=== PATIENT | male | born 1935 | race Caucasian/White ===

== ENCOUNTER 2016-12-15 19:51 | Emergency (ER) | payer MEDICARE, BC ==
--- NOTE | 2016-12-15 20:19 | EDM.PDOC ---
ED HPI GENERAL MEDICAL PROBLEM - General Chief Complaint: General Stated Complaint: LOW BLOOD SUGAR/SHAKING Time Seen by Provider: 12/15/16 20:18 Source of Information: Reports: Patient - History of Present Illness INITIAL COMMENTS - FREE TEXT/NARRATIVE: HISTORY AND PHYSICAL: History of present illness: []Patient with home oxygen dependent COPD presents stating he was "shaky" after dinner he feels he may have taken too much insulin, he does have a resting tremor due to Parkinson's disease denies any other symptomology such as fever nausea vomiting diarrhea constipation chest pain shortness breath headache dizziness or palpitation Despite being on oxygen-dependent patient presents without home oxygen hence his O2 sat was 70 on arrival Review of systems: As per history of present illness and below otherwise all systems reviewed and negative. Past medical history: As per history of present illness and as reviewed below otherwise noncontributory. Surgical history: As per history of present illness and as reviewed below otherwise noncontributory. Social history: No reported history of drug or alcohol abuse. Family history: As per history of present illness and as reviewed below otherwise noncontributory. Physical exam: HEENT: Atraumatic, normocephalic, pupils reactive, negative for conjunctival pallor or scleral icterus, mucous membranes moist, throat clear, neck supple, nontender, trachea midline. Lungs: Clear to auscultation, breath sounds equal bilaterally, chest nontender. Heart: S1S2, regular, negative for clicks, rubs, or JVD. Abdomen: Soft, nondistended, nontender. Negative for masses or hepatosplenomegaly. Negative for costovertebral tenderness. Pelvis: Stable nontender. Genitourinary: Deferred. Rectal: Deferred. Extremities: Atraumatic, negative for cords or calf pain. Neurovascular unremarkable. Neuro: Awake, alert, oriented. Cranial nerves II through XII unremarkable. Cerebellum unremarkable. Motor and sensory unremarkable throughout. Exam nonfocal.Diagnostics: []Chest 1 view EKG Lab as below Therapeutics: []DuoNeb Solu-Medrol 125 mg IV Patient elected to leave AGAINST MEDICAL ADVICE for unknown reason without receiving above treatment or learning any testing results, his family was present at bedside and are aware of the decision and they will be taking him home, patient can certainly return when symptoms persist or worsen Impression: Lower extremities wrapped in [place], this was removed and replaced with [place] wrap Hypoxia secondary to O2 noncompliance Obesity CHF []History of Parkinson's disease with resting tremor Chronic history of baseline Definitive disposition and diagnosis as appropriate pending reevaluation and review of above. no pain Pain Score (Numeric/FACES): 0 - Related Data Allergies Allergy/AdvReac Type Severity Reaction Status Date / Time No Known Allergies Allergy Verified 12/15/16 20:01 Home Meds: Home Meds Aspirin 1 tab PO DAILY 01/21/14 [History] Losartan [Cozaar] 1 tab PO DAILY 01/21/14 [History] Rosuvastatin [Crestor] 1 tab PO DAILY 04/14/14 [History] Furosemide 1 tab PO BID 11/18/15 [History] Insulin Aspart Protam & Aspart [Novolog Mix 70-30 Flexpen Syrn] 100 unit SQ ASDIRECTED 05/23/16 [History] Nystatin [Nystatin Crm] 30 gm TOP BID 05/23/16 [History] Past Medical History HEENT History: Reports: Cataract, Impaired Vision Cardiovascular History: Reports: High Cholesterol, Hypertension, [place], Stents Other Cardiovascular History: Pedal edema Respiratory History: Reports: SOB, Other (See Below) Other Respiratory History: low oxygen Gastrointestinal History: Reports: None Genitourinary History: Reports: None Other Genitourinary History: UTI Musculoskeletal History: Reports: Back Pain, Chronic Neurological History: Reports: None Psychiatric History: Reports: None Endocrine/Metabolic History: Reports: Diabetes, Type II Hematologic History: Reports: None Immunologic History: Reports: None Oncologic (Cancer) History: Reports: None Dermatologic History: Reports: None - Infectious Disease History Infectious Disease History: Reports: Shingles - Past Surgical History Head Surgeries/Procedures: Reports: None HEENT Surgical History: Reports: Eye Surgery Social & Family History - Family History Family Medical History: Noncontributory Dermatologic: Reports: Other (See Below) Other Dermatologic Family History: cellulitis - Tobacco Use Smoking Status *Q: Never Smoker Second Hand Smoke Exposure: No - Caffeine Use Caffeine Use: Reports: Coffee Caffeine Use Comment: 2cups/day - Alcohol Use Days Per Week of Alcohol Use: 0 - Recreational Drug Use Recreational Drug Use: No ED ROS GENERAL - Review of Systems Review Of Systems: ROS reveals no pertinent complaints other than HPI. ED EXAM, GENERAL - Physical Exam Exam: See Below Course - Vital Signs Last Recorded V/S: Last Vital Signs Temp 36.8 C 12/15/16 20:03 Pulse 114 H 12/15/16 20:26 Resp 44 H 12/15/16 20:26 BP 139/73 12/15/16 20:26 Pulse Ox 87 L 12/15/16 20:26 - Orders/Labs/Meds Orders: Active Orders 24 hr Category Date Time Status EKG 12 Lead [EKG Documentation Completion] [RC] STAT Care 12/15/16 19:58 Active RT Aerosol Therapy [RC] ASDIRECTED Care 12/15/16 20:56 Active Chest 1V Frontal [CR] Stat Exams 12/15/16 20:14 Taken UA W/MICROSCOPIC [URIN] Stat Lab 12/15/16 20:14 Uncollected Blood Culture x2 Reflex Set [OM.PC] Stat Oth 12/15/16 20:56 Ordered Labs: Laboratory Tests 12/15/16 12/15/16 12/15/16 Range/Units 20:10 20:10 20:10 WBC 6.19 (4.0-11.0) K/uL RBC 5.00 (4.50-5.90) M/uL Hgb 14.8 (13.0-17.0) g/dL Hct 48.3 (38.0-50.0) % MCV 96.6 (80.0-98.0) fL MCH 29.6 (27.0-32.0) pg MCHC 30.6 L (31.0-37.0) g/dL RDW Std Deviation 56.6 (28.0-62.0) fl RDW Coeff of [place] 16 H (11.0-15.0) % Plt Count 197 (150-400) K/uL MPV 10.80 (7.40-12.00) fL Neut % (Auto) 89.7 H (48.0-80.0) % Lymph % (Auto) 7.4 L (16.0-40.0) % [place] % (Auto) 1.8 (0.0-15.0) % Eos % (Auto) 0.6 (0.0-7.0) % Baso % (Auto) 0.5 (0.0-1.5) % Neut # (Auto) 5.6 (1.4-5.7) K/uL Lymph # (Auto) 0.5 L (0.6-2.4) K/uL [place] # (Auto) 0.1 (0.0-0.8) K/uL Eos # (Auto) 0.0 (0.0-0.7) K/uL Baso # (Auto) 0.0 (0.0-0.1) K/uL Nucleated RBC % 0.0 /100WBC Nucleated RBCs # 0 K/uL Sodium 139 (136-146) mmol/L Potassium 4.5 (3.5-5.1) mmol/L Chloride 95 L (98-110) mmol/L Carbon Dioxide 36 H (21-31) mmol/L BUN 20 (6.0-23.0) mg/dL Creatinine 1.2 (0.6-1.5) mg/dL Est Cr Clr Drug Dosing 53.16 mL/min Estimated GFR (MDRD) 58.4 ml/min Glucose 134 H (60-110) mg/dL Calcium 9.2 (8.8-10.8) mg/dL Total Bilirubin 0.9 (0.1-1.5) mg/dL AST 41 H (5-40) IU/L ALT 14 (8-54) IU/L Alkaline Phosphatase 118 (40-150) Troponin I < 0.10 (0.0-0.29) NG/ML B-Natriuretic Peptide (<100) PG/ML Total Protein 8.7 H (6.0-8.0) g/dL Albumin 3.2 L (3.4-4.8) g/dL Globulin 5.5 H (2.0-3.5) g/dL Albumin/Globulin Ratio 0.6 L (1.3-2.8) 12/15/16 Range/Units 20:31 WBC (4.0-11.0) K/uL RBC (4.50-5.90) M/uL Hgb (13.0-17.0) g/dL Hct (38.0-50.0) % MCV (80.0-98.0) fL MCH (27.0-32.0) pg MCHC (31.0-37.0) g/dL RDW Std Deviation (28.0-62.0) fl RDW Coeff of [place] (11.0-15.0) % Plt Count (150-400) K/uL MPV (7.40-12.00) fL Neut % (Auto) (48.0-80.0) % Lymph % (Auto) (16.0-40.0) % [place] % (Auto) (0.0-15.0) % Eos % (Auto) (0.0-7.0) % Baso % (Auto) (0.0-1.5) % Neut # (Auto) (1.4-5.7) K/uL Lymph # (Auto) (0.6-2.4) K/uL [place] # (Auto) (0.0-0.8) K/uL Eos # (Auto) (0.0-0.7) K/uL Baso # (Auto) (0.0-0.1) K/uL Nucleated RBC % /100WBC Nucleated RBCs # K/uL Sodium (136-146) mmol/L Potassium (3.5-5.1) mmol/L Chloride (98-110) mmol/L Carbon Dioxide (21-31) mmol/L BUN (6.0-23.0) mg/dL Creatinine (0.6-1.5) mg/dL Est Cr Clr Drug Dosing mL/min Estimated GFR (MDRD) ml/min Glucose (60-110) mg/dL Calcium (8.8-10.8) mg/dL Total Bilirubin (0.1-1.5) mg/dL AST (5-40) IU/L ALT (8-54) IU/L Alkaline Phosphatase (40-150) Troponin I (0.0-0.29) NG/ML B-Natriuretic Peptide 141 H (<100) PG/ML Total Protein (6.0-8.0) g/dL Albumin (3.4-4.8) g/dL Globulin (2.0-3.5) g/dL Albumin/Globulin Ratio (1.3-2.8) Meds: Medications Discontinued Medications Generic Name Dose Route Start Last Admin Trade Name Freq PRN Reason Stop Dose Admin Albuterol/Ipratropium 3 ml 12/15/16 20:55 Duoneb 3.0-0.5 Mg/3 Ml NEB 12/15/16 20:56 ONETIME ONE Methylprednisolone Sodium Succinate 125 mg 12/15/16 20:55 Solu-Medrol IVPUSH 12/15/16 20:56 ONETIME ONE Departure - Departure Time of Disposition: 21:10 Disposition: Against Medical Advice 07 Condition: Poor Clinical Impression: Hypoxia, CHF (congestive heart failure) - Discharge Information Referrals: Adis Mendoza MD [Primary Care Provider] - Forms: ED Department Discharge - My Orders Last 24 Hours: My Active Orders 12/15/16 19:58 EKG 12 Lead [EKG Documentation Completion] [RC] STAT 12/15/16 20:14 Chest 1V Frontal [CR] Stat UA W/MICROSCOPIC [URIN] Stat 12/15/16 20:56 RT Aerosol Therapy [RC] ASDIRECTED Blood Culture x2 Reflex Set [OM.PC] Stat - Assessment/Plan Last 24 Hours: My Active Orders 12/15/16 19:58 EKG 12 Lead [EKG Documentation Completion] [RC] STAT 12/15/16 20:14 Chest 1V Frontal [CR] Stat UA W/MICROSCOPIC [URIN] Stat 12/15/16 20:56 RT Aerosol Therapy [RC] ASDIRECTED Blood Culture x2 Reflex Set [OM.PC] Stat
[2016-12-15 20:28] VITALS: BP 139/73
[2016-12-15] MEDS ORDERED: Albuterol/Ipratropium 3.0-0.5 MG/3 ML Neb Soln NEB ONE (20:55)
[2016-12-15] MEDS ORDERED: methylPREDNISolone Sodium Succinate 125 MG/2 ML SDV IVPUSH ONE (20:55)
--- NOTE | 2016-12-16 10:50 | CR ---
EXAM DATE: 12/15/16 PATIENT'S AGE: 81 Patient: MORGAN BIRD Facility: [place], [place] Site . Site : [id number] Study: XRay Chest [id number]/11/2017 8:45:39 PM Ordering Physician: Hector Melvin Final Report: HISTORY: Weakness. FINDINGS: AP chest radiograph is compared with 27 August 2013. There is increasing cardiomegaly. Pulmonary vasculature is plump and ill-defined. There is hazy increased density in the left lower lung field. Calcified pleural plaques in the right lateral thorax. No definite pleural effusion is seen. IMPRESSION: 1. New cardiomegaly with plump ill-defined pulmonary vasculature suggesting pulmonary venous congestion. 2. Increased density in the left base. This may reflect left lower lobe infiltrate or pulmonary edema. 3. No definite pleural effusion is seen. Dictated by Maria Guadalupe Medeiros MD @ 12/15/2016 8:51:28 PM Dictated by: Maria Guadalupe Medeiros MD @ 12/15/2016 20:51:38 (Electronic Signature) Report Signed by Proxy. [facility]ENTER[facility]any
== END 2016-12-15 21:01 | disposition left against medical advice (07) ==
LOC: MW.ED 19:51
DX: R09.02 Hypoxemia (principal); I50.9 Heart failure, unspecified; J44.9 Chronic obstructive pulmonary disease, unspecified; E78.00 Pure hypercholesterolemia, unspecified; I10 Essential (primary) hypertension; I25.10 Atherosclerotic heart disease of native coronary artery without angina pectoris; G20 Parkinson's disease; Z99.81 Dependence on supplemental oxygen; I25.2 Old myocardial infarction; Z79.899 Other long term (current) drug therapy; Z79.4 Long term (current) use of insulin; Z95.5 Presence of coronary angioplasty implant and graft
CPT/HCPCS: 36415; 71010; 71010-26; 80053; 83880; 84484; 85025; 93005; 99283; 99285-25

== ENCOUNTER 2017-01-29 08:50 | Inpatient (IN) | payer MEDICARE, BC ==
[2017-01-29] MEDS ORDERED: methylPREDNISolone Sodium Succinate 125 MG/2 ML SDV IVPUSH ONE (09:01)
[2017-01-29] MEDS ORDERED: Albuterol/Ipratropium 3.0-0.5 MG/3 ML Neb Soln NEB ONE (09:01)
[2017-01-29] MEDS ORDERED: Aspirin 325 MG Tab PO ONE (09:42)
[2017-01-29 09:43] LABS: CHLORIDE,CL 91 mmol/L (98-110); SODIUM,NA 133 mmol/L (136-146)
--- NOTE | 2017-01-29 09:45 | EDM.PDOC ---
ED HPI GENERAL MEDICAL PROBLEM - General Chief Complaint: Respiratory Problem Stated Complaint: weakness Time Seen by Provider: 01/29/17 08:53 - History of Present Illness INITIAL COMMENTS - FREE TEXT/NARRATIVE: HISTORY AND PHYSICAL: History of present illness: 82-year-old male with a known history of COPD, CHF, dementia presenting with a chief complaint of weakness via EMS. Patient is a poor historian. Via EMS handoff, patient is in the middle of disposition to [facility] placement. However was not able to secondary to weakness and a possible fall as well this morning. As per the patient, he tells me that he did have a fall this morning he 's had a few falls the past few days. Denies any chest pain, shortness of breath beyond baseline, or any nausea or vomiting. Review of systems: As per history of present illness and below otherwise all systems reviewed and negative. Past medical history: As per history of present illness and as reviewed below otherwise noncontributory. Surgical history: As per history of present illness and as reviewed below otherwise noncontributory. Social history: No reported history of drug or alcohol abuse. Family history: As per history of present illness and as reviewed below otherwise noncontributory. Physical exam: HEENT: Atraumatic, normocephalic, pupils reactive, negative for conjunctival pallor or scleral icterus, mucous membranes moist, throat clear, neck supple, nontender, trachea midline. Lungs: Clear to auscultation, breath sounds equal bilaterally, chest nontender. Heart: S1S2, regular, negative for clicks, rubs, or JVD. Abdomen: Soft, nondistended, nontender. Negative for masses or hepatosplenomegaly. Negative for costovertebral tenderness. Pelvis: Stable nontender. Genitourinary: Deferred. Rectal: Deferred. Extremities: Atraumatic, negative for cords or calf pain. Neurovascular unremarkable. Neuro: Awake, alert, oriented. Cranial nerves II through XII unremarkable. Cerebellum unremarkable. Motor and sensory unremarkable throughout. Exam nonfocal. Diagnostics: CBC CMP troponin EKG chest x-ray BNP Therapeutics: 325 mg aspirin 125 mg IV Solu-Medrol DuoNeb 1 Impression: CHF exacerbation Elevated troponin History of COPD History of CHF Plan: Admit as an inpatient. Discussed case with resident physician who agrees to admit the patient for observation on telemetry. Bilateral Leg Pain Score (Numeric/FACES): 8 - Related Data Allergies Allergy/AdvReac Type Severity Reaction Status Date / Time No Known Allergies Allergy Verified 01/29/17 09:11 Home Meds: Home Meds Aspirin 325 mg PO DAILY 01/21/14 [History] Losartan [Cozaar] 25 mg PO DAILY 01/21/14 [History] Rosuvastatin [Crestor] 20 mg PO DAILY 04/14/14 [History] Furosemide 80 mg PO DAILY 11/18/15 [History] Insulin Aspart Protam & Aspart [Novolog Mix 70-30 Flexpen Syrn] 40 unit SQ BID 05/23/16 [History] Past Medical History HEENT History: Reports: Cataract, Impaired Vision Cardiovascular History: Reports: High Cholesterol, Hypertension, [place], Stents Other Cardiovascular History: Pedal edema Respiratory History: Reports: SOB, Other (See Below) Other Respiratory History: low oxygen; on home 02 at 4lpm Gastrointestinal History: Reports: None Genitourinary History: Reports: None Other Genitourinary History: UTI Musculoskeletal History: Reports: Back Pain, Chronic Neurological History: Reports: None Psychiatric History: Reports: None Endocrine/Metabolic History: Reports: Diabetes, Type II Hematologic History: Reports: None Immunologic History: Reports: None Oncologic (Cancer) History: Reports: None Dermatologic History: Reports: None - Infectious Disease History Infectious Disease History: Reports: Shingles - Past Surgical History Head Surgeries/Procedures: Reports: None HEENT Surgical History: Reports: Eye Surgery Respiratory Surgical History: Reports: None Male Surgical History: Reports: None Endocrine Surgical History: Reports: None Musculoskeletal Surgical History: Reports: None Social & Family History - Family History Family Medical History: Noncontributory Dermatologic: Reports: Other (See Below) Other Dermatologic Family History: cellulitis - Tobacco Use Smoking Status *Q: Never Smoker Second Hand Smoke Exposure: No - Caffeine Use Caffeine Use: Reports: Soda Caffeine Use Comment: 1-2drinks/day - Alcohol Use Days Per Week of Alcohol Use: 0 - Recreational Drug Use Recreational Drug Use: No ED ROS GENERAL - Review of Systems Review Of Systems: See Below (see dictation) ED EXAM, GENERAL - Physical Exam Exam: See Below (see dictation) Course - Vital Signs Text/Narrative:: This is a 82-year-old male with an extensive past medical history including but not limited to COPD, CHF, probably by dementia who presented with a chief complaint DA EMS of weakness. Patient was worked up from a cardiac standpoint along with a possible fall prior to arrival for which a CT of the head was ordered. EKG was unremarkable, however to note the patient did have an elevated troponin of 0.15 and a BNP of 279. In the ED, he was given IV 125mg solu-medrol , douneb x1, 325mg aspirin. The patient was then discussed with the hospitalist physician, who agreed to admit to observation for further management. Last Recorded V/S: Last Vital Signs Temp 36.3 C 01/29/17 10:42 Pulse 125 H 01/29/17 10:42 Resp 22 H 01/29/17 10:42 BP 123/67 01/29/17 10:42 Pulse Ox 94 L 01/29/17 10:42 - Orders/Labs/Meds Orders: Active Orders 24 hr Category Date Time Status Admission Status [Patient Status] [ADT] Stat ADT 01/29/17 10:40 Active EKG Documentation Completion [RC] STAT Care 01/29/17 08:57 Active RT Aerosol Therapy [RC] ASDIRECTED Care 01/29/17 09:01 Active UA W/MICROSCOPIC [URIN] Stat Lab 01/29/17 08:59 Uncollected Labs: Laboratory Tests 01/29/17 01/29/17 01/29/17 Range/Units 09:08 09:08 09:08 WBC 15.65 H (4.0-11.0) K/uL RBC 4.97 (4.50-5.90) M/uL Hgb 13.8 (13.0-17.0) g/dL Hct 44.0 (38.0-50.0) % MCV 88.5 (80.0-98.0) fL MCH 27.8 (27.0-32.0) pg MCHC 31.4 (31.0-37.0) g/dL RDW Std Deviation 54.2 (28.0-62.0) fl RDW Coeff of [place] 17 H (11.0-15.0) % Plt Count 172 (150-400) K/uL MPV 11.30 (7.40-12.00) fL Add Manual Diff YES Neutrophils % (Manual) 82 H (48.0-80.0) % Band Neutrophils % 3 % Lymphocytes % (Manual) 11 L (16.0-40.0) % Monocytes % (Manual) 3 (0.0-15.0) % Metamyelocytes % 1 % Nucleated RBC % 0.0 /100WBC Absolute Seg Neuts 12.8 Band Neutrophils # 0.5 Lymphocytes # (Manual) 1.7 Monocytes # (Manual) 0.5 Absolute Metamyelocyte 0.2 Nucleated RBCs # 0 K/uL INR 1.13 H (0.86-1.11) Sodium 133 L (136-146) mmol/L Potassium 4.4 (3.5-5.1) mmol/L Chloride 91 L (98-110) mmol/L Carbon Dioxide 33 H (21-31) mmol/L BUN 80 H (6.0-23.0) mg/dL Creatinine 2.0 H (0.6-1.5) mg/dL Est Cr Clr Drug Dosing TNP Estimated GFR (MDRD) 32.3 ml/min Glucose 106 (60-110) mg/dL POC Glucose (60-110) mg/dL Calcium 9.0 (8.8-10.8) mg/dL Total Bilirubin 1.2 (0.1-1.5) mg/dL AST 65 H (5-40) IU/L ALT 22 (8-54) IU/L Alkaline Phosphatase 122 (40-150) Troponin I (0.0-0.29) NG/ML B-Natriuretic Peptide (<100) PG/ML Total Protein 7.7 (6.0-8.0) g/dL Albumin 2.8 L (3.4-4.8) g/dL Globulin 4.9 H (2.0-3.5) g/dL Albumin/Globulin Ratio 0.6 L (1.3-2.8) Lipase 17 (7-80) U/L 01/29/17 01/29/17 01/29/17 Range/Units 09:08 09:08 09:28 WBC (4.0-11.0) K/uL RBC (4.50-5.90) M/uL Hgb (13.0-17.0) g/dL Hct (38.0-50.0) % MCV (80.0-98.0) fL MCH (27.0-32.0) pg MCHC (31.0-37.0) g/dL RDW Std Deviation (28.0-62.0) fl RDW Coeff of [place] (11.0-15.0) % Plt Count (150-400) K/uL MPV (7.40-12.00) fL Add Manual Diff Neutrophils % (Manual) (48.0-80.0) % Band Neutrophils % % Lymphocytes % (Manual) (16.0-40.0) % Monocytes % (Manual) (0.0-15.0) % Metamyelocytes % % Nucleated RBC % /100WBC Absolute Seg Neuts Band Neutrophils # Lymphocytes # (Manual) Monocytes # (Manual) Absolute Metamyelocyte Nucleated RBCs # K/uL INR (0.86-1.11) Sodium (136-146) mmol/L Potassium (3.5-5.1) mmol/L Chloride (98-110) mmol/L Carbon Dioxide (21-31) mmol/L BUN (6.0-23.0) mg/dL Creatinine (0.6-1.5) mg/dL Est Cr Clr Drug Dosing Estimated GFR (MDRD) ml/min Glucose (60-110) mg/dL POC Glucose 98 (60-110) mg/dL Calcium (8.8-10.8) mg/dL Total Bilirubin (0.1-1.5) mg/dL AST (5-40) IU/L ALT (8-54) IU/L Alkaline Phosphatase (40-150) Troponin I 0.15 (0.0-0.29) NG/ML B-Natriuretic Peptide 279 H (<100) PG/ML Total Protein (6.0-8.0) g/dL Albumin (3.4-4.8) g/dL Globulin (2.0-3.5) g/dL Albumin/Globulin Ratio (1.3-2.8) Lipase (7-80) U/L Meds: Medications Discontinued Medications Generic Name Dose Route Start Last Admin Trade Name Freq PRN Reason Stop Dose Admin Albuterol/Ipratropium 3 ml 01/29/17 09:01 01/29/17 09:19 Duoneb 3.0-0.5 Mg/3 Ml NEB 01/29/17 09:02 3 ml ONETIME ONE Administration Aspirin 325 mg 01/29/17 09:42 Aspirin PO 01/29/17 09:43 ONETIME ONE Methylprednisolone Sodium Succinate 125 mg 01/29/17 09:01 01/29/17 09:32 Solu-Medrol IVPUSH 01/29/17 09:02 125 mg ONETIME ONE Administration Departure - Departure Time of Disposition: 11:28 Disposition: Admitted As Inpatient 68 Condition: Fair Clinical Impression: Acute exacerbation of congestive heart failure, Elevated troponin - Discharge Information Referrals: PCP,None [Primary Care Provider] - Forms: ED Department Discharge - My Orders Last 24 Hours: My Active Orders 01/29/17 08:57 EKG Documentation Completion [RC] STAT 01/29/17 08:59 UA W/MICROSCOPIC [URIN] Stat 01/29/17 09:01 RT Aerosol Therapy [RC] ASDIRECTED 01/29/17 10:40 Admission Status [Patient Status] [ADT] Stat - Assessment/Plan Last 24 Hours: My Active Orders 01/29/17 08:57 EKG Documentation Completion [RC] STAT 01/29/17 08:59 UA W/MICROSCOPIC [URIN] Stat 01/29/17 09:01 RT Aerosol Therapy [RC] ASDIRECTED 01/29/17 10:40 Admission Status [Patient Status] [ADT] Stat
--- NOTE | 2017-01-29 10:32 | CR ---
EXAMINATION: Two-view chest (PA and Lateral views). HISTORY: Shortness of breath. FINDINGS: The trachea is midline. The cardiomediastinal silhouette is within normal limits. There is persistent atelectasis and/or scarring within the left suprahilar region. Mild left basilar atelectasis and/or infiltrate. Osseous structures appear unremarkable. IMPRESSION: 1. Mild left basilar atelectasis and/or infiltrate. 2. Stable left suprahilar atelectasis and/or scarring.
--- NOTE | 2017-01-29 10:46 | CT ---
EXAMINATION: Non contrast CT head. Coronal and sagittal reformats. HISTORY: Fall FINDINGS: No evidence of intra or extra axial hemorrhage, mass, midline shift, hydrocephalus or edema. Mild ge neralized atrophy and periventricular lucencies noted. No hypoattenuation changes in the major vascular territories to suggest acute infarct. No abnormal intracranial calcifications are detected. Mild vascular calcifications noted. Paranasal sinuses and mastoid air cells are well aerated without substantial findings. Pituitary fossa appears unremarkable. The orbits and globes are symmetric. Calvarium is intact. No evidence of skull fracture. Remote nasal bone fractures noted. IMPRESSION: No acute intracranial findings.
[2017-01-29] MEDS ORDERED: Sodium Chloride 0.9% 2.5 ML Syringe FLUSH PRN (13:48)
[2017-01-29] MEDS ORDERED: Furosemide 40 MG/4 ML VIAL IVPUSH ONE (13:48)
[2017-01-29] MEDS ORDERED: Acetaminophen 325 MG Tab PO PRN (13:48)
[2017-01-29] MEDS ORDERED: Sodium Chloride 0.9% 10 ML Syringe FLUSH PRN (13:48)
[2017-01-29] MEDS ORDERED: Enoxaparin 40 MG/0.4 ML Syringe SUBCUT SCH (14:00)
[2017-01-29] MEDS ORDERED: Fluconazole/Dextrose 200 MG in Premix Bag 1 BAG IV ONE (15:00)
[2017-01-29] MEDS: cefTRIAXone 1 GM in Premix Bag 1 BAG IV SCH (15:42)
[2017-01-29] MEDS: Nystatin Topical Powder 15 GM Bottle TOP SCH ×2 (15:43→21:42)
[2017-01-29] MEDS ORDERED: Metoprolol Tartrate 5 MG/5 ML SDV IVPUSH ONE (15:52)
[2017-01-29] MEDS: Azithromycin 500 MG in Sodium Chloride 0.9% 250 ML IV SCH (16:26)
[2017-01-29] MEDS: Insulin Aspart 100 Units/ML 3 ML Pen SUBCUT SCH ×2 (19:04→21:29)
[2017-01-29] MEDS: Metoprolol Tartrate 5 MG/5 ML SDV IVPUSH PRN (19:47)
--- NOTE | 2017-01-29 20:13 | PCM.HP ---
H&P History of Present Illness - General Date of Service: 01/29/17 - History of Present Illness Initial Comments - Free Text/Narative: This is an 82-year-old gentleman who is being admitted secondary to weakness and a fall that he occurred today. Patient was about to go to [facility] when he states that he was being helped up from his wheelchair by his daughter and son, however he ended up falling. As a result the patient was taken to the ER where he was found to have an elevated WBC of 15.65 primarily neutrophilic in nature, as well as a elevated BNP of 279, he also had bilateral leg swelling/edema and was also found to have a creatinine of 2.0 and a B UN of 80. Chest x-ray indicated a pneumonia type process. When asking the patient if he had any recent cough or fevers he denied them however he did state that he was beginning [address]. Up recently. Patient indicates that he is only had a stent placed and does not have any known history of congestive heart failure or any UT. Patient is on oxygen at home done so by home care and PCP however he does not have any medications or diagnosis of COPD. Plan visual inspecting the patient is noted that he has erythema and pitting edema to his knees. The patient also smelled of urine and when assessing his abdomen and genital area he was found to have a fungal rash and likely urea khan secondary to urinating on himself. Patient was also found to have stage II decubitus ulcers on his sacral area. ER course: Patient was given 1 dose of IV 125 mg Solu-Medrol, 1 DuoNeb, 325 mg aspirin, as well as a CBC and CMP drawn, a BNP, and a chest x-ray. Onset of Symptoms: Reports: Gradual Bilateral Leg Pain Score (Numeric/FACES): 6 - Related Data Allergies/Adverse Reactions: Allergies Allergy/AdvReac Type Severity Reaction Status Date / Time No Known Allergies Allergy Verified 01/29/17 09:11 Home Medications: Home Meds Aspirin 325 mg PO DAILY 01/21/14 [History] Losartan [Cozaar] 25 mg PO DAILY 01/21/14 [History] Rosuvastatin [Crestor] 20 mg PO DAILY 04/14/14 [History] Furosemide 80 mg PO DAILY 11/18/15 [History] Insulin Aspart Protam & Aspart [Novolog Mix 70-30 Flexpen Syrn] 40 unit SQ BID 05/23/16 [History] Past Medical History HEENT History: Reports: Cataract, Impaired Vision Cardiovascular History: Reports: High Cholesterol, Hypertension, UT, Stents Other Cardiovascular History: Pedal edema Respiratory History: Reports: Pneumonia, Recurrent, SOB, Other (See Below) Other Respiratory History: low oxygen; on home 02 at 4lpm Gastrointestinal History: Reports: Chronic Constipation Genitourinary History: Reports: UTI, Recurrent Other Genitourinary History: UTI Musculoskeletal History: Reports: Back Pain, Chronic Neurological History: Reports: None Psychiatric History: Reports: Dementia Endocrine/Metabolic History: Reports: Diabetes, Type II Hematologic History: Reports: None Immunologic History: Reports: None Oncologic (Cancer) History: Reports: None Dermatologic History: Reports: Cellulitis, Chronic Cellulitis - Infectious Disease History Infectious Disease History: Reports: Shingles - Past Surgical History Head Surgeries/Procedures: Reports: None HEENT Surgical History: Reports: Eye Surgery Respiratory Surgical History: Reports: None GI Surgical History: Reports: None Male Surgical History: Reports: None Endocrine Surgical History: Reports: None Musculoskeletal Surgical History: Reports: None Social & Family History - Family History Family Medical History: Noncontributory Dermatologic: Reports: Other (See Below) Other Dermatologic Family History: cellulitis - Tobacco Use Smoking Status *Q: Never Smoker Second Hand Smoke Exposure: No - Caffeine Use Caffeine Use: Reports: Coffee Caffeine Use Comment: 1-2drinks/day - Alcohol Use Days Per Week of Alcohol Use: 0 - Recreational Drug Use Recreational Drug Use: No H&P Review of Systems - Review of Systems: Review Of Systems: ROS reveals no pertinent complaints other than HPI. General: Reports: Weakness Exam - Exam Exam: See Below - Vital Signs Vital Signs: Last Vital Signs Temp 36.6 C 01/29/17 16:00 Pulse 118 H 01/29/17 19:47 Resp 20 01/29/17 16:00 BP 123/82 01/29/17 19:47 Pulse Ox 92 L 01/29/17 16:00 Weight: 240.4 kg - Exam Quality Assessment: Supplemental Oxygen General: Alert, Cooperative Lungs: Decreased Breath Sounds Cardiovascular: Regular Rate GI/Abdominal Exam: Normal Bowel Sounds, Soft, Non-Tender (Male) Exam: Rash, Other (Patient has severe uremia khan/fungal rash in the inguinal and lower abdominal area as well as anterior thighs) Rectal (Males) Exam: Other (Able to appreciate what look like stage II pressure ulcers) Extremities: Joint Swelling, Increased Warmth, Mottled, Redness, Other ( Bilateral pitting edema up to the knees, erythema, fungal type rash anterior thighs) Skin: Rash - Patient Data Lab Results Last 24 hrs: Laboratory Results - last 24 hr 01/29/17 01/29/17 01/29/17 Range/Units 13:34 14:11 14:21 Lactate 1.3 (0.20-2.00) mmol/L POC Glucose 163 H (60-110) mg/dL Urine Color DARK YELLOW Urine Appearance CLEAR Urine pH 5.0 (5.0-8.0) Ur Specific [place] 1.020 (1.001-1.035) Urine Protein NEGATIVE (NEGATIVE) mg/dL Urine Glucose (UA) NEGATIVE (NEGATIVE) mg/dL Urine Ketones NEGATIVE (NEGATIVE) mg/dL Urine Occult Blood NEGATIVE (NEGATIVE) Urine Nitrite NEGATIVE (NEGATIVE) Urine Bilirubin NEGATIVE (NEGATIVE) Urine Urobilinogen 0.2 (<2.0) EU/dL Ur Leukocyte Esterase TRACE (NEGATIVE) Urine RBC NONE SEEN (0-2/HPF) Urine WBC 0-2 (0-5/HPF) Ur Epithelial Cells RARE (NONE-FEW) Urine Bacteria FEW (NEGATIVE) Urine Mucus LIGHT (NONE-MOD) Result Diagrams: 01/29/17 09:08 01/29/17 09:08 Nathaniel Results Last 24 hrs: Microbiology 01/29/17 14:21 Streptococcus pneumoniae Ag Screen - Final Urine 01/29/17 14:21 Legionella Antigen - Final Urine, Voided 01/29/17 15:14 Anaerobic Blood Culture - Final Blood - Venous - Lab Draw 01/29/17 15:08 Anaerobic Blood Culture - Final Blood - Venous *Q Meaningful Use (ADM) - VTE *Q VTE Criteria *Q: - Stroke *Q Stroke Criteria *Q: - AMI *Q AMI Criteria *Q: Problem List Initiated/Reviewed/Updated: Yes Orders Last 24hrs: Active Orders 24 hr Category Date Time Status Blood Glucose Check, Bedside [RC] QIDACANDBED Care 01/29/17 13:48 Active EKG Documentation Completion [RC] STAT Care 01/29/17 13:59 Active Height and Weight [RC] DAILY Care 01/29/17 13:48 Active Insert Villarreal Catheter [Insert Urinary Catheter] [OM.PC] Care 01/29/17 18:45 Ordered Q24H Intake and Output [RC] QSHIFT Care 01/29/17 13:49 Active Notify Provider Vital Signs [RC] ASDIRECTED Care 01/29/17 13:49 Active Oxygen Therapy [RC] PRN Care 01/29/17 13:48 Active Pulse Oximetry [RC] PRN Care 01/29/17 13:49 Active Telemetry Monitoring [Cardiac Monitoring] [RC] Q8H Care 01/29/17 17:41 Active Up With Assistance [RC] ASDIRECTED Care 01/29/17 13:48 Active Urinary Catheter Assessment [RC] ASDIRECTED Care 01/29/17 18:32 Active VTE/DVT Education [RC] PER UNIT ROUTINE Care 01/29/17 13:48 Active Vital Signs [RC] Q4H Care 01/29/17 13:48 Active [employer] Diet [DIET] Diet 01/29/17 Breakfast Active Echo Comp wo Cont [US] Routine Exams 01/29/17 13:48 Taken BASIC METABOLIC PANEL,BMP [CHEM] AM Lab 01/30/17 05:11 Ordered CBC WITH AUTO DIFF [HEME] AM Lab 01/30/17 05:11 Ordered CULTURE BLOOD [BC] Stat Lab 01/29/17 15:08 Results CULTURE BLOOD [BC] Stat Lab 01/29/17 15:14 Results CULTURE SPUTUM + SMEAR [RM] Stat Lab 01/29/17 13:48 Uncollected Acetaminophen [Tylenol] Med 01/29/17 13:48 Active 650 mg PO Q4H PRN Azithromycin [Zithromax] 500 mg Med 01/29/17 14:00 Active Sodium Chloride 0.9% [Normal Saline] 250 ml IV Q24H Enoxaparin [Lovenox] Med 01/29/17 14:00 Active 40 mg SUBCUT Q24H Insulin Aspart [NovoLOG] Med 01/29/17 18:31 Active See Protocol SUBCUT QIDACANDBED Metoprolol Tartrate [Lopressor] Med 01/29/17 18:33 Active 5 mg IVPUSH Q1H PRN Nystatin [Nystop] Med 01/29/17 14:00 Active 1 gm TOP TID Sodium Chloride 0.9% [Saline Flush] Med 01/29/17 13:48 Active 10 ml FLUSH ASDIRECTED PRN Sodium Chloride 0.9% [Saline Flush] Med 01/29/17 13:48 Active 2.5 ml FLUSH ASDIRECTED PRN cefTRIAXone [Rocephin in Dextrose,Iso-Osm 1 GM/50 ML] 1 Med 01/29/17 14:00 Active gm Premix Bag 1 bag IV Q24H Blood Culture x2 Reflex Set [OM.PC] Stat Ot 01/29/17 13:48 Ordered Peripheral IV Insertion Adult [OM.PC] Routine Oth 01/29/17 13:48 Ordered Saline Lock Insert [OM.PC] Routine Oth 01/29/17 13:48 Ordered Resuscitation Status Routine Resus Stat 01/29/17 13:48 Ordered Medication Orders Acetaminophen (Tylenol) 650 mg PO Q4H PRN PRN Reason: Pain (Mild 1-3)/fever Enoxaparin Sodium (Lovenox) 40 mg SUBCUT Q24H [facility] Last Admin: 01/29/17 15:44 Dose: 40 mg Azithromycin 500 mg/ Sodium (Chloride) 250 mls @ 250 mls/hr IV Q24H [facility] Last Admin: 01/29/17 16:26 Dose: 250 mls/hr Ceftriaxone Sodium/Dextrose 1 (gm/ Premix) 50 mls @ 100 mls/hr IV Q24H [facility] Last Admin: 01/29/17 15:42 Dose: 100 mls/hr Insulin Aspart (Novolog) 0 unit SUBCUT QIDACANDBED [facility] PRN Reason: Protocol Last Admin: 01/29/17 19:04 Dose: 8 units Metoprolol Tartrate (Lopressor) 5 mg IVPUSH Q1H PRN PRN Reason: Tachycardia Last Admin: 01/29/17 19:47 Dose: 5 mg Nystatin (Nystop) 1 gm TOP TID [facility] Last Admin: 01/29/17 15:43 Dose: 1 applic Sodium Chloride (Saline Flush) 10 ml FLUSH ASDIRECTED PRN PRN Reason: Keep Vein Open Sodium Chloride (Saline Flush) 2.5 ml FLUSH ASDIRECTED PRN PRN Reason: Keep Vein Open Assessment/Plan Comment:: This is a 82-year-old male admitted for weakness, falls, elevated white count as well as an elevated BNP, inguinal/anterior thigh rashes most likely etiology is fluid overload possibly due to heart failure along with a possible concurrent pneumonia, along with urea khan and fungal rash of the anterior thighs and inguinal area. #1. Elevated WBC with a chest x-ray indicating possible infiltrate - Azithromycin as well as ceftriaxone -These antibiotics will cover his respiratory symptoms along with covering the patient's rash for possible cellulitis - Blood culture and sputum culture pending #2. Fluid overload rule out heart failure -Lasix 40 mg IV -Echocardiogram to assess for heart failure #3. Urea khan/fungal rash versus cellulitis - Patient given a one-time dose of Diflucan IV, along with topical nystatin 3 times a day, patient also being covered with Rocephin which should cover any possible cellulitis #4. Patient is noted to have a elevated heart rate - Telemetry along with IV Lopressor 5 mg every hour for a heart rate above 110 when necessary #5. Pressure ulcers -Wound care, pressure ulcer protocol #6. Type 2 diabetes Insulin sliding scale moderate Patient to be admitted greater than 2 midnights inpatient status
[2017-01-30] MEDS: Nystatin Topical Powder 15 GM Bottle TOP SCH ×3 (04:59→21:29)
[2017-01-30] MEDS: Insulin Aspart 100 Units/ML 3 ML Pen SUBCUT SCH ×4 (07:29→21:31)
--- NOTE | 2017-01-30 11:26 | PCM.PN ---
- Review of Systems Systems Review Comment:: feels pretty good - Patient Data Vitals - Most Recent: Last Vital Signs Temp 35.9 C 01/30/17 08:00 Pulse 103 H 01/30/17 08:00 Resp 22 H 01/30/17 08:00 BP 136/77 01/30/17 08:00 Pulse Ox 97 01/30/17 08:00 Weight - Most Recent: 240.4 kg I&O - Last 24 Hours: Intake & Output 01/29/17 01/30/17 01/30/17 22:59 06:59 14:59 Intake Total 420 400 Output Total 200 750 Balance 220 -350 Lab Results Last 24 Hours: Laboratory Results - last 24 hr 01/29/17 01/29/17 01/29/17 Range/Units 13:34 14:11 14:21 WBC (4.0-11.0) K/uL RBC (4.50-5.90) M/uL Hgb (13.0-17.0) g/dL Hct (38.0-50.0) % MCV (80.0-98.0) fL MCH (27.0-32.0) pg MCHC (31.0-37.0) g/dL RDW Std Deviation (28.0-62.0) fl RDW Coeff of [place] (11.0-15.0) % Plt Count (150-400) K/uL MPV (7.40-12.00) fL Add Manual Diff Neutrophils % (Manual) (48.0-80.0) % Band Neutrophils % % Lymphocytes % (Manual) (16.0-40.0) % Monocytes % (Manual) (0.0-15.0) % Nucleated RBC % /100WBC Absolute Seg Neuts Band Neutrophils # Lymphocytes # (Manual) Monocytes # (Manual) Nucleated RBCs # K/uL Lactate 1.3 (0.20-2.00) mmol/L Sodium (136-146) mmol/L Potassium (3.5-5.1) mmol/L Chloride (98-110) mmol/L Carbon Dioxide (21-31) mmol/L BUN (6.0-23.0) mg/dL Creatinine (0.6-1.5) mg/dL Est Cr Clr Drug Dosing mL/min Estimated GFR (MDRD) ml/min Glucose (60-110) mg/dL POC Glucose 163 H (60-110) mg/dL Calcium (8.8-10.8) mg/dL Urine Color DARK YELLOW Urine Appearance CLEAR Urine pH 5.0 (5.0-8.0) Ur Specific [place] 1.020 (1.001-1.035) Urine Protein NEGATIVE (NEGATIVE) mg/dL Urine Glucose (UA) NEGATIVE (NEGATIVE) mg/dL Urine Ketones NEGATIVE (NEGATIVE) mg/dL Urine Occult Blood NEGATIVE (NEGATIVE) Urine Nitrite NEGATIVE (NEGATIVE) Urine Bilirubin NEGATIVE (NEGATIVE) Urine Urobilinogen 0.2 (<2.0) EU/dL Ur Leukocyte Esterase TRACE (NEGATIVE) Urine RBC NONE SEEN (0-2/HPF) Urine WBC 0-2 (0-5/HPF) Ur Epithelial Cells RARE (NONE-FEW) Urine Bacteria FEW (NEGATIVE) Urine Mucus LIGHT (NONE-MOD) 01/29/17 01/29/17 01/30/17 Range/Units 17:30 21:08 05:03 WBC 14.91 H (4.0-11.0) K/uL RBC 5.10 (4.50-5.90) M/uL Hgb 14.1 (13.0-17.0) g/dL Hct 44.5 (38.0-50.0) % MCV 87.3 (80.0-98.0) fL MCH 27.6 (27.0-32.0) pg MCHC 31.7 (31.0-37.0) g/dL RDW Std Deviation 52.0 (28.0-62.0) fl RDW Coeff of [place] 16 H (11.0-15.0) % Plt Count 196 (150-400) K/uL MPV 11.40 (7.40-12.00) fL Add Manual Diff YES Neutrophils % (Manual) 82 H (48.0-80.0) % Band Neutrophils % 3 % Lymphocytes % (Manual) 10 L (16.0-40.0) % Monocytes % (Manual) 5 (0.0-15.0) % Nucleated RBC % 0.0 /100WBC Absolute Seg Neuts 12.2 Band Neutrophils # 0.4 Lymphocytes # (Manual) 1.5 Monocytes # (Manual) 0.7 Nucleated RBCs # 0 K/uL Lactate (0.20-2.00) mmol/L Sodium (136-146) mmol/L Potassium (3.5-5.1) mmol/L Chloride (98-110) mmol/L Carbon Dioxide (21-31) mmol/L BUN (6.0-23.0) mg/dL Creatinine (0.6-1.5) mg/dL Est Cr Clr Drug Dosing mL/min Estimated GFR (MDRD) ml/min Glucose (60-110) mg/dL POC Glucose 342 H 359 H (60-110) mg/dL Calcium (8.8-10.8) mg/dL Urine Color Urine Appearance Urine pH (5.0-8.0) Ur Specific [place] (1.001-1.035) Urine Protein (NEGATIVE) mg/dL Urine Glucose (UA) (NEGATIVE) mg/dL Urine Ketones (NEGATIVE) mg/dL Urine Occult Blood (NEGATIVE) Urine Nitrite (NEGATIVE) Urine Bilirubin (NEGATIVE) Urine Urobilinogen (<2.0) EU/dL Ur Leukocyte Esterase (NEGATIVE) Urine RBC (0-2/HPF) Urine WBC (0-5/HPF) Ur Epithelial Cells (NONE-FEW) Urine Bacteria (NEGATIVE) Urine Mucus (NONE-MOD) 01/30/17 Range/Units 05:03 WBC (4.0-11.0) K/uL RBC (4.50-5.90) M/uL Hgb (13.0-17.0) g/dL Hct (38.0-50.0) % MCV (80.0-98.0) fL MCH (27.0-32.0) pg MCHC (31.0-37.0) g/dL RDW Std Deviation (28.0-62.0) fl RDW Coeff of [place] (11.0-15.0) % Plt Count (150-400) K/uL MPV (7.40-12.00) fL Add Manual Diff Neutrophils % (Manual) (48.0-80.0) % Band Neutrophils % % Lymphocytes % (Manual) (16.0-40.0) % Monocytes % (Manual) (0.0-15.0) % Nucleated RBC % /100WBC Absolute Seg Neuts Band Neutrophils # Lymphocytes # (Manual) Monocytes # (Manual) Nucleated RBCs # K/uL Lactate (0.20-2.00) mmol/L Sodium 129 L (136-146) mmol/L Potassium 5.0 (3.5-5.1) mmol/L Chloride 90 L (98-110) mmol/L Carbon Dioxide 29 (21-31) mmol/L BUN 90 H (6.0-23.0) mg/dL Creatinine 1.8 H (0.6-1.5) mg/dL Est Cr Clr Drug Dosing 34.86 mL/min Estimated GFR (MDRD) 36.5 ml/min Glucose 352 H (60-110) mg/dL POC Glucose (60-110) mg/dL Calcium 9.0 (8.8-10.8) mg/dL Urine Color Urine Appearance Urine pH (5.0-8.0) Ur Specific [place] (1.001-1.035) Urine Protein (NEGATIVE) mg/dL Urine Glucose (UA) (NEGATIVE) mg/dL Urine Ketones (NEGATIVE) mg/dL Urine Occult Blood (NEGATIVE) Urine Nitrite (NEGATIVE) Urine Bilirubin (NEGATIVE) Urine Urobilinogen (<2.0) EU/dL Ur Leukocyte Esterase (NEGATIVE) Urine RBC (0-2/HPF) Urine WBC (0-5/HPF) Ur Epithelial Cells (NONE-FEW) Urine Bacteria (NEGATIVE) Urine Mucus (NONE-MOD) Nathaniel Results Last 24 Hours: Microbiology 01/30/17 05:30 Gram Stain - Preliminary Sputum - Expectorated 01/29/17 14:21 Streptococcus pneumoniae Ag Screen - Final Urine 01/29/17 14:21 Legionella Antigen - Final Urine, Voided 01/29/17 15:14 Anaerobic Blood Culture - Final Blood - Venous - Lab Draw 01/29/17 15:08 Anaerobic Blood Culture - Final Blood - Venous Med Orders - Current: Current Medications Acetaminophen (Tylenol) 650 mg PO Q4H PRN PRN Reason: Pain (Mild 1-3)/fever Enoxaparin Sodium (Lovenox) 40 mg SUBCUT Q24H [facility] Furosemide (Lasix) 40 mg IVPUSH BID [facility] Azithromycin 500 mg/ Sodium (Chloride) 250 mls @ 250 mls/hr IV Q24H [facility] Last Admin: 01/29/17 16:26 Dose: 250 mls/hr Ceftriaxone Sodium/Dextrose 1 (gm/ Premix) 50 mls @ 100 mls/hr IV Q24H [facility] Last Admin: 01/29/17 15:42 Dose: 100 mls/hr Insulin Aspart (Novolog) 0 unit SUBCUT QIDACANDBED [facility] PRN Reason: Protocol Last Admin: 01/30/17 07:29 Dose: 10 units Metoprolol Tartrate (Lopressor) 5 mg IVPUSH Q1H PRN PRN Reason: Tachycardia Last Admin: 01/29/17 19:47 Dose: 5 mg Nystatin (Nystop) 1 gm TOP TID [facility] Last Admin: 01/30/17 04:59 Dose: 1 applic Sodium Chloride (Saline Flush) 10 ml FLUSH ASDIRECTED PRN PRN Reason: Keep Vein Open Sodium Chloride (Saline Flush) 2.5 ml FLUSH ASDIRECTED PRN PRN Reason: Keep Vein Open Discontinued Medications Albuterol/Ipratropium (Duoneb 3.0-0.5 Mg/3 Ml) 3 ml NEB ONETIME ONE Stop: 01/29/17 09:02 Last Admin: 01/29/17 09:19 Dose: 3 ml Aspirin (Aspirin) 325 mg PO ONETIME ONE Stop: 01/29/17 09:43 Last Admin: 01/29/17 11:38 Dose: 325 mg Enoxaparin Sodium (Lovenox) 40 mg SUBCUT Q24H [facility] Last Admin: 01/29/17 15:44 Dose: 40 mg Furosemide (Lasix) 40 mg IVPUSH NOW ONE Stop: 01/29/17 13:49 Last Admin: 01/29/17 15:30 Dose: 40 mg Fluconazole 200 mg/ Premix 100 mls @ 100 mls/hr IV ONETIME ONE Stop: 01/29/17 15:59 Last Admin: 01/29/17 17:47 Dose: 100 mls/hr Methylprednisolone Sodium Succinate (Solu-Medrol) 125 mg IVPUSH ONETIME ONE Stop: 01/29/17 09:02 Last Admin: 01/29/17 09:32 Dose: 125 mg Metoprolol Tartrate (Lopressor) 5 mg IVPUSH ONETIME ONE Stop: 01/29/17 15:53 Last Admin: 01/29/17 16:00 Dose: 5 mg - Exam General: Alert, Oriented Lungs: Clear to Auscultation, Normal Respiratory Effort GI/Abdominal Exam: Soft, Non-Tender Extremities: Other (+2 edema with pathcy erythematous rash on legs, abdomen and panus folds) - Problem List Review Problem List Initiated/Reviewed/Updated: Yes - My Orders Last 24 Hours: My Active Orders 01/29/17 18:32 Urinary Catheter Assessment [RC] Q4H 01/29/17 18:33 Metoprolol Tartrate [Lopressor] 5 mg IVPUSH Q1H PRN 01/29/17 18:45 Insert Villarreal Catheter [Insert Urinary Catheter] [OM.PC] Q24H 01/30/17 10:31 Consult to Physical Therapy [PT Evaluation and Treatment] [CONS] Routine 01/30/17 11:30 Furosemide [Lasix] 40 mg IVPUSH BID - Plan Plan:: This is a 82-year-old male admitted for pneumonia, and CHF #1. Pneumonia - continue Azithromycin and ceftriaxone - - Blood culture and sputum culture pending #2. Fluid overload rule out heart failure -Lasix 40 mg IV BID -Echocardiogram pending #3. Urea khan/fungal rash versus cellulitis - continue nystatin, on rocephin #4. Patient is noted to have a elevated heart rate - Telemetry along with IV Lopressor 5 mg every hour for a heart rate above 110 when necessary #5. Pressure ulcers -Wound care, pressure ulcer protocol #6. Type 2 diabetes Insulin sliding scale moderate #7 Acute kidney injury Creatinine 1.8 today Physical therapy consulted.
[2017-01-30] MEDS: Furosemide 40 MG/4 ML VIAL IVPUSH SCH ×2 (11:51→21:29)
[2017-01-30] MEDS: cefTRIAXone 1 GM in Premix Bag 1 BAG IV SCH (13:16)
[2017-01-30] MEDS: Azithromycin 500 MG in Sodium Chloride 0.9% 250 ML IV SCH (14:44)
[2017-01-30] MEDS: Insuln Aspart Prot/Insulin Aspart 100 Units/ML 3 ML FlexPen SUBCUT SCH (17:33)
[2017-01-30] MEDS ORDERED: Insuln Aspart Prot/Insulin Aspart 100 Units/ML 3 ML FlexPen SUBCUT SCH (21:00)
[2017-01-31] MEDS: Nystatin Topical Powder 15 GM Bottle TOP SCH ×3 (06:45→22:49)
[2017-01-31] MEDS: Insulin Aspart 100 Units/ML 3 ML Pen SUBCUT SCH ×3 (07:54→17:07)
[2017-01-31] MEDS: Insuln Aspart Prot/Insulin Aspart 100 Units/ML 3 ML FlexPen SUBCUT SCH ×2 (07:58→17:24)
[2017-01-31] MEDS: Furosemide 40 MG/4 ML VIAL IVPUSH SCH ×2 (08:12→20:01)
--- NOTE | 2017-01-31 10:27 | PCM.PN ---
- Review of Systems Systems Review Comment:: feeling well, no new complaints, reports leg edema - Patient Data Vitals - Most Recent: Last Vital Signs Temp 35.7 C 01/31/17 08:00 Pulse 111 H 01/31/17 08:00 Resp 20 01/31/17 08:00 BP 125/63 01/31/17 08:00 Pulse Ox 97 01/31/17 08:00 Weight - Most Recent: 241 kg I&O - Last 24 Hours: Intake & Output 01/30/17 01/31/17 01/31/17 22:59 06:59 14:59 Intake Total 550 400 Output Total 1150 1200 Balance -600 -800 Lab Results Last 24 Hours: Laboratory Results - last 24 hr 01/30/17 01/30/17 01/30/17 Range/Units 06:39 11:57 16:50 WBC (4.0-11.0) K/uL RBC (4.50-5.90) M/uL Hgb (13.0-17.0) g/dL Hct (38.0-50.0) % MCV (80.0-98.0) fL MCH (27.0-32.0) pg MCHC (31.0-37.0) g/dL RDW Std Deviation (28.0-62.0) fl RDW Coeff of [place] (11.0-15.0) % Plt Count (150-400) K/uL MPV (7.40-12.00) fL Add Manual Diff Neutrophils % (Manual) (48.0-80.0) % Band Neutrophils % % Lymphocytes % (Manual) (16.0-40.0) % Monocytes % (Manual) (0.0-15.0) % Nucleated RBC % /100WBC Absolute Seg Neuts Band Neutrophils # Lymphocytes # (Manual) Monocytes # (Manual) Nucleated RBCs # K/uL Sodium (136-146) mmol/L Potassium (3.5-5.1) mmol/L Chloride (98-110) mmol/L Carbon Dioxide (21-31) mmol/L BUN (6.0-23.0) mg/dL Creatinine (0.6-1.5) mg/dL Est Cr Clr Drug Dosing mL/min Estimated GFR (MDRD) ml/min Glucose (60-110) mg/dL POC Glucose 368 H 383 H 494 H (60-110) mg/dL Calcium (8.8-10.8) mg/dL 01/30/17 01/30/17 01/31/17 Range/Units 17:17 21:28 06:47 WBC (4.0-11.0) K/uL RBC (4.50-5.90) M/uL Hgb (13.0-17.0) g/dL Hct (38.0-50.0) % MCV (80.0-98.0) fL MCH (27.0-32.0) pg MCHC (31.0-37.0) g/dL RDW Std Deviation (28.0-62.0) fl RDW Coeff of [place] (11.0-15.0) % Plt Count (150-400) K/uL MPV (7.40-12.00) fL Add Manual Diff Neutrophils % (Manual) (48.0-80.0) % Band Neutrophils % % Lymphocytes % (Manual) (16.0-40.0) % Monocytes % (Manual) (0.0-15.0) % Nucleated RBC % /100WBC Absolute Seg Neuts Band Neutrophils # Lymphocytes # (Manual) Monocytes # (Manual) Nucleated RBCs # K/uL Sodium (136-146) mmol/L Potassium (3.5-5.1) mmol/L Chloride (98-110) mmol/L Carbon Dioxide (21-31) mmol/L BUN (6.0-23.0) mg/dL Creatinine (0.6-1.5) mg/dL Est Cr Clr Drug Dosing mL/min Estimated GFR (MDRD) ml/min Glucose (60-110) mg/dL POC Glucose 460 H 378 H 200 H (60-110) mg/dL Calcium (8.8-10.8) mg/dL 01/31/17 01/31/17 Range/Units 07:55 07:55 WBC 12.40 H (4.0-11.0) K/uL RBC 5.07 (4.50-5.90) M/uL Hgb 14.2 (13.0-17.0) g/dL Hct 45.5 (38.0-50.0) % MCV 89.7 (80.0-98.0) fL MCH 28.0 (27.0-32.0) pg MCHC 31.2 (31.0-37.0) g/dL RDW Std Deviation 53.8 (28.0-62.0) fl RDW Coeff of [place] 16 H (11.0-15.0) % Plt Count 208 (150-400) K/uL MPV 10.80 (7.40-12.00) fL Add Manual Diff YES Neutrophils % (Manual) 77 (48.0-80.0) % Band Neutrophils % 5 % Lymphocytes % (Manual) 10 L (16.0-40.0) % Monocytes % (Manual) 8 (0.0-15.0) % Nucleated RBC % 0.0 /100WBC Absolute Seg Neuts 9.5 Band Neutrophils # 0.6 Lymphocytes # (Manual) 1.2 Monocytes # (Manual) 1.0 Nucleated RBCs # 0 K/uL Sodium 134 L (136-146) mmol/L Potassium 4.7 (3.5-5.1) mmol/L Chloride 94 L (98-110) mmol/L Carbon Dioxide 30 (21-31) mmol/L BUN 78 H (6.0-23.0) mg/dL Creatinine 1.4 (0.6-1.5) mg/dL Est Cr Clr Drug Dosing 44.64 mL/min Estimated GFR (MDRD) 48.8 ml/min Glucose 187 H (60-110) mg/dL POC Glucose (60-110) mg/dL Calcium 9.1 (8.8-10.8) mg/dL Nathaniel Results Last 24 Hours: Microbiology 01/30/17 05:30 Gram Stain - Preliminary Sputum - Expectorated Sputum Culture - Final Normal Respiratory [place] 01/29/17 15:14 Aerobic Blood Culture - Preliminary Blood - Venous - Lab Draw NO GROWTH AFTER 1 DAY Anaerobic Blood Culture - Final 01/29/17 15:08 Aerobic Blood Culture - Preliminary Blood - Venous NO GROWTH AFTER 1 DAY Anaerobic Blood Culture - Final Med Orders - Current: Current Medications Acetaminophen (Tylenol) 650 mg PO Q4H PRN PRN Reason: Pain (Mild 1-3)/fever Enoxaparin Sodium (Lovenox) 40 mg SUBCUT Q24H [facility] Furosemide (Lasix) 40 mg IVPUSH BID [facility] Last Admin: 01/31/17 08:12 Dose: 40 mg Azithromycin 500 mg/ Sodium (Chloride) 250 mls @ 250 mls/hr IV Q24H [facility] Last Admin: 01/30/17 14:44 Dose: 250 mls/hr Ceftriaxone Sodium/Dextrose 1 (gm/ Premix) 50 mls @ 100 mls/hr IV Q24H [facility] Last Admin: 01/30/17 13:16 Dose: 100 mls/hr Insulin Aspart (Novolog) 0 unit SUBCUT QIDACANDBED [facility] PRN Reason: Protocol Last Admin: 01/31/17 07:54 Dose: 4 units Metoprolol Tartrate (Lopressor) 5 mg IVPUSH Q1H PRN PRN Reason: Tachycardia Last Admin: 01/29/17 19:47 Dose: 5 mg Nystatin (Nystop) 1 gm TOP TID [facility] Last Admin: 01/31/17 06:45 Dose: 1 applic Sodium Chloride (Saline Flush) 10 ml FLUSH ASDIRECTED PRN PRN Reason: Keep Vein Open Sodium Chloride (Saline Flush) 2.5 ml FLUSH ASDIRECTED PRN PRN Reason: Keep Vein Open Discontinued Medications Albuterol/Ipratropium (Duoneb 3.0-0.5 Mg/3 Ml) 3 ml NEB ONETIME ONE Stop: 01/29/17 09:02 Last Admin: 01/29/17 09:19 Dose: 3 ml Aspirin (Aspirin) 325 mg PO ONETIME ONE Stop: 01/29/17 09:43 Last Admin: 01/29/17 11:38 Dose: 325 mg Enoxaparin Sodium (Lovenox) 40 mg SUBCUT Q24H [facility] Last Admin: 01/29/17 15:44 Dose: 40 mg Furosemide (Lasix) 40 mg IVPUSH NOW ONE Stop: 01/29/17 13:49 Last Admin: 01/29/17 15:30 Dose: 40 mg Fluconazole 200 mg/ Premix 100 mls @ 100 mls/hr IV ONETIME ONE Stop: 01/29/17 15:59 Last Admin: 01/29/17 17:47 Dose: 100 mls/hr Insulin Aspart (Novolog Mix 70-30) 40 unit SUBCUT BID [facility] Insulin Aspart (Novolog Mix 70-30) 50 unit SUBCUT BIDMEALS [facility] Last Admin: 01/31/17 07:58 Dose: 50 units Methylprednisolone Sodium Succinate (Solu-Medrol) 125 mg IVPUSH ONETIME ONE Stop: 01/29/17 09:02 Last Admin: 01/29/17 09:32 Dose: 125 mg Metoprolol Tartrate (Lopressor) 5 mg IVPUSH ONETIME ONE Stop: 01/29/17 15:53 Last Admin: 01/29/17 16:00 Dose: 5 mg - Exam General: Alert, Oriented Lungs: Clear to Auscultation, Normal Respiratory Effort Cardiovascular: Regular Rate, Regular Rhythm Extremities: Other (+2 edema, patchy rash on legs and abdominal folds is improving) - Problem List Review Problem List Initiated/Reviewed/Updated: Yes - My Orders Last 24 Hours: My Active Orders 01/30/17 10:31 Consult to Physical Therapy [PT Evaluation and Treatment] [CONS] Routine 01/30/17 11:30 Furosemide [Lasix] 40 mg IVPUSH BID 01/31/17 10:21 Insuln Asp Prot/Insulin Aspart [NovoLOG Mix 70-30] 60 unit SUBCUT [facility] 02/01/17 05:11 BASIC METABOLIC PANEL,BMP [CHEM] AM CBC WITH AUTO DIFF [HEME] AM 02/02/17 05:11 BASIC METABOLIC PANEL,BMP [CHEM] AM CBC WITH AUTO DIFF [HEME] AM 02/03/17 05:11 BASIC METABOLIC PANEL,BMP [CHEM] AM CBC WITH AUTO DIFF [HEME] AM 02/04/17 05:11 BASIC METABOLIC PANEL,BMP [CHEM] AM CBC WITH AUTO DIFF [HEME] AM 02/05/17 05:11 BASIC METABOLIC PANEL,BMP [CHEM] AM CBC WITH AUTO DIFF [HEME] AM 02/06/17 05:11 BASIC METABOLIC PANEL,BMP [CHEM] AM CBC WITH AUTO DIFF [HEME] AM - Plan Plan:: This is a 82-year-old male admitted for pneumonia, and CHF Community acquired pneumonia: continue Rocephin and azithromycin, awaiting culture results CHF: continue lasix, echocardiogram report pending Candidiasis/cellulitis: conitnue nystatin and rocephin, was given one dose of diflucan DM: sliding scale insulin with 70/30 Acute kidney injury: creatinine improving with diuresis Physical therapy consulted. Dispo: discharge to [facility] once closer to dry weight
[2017-01-31] MEDS: Metoprolol Tartrate 5 MG/5 ML SDV IVPUSH PRN ×2 (12:24→23:13)
[2017-01-31] MEDS: Enoxaparin 40 MG/0.4 ML Syringe SUBCUT SCH (13:06)
[2017-01-31] MEDS: cefTRIAXone 1 GM in Premix Bag 1 BAG IV SCH (13:06)
[2017-01-31] MEDS: Azithromycin 500 MG in Sodium Chloride 0.9% 250 ML IV SCH (13:42)
[2017-01-31] MEDS ORDERED: Furosemide 40 MG/4 ML VIAL IVPUSH SCH (14:00)
[2017-02-01] MEDS: Nystatin Topical Powder 15 GM Bottle TOP SCH ×3 (06:46→21:50)
[2017-02-01] MEDS: Insuln Aspart Prot/Insulin Aspart 100 Units/ML 3 ML FlexPen SUBCUT SCH ×2 (08:55→17:05)
[2017-02-01] MEDS: Furosemide 40 MG/4 ML VIAL IVPUSH SCH ×2 (08:56→21:50)
[2017-02-01] MEDS: Insulin Aspart 100 Units/ML 3 ML Pen SUBCUT SCH (12:05)
[2017-02-01] MEDS: Enoxaparin 40 MG/0.4 ML Syringe SUBCUT SCH (13:08)
[2017-02-01] MEDS: cefTRIAXone 1 GM in Premix Bag 1 BAG IV SCH (13:08)
[2017-02-01] MEDS: Azithromycin 500 MG in Sodium Chloride 0.9% 250 ML IV SCH (14:23)
--- NOTE | 2017-02-01 17:32 | PCM.PN ---
- Review of Systems Systems Review Comment:: feeling well is eager to be discharged. - Patient Data Vitals - Most Recent: Last Vital Signs Temp 36.3 C 02/01/17 16:00 Pulse 107 H 02/01/17 16:00 Resp 24 H 02/01/17 16:00 BP 126/65 02/01/17 16:00 Pulse Ox 97 02/01/17 16:00 Weight - Most Recent: 241 kg I&O - Last 24 Hours: Intake & Output 02/01/17 02/01/17 02/01/17 06:59 14:59 22:59 Intake Total 50 770 Output Total 1260 Balance 50 -490 Lab Results Last 24 Hours: Laboratory Results - last 24 hr 01/31/17 01/31/17 02/01/17 Range/Units 16:24 20:08 06:30 WBC 9.70 (4.0-11.0) K/uL RBC 5.37 (4.50-5.90) M/uL Hgb 14.9 (13.0-17.0) g/dL Hct 48.1 (38.0-50.0) % MCV 89.6 (80.0-98.0) fL MCH 27.7 (27.0-32.0) pg MCHC 31.0 (31.0-37.0) g/dL RDW Std Deviation 53.3 (28.0-62.0) fl RDW Coeff of [place] 16 H (11.0-15.0) % Plt Count 249 (150-400) K/uL MPV 11.00 (7.40-12.00) fL Add Manual Diff YES Neutrophils % (Manual) 69 (48.0-80.0) % Band Neutrophils % 4 % Lymphocytes % (Manual) 16 (16.0-40.0) % Monocytes % (Manual) 10 (0.0-15.0) % Eosinophils % (Manual) 1 (0.0-7.0) % Nucleated RBC % 0.0 /100WBC Absolute Seg Neuts 6.7 Band Neutrophils # 0.4 Lymphocytes # (Manual) 1.6 Monocytes # (Manual) 1.0 Eosinophils # (Manual) 0.1 Nucleated RBCs # 0 K/uL Sodium (136-146) mmol/L Potassium (3.5-5.1) mmol/L Chloride (98-110) mmol/L Carbon Dioxide (21-31) mmol/L BUN (6.0-23.0) mg/dL Creatinine (0.6-1.5) mg/dL Est Cr Clr Drug Dosing mL/min Estimated GFR (MDRD) ml/min Glucose (60-110) mg/dL POC Glucose 184 H 260 H (60-110) mg/dL Calcium (8.8-10.8) mg/dL 02/01/17 02/01/17 02/01/17 Range/Units 06:30 06:48 08:52 WBC (4.0-11.0) K/uL RBC (4.50-5.90) M/uL Hgb (13.0-17.0) g/dL Hct (38.0-50.0) % MCV (80.0-98.0) fL MCH (27.0-32.0) pg MCHC (31.0-37.0) g/dL RDW Std Deviation (28.0-62.0) fl RDW Coeff of [place] (11.0-15.0) % Plt Count (150-400) K/uL MPV (7.40-12.00) fL Add Manual Diff Neutrophils % (Manual) (48.0-80.0) % Band Neutrophils % % Lymphocytes % (Manual) (16.0-40.0) % Monocytes % (Manual) (0.0-15.0) % Eosinophils % (Manual) (0.0-7.0) % Nucleated RBC % /100WBC Absolute Seg Neuts Band Neutrophils # Lymphocytes # (Manual) Monocytes # (Manual) Eosinophils # (Manual) Nucleated RBCs # K/uL Sodium 138 (136-146) mmol/L Potassium 5.0 (3.5-5.1) mmol/L Chloride 94 L (98-110) mmol/L Carbon Dioxide 35 H (21-31) mmol/L BUN 67 H (6.0-23.0) mg/dL Creatinine 1.3 (0.6-1.5) mg/dL Est Cr Clr Drug Dosing 48.07 mL/min Estimated GFR (MDRD) 53.1 ml/min Glucose 135 H (60-110) mg/dL POC Glucose 154 H 227 H (60-110) mg/dL Calcium 9.3 (8.8-10.8) mg/dL 02/01/17 02/01/17 Range/Units 11:35 16:45 WBC (4.0-11.0) K/uL RBC (4.50-5.90) M/uL Hgb (13.0-17.0) g/dL Hct (38.0-50.0) % MCV (80.0-98.0) fL MCH (27.0-32.0) pg MCHC (31.0-37.0) g/dL RDW Std Deviation (28.0-62.0) fl RDW Coeff of [place] (11.0-15.0) % Plt Count (150-400) K/uL MPV (7.40-12.00) fL Add Manual Diff Neutrophils % (Manual) (48.0-80.0) % Band Neutrophils % % Lymphocytes % (Manual) (16.0-40.0) % Monocytes % (Manual) (0.0-15.0) % Eosinophils % (Manual) (0.0-7.0) % Nucleated RBC % /100WBC Absolute Seg Neuts Band Neutrophils # Lymphocytes # (Manual) Monocytes # (Manual) Eosinophils # (Manual) Nucleated RBCs # K/uL Sodium (136-146) mmol/L Potassium (3.5-5.1) mmol/L Chloride (98-110) mmol/L Carbon Dioxide (21-31) mmol/L BUN (6.0-23.0) mg/dL Creatinine (0.6-1.5) mg/dL Est Cr Clr Drug Dosing mL/min Estimated GFR (MDRD) ml/min Glucose (60-110) mg/dL POC Glucose 158 H 91 (60-110) mg/dL Calcium (8.8-10.8) mg/dL Nathaniel Results Last 24 Hours: Microbiology 01/29/17 15:14 Aerobic Blood Culture - Preliminary Blood - Venous - Lab Draw NO GROWTH AFTER 3 DAYS Anaerobic Blood Culture - Final 01/29/17 15:08 Aerobic Blood Culture - Preliminary Blood - Venous NO GROWTH AFTER 3 DAYS Anaerobic Blood Culture - Final Med Orders - Current: Current Medications Acetaminophen (Tylenol) 650 mg PO Q4H PRN PRN Reason: Pain (Mild 1-3)/fever Last Admin: 02/01/17 15:37 Dose: 650 mg Enoxaparin Sodium (Lovenox) 40 mg SUBCUT Q24H [facility] Last Admin: 02/01/17 13:08 Dose: 40 mg Furosemide (Lasix) 40 mg IVPUSH BID [facility] Last Admin: 02/01/17 08:56 Dose: 40 mg Azithromycin 500 mg/ Sodium (Chloride) 250 mls @ 250 mls/hr IV Q24H [facility] Last Admin: 02/01/17 14:23 Dose: 250 mls/hr Ceftriaxone Sodium/Dextrose 1 (gm/ Premix) 50 mls @ 100 mls/hr IV Q24H [facility] Last Admin: 02/01/17 13:08 Dose: 100 mls/hr Insulin Aspart (Novolog Mix 70-30) 60 unit SUBCUT BIDMEALS [facility] Last Admin: 02/01/17 17:05 Dose: Not Given Insulin Aspart (Novolog) 0 unit SUBCUT ACLUNCH [facility] PRN Reason: Protocol Last Admin: 02/01/17 12:05 Dose: 2 units Insulin Aspart (Novolog Mix 70-30) 30 unit SUBCUT ONETIME ONE Stop: 02/01/17 18:01 Metoprolol Tartrate (Lopressor) 5 mg IVPUSH Q1H PRN PRN Reason: Tachycardia Last Admin: 01/31/17 23:13 Dose: 5 mg Nystatin (Nystop) 1 gm TOP TID [facility] Last Admin: 02/01/17 13:09 Dose: 1 applic Sodium Chloride (Saline Flush) 10 ml FLUSH ASDIRECTED PRN PRN Reason: Keep Vein Open Sodium Chloride (Saline Flush) 2.5 ml FLUSH ASDIRECTED PRN PRN Reason: Keep Vein Open Discontinued Medications Albuterol/Ipratropium (Duoneb 3.0-0.5 Mg/3 Ml) 3 ml NEB ONETIME ONE Stop: 01/29/17 09:02 Last Admin: 01/29/17 09:19 Dose: 3 ml Aspirin (Aspirin) 325 mg PO ONETIME ONE Stop: 01/29/17 09:43 Last Admin: 01/29/17 11:38 Dose: 325 mg Enoxaparin Sodium (Lovenox) 40 mg SUBCUT Q24H [facility] Last Admin: 01/29/17 15:44 Dose: 40 mg Furosemide (Lasix) 40 mg IVPUSH NOW ONE Stop: 01/29/17 13:49 Last Admin: 01/29/17 15:30 Dose: 40 mg Furosemide (Lasix) 40 mg IVPUSH BID [facility] Last Admin: 01/31/17 08:12 Dose: 40 mg Furosemide (Lasix) 40 mg IVPUSH TID [facility] Fluconazole 200 mg/ Premix 100 mls @ 100 mls/hr IV ONETIME ONE Stop: 01/29/17 15:59 Last Admin: 01/29/17 17:47 Dose: 100 mls/hr Insulin Aspart (Novolog) 0 unit SUBCUT QIDACANDBED [facility] PRN Reason: Protocol Last Admin: 01/31/17 17:07 Dose: Not Given Insulin Aspart (Novolog Mix 70-30) 40 unit SUBCUT BID [facility] Insulin Aspart (Novolog Mix 70-30) 50 unit SUBCUT BIDMEALS [facility] Last Admin: 01/31/17 07:58 Dose: 50 units Methylprednisolone Sodium Succinate (Solu-Medrol) 125 mg IVPUSH ONETIME ONE Stop: 01/29/17 09:02 Last Admin: 01/29/17 09:32 Dose: 125 mg Metoprolol Tartrate (Lopressor) 5 mg IVPUSH ONETIME ONE Stop: 01/29/17 15:53 Last Admin: 01/29/17 16:00 Dose: 5 mg - Exam General: Alert, Oriented Lungs: Clear to Auscultation, Normal Respiratory Effort Cardiovascular: Regular Rate, Regular Rhythm GI/Abdominal Exam: Soft, Non-Tender, No Distention Extremities: Pedal Edema (+2 edema) Skin: Warm, Dry, Intact - Problem List Review Problem List Initiated/Reviewed/Updated: Yes - My Orders Last 24 Hours: My Active Orders 01/31/17 21:00 Furosemide [Lasix] 40 mg IVPUSH BID 02/01/17 07:00 Accu Check [Blood Glucose Check, Bedside] [RC] TIDAC 02/01/17 11:30 Insulin Aspart [NovoLOG] See Protocol SUBCUT [facility] 02/01/17 12:25 Communication Order [RC] DAILY 02/01/17 18:00 Insuln Asp Prot/Insulin Aspart [NovoLOG Mix 70-30] 30 unit SUBCUT ONETIME ONE 02/02/17 05:11 BASIC METABOLIC PANEL,BMP [CHEM] AM CBC WITH AUTO DIFF [HEME] AM 02/03/17 05:11 BASIC METABOLIC PANEL,BMP [CHEM] AM CBC WITH AUTO DIFF [HEME] AM 02/04/17 05:11 BASIC METABOLIC PANEL,BMP [CHEM] AM CBC WITH AUTO DIFF [HEME] AM 02/05/17 05:11 BASIC METABOLIC PANEL,BMP [CHEM] AM CBC WITH AUTO DIFF [HEME] AM 02/06/17 05:11 BASIC METABOLIC PANEL,BMP [CHEM] AM CBC WITH AUTO DIFF [HEME] AM - Plan Plan:: This is a 82-year-old male admitted for pneumonia, and CHF Community acquired pneumonia: continue Rocephin and azithromycin, blood cultures ngtd, sputum growing normal pascual CHF: continue lasix, echocardiogram report pending Candidiasis/cellulitis: conitnue nystatin and rocephin, was given one dose of diflucan DM: sliding scale insulin with 70/30 Acute kidney injury: creatinine is improving with diuresis Physical therapy consulted. Dispo: anticipate discharge to [facility] tomorrow.
[2017-02-01] MEDS ORDERED: Insuln Aspart Prot/Insulin Aspart 100 Units/ML 3 ML FlexPen SUBCUT ONE (18:00)
[2017-02-02 06:23] LABS: CHLORIDE,CL 95 mmol/L (98-110); SODIUM,NA 138 mmol/L (136-146)
[2017-02-02] MEDS: Nystatin Topical Powder 15 GM Bottle TOP SCH (06:34)
[2017-02-02 08:00] VITALS: BP 113/80
[2017-02-02] MEDS: Insuln Aspart Prot/Insulin Aspart 100 Units/ML 3 ML FlexPen SUBCUT SCH (08:03)
--- NOTE | 2017-02-02 08:57 | PCM.DCSUM1 ---
Discharge Summary - Discharge Data Discharge Date: 02/02/17 Discharge Disposition: Home, Self-Care 01 Condition: Good - Patient Summary/Data Consults: Consultations 01/30/17 10:31 Consult to Physical Therapy [PT Evaluation and Treatment] [CONS] Routine Hospital Course: Admission diagnosis CHF exacerbation Community acquired pneumonia Tinea corporis/intertrigo vs abdominal wall and lower leg cellulitis Hospital course: 82 yo male who presents with weakness and falls. He was evaluated n the ED and noted to have lower leg edema and patchy rash on legs and abdominal folds. He was found to have a WBC of 15,650 BNP of 279 Creatinine of 2.0 and BUN of 80. Chest x-ray indicated a pneumonia. He was admitted and treated with Rocephin and Azithromcyin. He was given one does of diflucan as his rash was thought to be fungal. He was diuresed with lasix with normalization of his creatinine. His 70/30 insulin was resumed for treatment of his diabetes. After four days of treatment he was discharged to [facility]. - Patient Instructions Diet: Heart Healthy Diet, Low Sodium, Diabetic Diet Fluid Restriction: 1500 mL Activity: As Tolerated Other/Special Instructions: PT and OT consutle. Nasal [place] oxygen 3 liters. Daily weights - Discharge Plan Prescriptions/Med Rec: Cephalexin [Keflex] 500 mg PO Q12H #10 cap Home Medications: Home Meds Aspirin 325 mg PO DAILY 01/21/14 [History] Losartan [Cozaar] 25 mg PO DAILY 01/21/14 [History] Rosuvastatin [Crestor] 20 mg PO DAILY 04/14/14 [History] Furosemide 80 mg PO DAILY 11/18/15 [History] Insulin Aspart Protam & Aspart [Novolog Mix 70-30 Flexpen Syrn] 40 unit SQ BID 05/23/16 [History] Cephalexin [Keflex] 500 mg PO Q12H #10 cap 02/02/17 [Rx] Insulin Aspart [NovoLOG] 0 unit SUBCUT ACLUNCH #0 pen 02/02/17 [Rx] Nystatin [Nystop] 1 gm TOP TID bottle 02/02/17 [Rx] Referrals: Adis Mendoza MD [Physician] - 02/04/17 (next [facility] Rounds) - Patient Data Vitals - Most Recent: Last Vital Signs Temp 35.6 C 02/02/17 07:59 Pulse 111 H 02/02/17 07:59 Resp 20 02/02/17 07:59 BP 113/80 02/02/17 07:59 Pulse Ox 96 02/02/17 07:59 Weight - Most Recent: 241 kg I&O - Last 24 hours: Intake & Output 02/01/17 02/02/17 02/02/17 22:59 06:59 14:59 Intake Total 770 Output Total 1260 Balance -490 Lab Results - Last 24 hrs: Laboratory Results - last 24 hr 02/01/17 02/01/17 02/01/17 Range/Units 08:52 11:35 16:45 WBC (4.0-11.0) K/uL RBC (4.50-5.90) M/uL Hgb (13.0-17.0) g/dL Hct (38.0-50.0) % MCV (80.0-98.0) fL MCH (27.0-32.0) pg MCHC (31.0-37.0) g/dL RDW Std Deviation (28.0-62.0) fl RDW Coeff of [place] (11.0-15.0) % Plt Count (150-400) K/uL MPV (7.40-12.00) fL Add Manual Diff Neutrophils % (Manual) (48.0-80.0) % Band Neutrophils % % Lymphocytes % (Manual) (16.0-40.0) % Monocytes % (Manual) (0.0-15.0) % Eosinophils % (Manual) (0.0-7.0) % Nucleated RBC % /100WBC Absolute Seg Neuts Band Neutrophils # Lymphocytes # (Manual) Monocytes # (Manual) Eosinophils # (Manual) Nucleated RBCs # K/uL Sodium (136-146) mmol/L Potassium (3.5-5.1) mmol/L Chloride (98-110) mmol/L Carbon Dioxide (21-31) mmol/L BUN (6.0-23.0) mg/dL Creatinine (0.6-1.5) mg/dL Est Cr Clr Drug Dosing mL/min Estimated GFR (MDRD) ml/min Glucose (60-110) mg/dL POC Glucose 227 H 158 H 91 (60-110) mg/dL Calcium (8.8-10.8) mg/dL 02/02/17 02/02/17 02/02/17 Range/Units 05:47 05:47 06:57 WBC 9.25 (4.0-11.0) K/uL RBC 5.39 (4.50-5.90) M/uL Hgb 15.0 (13.0-17.0) g/dL Hct 48.2 (38.0-50.0) % MCV 89.4 (80.0-98.0) fL MCH 27.8 (27.0-32.0) pg MCHC 31.1 (31.0-37.0) g/dL RDW Std Deviation 53.3 (28.0-62.0) fl RDW Coeff of [place] 16 H (11.0-15.0) % Plt Count 250 (150-400) K/uL MPV 10.90 (7.40-12.00) fL Add Manual Diff YES Neutrophils % (Manual) 66 (48.0-80.0) % Band Neutrophils % 4 % Lymphocytes % (Manual) 21 (16.0-40.0) % Monocytes % (Manual) 8 (0.0-15.0) % Eosinophils % (Manual) 1 (0.0-7.0) % Nucleated RBC % 0.0 /100WBC Absolute Seg Neuts 6.1 Band Neutrophils # 0.4 Lymphocytes # (Manual) 1.9 Monocytes # (Manual) 0.7 Eosinophils # (Manual) 0.1 Nucleated RBCs # 0 K/uL Sodium 138 (136-146) mmol/L Potassium 4.2 (3.5-5.1) mmol/L Chloride 95 L (98-110) mmol/L Carbon Dioxide 33 H (21-31) mmol/L BUN 54 H (6.0-23.0) mg/dL Creatinine 1.1 (0.6-1.5) mg/dL Est Cr Clr Drug Dosing 56.81 mL/min Estimated GFR (MDRD) > 60.0 ml/min Glucose 66 (60-110) mg/dL POC Glucose 77 (60-110) mg/dL Calcium 9.2 (8.8-10.8) mg/dL [facility] Results - Last 24 hrs: Microbiology 01/29/17 15:14 Aerobic Blood Culture - Preliminary Blood - Venous - Lab Draw NO GROWTH AFTER 3 DAYS Anaerobic Blood Culture - Final 01/29/17 15:08 Aerobic Blood Culture - Preliminary Blood - Venous NO GROWTH AFTER 3 DAYS Anaerobic Blood Culture - Final Med Orders - Current: Current Medications Acetaminophen (Tylenol) 650 mg PO Q4H PRN PRN Reason: Pain (Mild 1-3)/fever Last Admin: 02/01/17 15:37 Dose: 650 mg Enoxaparin Sodium (Lovenox) 40 mg SUBCUT Q24H [facility] Last Admin: 02/01/17 13:08 Dose: 40 mg Furosemide (Lasix) 40 mg IVPUSH BID [facility] Last Admin: 02/01/17 21:50 Dose: 40 mg Azithromycin 500 mg/ Sodium (Chloride) 250 mls @ 250 mls/hr IV Q24H [facility] Last Admin: 02/01/17 14:23 Dose: 250 mls/hr Ceftriaxone Sodium/Dextrose 1 (gm/ Premix) 50 mls @ 100 mls/hr IV Q24H [facility] Last Admin: 02/01/17 13:08 Dose: 100 mls/hr Insulin Aspart (Novolog Mix 70-30) 60 unit SUBCUT BIDMEALS [facility] Last Admin: 02/02/17 08:03 Dose: Not Given Insulin Aspart (Novolog) 0 unit SUBCUT ACLUNCH [facility] PRN Reason: Protocol Last Admin: 02/01/17 12:05 Dose: 2 units Metoprolol Tartrate (Lopressor) 5 mg IVPUSH Q1H PRN PRN Reason: Tachycardia Last Admin: 01/31/17 23:13 Dose: 5 mg Nystatin (Nystop) 1 gm TOP TID [facility] Last Admin: 02/02/17 06:34 Dose: 1 applic Sodium Chloride (Saline Flush) 10 ml FLUSH ASDIRECTED PRN PRN Reason: Keep Vein Open Sodium Chloride (Saline Flush) 2.5 ml FLUSH ASDIRECTED PRN PRN Reason: Keep Vein Open Discontinued Medications Albuterol/Ipratropium (Duoneb 3.0-0.5 Mg/3 Ml) 3 ml NEB ONETIME ONE Stop: 01/29/17 09:02 Last Admin: 01/29/17 09:19 Dose: 3 ml Aspirin (Aspirin) 325 mg PO ONETIME ONE Stop: 01/29/17 09:43 Last Admin: 01/29/17 11:38 Dose: 325 mg Enoxaparin Sodium (Lovenox) 40 mg SUBCUT Q24H [facility] Last Admin: 01/29/17 15:44 Dose: 40 mg Furosemide (Lasix) 40 mg IVPUSH NOW ONE Stop: 01/29/17 13:49 Last Admin: 01/29/17 15:30 Dose: 40 mg Furosemide (Lasix) 40 mg IVPUSH BID [facility] Last Admin: 01/31/17 08:12 Dose: 40 mg Furosemide (Lasix) 40 mg IVPUSH TID [facility] Fluconazole 200 mg/ Premix 100 mls @ 100 mls/hr IV ONETIME ONE Stop: 01/29/17 15:59 Last Admin: 01/29/17 17:47 Dose: 100 mls/hr Insulin Aspart (Novolog) 0 unit SUBCUT QIDACANDBED [facility] PRN Reason: Protocol Last Admin: 01/31/17 17:07 Dose: Not Given Insulin Aspart (Novolog Mix 70-30) 40 unit SUBCUT BID [facility] Insulin Aspart (Novolog Mix 70-30) 50 unit SUBCUT BIDMEALS [facility] Last Admin: 01/31/17 07:58 Dose: 50 units Insulin Aspart (Novolog Mix 70-30) 30 unit SUBCUT ONETIME ONE Stop: 02/01/17 18:01 Last Admin: 02/01/17 17:36 Dose: 30 units Methylprednisolone Sodium Succinate (Solu-Medrol) 125 mg IVPUSH ONETIME ONE Stop: 01/29/17 09:02 Last Admin: 01/29/17 09:32 Dose: 125 mg Metoprolol Tartrate (Lopressor) 5 mg IVPUSH ONETIME ONE Stop: 01/29/17 15:53 Last Admin: 01/29/17 16:00 Dose: 5 mg *Q Meaningful Use (DIS) - VTE *Q VTE Criteria *Q: - Stroke *Q Stroke Criteria *Q: - AMI *Q AMI Criteria *Q:
[2017-02-02] MEDS: Furosemide 40 MG/4 ML VIAL IVPUSH SCH (09:00)
[2017-02-02] MEDS: Insulin Aspart 100 Units/ML 3 ML Pen SUBCUT SCH (12:31)
--- NOTE | 2017-02-04 13:19 | ECHO ---
EXAM DATE: 01/29/17 PATIENT'S AGE: 82 The echocardiogram report can be seen in this patient's EMR (Electronic Medical Record) in the Reports section. The report has also been scanned into PACS. [facility]
== END 2017-02-02 11:35 | disposition home or self-care (01) | DRG 291 ==
LOC: MW.ED 08:50 → MW.MS 11:33
PROVIDERS: ADMIT Internal Medicine; ATTEND Internal Medicine
DX: I50.9 Heart failure, unspecified (principal); J18.9 Pneumonia, unspecified organism; L03.311 Cellulitis of abdominal wall; L03.116 Cellulitis of left lower limb; L03.115 Cellulitis of right lower limb; J44.9 Chronic obstructive pulmonary disease, unspecified; R79.89 Other specified abnormal findings of blood chemistry; N17.9 Acute kidney failure, unspecified; B35.4 Tinea corporis; L30.4 Erythema intertrigo; Z99.81 Dependence on supplemental oxygen; R53.1 Weakness; R60.9 Edema, unspecified; R21 Rash and other nonspecific skin eruption; E11.9 Type 2 diabetes mellitus without complications; L89.152 Pressure ulcer of sacral region, stage 2; E78.00 Pure hypercholesterolemia, unspecified; I10 Essential (primary) hypertension; I25.10 Atherosclerotic heart disease of native coronary artery without angina pectoris; F03.90 Unspecified dementia, unspecified severity, without behavioral disturbance, psychotic disturbance, mood disturbance, and anxiety; D72.829 Elevated white blood cell count, unspecified; R00.0 Tachycardia, unspecified; R29.6 Repeated falls; Z79.899 Other long term (current) drug therapy; I25.2 Old myocardial infarction; Z79.4 Long term (current) use of insulin; Z95.5 Presence of coronary angioplasty implant and graft
CPT/HCPCS: 36415; 70450; 71020; 80053; 82962; 83690; 83880; 84484; 85025; 85610; 93005; 94664; 96374; 99285; J2930; 51703; 80048; 81001; 83605; 87040; 87070; 87205; 87899; 93306; 97110-GP; 97161-GP; 97530-GP; 99283; A9270-GY; J0456; J0696; J1450; J1650; J1815-GY ×2; J1940; J7050

== ENCOUNTER 2017-02-12 00:16 | Inpatient (IN) | payer MEDICARE, BC ==
[2017-02-12] MEDS ORDERED: Sodium Chloride 0.9% 2.5 ML Syringe FLUSH PRN (00:19)
[2017-02-12] MEDS ORDERED: Sodium Chloride 0.9% 10 ML Syringe FLUSH PRN (00:19)
--- NOTE | 2017-02-12 00:25 | EDM.PDOC ---
ED HPI GENERAL MEDICAL PROBLEM - General Stated Complaint: BLOODY STOOL Time Seen by Provider: 02/12/17 00:19 - History of Present Illness INITIAL COMMENTS - FREE TEXT/NARRATIVE: HISTORY AND PHYSICAL: History of present illness: Patient is an 82-year-old male from senior care with multiple medical problems who presents with concern of history of bloody diarrhea since yesterday he denies abdominal pain is now no reported fever chills chest pain shortness breath nausea vomiting or other concern Review of systems: As per history of present illness and below otherwise all systems reviewed and negative. Past medical history: As per history of present illness and as reviewed below otherwise noncontributory. Surgical history: As per history of present illness and as reviewed below otherwise noncontributory. Social history: No reported history of drug or alcohol abuse. Family history: As per history of present illness and as reviewed below otherwise noncontributory. Physical exam: HEENT: Atraumatic, normocephalic, pupils reactive, negative for conjunctival pallor or scleral icterus, mucous membranes moist, throat clear, neck supple, nontender, trachea midline. Lungs: Clear to auscultation, breath sounds equal bilaterally, chest nontender. Heart: S1S2, regular, negative for clicks, rubs, or JVD. Abdomen: Soft, nondistended, nontender. Negative for masses or hepatosplenomegaly. Negative for costovertebral tenderness. Pelvis: Stable nontender. Genitourinary: Deferred. Rectal: Deferred. Extremities: 3+ peripheral edema inferiorly reported to be baseline per patient Neuro: Awake, alert, follows commands moves all extremities limited but grossly nonfocal exam Diagnostics: CBC CMP PT/INR troponin EKG chest x-ray type and screen UA stool for C&S O&P and C. difficile CT abdomen and pelvis Therapeutics: IV O2 monitor Impression: #1 hematochezia Definitive disposition and diagnosis as appropriate pending reevaluation and review of above. - Related Data Allergies Allergy/AdvReac Type Severity Reaction Status Date / Time No Known Allergies Allergy Verified 01/29/17 09:11 Home Meds: Home Meds Aspirin 325 mg PO DAILY 01/21/14 [History] Rosuvastatin [Crestor] 20 mg PO DAILY 04/14/14 [History] Furosemide 80 mg PO DAILY 11/18/15 [History] Insulin Aspart Protam & Aspart [Novolog Mix 70-30 Flexpen Syrn] 0 unit SQ ASDIRECTED 05/23/16 [History] Nystatin [Nystop] 1 gm TOP TID bottle 02/02/17 [Rx] Fluconazole [Diflucan] 200 mg PO BEDTIME 02/12/17 [History] Insulin Aspart [NovoLOG] 40 unit SUBCUT ACBREAKFASTANDBED 02/12/17 [History] Past Medical History HEENT History: Reports: Cataract, Impaired Vision Cardiovascular History: Reports: High Cholesterol, Hypertension, [place], Stents Other Cardiovascular History: Pedal edema Respiratory History: Reports: Pneumonia, Recurrent, SOB, Other (See Below) Other Respiratory History: low oxygen; on home 02 at 4lpm Gastrointestinal History: Reports: Chronic Constipation Genitourinary History: Reports: UTI, Recurrent Other Genitourinary History: UTI Musculoskeletal History: Reports: Back Pain, Chronic Neurological History: Reports: None Psychiatric History: Reports: Dementia Endocrine/Metabolic History: Reports: Diabetes, Type II Hematologic History: Reports: None Immunologic History: Reports: None Oncologic (Cancer) History: Reports: None Dermatologic History: Reports: Cellulitis, Chronic Cellulitis - Infectious Disease History Infectious Disease History: Reports: Shingles - Past Surgical History Head Surgeries/Procedures: Reports: None HEENT Surgical History: Reports: Eye Surgery Respiratory Surgical History: Reports: None GI Surgical History: Reports: None Male Surgical History: Reports: None Endocrine Surgical History: Reports: None Musculoskeletal Surgical History: Reports: None Social & Family History - Family History Family Medical History: Noncontributory Dermatologic: Reports: Other (See Below) Other Dermatologic Family History: cellulitis - Tobacco Use Smoking Status *Q: Never Smoker Second Hand Smoke Exposure: No - Caffeine Use Caffeine Use: Reports: Coffee Caffeine Use Comment: 1-2drinks/day - Alcohol Use Days Per Week of Alcohol Use: 0 - Recreational Drug Use Recreational Drug Use: No ED ROS GENERAL - Review of Systems Review Of Systems: ROS reveals no pertinent complaints other than HPI. ED EXAM, GENERAL - Physical Exam Exam: See Below (See dictation) Course - Vital Signs Last Recorded V/S: Last Vital Signs Temp 36.1 C 02/12/17 00:25 Pulse 101 H 02/12/17 01:47 Resp 20 02/12/17 01:47 BP 102/54 L 02/12/17 01:47 Pulse Ox 99 02/12/17 01:47 - Orders/Labs/Meds Orders: Active Orders 24 hr Category Date Time Status EKG Documentation Completion [RC] STAT Care 02/12/17 00:19 Active Pulse Oximetry [RC] ASDIRECTED Care 02/12/17 00:19 Active Abdomen Pelvis wo Cont [CT] Stat Exams 02/12/17 00:25 Taken Chest 1V Frontal [CR] Stat Exams 02/12/17 00:21 Taken CDIFF TOX A+B [OP] Stat Lab 02/12/17 00:20 Uncollected CULTURE STOOL + CAMPY+SHIGATOX [RM] Stat Lab 02/12/17 00:20 Uncollected CULTURE URINE [RM] Stat Lab 02/12/17 01:58 Received UA W/MICROSCOPIC [URIN] Stat Lab 02/12/17 01:58 Received Sodium Chloride 0.9% [Saline Flush] Med 02/12/17 00:19 Active 10 ml FLUSH ASDIRECTED PRN Sodium Chloride 0.9% [Saline Flush] Med 02/12/17 00:19 Active 2.5 ml FLUSH ASDIRECTED PRN Saline Lock Insert [OM.PC] Stat Oth 02/12/17 00:19 Ordered Medication Orders Sodium Chloride (Saline Flush) 10 ml FLUSH ASDIRECTED PRN PRN Reason: Keep Vein Open Sodium Chloride (Saline Flush) 2.5 ml FLUSH ASDIRECTED PRN PRN Reason: Keep Vein Open Labs: Laboratory Tests 02/12/17 02/12/17 02/12/17 Range/Units 00:30 00:30 00:30 WBC 15.89 H (4.0-11.0) K/uL RBC 3.93 L (4.50-5.90) M/uL Hgb 10.9 L (13.0-17.0) g/dL Hct 35.4 L (38.0-50.0) % MCV 90.1 (80.0-98.0) fL MCH 27.7 (27.0-32.0) pg MCHC 30.8 L (31.0-37.0) g/dL RDW Std Deviation 51.8 (28.0-62.0) fl RDW Coeff of Nkechi 16 H (11.0-15.0) % Plt Count 292 (150-400) K/uL MPV 10.90 (7.40-12.00) fL Add Manual Diff YES Neutrophils % (Manual) 76 (48.0-80.0) % Band Neutrophils % 1 % Lymphocytes % (Manual) 17 (16.0-40.0) % Monocytes % (Manual) 5 (0.0-15.0) % Basophils % (Manual) 1 (0.0-1.5) % Absolute Seg Neuts 12.1 Band Neutrophils # 0.2 Lymphocytes # (Manual) 2.7 Monocytes # (Manual) 0.8 Basophils # (Manual) 0 INR 1.15 H (0.86-1.11) Sodium 139 (136-146) mmol/L Potassium 4.5 (3.5-5.1) mmol/L Chloride 98 (98-110) mmol/L Carbon Dioxide 32 H (21-31) mmol/L BUN 53 H (6.0-23.0) mg/dL Creatinine 1.6 H (0.6-1.5) mg/dL Est Cr Clr Drug Dosing TNP Estimated GFR (MDRD) 41.8 ml/min Glucose 122 H (60-110) mg/dL Calcium 8.8 (8.8-10.8) mg/dL Total Bilirubin 0.7 (0.1-1.5) mg/dL AST 39 (5-40) IU/L ALT 14 (8-54) IU/L Alkaline Phosphatase 102 (40-150) Troponin I (0.0-0.29) NG/ML B-Natriuretic Peptide (<100) PG/ML Total Protein 6.6 (6.0-8.0) g/dL Albumin 2.7 L (3.4-4.8) g/dL Globulin 3.9 H (2.0-3.5) g/dL Albumin/Globulin Ratio 0.7 L (1.3-2.8) Blood Type Antibody Screen 02/12/17 02/12/17 02/12/17 Range/Units 00:30 00:30 00:30 WBC (4.0-11.0) K/uL RBC (4.50-5.90) M/uL Hgb (13.0-17.0) g/dL Hct (38.0-50.0) % MCV (80.0-98.0) fL MCH (27.0-32.0) pg MCHC (31.0-37.0) g/dL RDW Std Deviation (28.0-62.0) fl RDW Coeff of Nkechi (11.0-15.0) % Plt Count (150-400) K/uL MPV (7.40-12.00) fL Add Manual Diff Neutrophils % (Manual) (48.0-80.0) % Band Neutrophils % % Lymphocytes % (Manual) (16.0-40.0) % Monocytes % (Manual) (0.0-15.0) % Basophils % (Manual) (0.0-1.5) % Absolute Seg Neuts Band Neutrophils # Lymphocytes # (Manual) Monocytes # (Manual) Basophils # (Manual) INR (0.86-1.11) Sodium (136-146) mmol/L Potassium (3.5-5.1) mmol/L Chloride (98-110) mmol/L Carbon Dioxide (21-31) mmol/L BUN (6.0-23.0) mg/dL Creatinine (0.6-1.5) mg/dL Est Cr Clr Drug Dosing Estimated GFR (MDRD) ml/min Glucose (60-110) mg/dL Calcium (8.8-10.8) mg/dL Total Bilirubin (0.1-1.5) mg/dL AST (5-40) IU/L ALT (8-54) IU/L Alkaline Phosphatase (40-150) Troponin I < 0.10 (0.0-0.29) NG/ML B-Natriuretic Peptide 100 (<100) PG/ML Total Protein (6.0-8.0) g/dL Albumin (3.4-4.8) g/dL Globulin (2.0-3.5) g/dL Albumin/Globulin Ratio (1.3-2.8) Blood Type O POSITIVE Antibody Screen NEGATIVE Meds: Medications Generic Name Dose Route Start Last Admin Trade Name Freq PRN Reason Stop Dose Admin Sodium Chloride 10 ml 02/12/17 00:19 Saline Flush FLUSH ASDIRECTED PRN Keep Vein Open Sodium Chloride 2.5 ml 02/12/17 00:19 Saline Flush FLUSH ASDIRECTED PRN Keep Vein Open Discontinued Medications Generic Name Dose Route Start Last Admin Trade Name Freq PRN Reason Stop Dose Admin Sodium Chloride 1,000 mls @ 999 mls/hr 02/12/17 00:48 02/12/17 01:15 Normal Saline IV 02/12/17 01:48 999 mls/hr .BOLUS ONE Administration Departure - Departure Time of Disposition: 02:06 Disposition: Refer to Observation Condition: Good Clinical Impression: Hematochezia, Diarrhea, Leukocytosis - Discharge Information - My Orders Last 24 Hours: My Active Orders 02/12/17 00:19 EKG Documentation Completion [RC] STAT Pulse Oximetry [RC] ASDIRECTED Sodium Chloride 0.9% [Saline Flush] 10 ml FLUSH ASDIRECTED PRN Sodium Chloride 0.9% [Saline Flush] 2.5 ml FLUSH ASDIRECTED PRN Saline Lock Insert [OM.PC] Stat 02/12/17 00:20 CDIFF TOX A+B [OP] Stat CULTURE STOOL + CAMPY+SHIGATOX [RM] Stat 02/12/17 00:21 Chest 1V Frontal [CR] Stat 02/12/17 00:25 Abdomen Pelvis wo Cont [CT] Stat 02/12/17 01:58 CULTURE URINE [RM] Stat UA W/MICROSCOPIC [URIN] Stat - Assessment/Plan Last 24 Hours: My Active Orders 02/12/17 00:19 EKG Documentation Completion [RC] STAT Pulse Oximetry [RC] ASDIRECTED Sodium Chloride 0.9% [Saline Flush] 10 ml FLUSH ASDIRECTED PRN Sodium Chloride 0.9% [Saline Flush] 2.5 ml FLUSH ASDIRECTED PRN Saline Lock Insert [OM.PC] Stat 02/12/17 00:20 CDIFF TOX A+B [OP] Stat CULTURE STOOL + CAMPY+SHIGATOX [RM] Stat 02/12/17 00:21 Chest 1V Frontal [CR] Stat 02/12/17 00:25 Abdomen Pelvis wo Cont [CT] Stat 02/12/17 01:58 CULTURE URINE [RM] Stat UA W/MICROSCOPIC [URIN] Stat
[2017-02-12] MEDS ORDERED: Sodium Chloride 0.9% 1,000 ML IV ONE (00:48)
[2017-02-12 01:05] LABS: CHLORIDE,CL 98 mmol/L (98-110); SODIUM,NA 139 mmol/L (136-146)
[2017-02-12] MEDS ORDERED: Levofloxacin/Dextrose 5%-Water 750 MG in Premix Bag 1 BAG IV ONE (02:10)
[2017-02-12] MEDS ORDERED: oxyCODONE 5 MG Tab PO PRN (03:52)
[2017-02-12] MEDS ORDERED: Acetaminophen 325 MG Tab PO PRN (03:52)
[2017-02-12] MEDS ORDERED: Morphine 2 MG/ML Syringe IVPUSH PRN (03:52)
[2017-02-12] MEDS ORDERED: Sodium Chloride 0.9% 1,000 ML IV SCH (04:00)
[2017-02-12] MEDS: Insulin Aspart 100 Units/ML 3 ML Pen SUBCUT SCH ×4 (06:41→20:40)
[2017-02-12] MEDS ORDERED: metroNIDAZOLE/Normal Saline 500 MG in Premix Bag 1 BAG IV SCH (08:45)
--- NOTE | 2017-02-12 09:12 | PCM.HP ---
H&P History of Present Illness - General Date of Service: 02/12/17 Admit Problem/Dx: Admission Diagnosis/Problem Admission Diagnosis/Problem Hematochezia Source of Information: Patient, Prison Records, Old Records History Limitations: Reports: No Limitations - History of Present Illness Initial Comments - Free Text/Narative: This 82 year old male with pmh of CHF, HTN, DM type 2, CAD, dyslipidemia and recent CAP presented to the ED last night with an episode of bloody diarrhea. He reports he has felt well since going to [place], he reports having diarrhea for a couple days, but last night was the first bloody one. He denies fevers, chest pain, SOB, or palpitations. He denies abdominal pain, N/V or urinary symptoms. He was discharged to [place] 02/02/2017 after being hospitalized for CAP and CHF. He was treated with Rocephin and Azithromycin and sent home with Keflex for 5 more days. In [facility] ED WBC 15,89, Hgb 10.9, down from 15.0 at discharge on 02/02, BUN 53 Cr 1.6. UA negative and CXR negative for acute cardiopulmonary process. INR 1.15. Sinus tachycardia noted on EKG. Abdominal CT reported peripancreatic stranding near the head and duodenitis. Amylase and Lipase WNL. Stool studies sent, which revealed Cdiff positive, campylobacter negative and positive for blood. Other stool studies still pending. He was treated with Levaquin and Vancomycin in the ED. He was admitted due to hematochezia and leukocytosis. - Related Data Allergies/Adverse Reactions: Allergies Allergy/AdvReac Type Severity Reaction Status Date / Time No Known Allergies Allergy Verified 01/29/17 09:11 Home Medications: Home Meds Aspirin 325 mg PO DAILY 01/21/14 [History] Rosuvastatin [Crestor] 20 mg PO DAILY 04/14/14 [History] Furosemide 80 mg PO DAILY 11/18/15 [History] Nystatin [Nystop] 1 gm TOP TID bottle 02/02/17 [Rx] Acetaminophen [Tactinal] 650 mg PO Q4H PRN 02/12/17 [History] Bisacodyl 10 mg RECTAL Q24H PRN 02/12/17 [History] Fluconazole [Diflucan] 200 mg PO Q7D 02/12/17 [History] Insulin Aspart [NovoLOG] See Protocol SUBCUT QIDACANDBED 02/12/17 [History] Insuln Asp Prot/Insulin Aspart [NovoLOG Mix 70-30] 40 units SUBCUT BIDAC [History] Latanoprost [Xalatan 0.005% Ophth Soln] 1 drop EYEBOTH BEDTIME 02/12/17 [History ] Losartan [Cozaar] 25 mg PO DAILY 02/12/17 [History] Magnesium Hydroxide [Milk of Magnesia] 30 ml PO DAILY PRN 02/12/17 [History] Past Medical History HEENT History: Reports: Cataract, Impaired Vision Cardiovascular History: Reports: Heart Failure, High Cholesterol, Hypertension, [place], Stents Other Cardiovascular History: Pedal edema Respiratory History: Reports: Pneumonia, Recurrent, SOB, Other (See Below) Other Respiratory History: low oxygen; on home 02 at 4lpm Gastrointestinal History: Reports: Chronic Constipation Genitourinary History: Reports: UTI, Recurrent Other Genitourinary History: UTI Musculoskeletal History: Reports: Back Pain, Chronic Neurological History: Reports: None Psychiatric History: Reports: Dementia Endocrine/Metabolic History: Reports: Diabetes, Type II Hematologic History: Reports: None Immunologic History: Reports: None Oncologic (Cancer) History: Reports: None Dermatologic History: Reports: Cellulitis, Chronic Cellulitis - Infectious Disease History Infectious Disease History: Reports: Shingles - Past Surgical History Head Surgeries/Procedures: Reports: None HEENT Surgical History: Reports: Eye Surgery Respiratory Surgical History: Reports: None GI Surgical History: Reports: None Male Surgical History: Reports: None Endocrine Surgical History: Reports: None Musculoskeletal Surgical History: Reports: None Social & Family History - Family History Family Medical History: Noncontributory Dermatologic: Reports: Other (See Below) Other Dermatologic Family History: cellulitis - Tobacco Use Smoking Status *Q: Never Smoker Second Hand Smoke Exposure: No - Caffeine Use Caffeine Use: Reports: Coffee Caffeine Use Comment: 1-2drinks/day - Alcohol Use Days Per Week of Alcohol Use: 0 - Recreational Drug Use Recreational Drug Use: No H&P Review of Systems - Review of Systems: Review Of Systems: See Below General: Reports: No Symptoms. Denies: Fever, Chills, Malaise, Weakness, Fatigue HEENT: Reports: No Symptoms. Denies: Ear Pain, Headaches, Sinus Congestion Pulmonary: Reports: No Symptoms. Denies: Shortness of Breath (nothing new), Cough, Sputum Cardiovascular: Reports: Edema (at baseline, "I think its getting better"). Denies: Chest Pain, Palpitations, Dyspnea on Exertion Gastrointestinal: Reports: Black Stool, Bloody Stool, Diarrhea, Hematochezia. Denies: Abdominal Pain, Decreased Appetite, Distension, Hematemesis, Nausea, Vomiting Genitourinary: Reports: No Symptoms. Denies: Dysuria, Frequency, Burning, Pain Musculoskeletal: Reports: No Symptoms Skin: Reports: No Symptoms Neurological: Reports: No Symptoms Hematologic/Lymphatic: Reports: No Symptoms Immunologic: Reports: No Symptoms Exam - Exam Exam: See Below - Vital Signs Vital Signs: Last Vital Signs Temp 97.4 F 02/12/17 08:43 Pulse 112 H 02/12/17 08:43 Resp 22 H 02/12/17 08:43 BP 111/61 02/12/17 08:43 Pulse Ox 99 02/12/17 08:43 Weight: 143 kg - Exam Quality Assessment: Supplemental Oxygen General: Alert, Oriented, Cooperative HEENT: Conjunctiva Clear, Hearing Intact, Mucosa Moist & Pelzer, Nares Patent, Posterior Pharynx Clear Neck: Supple, Trachea Midline, Full Range of Motion Lungs: Clear to Auscultation, Normal Respiratory Effort Cardiovascular: Regular Rate, Regular Rhythm, Normal S1, Normal S2. No: Systolic Murmur GI/Abdominal Exam: Normal Bowel Sounds, Soft, Non-Tender, Other (very obese abdomen makes assessment difficult) Extremities: Normal Range of Motion, Non-Tender, Pedal Edema (and bilateral lower leg edema, +3-4 pitting edema.) Skin: Wound, Decubitis (shearing of skin noted to bilateral buttuck, near gluteal cleft, abrasions noted, blanches well. Abrasions noted to R lateral salvador and L lateral salvador. ). No: Intact Neuro Extensive - Mental Status: Alert, Oriented x3, Normal Mood/Affect, Normal Cognition Neuro Extensive - Motor, Sensory, Reflexes: CN II-XII Intact, Normal Gait Psychiatric: Alert, Normal Affect, Normal Mood - Patient Data Lab Results Last 24 hrs: Laboratory Results - last 24 hr 02/12/17 Range/Units 02:37 Lactate 1.8 (0.20-2.00) mmol/L Result Diagrams: 02/12/17 00:30 02/12/17 00:30 Nathaniel Results Last 24 hrs: Microbiology 02/12/17 07:19 Clostridium difficile Toxin A&B (M) - Final Stool / Feces - Stool, Liquid Positive C. Diff Antigen 02/12/17 07:19 Campylobacter Antigen Assay - Final Stool / Feces - Stool, Liquid NEGATIVE CAMPYLOBACTER AG 02/12/17 07:19 Stool Occult Blood (NATHANIEL) - Final Stool / Feces - Stool, Liquid 02/12/17 02:27 Anaerobic Blood Culture - Final Blood - Venous *Q Meaningful Use (ADM) - VTE *Q VTE Criteria *Q: - Stroke *Q Stroke Criteria *Q: - AMI *Q AMI Criteria *Q: - Problem List (1) Clostridium difficile colitis SNOMED Code(s): 363729099 ICD Code: A04.7 - ENTEROCOLITIS DUE TO CLOSTRIDIUM DIFFICILE Status: Acute Current Visit: Yes (2) Leukocytosis SNOMED Code(s): 175268720, 557081329 ICD Code: D72.829 - ELEVATED WHITE BLOOD CELL COUNT, UNSPECIFIED Status: Acute Current Visit: Yes (3) Hematochezia SNOMED Code(s): 439664590 ICD Code: K92.1 - MELENA Status: Acute Current Visit: Yes (4) HTN (hypertension) SNOMED Code(s): 48083681 ICD Code: I10 - ESSENTIAL (PRIMARY) HYPERTENSION Status: Chronic Current Visit: Yes (5) Dementia SNOMED Code(s): 60859543 ICD Code: F03.90 - UNSPECIFIED DEMENTIA WITHOUT BEHAVIORAL DISTURBANCE Status: Chronic Current Visit: Yes Qualifiers: Alzheimer's disease onset: unspecified onset Dementia behavioral disturbance: without behavioral disturbance (6) DM type 2 (diabetes mellitus, type 2) SNOMED Code(s): 78192327 ICD Code: E11.9 - TYPE 2 DIABETES MELLITUS WITHOUT COMPLICATIONS Status: Chronic Current Visit: Yes (7) Generalized weakness SNOMED Code(s): 73712148 ICD Code: R53.1 - WEAKNESS Status: Chronic Current Visit: Yes (8) CHF (congestive heart failure) SNOMED Code(s): 21125929 ICD Code: I50.9 - HEART FAILURE, UNSPECIFIED Status: Acute Current Visit : No Problem List Initiated/Reviewed/Updated: Yes Orders Last 24hrs: Active Orders 24 hr Category Date Time Status Blood Glucose Check, [facility] 02/12/17 03:52 Active Communication Order [RC] ROUTINE Care 02/12/17 03:57 Active Telemetry Monitoring [Cardiac Monitoring] [RC] Q8H Care 02/12/17 03:51 Active [employer] Diet [DIET] Diet 02/12/17 Breakfast Active CULTURE BLOOD [BC] Stat Lab 02/12/17 02:27 Results CULTURE BLOOD [BC] Stat Lab 02/12/17 02:37 Received Acetaminophen [Tylenol] Med 02/12/17 03:52 Active 650 mg PO Q6H PRN Insulin Aspart [NovoLOG] Med 02/12/17 07:30 Active See Protocol SUBCUT ACBED Levofloxacin/Dextrose 5%-Water [Levaquin in D5W 750 MG/ Med 02/14/17 04:00 Active 150 ML] 750 mg Premix Bag 1 bag IV Q48H Morphine Med 02/12/17 03:52 Active 2 mg IVPUSH Q4H PRN Pantoprazole [ProTONIX IV] 40 mg Med 02/12/17 09:00 Active Sodium Chloride 0.9% [Normal Saline] 10 ml IVPUSH Q12HR metroNIDAZOLE/Normal Saline [Flagyl 500 MG in NS 100 ML Med 02/12/17 08:45 Active ] 500 mg Premix Bag 1 bag IV QID oxyCODONE Med 02/12/17 03:52 Active 5 mg PO Q4H PRN Blood Culture x2 Reflex Set [OM.PC] Stat Oth 02/12/17 02:09 Ordered Medication Orders Acetaminophen (Tylenol) 650 mg PO Q6H PRN PRN Reason: Pain (mild 1-3) Levofloxacin/Dextrose 750 mg/ (Premix) 150 mls @ 100 mls/hr IV Q48H KAR Metronidazole 500 mg/ Premix 100 mls @ 100 mls/hr IV QID KAR Pantoprazole Sodium 40 mg/ (Sodium Chloride) 10 mls @ 300 mls/hr IVPUSH Q12HR KAR Insulin Aspart (Novolog) 0 unit SUBCUT ACBED KAR PRN Reason: Protocol Last Admin: 02/12/17 06:41 Dose: 2 units Morphine Sulfate (Morphine) 2 mg IVPUSH Q4H PRN PRN Reason: Pain (severe 7-10) Oxycodone HCl (Oxycodone) 5 mg PO Q4H PRN PRN Reason: Pain (moderate 4-6) Sodium Chloride (Saline Flush) 10 ml FLUSH ASDIRECTED PRN PRN Reason: Keep Vein Open Sodium Chloride (Saline Flush) 2.5 ml FLUSH ASDIRECTED PRN PRN Reason: Keep Vein Open Assessment/Plan Comment:: This 82 year old male admitted with hematochhezia, found to be C diff positive and leukocytosis 1. C diff colitis: Duodenitis noted on CT scan. C diff positive. In further discussion with Dr. Mancilla, will place on PO Vanco 125 mg QID. WIll also start Probiotics BID. Having 3 stools since admission, small amounts. Monitor volume status closely due to CHF. 2. HTN: Hold Cozaar due to COREY, monitor and restart possibly in am. 3. CHF: Hold Lasix today due to diarrhea. Restart in am. Monitor fluid status closely, daily weights and strict I/O 4.CAD: Crestor Hold ASA due to bleeding 5. Tachycardia: Noted, will monitor. Give Lopressor 5 mg IV. Reviewing last admission, HR trended 90-110s. ST no afib noted. On telemetry 6. Shearing injury to buttock: Will place Duoderm, frequent repositioning and good perineal cares VTE prophlyaxis: SCDs frequent ambulation. Dispo: Will change to inpatient status today due to C diff colitis and length of stay will be longer than 48 hours. DC back to [place] in 3-4 days pending improvement.
[2017-02-12] MEDS: Pantoprazole 40 MG in Sodium Chloride 0.9% 10 ML IVPUSH SCH ×2 (09:55→20:25)
--- NOTE | 2017-02-12 10:42 | CR ---
EXAM DATE: 02/12/17 PATIENT'S AGE: 82 Patient: MORGAN BIRD Facility: [place], [place] Site . Site : 1935 Study: XRay Chest [id number]/8/2017 1:08:57 AM Ordering Physician: Mari Woodruff Final Report: INDICATION: PAIN, SOB TECHNIQUE: Chest 1 view COMPARISON: January 29, 2017 FINDINGS: Cardiovascular and mediastinum: Stable cardiomegaly.. Mediastinum is within normal limits. Lungs and pleural space: Low lung volumes. Stable scarring in the left upper lobe. Soft-tissue attenuation degrades evaluation of the left lung base. No sign of pleural effusion. No pneumothorax. Bones and soft tissues: Degenerative changes. IMPRESSION: No gross evidence for acute cardiopulmonary disease. Dictated by Jarrett Francisco MD @ 02/12/2017 1:27:23 AM Dictated by: Jarrett Francisco MD @ 02/12/2017 01:27:28 (Electronic Signature) Report Signed by Proxy. [facility]
--- NOTE | 2017-02-12 10:43 | CT ---
EXAM DATE: 02/12/17 PATIENT'S AGE: 82 Patient: MORGAN BIRD Facility: [place], [place] Site . Site : 1935 Study: CT Abdomen/Pelvis WO CONT [id number]/8/2017 1:11:14 AM Ordering Physician: Mari Woodruff Final Report: INDICATION: PAIN, BLOODY LOOSE STOOL TECHNIQUE: CT abdomen and pelvis without contrast. COMPARISON: None FINDINGS: Lower chest: Scarring/atelectasis. Liver: Calcified granuloma within the right hepatic lobe. Spleen: Unremarkable. Pancreas: Subtle stranding along the head of the pancreas. . Gallbladder and bile ducts: Cholelithiasis. Kidneys: Unremarkable. No kidney or ureteral stones and no hydronephrosis. Adrenal glands: Unremarkable. GI tract: Scattered colonic diverticulosis with no evidence of acute diverticulitis. Appendix is normal. Vascular structures: Atherosclerotic disease. Lymph nodes: Unremarkable. Miscellaneous: Small fat containing umbilical hernia. Left inguinal hernia. No free air or significant free fluid. Pelvic Organs: Unremarkable. Bones: Multiple remote right-sided rib abnormalities. Multilevel degenerative changes. IMPRESSION: 1. Subtle peripancreatic stranding about the head of the pancreas. This could represent mild pancreatitis. Alternatively this could represent adjacent duodenitis. Please correlate clinically and with laboratory findings. 2. Cholelithiasis. Dictated by Jarrett Francisco MD @ 02/12/2017 1:26:08 AM Dictated by: Jarrett Francisco MD @ 02/12/2017 01:27:41 (Electronic Signature) Report Signed by Proxy. [facility]
[2017-02-12] MEDS: Hydrocolloid Dressing 4x4 Bandage TOP SCH (11:42)
[2017-02-12] MEDS ORDERED: Metoprolol Tartrate 5 MG/5 ML SDV IVPUSH ONE (12:22)
[2017-02-12] MEDS: Acidophilus with Citrus Pectin Tab PO SCH ×2 (12:36→20:24)
[2017-02-12] MEDS: Vancomycin 25 MG/ML Compounding Kit PO SCH ×3 (12:42→23:21)
[2017-02-12] MEDS: Nystatin Topical Powder 15 GM Bottle TOP SCH ×3 (12:47→21:24)
[2017-02-12] MEDS: Insuln Aspart Prot/Insulin Aspart 100 Units/ML 3 ML FlexPen SUBCUT SCH (16:58)
[2017-02-13 05:52] LABS: CHLORIDE,CL 103 mmol/L (98-110); SODIUM,NA 138 mmol/L (136-146)
[2017-02-13] MEDS: Vancomycin 25 MG/ML Compounding Kit PO SCH ×5 (06:06→23:58)
[2017-02-13] MEDS: Nystatin Topical Powder 15 GM Bottle TOP SCH ×3 (06:08→21:14)
[2017-02-13] MEDS: Insulin Aspart 100 Units/ML 3 ML Pen SUBCUT SCH ×4 (07:15→21:08)
[2017-02-13] MEDS: Insuln Aspart Prot/Insulin Aspart 100 Units/ML 3 ML FlexPen SUBCUT SCH ×2 (07:16→17:45)
[2017-02-13] MEDS: Furosemide 80 MG Tab PO SCH (09:11)
[2017-02-13] MEDS: Acidophilus with Citrus Pectin Tab PO SCH ×2 (09:11→20:20)
[2017-02-13] MEDS: Rosuvastatin 10 MG Tab PO SCH (09:26)
[2017-02-13] MEDS: Pantoprazole 40 MG in Sodium Chloride 0.9% 10 ML IVPUSH SCH ×2 (09:27→20:20)
--- NOTE | 2017-02-13 15:24 | PCM.PN ---
- General Info Date of Service: 02/13/17 Admission Dx/Problem (Free Text): Bloody diarrhea, weakness Functional Status: Reports: Pain Controlled - Review of Systems General: Reports: Weakness HEENT: Reports: No Symptoms Pulmonary: Reports: No Symptoms Cardiovascular: Reports: No Symptoms Gastrointestinal: Reports: Hematochezia Genitourinary: Reports: No Symptoms Musculoskeletal: Reports: No Symptoms Skin: Reports: No Symptoms Neurological: Reports: No Symptoms Psychiatric: Reports: No Symptoms - Patient Data Vitals - Most Recent: Last Vital Signs Temp 35.6 C 02/13/17 12:00 Pulse 94 02/13/17 12:00 Resp 18 02/13/17 12:00 BP 122/61 02/13/17 12:00 Pulse Ox 95 02/13/17 12:00 Weight - Most Recent: 145 kg I&O - Last 24 Hours: Intake & Output 02/13/17 02/13/17 02/13/17 06:59 14:59 22:59 Intake Total 150 Balance 150 Lab Results Last 24 Hours: Laboratory Results - last 24 hr 02/12/17 02/12/17 02/13/17 Range/Units 16:18 20:27 05:23 WBC 8.60 (4.0-11.0) K/uL RBC 3.19 L (4.50-5.90) M/uL Hgb 8.9 L (13.0-17.0) g/dL Hct 28.3 L (38.0-50.0) % MCV 88.7 (80.0-98.0) fL MCH 27.9 (27.0-32.0) pg MCHC 31.4 (31.0-37.0) g/dL RDW Std Deviation 53.4 (28.0-62.0) fl RDW Coeff of [place] 17 H (11.0-15.0) % Plt Count 190 (150-400) K/uL MPV 10.30 (7.40-12.00) fL Neut % (Auto) 58.8 (48.0-80.0) % Lymph % (Auto) 23.6 (16.0-40.0) % [place] % (Auto) 12.3 (0.0-15.0) % Eos % (Auto) 4.7 (0.0-7.0) % Baso % (Auto) 0.6 (0.0-1.5) % Neut # (Auto) 5.1 (1.4-5.7) K/uL Lymph # (Auto) 2.0 (0.6-2.4) K/uL [place] # (Auto) 1.1 H (0.0-0.8) K/uL Eos # (Auto) 0.4 (0.0-0.7) K/uL Baso # (Auto) 0.1 (0.0-0.1) K/uL Nucleated RBC % 0.0 /100WBC Nucleated RBCs # 0 K/uL Sodium (136-146) mmol/L Potassium (3.5-5.1) mmol/L Chloride (98-110) mmol/L Carbon Dioxide (21-31) mmol/L BUN (6.0-23.0) mg/dL Creatinine (0.6-1.5) mg/dL Est Cr Clr Drug Dosing mL/min Estimated GFR (MDRD) ml/min Glucose (60-110) mg/dL POC Glucose 274 H 175 H (60-110) mg/dL Calcium (8.8-10.8) mg/dL 02/13/17 02/13/17 02/13/17 Range/Units 05:23 06:05 11:45 WBC (4.0-11.0) K/uL RBC (4.50-5.90) M/uL Hgb (13.0-17.0) g/dL Hct (38.0-50.0) % MCV (80.0-98.0) fL MCH (27.0-32.0) pg MCHC (31.0-37.0) g/dL RDW Std Deviation (28.0-62.0) fl RDW Coeff of [place] (11.0-15.0) % Plt Count (150-400) K/uL MPV (7.40-12.00) fL Neut % (Auto) (48.0-80.0) % Lymph % (Auto) (16.0-40.0) % [place] % (Auto) (0.0-15.0) % Eos % (Auto) (0.0-7.0) % Baso % (Auto) (0.0-1.5) % Neut # (Auto) (1.4-5.7) K/uL Lymph # (Auto) (0.6-2.4) K/uL [place] # (Auto) (0.0-0.8) K/uL Eos # (Auto) (0.0-0.7) K/uL Baso # (Auto) (0.0-0.1) K/uL Nucleated RBC % /100WBC Nucleated RBCs # K/uL Sodium 138 (136-146) mmol/L Potassium 4.1 (3.5-5.1) mmol/L Chloride 103 (98-110) mmol/L Carbon Dioxide 30 (21-31) mmol/L BUN 42 H (6.0-23.0) mg/dL Creatinine 1.1 (0.6-1.5) mg/dL Est Cr Clr Drug Dosing 57.05 mL/min Estimated GFR (MDRD) > 60.0 ml/min Glucose 161 H (60-110) mg/dL POC Glucose 179 H 192 H (60-110) mg/dL Calcium 8.3 L (8.8-10.8) mg/dL Med Orders - Current: Current Medications Acetaminophen (Tylenol) 650 mg PO Q6H PRN PRN Reason: Pain (mild 1-3) Acidophilus/Pectin (Acidophilus/Pectin, [place]) 1 tab PO BID [facility] Last Admin: 02/13/17 09:11 Dose: 1 tab Furosemide (Lasix) 80 mg PO DAILY [facility] Last Admin: 02/13/17 09:11 Dose: 80 mg Pantoprazole Sodium 40 mg/ (Sodium Chloride) 10 mls @ 300 mls/hr IVPUSH Q12HR [facility] Last Admin: 02/13/17 09:27 Dose: 300 mls/hr Insulin Aspart (Novolog) 0 unit SUBCUT ACBED [facility] PRN Reason: Protocol Last Admin: 02/13/17 12:28 Dose: 2 units Insulin Aspart (Novolog Mix 70-30) 40 unit SUBCUT BIDAC [facility] Last Admin: 02/13/17 07:16 Dose: 40 units Morphine Sulfate (Morphine) 2 mg IVPUSH Q4H PRN PRN Reason: Pain (severe 7-10) Nystatin (Nystop) 1 gm TOP TID [facility] Last Admin: 02/13/17 06:08 Dose: 1 applic Oxycodone HCl (Oxycodone) 5 mg PO Q4H PRN PRN Reason: Pain (moderate 4-6) Rosuvastatin Calcium (Crestor) 20 mg PO DAILY [facility] Last Admin: 02/13/17 09:26 Dose: 20 mg Sodium Chloride (Saline Flush) 10 ml FLUSH ASDIRECTED PRN PRN Reason: Keep Vein Open Sodium Chloride (Saline Flush) 2.5 ml FLUSH ASDIRECTED PRN PRN Reason: Keep Vein Open Vancomycin HCl (First-Vancomycin 25 Compounding Kit) 125 mg PO QID [facility] Last Admin: 02/13/17 12:33 Dose: 5 ml Wound Care/Dressing Products (Duoderm Cgf) 1 each TOP Q72H [facility] Last Admin: 02/12/17 11:42 Dose: 1 each Discontinued Medications Sodium Chloride (Normal Saline) 1,000 mls @ 999 mls/hr IV .BOLUS ONE Stop: 02/12/17 01:48 Last Admin: 02/12/17 01:15 Dose: 999 mls/hr Levofloxacin/Dextrose 750 mg/ (Premix) 150 mls @ 100 mls/hr IV ONETIME ONE Stop: 02/12/17 03:39 Last Admin: 02/12/17 03:43 Dose: 100 mls/hr Vancomycin HCl 1 gm/ Sodium (Chloride) 250 mls @ 250 mls/hr IV ONETIME ONE Stop: 02/12/17 03:09 Last Admin: 02/12/17 02:28 Dose: 250 mls/hr Sodium Chloride (Normal Saline) 1,000 mls @ 75 mls/hr IV ASDIRECTED [facility] Last Admin: 02/12/17 04:02 Dose: 75 mls/hr Levofloxacin/Dextrose 750 mg/ (Premix) 150 mls @ 100 mls/hr IV Q48H [facility] Metronidazole 500 mg/ Premix 100 mls @ 100 mls/hr IV QID [facility] Last Admin: 02/12/17 09:57 Dose: 100 mls/hr Metoprolol Tartrate (Lopressor) 5 mg IVPUSH ONETIME ONE Stop: 02/12/17 12:23 Last Admin: 02/12/17 12:37 Dose: 5 mg - Exam Quality Assessment: Supplemental Oxygen General: Alert, Oriented, Cooperative HEENT: Pupils Equal, Pupils Reactive Neck: Supple, Trachea Midline Lungs: Clear to Auscultation, Normal Respiratory Effort Cardiovascular: Regular Rate, Regular Rhythm GI/Abdominal Exam: Normal Bowel Sounds, Soft, Non-Tender, No Distention Back Exam: Decreased Range of Motion Extremities: Pedal Edema Skin: Warm, Dry Neurological: No New Focal Deficit Psy/Mental Status: Alert, Normal Affect - Problem List & Annotations (1) Clostridium difficile colitis SNOMED Code(s): 291669411 Code(s): A04.7 - ENTEROCOLITIS DUE TO CLOSTRIDIUM DIFFICILE Status: Acute Priority: High Current Visit: Yes Annotation/Comment:: On oral vancomycin (2) Anemia, chronic disease SNOMED Code(s): 328105112 Code(s): D63.8 - ANEMIA IN OTHER CHRONIC DISEASES CLASSIFIED ELSEWHERE Status: Chronic Priority: High Current Visit: Yes (3) Hematochezia SNOMED Code(s): 044282745 Code(s): K92.1 - MELENA Status: Acute Priority: High Current Visit: Yes (4) DM type 2 (diabetes mellitus, type 2) SNOMED Code(s): 37000852 Code(s): E11.9 - TYPE 2 DIABETES MELLITUS WITHOUT COMPLICATIONS Status: Chronic Priority: Medium Current Visit: Yes Qualifiers: Diabetes mellitus complication status: with hyperglycemia Diabetes mellitus parts counterman insulin use: without detention use Qualified Code(s): E11.65 - Type 2 diabetes mellitus with hyperglycemia - Problem List Review Problem List Initiated/Reviewed/Updated: Yes - Plan Plan:: The patient is an 82-year-old gentleman who is admitted from halfway secondary to bloody diarrhea and weakness. Subsequent testing has shown patient to be positive for C. difficile colitis. The patient is on oral vancomycin is tolerating this very well. He is thus far denied any fever, chills, shortness of breath or abdominal pain. The patient was previously in the hospital here on February 02, 2017 secondary to community-acquired pneumonia. Patient had been treated with Rocephin and azithromycin was sent home with Keflex. He had been readmitted with bloody diarrhea. Patient also today has a hemoglobin of 8.9 g/ dL and this represents a minimal drop from his previous. This will be monitored very closely and if this further drops and may consider has fusion of packed red blood cells. Testing and also revealed negative for Campylobacter Listeria and Shigella. Patient's diabetes will continue to be monitored with sliding scale insulin and diabetic diet. The patient today says that he is back in his baseline and feels good and wants to go to [facility]. The patient says that he feels like he's doing well. I think the patient would be safe to be discharged once his diarrhea has slowed down and contact precautions are taken. The patient should be sent home with the by mouth vancomycin. The patient will likely be available for transfer to [facility] tomorrow morning.
[2017-02-14] MEDS ORDERED: Levofloxacin/Dextrose 5%-Water 750 MG in Premix Bag 1 BAG IV SCH (04:00)
[2017-02-14] MEDS: Nystatin Topical Powder 15 GM Bottle TOP SCH (06:26)
[2017-02-14] MEDS: Vancomycin 25 MG/ML Compounding Kit PO SCH (06:27)
[2017-02-14] MEDS: Hydrocolloid Dressing 4x4 Bandage TOP SCH (06:40)
[2017-02-14] MEDS: Insulin Aspart 100 Units/ML 3 ML Pen SUBCUT SCH (07:20)
[2017-02-14] MEDS: Insuln Aspart Prot/Insulin Aspart 100 Units/ML 3 ML FlexPen SUBCUT SCH (07:24)
[2017-02-14] MEDS: Acidophilus with Citrus Pectin Tab PO SCH (09:04)
[2017-02-14] MEDS: Rosuvastatin 10 MG Tab PO SCH (09:05)
[2017-02-14] MEDS: Furosemide 80 MG Tab PO SCH (09:05)
[2017-02-14] MEDS: Pantoprazole 40 MG in Sodium Chloride 0.9% 10 ML IVPUSH SCH (09:06)
--- NOTE | 2017-02-14 09:20 | PCM.DCSUM1 ---
Discharge Summary - Hospital Course Free Text/Narrative:: The patient was admitted secondary to bloody, watery diarrhea and weakness. - Discharge Data Discharge Date: 02/14/17 Discharge Disposition: DC/Tfer to SNF 03 Condition: Fair - Discharge Diagnosis/Problem(s) (1) Clostridium difficile colitis SNOMED Code(s): 385668941 ICD Code: A04.7 - ENTEROCOLITIS DUE TO CLOSTRIDIUM DIFFICILE Status: Acute Priority: High Current Visit: Yes Problem Details: On oral vancomycin (2) Anemia, chronic disease SNOMED Code(s): 757393506 ICD Code: D63.8 - ANEMIA IN OTHER CHRONIC DISEASES CLASSIFIED ELSEWHERE Status: Chronic Priority: High Current Visit: Yes (3) DM type 2 (diabetes mellitus, type 2) SNOMED Code(s): 06005157 ICD Code: E11.9 - TYPE 2 DIABETES MELLITUS WITHOUT COMPLICATIONS Status: Chronic Priority: Medium Current Visit: Yes Qualifiers: Diabetes mellitus complication status: with hyperglycemia Diabetes mellitus long term care social worker insulin use: without long term care social worker use Qualified Code(s): E11.65 - Type 2 diabetes mellitus with hyperglycemia - Patient Summary/Data Hospital Course: The patient is an 82-year-old gentleman who is [facility] secondary to bloody diarrhea and weakness. Subsequent testing has shown patient to be positive for C. difficile colitis. The patient is on oral vancomycin is tolerating this very well. He is thus far denied any fever, chills, shortness of breath or abdominal pain. The patient was previously in the hospital here on February 02, 2017 secondary to community-acquired pneumonia. Patient had been treated with Rocephin and azithromycin was sent home with Keflex. He had been readmitted with bloody diarrhea. Patient also today has a hemoglobin of 8.9 g/ dL and this represents a minimal drop from his previous. This will be monitored very closely and if this further drops and may consider has fusion of packed red blood cells. Testing and also revealed negative for Campylobacter Listeria and Shigella. Patient's diabetes will continue to be monitored with sliding scale insulin and diabetic diet. The patient today says that he is back in his baseline and feels good and wants to go to [facility]. The patient says that he feels like he's doing well. I think the patient would be safe to be discharged once his diarrhea has slowed down and contact precautions are taken. The patient should be sent home with the by mouth vancomycin. The patient has been doing well and has had well formed stools. He is denied any pain. The patient was previously admitted from [facility] and he would like to return. The patient's anemia has also been monitored very closely and his hemoglobin has been stable and is currently at 9 g/dL. The patient will be discharged with a recommendation to follow-up with his primary care physician. He is also to continue all of his medications. I have also prescribed the patient oral vancomycin 125 mg by mouth 4 times a day for the C. difficile colitis. This is an oral form of 5 mg/mL and the patient is to take 5 mL or 1 teaspoon 4 times a day. C. difficile contact precautions suited also be maintained. The patient also has been recommended to have diabetic diet as tolerated. He is also to have activity as tolerated. The patient is hemodynamically stable and he'll be discharged with the above recommendations [facility]. - Patient Instructions Diet: Diabetic Diet Activity: As Tolerated - Discharge Plan Prescriptions/Med Rec: Vancomycin [First-Vancomycin 25 Compounding Kit] 5 ml PO QID #120 ml Home Medications: Home Meds Aspirin 325 mg PO DAILY 01/21/14 [History] Rosuvastatin [Crestor] 20 mg PO DAILY 04/14/14 [History] Furosemide 80 mg PO DAILY 11/18/15 [History] Nystatin [Nystop] 1 gm TOP TID bottle 02/02/17 [Rx] Acetaminophen [Tactinal] 650 mg PO Q4H PRN 02/12/17 [History] Bisacodyl 10 mg RECTAL Q24H PRN 02/12/17 [History] Fluconazole [Diflucan] 200 mg PO Q7D 02/12/17 [History] Insulin Aspart [NovoLOG] See Protocol SUBCUT QIDACANDBED 02/12/17 [History] Insuln Asp Prot/Insulin Aspart [NovoLOG Mix 70-30] 40 units SUBCUT BIDAC [History] Latanoprost [Xalatan 0.005% Ophth Soln] 1 drop EYEBOTH BEDTIME 02/12/17 [History ] Losartan [Cozaar] 25 mg PO DAILY 02/12/17 [History] Magnesium Hydroxide [Milk of Magnesia] 30 ml PO DAILY PRN 02/12/17 [History] Hydrocolloid Dressing [DuoDerm CGF] 1 each TOP Q72H bandage 02/14/17 [Rx] Insulin Aspart [NovoLOG] 0 unit SUBCUT ACBED pen 02/14/17 [Rx] Vancomycin [First-Vancomycin 25 Compounding Kit] 5 ml PO QID #120 ml 02/14/17 [ Rx] Patient Handouts: Clostridium Difficile Infection, [id number] Referrals: Adis Mendoza MD [Physician] - (next Jose rounds) - General Info Date of Service: 02/14/17 Admission Dx/Problem (Free Text: Bloody diarrhea, weakness Functional Status: Reports: Pain Controlled, Tolerating Diet - Review of Systems General: Reports: No Symptoms HEENT: Reports: No Symptoms Pulmonary: Reports: No Symptoms Cardiovascular: Reports: No Symptoms Gastrointestinal: Reports: No Symptoms Genitourinary: Reports: No Symptoms Musculoskeletal: Reports: No Symptoms Skin: Reports: No Symptoms Neurological: Reports: No Symptoms Psychiatric: Reports: No Symptoms - Patient Data Vitals - Most Recent: Last Vital Signs Temp 36.4 C 02/14/17 04:00 Pulse 105 H 02/14/17 04:00 Resp 30 H 02/14/17 04:00 BP 126/56 L 02/14/17 04:00 Pulse Ox 92 L 02/14/17 04:00 Weight - Most Recent: 141.4 kg I&O - Last 24 hours: Intake & Output 02/13/17 02/14/17 02/14/17 22:59 06:59 14:59 Intake Total 450 500 Output Total 713 Balance -263 500 Lab Results - Last 24 hrs: Laboratory Results - last 24 hr 02/13/17 02/13/17 02/13/17 Range/Units 11:45 16:40 20:27 WBC (4.0-11.0) K/uL RBC (4.50-5.90) M/uL Hgb (13.0-17.0) g/dL Hct (38.0-50.0) % MCV (80.0-98.0) fL MCH (27.0-32.0) pg MCHC (31.0-37.0) g/dL RDW Std Deviation (28.0-62.0) fl RDW Coeff of [place] (11.0-15.0) % Plt Count (150-400) K/uL MPV (7.40-12.00) fL Neut % (Auto) (48.0-80.0) % Lymph % (Auto) (16.0-40.0) % [place] % (Auto) (0.0-15.0) % Eos % (Auto) (0.0-7.0) % Baso % (Auto) (0.0-1.5) % Neut # (Auto) (1.4-5.7) K/uL Lymph # (Auto) (0.6-2.4) K/uL [place] # (Auto) (0.0-0.8) K/uL Eos # (Auto) (0.0-0.7) K/uL Baso # (Auto) (0.0-0.1) K/uL Nucleated RBC % /100WBC Nucleated RBCs # K/uL POC Glucose 192 H 216 H 265 H (60-110) mg/dL 02/14/17 02/14/17 Range/Units 05:38 06:31 WBC 7.33 (4.0-11.0) K/uL RBC 3.23 L (4.50-5.90) M/uL Hgb 9.0 L (13.0-17.0) g/dL Hct 28.7 L (38.0-50.0) % MCV 88.9 (80.0-98.0) fL MCH 27.9 (27.0-32.0) pg MCHC 31.4 (31.0-37.0) g/dL RDW Std Deviation 53.7 (28.0-62.0) fl RDW Coeff of [place] 17 H (11.0-15.0) % Plt Count 179 (150-400) K/uL MPV 10.80 (7.40-12.00) fL Neut % (Auto) 52.6 (48.0-80.0) % Lymph % (Auto) 31.4 (16.0-40.0) % [place] % (Auto) 11.7 (0.0-15.0) % Eos % (Auto) 3.8 (0.0-7.0) % Baso % (Auto) 0.5 (0.0-1.5) % Neut # (Auto) 3.9 (1.4-5.7) K/uL Lymph # (Auto) 2.3 (0.6-2.4) K/uL [place] # (Auto) 0.9 H (0.0-0.8) K/uL Eos # (Auto) 0.3 (0.0-0.7) K/uL Baso # (Auto) 0.0 (0.0-0.1) K/uL Nucleated RBC % 0.0 /100WBC Nucleated RBCs # 0 K/uL POC Glucose 142 H (60-110) mg/dL Med Orders - Current: Current Medications Acetaminophen (Tylenol) 650 mg PO Q6H PRN PRN Reason: Pain (mild 1-3) Acidophilus/Pectin (Acidophilus/Pectin, [place]) 1 tab PO BID [facility] Last Admin: 02/14/17 09:04 Dose: 1 tab Furosemide (Lasix) 80 mg PO DAILY [facility] Last Admin: 02/14/17 09:05 Dose: 80 mg Pantoprazole Sodium 40 mg/ (Sodium Chloride) 10 mls @ 300 mls/hr IVPUSH Q12HR [facility] Last Admin: 02/14/17 09:06 Dose: 300 mls/hr Insulin Aspart (Novolog) 0 unit SUBCUT ACBED [facility] PRN Reason: Protocol Last Admin: 02/14/17 07:20 Dose: Not Given Insulin Aspart (Novolog Mix 70-30) 40 unit SUBCUT BIDAC [facility] Last Admin: 02/14/17 07:24 Dose: 40 units Morphine Sulfate (Morphine) 2 mg IVPUSH Q4H PRN PRN Reason: Pain (severe 7-10) Nystatin (Nystop) 1 gm TOP TID [facility] Last Admin: 02/14/17 06:26 Dose: 1 applic Oxycodone HCl (Oxycodone) 5 mg PO Q4H PRN PRN Reason: Pain (moderate 4-6) Rosuvastatin Calcium (Crestor) 20 mg PO DAILY [facility] Last Admin: 02/14/17 09:05 Dose: 20 mg Sodium Chloride (Saline Flush) 10 ml FLUSH ASDIRECTED PRN PRN Reason: Keep Vein Open Sodium Chloride (Saline Flush) 2.5 ml FLUSH ASDIRECTED PRN PRN Reason: Keep Vein Open Vancomycin HCl (First-Vancomycin 25 Compounding Kit) 125 mg PO QID [facility] Last Admin: 02/14/17 06:27 Dose: 5 ml Wound Care/Dressing Products (Duoderm Cgf) 1 each TOP Q72H [facility] Last Admin: 02/14/17 06:40 Dose: 1 each Discontinued Medications Sodium Chloride (Normal Saline) 1,000 mls @ 999 mls/hr IV .BOLUS ONE Stop: 02/12/17 01:48 Last Admin: 02/12/17 01:15 Dose: 999 mls/hr Levofloxacin/Dextrose 750 mg/ (Premix) 150 mls @ 100 mls/hr IV ONETIME ONE Stop: 02/12/17 03:39 Last Admin: 02/12/17 03:43 Dose: 100 mls/hr Vancomycin HCl 1 gm/ Sodium (Chloride) 250 mls @ 250 mls/hr IV ONETIME ONE Stop: 02/12/17 03:09 Last Admin: 02/12/17 02:28 Dose: 250 mls/hr Sodium Chloride (Normal Saline) 1,000 mls @ 75 mls/hr IV ASDIRECTED [facility] Last Admin: 02/12/17 04:02 Dose: 75 mls/hr Levofloxacin/Dextrose 750 mg/ (Premix) 150 mls @ 100 mls/hr IV Q48H [facility] Metronidazole 500 mg/ Premix 100 mls @ 100 mls/hr IV QID [facility] Last Admin: 02/12/17 09:57 Dose: 100 mls/hr Metoprolol Tartrate (Lopressor) 5 mg IVPUSH ONETIME ONE Stop: 02/12/17 12:23 Last Admin: 02/12/17 12:37 Dose: 5 mg - Exam Quality Assessment: Reports: Supplemental Oxygen General: Reports: Alert, Oriented, No Acute Distress HEENT: Reports: Pupils Equal, EOMI Neck: Reports: Supple, Trachea Midline Lungs: Reports: Normal Respiratory Effort, Wheezing (Scattered) GI/Abdominal Exam: Normal Bowel Sounds, Soft, Non-Tender Back Exam: Reports: Decreased Range of Motion Extremities: Pedal Edema (Chronic pedal and leg edema unchanged during admission ) Skin: Reports: Warm, Dry Neurological: Reports: No New Focal Deficit Psy/Mental Status: Reports: Alert *Q Meaningful Use (DIS) - VTE *Q VTE Criteria *Q: - Stroke *Q Stroke Criteria *Q: - AMI *Q AMI Criteria *Q:
[2017-02-14 10:05] VITALS: BP 133/64
== END 2017-02-14 11:00 | DRG 373 ==
LOC: MW.ED 00:16 → MW.MS 02:07 → OBSVTOIN 12:13
PROVIDERS: ADMIT Internal Medicine; ATTEND Internal Medicine
DX: K92.1 Melena (principal); R19.7 Diarrhea, unspecified; D72.829 Elevated white blood cell count, unspecified; E78.00 Pure hypercholesterolemia, unspecified; A04.7 Enterocolitis due to Clostridium difficile; I25.2 Old myocardial infarction; E11.9 Type 2 diabetes mellitus without complications; D63.8 Anemia in other chronic diseases classified elsewhere; Z95.5 Presence of coronary angioplasty implant and graft; E11.65 Type 2 diabetes mellitus with hyperglycemia; Z79.4 Long term (current) use of insulin; Z79.899 Other long term (current) drug therapy; I50.9 Heart failure, unspecified; I10 Essential (primary) hypertension; I25.10 Atherosclerotic heart disease of native coronary artery without angina pectoris; E78.5 Hyperlipidemia, unspecified; F03.90 Unspecified dementia, unspecified severity, without behavioral disturbance, psychotic disturbance, mood disturbance, and anxiety; R53.1 Weakness
CPT/HCPCS: 36415; 71010; 74176; 80053; 81001; 82150; 82272; 82962 ×2; 83605; 83690; 83880; 84484; 85025; 85610; 86850; 86900; 86901; 87040 ×2; 87046; 87086; 87324; 87899 ×3; 93005; 96361; 96365; 99285; C9113; J1815; J1956; J3370; J7040 ×2; J7050; 80048; 99283; A9270-GY

== ENCOUNTER 2017-02-21 18:17 | Emergency (ER) | payer MEDICARE, BC ==
[2017-02-21] MEDS ORDERED: Sodium Chloride 0.9% 10 ML Syringe FLUSH PRN (18:24)
[2017-02-21] MEDS ORDERED: Sodium Chloride 0.9% 2.5 ML Syringe FLUSH PRN (18:24)
[2017-02-21] MEDS ORDERED: Sodium Chloride 0.9% 1,000 ML IV ONE (19:21)
[2017-02-21] MEDS ORDERED: Pantoprazole 40 MG Vial IVPUSH ONE (19:42)
--- NOTE | 2017-02-21 19:43 | EDM.PDOC ---
<Trena Bourne - Last Filed: 02/21/17 21:15> ED HPI GENERAL MEDICAL PROBLEM - General Chief Complaint: Neurological Problem Stated Complaint: UNK Time Seen by Provider: 02/21/17 18:17 Source of Information: Reports: Patient, EMS, Custodial Records History Limitations: Reports: Other - History of Present Illness INITIAL COMMENTS - FREE TEXT/NARRATIVE: HISTORY AND PHYSICAL: History of present illness: [Comes to the ER by EMS from local retirement. Staff there report that patient has become increasingly weak and has had 2 large loose black stools today. At the retirement O2 sats have been between 70 and 80s. Patient has been very lethargic and more tired than usual. He is falling asleep easily. They report that patient passed out and was unresponsive for 2 minutes at the retirement. his skin was cool and clammy and EMS was called. Patient wears supplemental oxygen per nasal cannula at all times. DNR: Code level III. Patient was hospitalized on February 12, 2017 for hematochezia, diarrhea, leukocytosis and was found to have C. Difficile. Has a history of anemia, glaucoma, Type 2 DM with insulin, hypercholesterolemia , dementia, HTN, CHF, cellulitis to bilat lower legs. ] Review of systems: As per history of present illness and below otherwise all systems reviewed and negative. Past medical history: As per history of present illness and as reviewed below otherwise noncontributory. Surgical history: As per history of present illness and as reviewed below otherwise noncontributory. Social history: No reported history of drug or alcohol abuse. Family history: As per history of present illness and as reviewed below otherwise noncontributory. Physical exam: Gen.: Obese male in no acute distress. He is resting comfortably on cart. Patient slumps down with his chin on his chest and falls asleep easily. He is sleeping a lot while he is here but is easily arousable and will lift his head when instructed to. HEENT: Atraumatic, normocephalic. Oral mucous membranes are pink and moist. Lungs: Clear to auscultation, breath sounds equal bilaterally. O2 sat is 96% on 5 L per nasal cannula. Heart: S1S2, regular rate and rhythm. Abdomen: Obese, Soft, nondistended, nontender. Negative for masses or hepatosplenomegaly. Pelvis: Stable nontender. Genitourinary: Deferred. Rectal: Excoriated areas to bilateral buttocks. No bleeding. Dark black dry stool is caked on to his buttocks. Normal sphincter tone. Large amount of black stool, dry cakey stool. guaiac positive. Extremities: Atraumatic in appearance. Skin to bilateral lower legs is dry and very lightly erythematous but does not appear cellulitic. Neurovascular unremarkable. Neuro: Awake, alert, oriented. Exam nonfocal. Diagnostics: [Chest x-ray, EKG, head CT without contrast, CBC, CMP, lactic acid, ABGs, UA, urine culture, type and screen, blood cultures, INR/PT/PTT] Therapeutics: [Protonix 80 mg IV, 500mL bolus, 2 units packed red blood cells] Impression: [Anemia, GI bleed Leukocytosis Recent history of C. difficile infection] Plan: [White blood cell count 18.16, hemoglobin 5.9, lactate 9.0. Sodium 133, BUNs 66 , creatinine 2.4. UA is clear. Urine and blood cultures are pending. Case is reviewed with Dr. Ball who initially agrees to accept patient for hospitalization. Will defer to Dr. Ball to order the antibiotic due to patient's recent hospitalization, antibiotic use and C. difficile infection. Dr. Ball orders metronidazole 500mg IV and 1 unit of pRBC's prior to transfer to [facility]. ] Definitive disposition and diagnosis as appropriate pending reevaluation and review of above. - Related Data Allergies Allergy/AdvReac Type Severity Reaction Status Date / Time No Known Allergies Allergy Verified 02/21/17 18:24 Home Meds: Home Meds Aspirin 325 mg PO DAILY 01/21/14 [History] Rosuvastatin [Crestor] 20 mg PO BEDTIME 04/14/14 [History] Nystatin [Nystop] 1 gm TOP TID bottle 02/02/17 [Rx] Acetaminophen [Tactinal] 650 mg PO Q4H PRN 02/12/17 [History] Bisacodyl 10 mg RECTAL ASDIRECTED PRN 02/12/17 [History] Fluconazole [Diflucan] 200 mg PO Q7D 02/12/17 [History] Insulin Aspart [NovoLOG] See Protocol SUBCUT QIDACANDBED 02/12/17 [History] Insuln Asp Prot/Insulin Aspart [NovoLOG Mix 70-30] 40 units SUBCUT BIDAC [History] Latanoprost [Xalatan 0.005% Ophth Soln] 1 drop EYEBOTH BEDTIME 02/12/17 [History ] Losartan [Cozaar] 25 mg PO DAILY 02/12/17 [History] Magnesium Hydroxide [Milk of Magnesia] 30 ml PO DAILY PRN 02/12/17 [History] Hydrocolloid Dressing [DuoDerm CGF] 1 each TOP Q72H bandage 02/14/17 [Rx] Insulin Aspart [NovoLOG] 0 unit SUBCUT ACBED pen 02/14/17 [Rx] Vancomycin [First-Vancomycin 25 Compounding Kit] 5 ml PO QID #120 ml 02/14/17 [ Rx] Past Medical History HEENT History: Reports: Cataract, Impaired Vision Cardiovascular History: Reports: Heart Failure, High Cholesterol, Hypertension, [place], Stents Other Cardiovascular History: Pedal edema Respiratory History: Reports: Pneumonia, Recurrent, SOB, Other (See Below) Other Respiratory History: low oxygen; on home 02 at 4lpm Gastrointestinal History: Reports: Chronic Constipation Genitourinary History: Reports: UTI, Recurrent Other Genitourinary History: UTI Musculoskeletal History: Reports: Back Pain, Chronic Neurological History: Reports: None Psychiatric History: Reports: Dementia Endocrine/Metabolic History: Reports: Diabetes, Type II Hematologic History: Reports: None Immunologic History: Reports: None Oncologic (Cancer) History: Reports: None Dermatologic History: Reports: Cellulitis, Chronic Cellulitis - Infectious Disease History Infectious Disease History: Reports: Shingles - Past Surgical History Head Surgeries/Procedures: Reports: None HEENT Surgical History: Reports: Eye Surgery Respiratory Surgical History: Reports: None GI Surgical History: Reports: None Male Surgical History: Reports: None Endocrine Surgical History: Reports: None Musculoskeletal Surgical History: Reports: None Social & Family History - Family History Family Medical History: Noncontributory Dermatologic: Reports: Other (See Below) Other Dermatologic Family History: cellulitis - Tobacco Use Smoking Status *Q: Never Smoker Second Hand Smoke Exposure: No - Caffeine Use Caffeine Use: Reports: Coffee Caffeine Use Comment: 1-2drinks/day - Alcohol Use Days Per Week of Alcohol Use: 0 - Recreational Drug Use Recreational Drug Use: No ED ROS GENERAL - Review of Systems Review Of Systems: ROS reveals no pertinent complaints other than HPI. ED EXAM, NEURO - Physical Exam Exam: See Below Course - Vital Signs Last Recorded V/S: Last Vital Signs Temp 36.6 C 02/21/17 18:25 Pulse 104 H 02/21/17 18:25 Resp 16 02/21/17 18:25 BP 110/86 02/21/17 18:25 Pulse Ox 96 02/21/17 18:25 - Orders/Labs/Meds Orders: Active Orders 24 hr Category Date Time Status Communication Order [RC] STAT Care 02/21/17 21:11 Active EKG Documentation Completion [RC] STAT Care 02/21/17 18:23 Active Notify Provider Consults [RC] ASDIRECTED Care 02/21/17 21:25 Ordered Consult to Physician [CONS] Stat Cons 02/21/17 21:25 Ordered Chest 2V [CR] Stat Exams 02/21/17 18:25 Taken Head wo Cont [CT] Stat Exams 02/21/17 18:37 Taken CULTURE BLOOD [BC] Stat Lab 02/21/17 18:38 Results CULTURE BLOOD [BC] Stat Lab 02/21/17 18:45 Received CULTURE URINE [RM] Stat Lab 02/21/17 19:36 Received RED BLOOD CELLS LP [BBK] Stat Lab 02/21/17 18:21 Results TYPE AND SCREEN [BBK] Stat Lab 02/21/17 18:21 Results Sodium Chloride 0.9% [Normal Saline] 1,000 ml Med 02/21/17 19:21 Active IV STAT Sodium Chloride 0.9% [Normal Saline] 500 ml Med 02/21/17 21:15 Active IV STAT Sodium Chloride 0.9% [Saline Flush] Med 02/21/17 18:24 Active 10 ml FLUSH ASDIRECTED PRN Sodium Chloride 0.9% [Saline Flush] Med 02/21/17 18:24 Active 2.5 ml FLUSH ASDIRECTED PRN metroNIDAZOLE/Normal Saline [Flagyl 500 MG in NS 100 ML Med 02/21/17 21:11 Active ] 500 mg Premix Bag 1 bag IV ONETIME Saline Lock Insert [OM.PC] Stat Oth 02/21/17 18:24 Ordered Transfuse Red Blood Cells [COMM] Stat Oth 02/21/17 19:08 Ordered Medication Orders Sodium Chloride (Normal Saline) 1,000 mls @ 125 mls/hr IV STAT ONE Stop: 02/22/17 03:20 Last Admin: 02/21/17 20:00 Dose: 125 mls/hr Metronidazole 500 mg/ Premix 100 mls @ 100 mls/hr IV ONETIME ONE Stop: 02/21/17 22:10 Sodium Chloride (Normal Saline) 500 mls @ 999 mls/hr IV STAT KAR Sodium Chloride (Saline Flush) 10 ml FLUSH ASDIRECTED PRN PRN Reason: Keep Vein Open Last Admin: 02/21/17 20:00 Dose: 10 ml Sodium Chloride (Saline Flush) 2.5 ml FLUSH ASDIRECTED PRN PRN Reason: Keep Vein Open Last Admin: 02/21/17 19:59 Dose: 2.5 ml Labs: Laboratory Tests 02/21/17 02/21/17 02/21/17 Range/Units 18:21 18:21 18:21 WBC 18.16 H (4.0-11.0) K/uL RBC 2.07 L (4.50-5.90) M/uL Hgb 5.9 L (13.0-17.0) g/dL Hct 19.3 L (38.0-50.0) % MCV 93.2 (80.0-98.0) fL MCH 28.5 (27.0-32.0) pg MCHC 30.6 L (31.0-37.0) g/dL RDW Std Deviation 64.6 H (28.0-62.0) fl RDW Coeff of [place] 20 H (11.0-15.0) % Plt Count 329 (150-400) K/uL MPV 10.90 (7.40-12.00) fL Add Manual Diff YES Neutrophils % (Manual) 75 (48.0-80.0) % Band Neutrophils % 6 % Lymphocytes % (Manual) 16 (16.0-40.0) % Monocytes % (Manual) 2 (0.0-15.0) % Basophils % (Manual) 1 (0.0-1.5) % Nucleated RBC % 1.0 /100WBC Absolute Seg Neuts 13.6 Band Neutrophils # 1.1 Lymphocytes # (Manual) 2.9 Monocytes # (Manual) 0.4 Eosinophils # (Manual) 0.2 Basophils # (Manual) 0 Nucleated RBCs # 0 K/uL INR 1.23 H (0.86-1.11) ABG pH (7.35-7.45) ABG pCO2 (35-45) mmHG ABG pO2 (75-100) mmHG ABG HCO3 (22-26) mEq/L ABG Total CO2 ABG Base Excess (-2.0-2.0) Lactate (0.20-2.00) mmol/L Sodium 133 L (136-146) mmol/L Potassium 4.4 (3.5-5.1) mmol/L Chloride 93 L (98-110) mmol/L Carbon Dioxide 19 L (21-31) mmol/L BUN 66 H (6.0-23.0) mg/dL Creatinine 2.4 H (0.6-1.5) mg/dL Est Cr Clr Drug Dosing 26.15 mL/min Estimated GFR (MDRD) 26.2 ml/min Glucose 432 H (60-110) mg/dL Calcium 8.6 L (8.8-10.8) mg/dL Total Bilirubin 0.6 (0.1-1.5) mg/dL AST 36 (5-40) IU/L ALT 10 (8-54) IU/L Alkaline Phosphatase 74 (40-150) Troponin I (0.0-0.29) NG/ML Total Protein 6.0 (6.0-8.0) g/dL Albumin 2.7 L (3.4-4.8) g/dL Globulin 3.3 (2.0-3.5) g/dL Albumin/Globulin Ratio 0.8 L (1.3-2.8) Urine Color Urine Appearance Urine pH (5.0-8.0) Ur Specific [place] (1.001-1.035) Urine Protein (NEGATIVE) mg/dL Urine Glucose (UA) (NEGATIVE) mg/dL Urine Ketones (NEGATIVE) mg/dL Urine Occult Blood (NEGATIVE) Urine Nitrite (NEGATIVE) Urine Bilirubin (NEGATIVE) Urine Urobilinogen (<2.0) EU/dL Ur Leukocyte Esterase (NEGATIVE) Urine RBC (0-2/HPF) Urine WBC (0-5/HPF) Ur Epithelial Cells (NONE-FEW) Amorphous Sediment (NEGATIVE) Urine Bacteria (NEGATIVE) Fine Granular Casts (NEGATIVE) Coarse Granular Casts (NEGATIVE) Urine Mucus (NONE-MOD) Blood Type Antibody Screen Crossmatch 02/21/17 02/21/1702/21/17 Range/Units 18:21 18:21 18:39 WBC (4.0-11.0) K/uL RBC (4.50-5.90) M/uL Hgb (13.0-17.0) g/dL Hct (38.0-50.0) % MCV (80.0-98.0) fL MCH (27.0-32.0) pg MCHC (31.0-37.0) g/dL RDW Std Deviation (28.0-62.0) fl RDW Coeff of [place] (11.0-15.0) % Plt Count (150-400) K/uL MPV (7.40-12.00) fL Add Manual Diff Neutrophils % (Manual) (48.0-80.0) % Band Neutrophils % % Lymphocytes % (Manual) (16.0-40.0) % Monocytes % (Manual) (0.0-15.0) % Basophils % (Manual) (0.0-1.5) % Nucleated RBC % /100WBC Absolute Seg Neuts Band Neutrophils # Lymphocytes # (Manual) Monocytes # (Manual) Eosinophils # (Manual) Basophils # (Manual) Nucleated RBCs # K/uL INR (0.86-1.11) ABG pH (7.35-7.45) ABG pCO2 (35-45) mmHG ABG pO2 (75-100) mmHG ABG HCO3 (22-26) mEq/L ABG Total CO2 ABG Base Excess (-2.0-2.0) Lactate 9.0 H (0.20-2.00) mmol/L Sodium (136-146) mmol/L Potassium (3.5-5.1) mmol/L Chloride (98-110) mmol/L Carbon Dioxide (21-31) mmol/L BUN (6.0-23.0) mg/dL Creatinine (0.6-1.5) mg/dL Est Cr Clr Drug Dosing mL/min Estimated GFR (MDRD) ml/min Glucose (60-110) mg/dL Calcium (8.8-10.8) mg/dL Total Bilirubin (0.1-1.5) mg/dL AST (5-40) IU/L ALT (8-54) IU/L Alkaline Phosphatase (40-150) Troponin I < 0.10 (0.0-0.29) NG/ML Total Protein (6.0-8.0) g/dL Albumin (3.4-4.8) g/dL Globulin (2.0-3.5) g/dL Albumin/Globulin Ratio (1.3-2.8) Urine Color Urine Appearance Urine pH (5.0-8.0) Ur Specific [place] (1.001-1.035) Urine Protein (NEGATIVE) mg/dL Urine Glucose (UA) (NEGATIVE) mg/dL Urine Ketones (NEGATIVE) mg/dL Urine Occult Blood (NEGATIVE) Urine Nitrite (NEGATIVE) Urine Bilirubin (NEGATIVE) Urine Urobilinogen (<2.0) EU/dL Ur Leukocyte Esterase (NEGATIVE) Urine RBC (0-2/HPF) Urine WBC (0-5/HPF) Ur Epithelial Cells (NONE-FEW) Amorphous Sediment (NEGATIVE) Urine Bacteria (NEGATIVE) Fine Granular Casts (NEGATIVE) Coarse Granular Casts (NEGATIVE) Urine Mucus (NONE-MOD) Blood Type O POSITIVE Antibody Screen NEGATIVE Crossmatch See Detail 02/21/17 02/21/17 Range/Units 19:36 19:40 WBC (4.0-11.0) K/uL RBC (4.50-5.90) M/uL Hgb (13.0-17.0) g/dL Hct (38.0-50.0) % MCV (80.0-98.0) fL MCH (27.0-32.0) pg MCHC (31.0-37.0) g/dL RDW Std Deviation (28.0-62.0) fl RDW Coeff of [place] (11.0-15.0) % Plt Count (150-400) K/uL MPV (7.40-12.00) fL Add Manual Diff Neutrophils % (Manual) (48.0-80.0) % Band Neutrophils % % Lymphocytes % (Manual) (16.0-40.0) % Monocytes % (Manual) (0.0-15.0) % Basophils % (Manual) (0.0-1.5) % Nucleated RBC % /100WBC Absolute Seg Neuts Band Neutrophils # Lymphocytes # (Manual) Monocytes # (Manual) Eosinophils # (Manual) Basophils # (Manual) Nucleated RBCs # K/uL INR (0.86-1.11) ABG pH 7.404 (7.35-7.45) ABG pCO2 40 (35-45) mmHG ABG pO2 87 (75-100) mmHG ABG HCO3 25 (22-26) mEq/L ABG Total CO2 24.5 ABG Base Excess 0.1 (-2.0-2.0) Lactate (0.20-2.00) mmol/L Sodium (136-146) mmol/L Potassium (3.5-5.1) mmol/L Chloride (98-110) mmol/L Carbon Dioxide (21-31) mmol/L BUN (6.0-23.0) mg/dL Creatinine (0.6-1.5) mg/dL Est Cr Clr Drug Dosing mL/min Estimated GFR (MDRD) ml/min Glucose (60-110) mg/dL Calcium (8.8-10.8) mg/dL Total Bilirubin (0.1-1.5) mg/dL AST (5-40) IU/L ALT (8-54) IU/L Alkaline Phosphatase (40-150) Troponin I (0.0-0.29) NG/ML Total Protein (6.0-8.0) g/dL Albumin (3.4-4.8) g/dL Globulin (2.0-3.5) g/dL Albumin/Globulin Ratio (1.3-2.8) Urine Color YELLOW Urine Appearance HAZY Urine pH 5.0 (5.0-8.0) Ur Specific [place] 1.020 (1.001-1.035) Urine Protein NEGATIVE (NEGATIVE) mg/dL Urine Glucose (UA) NEGATIVE (NEGATIVE) mg/dL Urine Ketones NEGATIVE (NEGATIVE) mg/dL Urine Occult Blood NEGATIVE (NEGATIVE) Urine Nitrite NEGATIVE (NEGATIVE) Urine Bilirubin NEGATIVE (NEGATIVE) Urine Urobilinogen 0.2 (<2.0) EU/dL Ur Leukocyte Esterase NEGATIVE (NEGATIVE) Urine RBC 0-3 (0-2/HPF) Urine WBC 0-1 (0-5/HPF) Ur Epithelial Cells RARE (NONE-FEW) Amorphous Sediment LIGHT (NEGATIVE) Urine Bacteria FEW (NEGATIVE) Fine Granular Casts 0-1 (NEGATIVE) Coarse Granular Casts 0-1 (NEGATIVE) Urine Mucus LIGHT (NONE-MOD) Blood Type Antibody Screen Crossmatch Meds: Medications Generic Name Dose Route Start Last Admin Trade Name Freq PRN Reason Stop Dose Admin Sodium Chloride 1,000 mls @ 125 mls/hr 02/21/17 19:21 02/21/17 20:00 Normal Saline IV 02/22/17 03:20 125 mls/hr STAT ONE Administration Metronidazole 500 mg/ Premix 100 mls @ 100 mls/hr 02/21/17 21:11 IV 02/21/17 22:10 ONETIME ONE Sodium Chloride 500 mls @ 999 mls/hr 02/21/17 21:15 Normal Saline IV STAT KAR Sodium Chloride 10 ml 02/21/17 18:24 02/21/17 20:00 Saline Flush FLUSH 10 ml ASDIRECTED PRN Administration Keep Vein Open Sodium Chloride 2.5 ml 02/21/17 18:24 02/21/17 19:59 Saline Flush FLUSH 2.5 ml ASDIRECTED PRN Administration Keep Vein Open Discontinued Medications Generic Name Dose Route Start Last Admin Trade Name Marva PRN Reason Stop Dose Admin Pantoprazole Sodium 80 mg 02/21/17 19:42 02/21/17 20:01 Protonix Iv IVPUSH 02/21/17 19:43 80 mg .BOLUS ONE Administration Departure - Departure Disposition: DC/Tfer to Acute Hospital 02 Condition: Fair Clinical Impression: GI bleed, Anemia, Leukocytosis - Discharge Information Referrals: PCP,None [Primary Care Provider] - Forms: ED Department Discharge - My Orders Last 24 Hours: My Active Orders 02/21/17 18:21 RED BLOOD CELLS LP [BBK] Stat 02/21/17 18:38 CULTURE BLOOD [BC] Stat 02/21/17 19:08 Transfuse Red Blood Cells [COMM] Stat 02/21/17 19:36 CULTURE URINE [RM] Stat 02/21/17 21:11 Communication Order [RC] STAT metroNIDAZOLE/Normal Saline [Flagyl 500 MG in NS 100 ML] 500 mg Premix Bag 1 bag IV ONETIME 02/21/17 21:25 Notify Provider Consults [RC] ASDIRECTED Consult to Physician [CONS] Stat - Assessment/Plan Last 24 Hours: My Active Orders 02/21/17 18:21 RED BLOOD CELLS LP [BBK] Stat 02/21/17 18:38 CULTURE BLOOD [BC] Stat 02/21/17 19:08 Transfuse Red Blood Cells [COMM] Stat 02/21/17 19:36 CULTURE URINE [RM] Stat 02/21/17 21:11 Communication Order [RC] STAT metroNIDAZOLE/Normal Saline [Flagyl 500 MG in NS 100 ML] 500 mg Premix Bag 1 bag IV ONETIME 02/21/17 21:25 Notify Provider Consults [RC] ASDIRECTED Consult to Physician [CONS] Stat <Vita Webster - Last Filed: 02/21/17 21:27> ED HPI GENERAL MEDICAL PROBLEM - History of Present Illness INITIAL COMMENTS - FREE TEXT/NARRATIVE: Dr. Ball is here seeing the patient and feels that the patient would merit with transferred to [facility]. He has had a dialogue with the family members and they agree that they want more care. We will prep and give only one unit of packed red blood cells and arrange transfer appropriately. Dr. Ball feel strongly that the patient should receive a blood transfusion as well as IV Flagyl in transfer and if the ambulance cannot accommodate that flight will be arranged. Patient has been hemodynamically stable and he will contact the ER at [facility] for an accepting physician. 2125: Dr. Ball has spoken to Dr. Clifton at [facility] in [place] who accepts the patient for transfer. Dr. Ball will perform a consult note to please reference that for any further information about his dialogues with the family and [facility]. All information will be transferred. The patient will be transferred by ground EMS who will be able to accommodate the IV solutions/medications in the blood transfusion. Transfer forms have been filled out by Dr. Ball. Critical care time excluding [id number] Departure - Departure Time of Disposition: 21:11
[2017-02-21] MEDS ORDERED: metroNIDAZOLE/Normal Saline 500 MG in Premix Bag 1 BAG IV ONE (21:11)
[2017-02-21] MEDS ORDERED: Sodium Chloride 0.9% 500 ML IV SCH (21:15)
--- NOTE | 2017-02-21 21:36 | PCM.CONS ---
H&P History of Present Illness - General Date of Service: 02/21/17 Admit Problem/Dx: Admission Diagnosis/Problem Admission Diagnosis/Problem Anemia - History of Present Illness Initial Comments - Free Text/Narative: I was asked by Dr Webster and by Trena Todd NP to see this gentleman for possible admission. He has a history of dementia, diabetes mellitus, CHF, HTN. He is at [facility] and has been on flagyl for clostridium dificile colitis. He presented to day with recent large dark stool and weakness. While in the ED he was noted to have a heart rate of 104/minute , a Hg of 5.9 and a WBC of over 18 with a lactic acid of 9.0. - Related Data Allergies/Adverse Reactions: Allergies Allergy/AdvReac Type Severity Reaction Status Date / Time No Known Allergies Allergy Verified 02/21/17 18:24 Home Medications: Home Meds Aspirin 325 mg PO DAILY 01/21/14 [History] Rosuvastatin [Crestor] 20 mg PO BEDTIME 04/14/14 [History] Nystatin [Nystop] 1 gm TOP TID bottle 02/02/17 [Rx] Acetaminophen [Tactinal] 650 mg PO Q4H PRN 02/12/17 [History] Bisacodyl 10 mg RECTAL ASDIRECTED PRN 02/12/17 [History] Fluconazole [Diflucan] 200 mg PO Q7D 02/12/17 [History] Insulin Aspart [NovoLOG] See Protocol SUBCUT QIDACANDBED 02/12/17 [History] Insuln Asp Prot/Insulin Aspart [NovoLOG Mix 70-30] 40 units SUBCUT BIDAC [History] Latanoprost [Xalatan 0.005% Ophth Soln] 1 drop EYEBOTH BEDTIME 02/12/17 [History ] Losartan [Cozaar] 25 mg PO DAILY 02/12/17 [History] Magnesium Hydroxide [Milk of Magnesia] 30 ml PO DAILY PRN 02/12/17 [History] Hydrocolloid Dressing [DuoDerm CGF] 1 each TOP Q72H bandage 02/14/17 [Rx] Insulin Aspart [NovoLOG] 0 unit SUBCUT ACBED pen 02/14/17 [Rx] Vancomycin [First-Vancomycin 25 Compounding Kit] 5 ml PO QID #120 ml 09/10/17 [ Rx] Past Medical History HEENT History: Reports: Cataract, Impaired Vision Cardiovascular History: Reports: Heart Failure, High Cholesterol, Hypertension, MD, Stents Other Cardiovascular History: Pedal edema Respiratory History: Reports: Pneumonia, Recurrent, SOB, Other (See Below) Other Respiratory History: low oxygen; on home 02 at 4lpm Gastrointestinal History: Reports: Chronic Constipation Genitourinary History: Reports: UTI, Recurrent Other Genitourinary History: UTI Musculoskeletal History: Reports: Back Pain, Chronic Neurological History: Reports: None Psychiatric History: Reports: Dementia Endocrine/Metabolic History: Reports: Diabetes, Type II Hematologic History: Reports: None Immunologic History: Reports: None Oncologic (Cancer) History: Reports: None Dermatologic History: Reports: Cellulitis, Chronic Cellulitis - Infectious Disease History Infectious Disease History: Reports: Shingles - Past Surgical History Head Surgeries/Procedures: Reports: None HEENT Surgical History: Reports: Eye Surgery Respiratory Surgical History: Reports: None GI Surgical History: Reports: None Male Surgical History: Reports: None Endocrine Surgical History: Reports: None Musculoskeletal Surgical History: Reports: None Social & Family History - Family History Family Medical History: Noncontributory Dermatologic: Reports: Other (See Below) Other Dermatologic Family History: cellulitis - Tobacco Use Smoking Status *Q: Never Smoker Second Hand Smoke Exposure: No - Caffeine Use Caffeine Use: Reports: Coffee Caffeine Use Comment: 1-2drinks/day - Alcohol Use Days Per Week of Alcohol Use: 0 - Recreational Drug Use Recreational Drug Use: No H&P Review of Systems - Review of Systems: Review Of Systems: See Below General: Denies: Fever Pulmonary: Denies: Shortness of Breath, Wheezing, Cough, Sputum, Hemoptysis Cardiovascular: Denies: Chest Pain Gastrointestinal: Reports: Black Stool. Denies: Abdominal Pain, Hematemesis Genitourinary: Denies: Dysuria, Frequency, Hematuria Exam - Exam Exam: See Below - Vital Signs Vital Signs: Last Vital Signs Temp 97.8 F 02/21/17 18:25 Pulse 104 H 02/21/17 18:25 Resp 16 02/21/17 18:25 BP 110/86 02/21/17 18:25 Pulse Ox 96 02/21/17 18:25 Weight: 145 kg - Exam General: Alert, Oriented, Cooperative HEENT: Other (conjunctival pallor) Neck: Supple Lungs: Clear to Auscultation, Normal Respiratory Effort Cardiovascular: Regular Rate, Regular Rhythm GI/Abdominal Exam: Soft. No: Distended, Tender Extremities: Other (two plus pretibial edema) Neurological: Normal Speech Neuro Extensive - Mental Status: Normal Mood/Affect Neuro Extensive - Motor, Sensory, Reflexes: No: Facial palsy (L), Facial Palsy ( R), Hemeplagia (R), Hemeplagia (L) Psychiatric: No: Agitated - Patient Data Lab Results Last 24 hrs: Laboratory Results - last 24 hr 02/21/17 02/21/17 02/21/17 Range/Units 18:21 18:21 18:21 WBC 18.16 H (4.0-11.0) K/uL RBC 2.07 L (4.50-5.90) M/uL Hgb 5.9 L (13.0-17.0) g/dL Hct 19.3 L (38.0-50.0) % MCV 93.2 (80.0-98.0) fL MCH 28.5 (27.0-32.0) pg MCHC 30.6 L (31.0-37.0) g/dL RDW Std Deviation 64.6 H (28.0-62.0) fl RDW Coeff of Nke[place] 20 H (11.0-15.0) % Plt Count 329 (150-400) K/uL MPV 10.90 (7.40-12.00) fL Add Manual Diff YES Neutrophils % (Manual) 75 (48.0-80.0) % Band Neutrophils % 6 % Lymphocytes % (Manual) 16 (16.0-40.0) % Monocytes % (Manual) 2 (0.0-15.0) % Basophils % (Manual) 1 (0.0-1.5) % Nucleated RBC % 1.0 /100WBC Absolute Seg Neuts 13.6 Band Neutrophils # 1.1 Lymphocytes # (Manual) 2.9 Monocytes # (Manual) 0.4 Eosinophils # (Manual) 0.2 Basophils # (Manual) 0 Nucleated RBCs # 0 K/uL INR 1.23 H (0.86-1.11) ABG pH (7.35-7.45) ABG pCO2 (35-45) mmHG ABG pO2 (75-100) mmHG ABG HCO3 (22-26) mEq/L ABG Total CO2 ABG Base Excess (-2.0-2.0) Lactate (0.20-2.00) mmol/L Sodium 133 L (136-146) mmol/L Potassium 4.4 (3.5-5.1) mmol/L Chloride 93 L (98-110) mmol/L Carbon Dioxide 19 L (21-31) mmol/L BUN 66 H (6.0-23.0) mg/dL Creatinine 2.4 H (0.6-1.5) mg/dL Est Cr Clr Drug Dosing 26.15 mL/min Estimated GFR (MDRD) 26.2 ml/min Glucose 432 H (60-110) mg/dL Calcium 8.6 L (8.8-10.8) mg/dL Total Bilirubin 0.6 (0.1-1.5) mg/dL AST 36 (5-40) IU/L ALT 10 (8-54) IU/L Alkaline Phosphatase 74 (40-150) Troponin I (0.0-0.29) NG/ML Total Protein 6.0 (6.0-8.0) g/dL Albumin 2.7 L (3.4-4.8) g/dL Globulin 3.3 (2.0-3.5) g/dL Albumin/Globulin Ratio 0.8 L (1.3-2.8) Urine Color Urine Appearance Urine pH (5.0-8.0) Ur Specific Mcdade (1.001-1.035) Urine Protein (NEGATIVE) mg/dL Urine Glucose (UA) (NEGATIVE) mg/dL Urine Ketones (NEGATIVE) mg/dL Urine Occult Blood (NEGATIVE) Urine Nitrite (NEGATIVE) Urine Bilirubin (NEGATIVE) Urine Urobilinogen (<2.0) EU/dL Ur Leukocyte Esterase (NEGATIVE) Urine RBC (0-2/HPF) Urine WBC (0-5/HPF) Ur Epithelial Cells (NONE-FEW) Amorphous Sediment (NEGATIVE) Urine Bacteria (NEGATIVE) Fine Granular Casts (NEGATIVE) Coarse Granular Casts (NEGATIVE) Urine Mucus (NONE-MOD) Blood Type Antibody Screen Crossmatch 02/21/17 02/21/17 02/21/17 Range/Units 18:21 18:21 18:39 WBC (4.0-11.0) K/uL RBC (4.50-5.90) M/uL Hgb (13.0-17.0) g/dL Hct (38.0-50.0) % MCV (80.0-98.0) fL MCH (27.0-32.0) pg MCHC (31.0-37.0) g/dL RDW Std Deviation (28.0-62.0) fl RDW Coeff of Nke[place] (11.0-15.0) % Plt Count (150-400) K/uL MPV (7.40-12.00) fL Add Manual Diff Neutrophils % (Manual) (48.0-80.0) % Band Neutrophils % % Lymphocytes % (Manual) (16.0-40.0) % Monocytes % (Manual) (0.0-15.0) % Basophils % (Manual) (0.0-1.5) % Nucleated RBC % /100WBC Absolute Seg Neuts Band Neutrophils # Lymphocytes # (Manual) Monocytes # (Manual) Eosinophils # (Manual) Basophils # (Manual) Nucleated RBCs # K/uL INR (0.86-1.11) ABG pH (7.35-7.45) ABG pCO2 (35-45) mmHG ABG pO2 (75-100) mmHG ABG HCO3 (22-26) mEq/L ABG Total CO2 ABG Base Excess (-2.0-2.0) Lactate 9.0 H (0.20-2.00) mmol/L Sodium (136-146) mmol/L Potassium (3.5-5.1) mmol/L Chloride (98-110) mmol/L Carbon Dioxide (21-31) mmol/L BUN (6.0-23.0) mg/dL Creatinine (0.6-1.5) mg/dL Est Cr Clr Drug Dosing mL/min Estimated GFR (MDRD) ml/min Glucose (60-110) mg/dL Calcium (8.8-10.8) mg/dL Total Bilirubin (0.1-1.5) mg/dL AST (5-40) IU/L ALT (8-54) IU/L Alkaline Phosphatase (40-150) Troponin I < 0.10 (0.0-0.29) NG/ML Total Protein (6.0-8.0) g/dL Albumin (3.4-4.8) g/dL Globulin (2.0-3.5) g/dL Albumin/Globulin Ratio (1.3-2.8) Urine Color Urine Appearance Urine pH (5.0-8.0) Ur Specific Mcdade (1.001-1.035) Urine Protein (NEGATIVE) mg/dL Urine Glucose (UA) (NEGATIVE) mg/dL Urine Ketones (NEGATIVE) mg/dL Urine Occult Blood (NEGATIVE) Urine Nitrite (NEGATIVE) Urine Bilirubin (NEGATIVE) Urine Urobilinogen (<2.0) EU/dL Ur Leukocyte Esterase (NEGATIVE) Urine RBC (0-2/HPF) Urine WBC (0-5/HPF) Ur Epithelial Cells (NONE-FEW) Amorphous Sediment (NEGATIVE) Urine Bacteria (NEGATIVE) Fine Granular Casts (NEGATIVE) Coarse Granular Casts (NEGATIVE) Urine Mucus (NONE-MOD) Blood Type O POSITIVE Antibody Screen NEGATIVE Crossmatch See Detail 02/21/17 02/21/17 Range/Units 19:36 19:40 WBC (4.0-11.0) K/uL RBC (4.50-5.90) M/uL Hgb (13.0-17.0) g/dL Hct (38.0-50.0) % MCV (80.0-98.0) fL MCH (27.0-32.0) pg MCHC (31.0-37.0) g/dL RDW Std Deviation (28.0-62.0) fl RDW Coeff of Nkechi (11.0-15.0) % Plt Count (150-400) K/uL MPV (7.40-12.00) fL Add Manual Diff Neutrophils % (Manual) (48.0-80.0) % Band Neutrophils % % Lymphocytes % (Manual) (16.0-40.0) % Monocytes % (Manual) (0.0-15.0) % Basophils % (Manual) (0.0-1.5) % Nucleated RBC % /100WBC Absolute Seg Neuts Band Neutrophils # Lymphocytes # (Manual) Monocytes # (Manual) Eosinophils # (Manual) Basophils # (Manual) Nucleated RBCs # K/uL INR (0.86-1.11) ABG pH 7.404 (7.35-7.45) ABG pCO2 40 (35-45) mmHG ABG pO2 87 (75-100) mmHG ABG HCO3 25 (22-26) mEq/L ABG Total CO2 24.5 ABG Base Excess 0.1 (-2.0-2.0) Lactate (0.20-2.00) mmol/L Sodium (136-146) mmol/L Potassium (3.5-5.1) mmol/L Chloride (98-110) mmol/L Carbon Dioxide (21-31) mmol/L BUN (6.0-23.0) mg/dL Creatinine (0.6-1.5) mg/dL Est Cr Clr Drug Dosing mL/min Estimated GFR (MDRD) ml/min Glucose (60-110) mg/dL Calcium (8.8-10.8) mg/dL Total Bilirubin (0.1-1.5) mg/dL AST (5-40) IU/L ALT (8-54) IU/L Alkaline Phosphatase (40-150) Troponin I (0.0-0.29) NG/ML Total Protein (6.0-8.0) g/dL Albumin (3.4-4.8) g/dL Globulin (2.0-3.5) g/dL Albumin/Globulin Ratio (1.3-2.8) Urine Color YELLOW Urine Appearance HAZY Urine pH 5.0 (5.0-8.0) Ur Specific Mcdade 1.020 (1.001-1.035) Urine Protein NEGATIVE (NEGATIVE) mg/dL Urine Glucose (UA) NEGATIVE (NEGATIVE) mg/dL Urine Ketones NEGATIVE (NEGATIVE) mg/dL Urine Occult Blood NEGATIVE (NEGATIVE) Urine Nitrite NEGATIVE (NEGATIVE) Urine Bilirubin NEGATIVE (NEGATIVE) Urine Urobilinogen 0.2 (<2.0) EU/dL Ur Leukocyte Esterase NEGATIVE (NEGATIVE) Urine RBC 0-3 (0-2/HPF) Urine WBC 0-1 (0-5/HPF) Ur Epithelial Cells RARE (NONE-FEW) Amorphous Sediment LIGHT (NEGATIVE) Urine Bacteria FEW (NEGATIVE) Fine Granular Casts 0-1 (NEGATIVE) Coarse Granular Casts 0-1 (NEGATIVE) Urine Mucus LIGHT (NONE-MOD) Blood Type Antibody Screen Crossmatch Result Diagrams: 02/21/17 18:21 02/21/17 18:21 Nathaniel Results Last 24 hrs: Microbiology 02/21/17 18:38 Anaerobic Blood Culture - Final Blood Consult PN Assessment/Plan Procedures: Procedures AGENT NOS ASSAY W/OPTIC (02/12/17) ASSAY OF AMYLASE (02/12/17) ASSAY OF LACTIC ACID (02/12/17) ASSAY OF LIPASE (02/12/17) ASSAY OF NATRIURETIC PEPTIDE (02/12/17) ASSAY OF TROPONIN QUANT (02/12/17) BLOOD CULTURE FOR BACTERIA (02/12/17) BLOOD TYPING SEROLOGIC ABO (02/12/17) BLOOD TYPING SEROLOGIC RH(D) (02/12/17) CHEST X-RAY 1 VIEW FRONTAL (02/12/17) CHEST X-RAY 2VW FRONTAL&LATL (01/29/17) CLOSTRIDIUM AG IA (02/12/17) COMPLETE CBC W/AUTO DIFF WBC (02/12/17) COMPREHEN METABOLIC PANEL (02/12/17) CT ABD & PELVIS W/O CONTRAST (02/12/17) CT HEAD/BRAIN W/O DYE (01/29/17) CULTURE OTHR SPECIMN AEROBIC (01/29/17) ELECTROCARDIOGRAM TRACING (02/12/17) EMERGENCY DEPT VISIT (02/12/17) EMERGENCY DEPT VISIT (05/23/16) EMERGENCY DEPT VISIT (11/18/15) EMERGENCY DEPT VISIT (04/14/14) EVALUATE PT USE OF INHALER (01/29/17) GLUCOSE BLOOD TEST (02/12/17) HYDRATE IV INFUSION ADD-ON (02/12/17) INSERT BLADDER CATH COMPLEX (01/29/17) METABOLIC PANEL TOTAL CA (02/12/17) OCCULT BLD FECES 1-3 TESTS (02/12/17) PROTHROMBIN TIME (02/12/17) PT EVAL LOW COMPLEX 20 MIN (01/29/17) RBC ANTIBODY SCREEN (02/12/17) ROUTINE VENIPUNCTURE (02/12/17) SMEAR GRAM STAIN (01/29/17) STOOL CULTR AEROBIC BACT EA (02/12/17) THER/PROPH/DIAG INJ IV PUSH (01/29/17) THER/PROPH/DIAG IV INF INIT (02/12/17) THERAPEUTIC ACTIVITIES (01/29/17) THERAPEUTIC EXERCISES (01/29/17) TTE W/DOPPLER COMPLETE (01/29/17) URINALYSIS AUTO W/SCOPE (02/12/17) URINE BACTERIA CULTURE (01/21/14) URINE CULTURE/COLONY COUNT (02/12/17) (1) Blood loss anemia SNOMED Code(s): 981006780 Code(s): D50.0 - IRON DEFICIENCY ANEMIA SECONDARY TO BLOOD LOSS (CHRONIC) Current Visit: Yes (2) GI bleed SNOMED Code(s): 64747913 Code(s): K92.2 - GASTROINTESTINAL HEMORRHAGE, UNSPECIFIED Current Visit: Yes (3) Clostridium difficile colitis SNOMED Code(s): 024035418 Code(s): A04.7 - ENTEROCOLITIS DUE TO CLOSTRIDIUM DIFFICILE Priority: High Current Visit: No Comment: On oral vancomycin Problem List Initiated/Reviewed/Updated: Yes Plan: I discussed the case with the patient and with his son Lobo and with his daughter Ophelia. Even though he has a DNR status, it was my impression that they would prefer a more aggressive posture than we can offer here . I therfore recommended transfer to [facility]. I spoke with Dr Clifton in the emergency room there who kindly agreed to accept the patient in transfer. I spoke with Dr Webster and I recommended initiation of blood transfusion before transfer. Miguel Ball MD
[2017-02-22 04:28] VITALS: BP 105/57
--- NOTE | 2017-02-22 17:05 | CR ---
EXAM DATE: 02/21/17 PATIENT'S AGE: 82 Patient: MORGAN BIRD Facility: [place], [place] Site . Site : 1935 Study: XRay Chest [id number]/17/2017 7:16:29 PM Ordering Physician: Doctor Russell Final Report: INDICATION: PAIN/SOB TECHNIQUE: Chest 2 views COMPARISON: February 12, 2017 and January 29, 2017 FINDINGS: Cardiovascular and mediastinum: Stable cardiac silhouette. Mediastinum is within normal limits. Lungs and pleural spaces: Stable left suprahilar stranding. Stable multiple right-sided rib abnormalities and associated adjacent pleural thickening. Stable soft tissue attenuation along the left lung base. No pneumothorax. Bones and soft tissues: Stable. IMPRESSION: Stable examination findings. Dictated by Jarrett Francisco MD @ 02/21/2017 7:23:21 PM Dictated by: Jarrett Francisco MD @ 02/21/2017 19:23:30 (Electronic Signature) Report Signed by Proxy. CARA
--- NOTE | 2017-02-22 17:11 | CT ---
EXAM DATE: 02/21/17 PATIENT'S AGE: 82 Patient: MORGAN BIRD Facility: [place], [place] Site . Site : 1935 Study: CT Head [id number]/17/2017 7:34:18 PM Ordering Physician: Doctor Russell Final Report: INDICATION: AMS TECHNIQUE: CT Head without contrast. COMPARISON: 01/29/2017 FINDINGS: There is no sign of intracranial hemorrhage or mass effect. Diffuse cerebral atrophy. Nonspecific low-attenuation along the periventricular white matter, most likely related to chronic microvascular disease. The thorne-white differentiation is preserved. No abnormal intra-axial or extra-axial fluid collection. No acute disease of the visualized paranasal sinuses and mastoid air cells. Remote nasal bone fracture evident. No scalp hematoma/laceration. IMPRESSION: No acute intracranial process. Dictated by: Jarrett Francisco MD @ 02/21/2017 19:45:24 (Electronic Signature) Report Signed by Proxy. [facility]
== END 2017-02-21 22:20 ==
LOC: MW.ED 18:17
DX: K92.2 Gastrointestinal hemorrhage, unspecified (principal); D72.829 Elevated white blood cell count, unspecified; D64.9 Anemia, unspecified; I11.0 Hypertensive heart disease with heart failure; I50.9 Heart failure, unspecified; F03.90 Unspecified dementia, unspecified severity, without behavioral disturbance, psychotic disturbance, mood disturbance, and anxiety; E78.00 Pure hypercholesterolemia, unspecified; I25.2 Old myocardial infarction; Z87.440 Personal history of urinary (tract) infections; E11.9 Type 2 diabetes mellitus without complications; Z79.82 Long term (current) use of aspirin; Z79.899 Other long term (current) drug therapy; Z87.01 Personal history of pneumonia (recurrent); Z79.4 Long term (current) use of insulin
CPT/HCPCS: 36415; 36430; 36600; 70450; 71020; 80053; 81001; 82803; 83605; 84484; 85025; 85610; 87040; 87086; 93005; 96361; 96365; 96375; 99285; C9113; J7040; P9016; 99284

== ENCOUNTER 2020-09-19 19:50 | Emergency (ER) | payer MEDICARE, BC ==
[2020-09-19] MEDS ORDERED: Sodium Chloride 0.9% 10 ML Syringe FLUSH PRN (20:17)
[2020-09-19] MEDS ORDERED: Sodium Chloride 0.9% 2.5 ML Syringe FLUSH PRN (20:17)
[2020-09-19 21:00] LABS: CARBON DIOXIDE,CO2 25.3 mmol/L (21.0-32.0); POTASSIUM,K 4.4 mmol/L (3.5-5.1)
--- NOTE | 2020-09-19 21:19 | EDM.PDOC ---
ED HPI GENERAL MEDICAL PROBLEM - General Chief Complaint: General Stated Complaint: EMS ARRIVAL Time Seen by Provider: 09/19/20 20:13 - History of Present Illness INITIAL COMMENTS - FREE TEXT/NARRATIVE: HISTORY AND PHYSICAL: History of present illness: This is an 85-year-old gentleman with a history significant for diabetes, hypertension, dementia, elevated BUN/creatinine, anemia, who presents to the ER today secondary to episode of low blood sugar that was checked at [facility] after receiving his usual dose of insulin and not eating his dinner. Per EMS, it appears that the blood sugar was checked routinely and that the patient was asymptomatic. Although the patient is somewhat demented and a slightly poor historian, he relays a history of being completely asymptomatic today. Patient reports that he has been feeling well and feels great at this time. Patient reports he has had no nausea, vomiting, diarrhea. Patient reports that he has been eating and drinking fairly well. Patient denies any urinary changes. Pa tient denies any abdominal discomfort or chest pain. Patient denies any URI symptoms. Patient denies any change in his stool. Per EMS report, patient's blood sugar was 60 after it was checked by the nursing facility. Patient was asymptomatic. Patient was given Gatorade and his blood sugar did not improve. EMS was dispatched for evaluation of his hypo arrival of EMS, patient was noted to have a blood sugar greater than 100 glycemia. Upon and pulse ox of 93 to 94%. Patient denies any shortness of breath. Review of systems: As per history of present illness and below otherwise all systems reviewed and negative. Past medical history: As per history of present illness and as reviewed below otherwise noncontributory. Surgical history: As per history of present illness and as reviewed below otherwise noncontributory. Social history: No reported history of drug or alcohol abuse. Family history: As per history of present illness and as reviewed below otherwise noncontributory. Physical exam: This patient was seen and evaluated during the 2019 SARS-CoV-2 novel coronavirus pandemic period. Community viral transmission is ongoing at time of this encounter and the emergency department is operating under pandemic response procedures. Constitutional: Patient is oriented to person, place, and time. Appears well- developed and well-nourished. No distress. HEENT: Moist mucous membranes Head: Normocephalic and atraumatic Eyes: Right eye exhibits no discharge. Left eye exhibits no discharge. No scleral icterus Neck: Normal range of motion. No tracheal deviation present. Cardiovascular: Normal rate and regular rhythm. Pulmonary: Effort normal, no respiratory distress. Abdominal: No distention Musculoskeletal: Normal range of motion Neurologic: Alert and oriented to person, place and time. Skin: [place], warm and dry. Psychiatric: Normal mood and affect. Behavior is normal. Judgment and thought content normal. Nursing note and vital signs have been reviewed Patient is alert awake and oriented to person and place. Patient understands that he is in the ER right now and reports he does not know why is here since he feels so well. Diagnostics: CBC, CMP, urinalysis all within normal limits. Patient BUN and creatinine are elevated however this appears to be near his baseline from labs drawn 4 years ago. Therapeutics: Patient has been given apple juice here in the ED and is tolerating p.o.'s well. Assessment and plan: This is an 85-year-old gentleman who presents ER today for evaluation of low blood sugar that was asymptomatic. Patient had a blood sugar of 60 after receiving his usual insulin dose but did not eat significant amount of food at dinnertime. Patient's blood sugar here after receiving Gatorade at the facility is within normal limits. Patient's pulse ox is 93 to 94% on room air. Patient appears comfortable. Patient does not appear to be dyspneic. At this time, patient does not meet criteria for inpatient or observation level of care and will be discharged back to [facility] with instructions to follow his blood sugar over the next 12 to 24 hours closely and to notify his physician of any concerns. Definitive disposition and diagnosis as appropriate pending reevaluation and review of above. - Related Data Allergies Allergy/AdvReac Type Severity Reaction Status Date / Time No Known Allergies Allergy Verified 09/19/20 20:17 Home Meds: Home Meds Rosuvastatin [Crestor] 20 mg PO BEDTIME 04/14/14 [History] Acetaminophen [Tactinal] 650 mg PO Q4H PRN 02/12/17 [History] Latanoprost [Xalatan 0.005% Ophth Soln] 1 drop EYEBOTH BEDTIME 02/12/17 [History] Losartan [Cozaar] 25 mg PO QAM 02/12/17 [History] ARIPiprazole [Abilify] 10 mg PO BEDTIME 09/19/20 [History] Brimonidine Tartrate 1 drop OP QAM 09/19/20 [History] Carboxymethylcellulose Sodium [Refresh Tears] 1 drop EYEBOTH BID 09/19/20 [History] Ferrous Sulfate 325 mg PO BID 09/19/20 [History] Furosemide [Lasix] 40 mg PO ASDIRECTED 09/19/20 [History] Furosemide [Lasix] 80 mg PO QAM 09/19/20 [History] Insulin Aspart [Insulin Aspart Flexpen] 100 unit SQ WITHMEALSANDBED 09/19/20 [History] Insulin NPH/Insulin Reg,Human [Novolin 70-30] 52 unit SQ QAM 09/19/20 [History] Insuln Asp Prot/Insulin Aspart [NovoLOG Mix 70-30] 48 unit SQ QPM 09/19/20 [History] Omeprazole 20 mg PO DAILY 09/19/20 [History] QUEtiapine [SEROquel] 75 mg PO BID 09/19/20 [History] Sertraline HCl 100 mg PO QAM 09/19/20 [History] Past Medical History HEENT History: Reports: Cataract, Impaired Vision Cardiovascular History: Reports: Heart Failure, High Cholesterol, Hypertension, OR, Stents Other Cardiovascular History: Pedal edema Respiratory History: Reports: Pneumonia, Recurrent, SOB, Other (See Below) Other Respiratory History: low oxygen; on home 02 at 4lpm Gastrointestinal History: Reports: Chronic Constipation Genitourinary History: Reports: UTI, Recurrent Other Genitourinary History: UTI Musculoskeletal History: Reports: Back Pain, Chronic Neurological History: Reports: None Psychiatric History: Reports: Dementia Endocrine/Metabolic History: Reports: Diabetes, Type II Hematologic History: Reports: None Immunologic History: Reports: None Oncologic (Cancer) History: Reports: None Dermatologic History: Reports: Cellulitis, Chronic Cellulitis - Infectious Disease History Infectious Disease History: Reports: Shingles - Past Surgical History Head Surgeries/Procedures: Reports: None HEENT Surgical History: Reports: Eye Surgery Other HEENT Surgeries/Procedures: jaw surgery Cardiovascular Surgical History: Reports: None Respiratory Surgical History: Reports: None GI Surgical History: Reports: None Male Surgical History: Reports: None Endocrine Surgical History: Reports: None Musculoskeletal Surgical History: Reports: None Social & Family History - Family History Family Medical History: No Pertinent Family History Dermatologic: Reports: Other (See Below) Other Dermatologic Family History: cellulitis - Caffeine Use Caffeine Use: Reports: None Caffeine Use Comment: 1-2drinks/day - Recreational Drug Use Recreational Drug Use: No ED ROS GENERAL - Review of Systems Review Of Systems: See Below ED EXAM, GENERAL - Physical Exam Exam: See Below Course - Vital Signs Last Recorded V/S: Last Vital Signs Temp 99.4 F 09/19/20 19:50 Pulse 102 H 09/19/20 19:50 Resp 16 09/19/20 19:50 BP 156/63 H 09/19/20 19:50 Pulse Ox 94 L 09/19/20 19:50 - Orders/Labs/Meds Orders: Active Orders 24 hr Category Date Time Status Sodium Chloride 0.9% [Saline Flush] Med 09/19/20 20:17 Active 10 ml FLUSH ASDIRECTED PRN Sodium Chloride 0.9% [Saline Flush] Med 09/19/20 20:17 Active 2.5 ml FLUSH ASDIRECTED PRN Saline Lock Insert [OM.PC] Stat Oth 09/19/20 20:17 Ordered Medication Orders Sodium Chloride (Sodium Chloride 0.9% 10 Ml Syringe) 10 ml FLUSH ASDIRECTED PRN PRN Reason: Keep Vein Open Sodium Chloride (Sodium Chloride 0.9% 2.5 Ml Syringe) 2.5 ml FLUSH ASDIRECTED PRN PRN Reason: Keep Vein Open Labs: Laboratory Tests 09/19/20 09/19/20 09/19/20 Range/Units 19:56 20:30 20:30 WBC 9.50 (4.0-11.0) K/uL RBC 3.09 L (4.50-5.90) M/uL Hgb 9.5 L (13.0-17.0) g/dL Hct 30.0 L (38.0-50.0) % MCV 97.1 (80.0-98.0) fL MCH 30.7 (27.0-32.0) pg MCHC 31.7 (31.0-37.0) g/dL RDW Std Deviation 45.9 (28.0-62.0) fl RDW Coeff of [place]ke[place] 13 (11.0-15.0) % Plt Count 199 (150-400) K/uL MPV 10.70 (7.40-12.00) fL Neut % (Auto) 79.3 (48.0-80.0) % Lymph % (Auto) 8.5 L (16.0-40.0) % Mcintosh % (Auto) 9.4 (0.0-15.0) % Eos % (Auto) 2.4 (0.0-7.0) % Baso % (Auto) 0.4 (0.0-1.5) % Neut # (Auto) 7.5 H (1.4-5.7) K/uL Lymph # (Auto) 0.8 (0.6-2.4) K/uL Mcintosh # (Auto) 0.9 H (0.0-0.8) K/uL Eos # (Auto) 0.2 (0.0-0.7) K/uL Baso # (Auto) 0.0 (0.0-0.1) K/uL Nucleated RBC % 0.0 /100WBC Nucleated RBCs # 0 K/uL Sodium 138 (136-148) mmol/L Potassium 4.4 (3.5-5.1) mmol/L Chloride 103 (98-107) mmol/L Carbon Dioxide 25.3 (21.0-32.0) mmol/L BUN 61 H (7.0-18.0) mg/dL Creatinine 2.8 H (0.8-1.3) mg/dL Est Cr Clr Drug Dosing 18.69 mL/min Estimated GFR (MDRD) 21.7 ml/min Glucose 118 H (74-106) mg/dL POC Glucose 93 (70-99) mg/dL Calcium 8.4 L (8.5-10.1) mg/dL Total Bilirubin 0.2 (0.2-1.0) mg/dL AST 21 (15-37) IU/L ALT 15 (14-63) IU/L Alkaline Phosphatase 149 H (46-116) U/L Total Protein 8.0 (6.4-8.2) g/dL Albumin 2.8 L (3.4-5.0) g/dL Globulin 5.2 H (2.6-4.0) g/dL Albumin/Globulin Ratio 0.5 L (0.9-1.6) Urine Color Urine Appearance Urine pH (5.0-8.0) Ur Specific Hudson (1.001-1.035) Urine Protein (NEGATIVE) mg/dL Urine Glucose (UA) (NEGATIVE) mg/dL Urine Ketones (NEGATIVE) mg/dL Urine Occult Blood (NEGATIVE) Urine Nitrite (NEGATIVE) Urine Bilirubin (NEGATIVE) Urine Urobilinogen (<2.0) EU/dL Ur Leukocyte Esterase (NEGATIVE) Urine RBC (0-2/HPF) Urine WBC (0-5/HPF) Ur Epithelial Cells (NONE-FEW) Urine Bacteria (NEGATIVE) 09/19/20 Range/Units 20:50 WBC (4.0-11.0) K/uL RBC (4.50-5.90) M/uL Hgb (13.0-17.0) g/dL Hct (38.0-50.0) % MCV (80.0-98.0) fL MCH (27.0-32.0) pg MCHC (31.0-37.0) g/dL RDW Std Deviation (28.0-62.0) fl RDW Coeff of [place]ke[place] (11.0-15.0) % Plt Count (150-400) K/uL MPV (7.40-12.00) fL Neut % (Auto) (48.0-80.0) % Lymph % (Auto) (16.0-40.0) % Mcintosh % (Auto) (0.0-15.0) % Eos % (Auto) (0.0-7.0) % Baso % (Auto) (0.0-1.5) % Neut # (Auto) (1.4-5.7) K/uL Lymph # (Auto) (0.6-2.4) K/uL Mcintosh # (Auto) (0.0-0.8) K/uL Eos # (Auto) (0.0-0.7) K/uL Baso # (Auto) (0.0-0.1) K/uL Nucleated RBC % /100WBC Nucleated RBCs # K/uL Sodium (136-148) mmol/L Potassium (3.5-5.1) mmol/L Chloride (98-107) mmol/L Carbon Dioxide (21.0-32.0) mmol/L BUN (7.0-18.0) mg/dL Creatinine (0.8-1.3) mg/dL Est Cr Clr Drug Dosing mL/min Estimated GFR (MDRD) ml/min Glucose (74-106) mg/dL POC Glucose (70-99) mg/dL Calcium (8.5-10.1) mg/dL Total Bilirubin (0.2-1.0) mg/dL AST (15-37) IU/L ALT (14-63) IU/L Alkaline Phosphatase (46-116) U/L Total Protein (6.4-8.2) g/dL Albumin (3.4-5.0) g/dL Globulin (2.6-4.0) g/dL Albumin/Globulin Ratio (0.9-1.6) Urine Color YELLOW Urine Appearance HAZY Urine pH 5.0 (5.0-8.0) Ur Specific [place] 1.020 (1.001-1.035) Urine Protein NEGATIVE (NEGATIVE) mg/dL Urine Glucose (UA) NEGATIVE (NEGATIVE) mg/dL Urine Ketones NEGATIVE (NEGATIVE) mg/dL Urine Occult Blood TRACE-INTACT H (NEGATIVE) Urine Nitrite NEGATIVE (NEGATIVE) Urine Bilirubin NEGATIVE (NEGATIVE) Urine Urobilinogen 0.2 (<2.0) EU/dL Ur Leukocyte Esterase NEGATIVE (NEGATIVE) Urine RBC 0-2 (0-2/HPF) Urine WBC 0-2 (0-5/HPF) Ur Epithelial Cells RARE (NONE-FEW) Urine Bacteria FEW (NEGATIVE) Meds: Medications Generic Name Dose Route Start Last Admin Trade Name Freq PRN Reason Stop Dose Admin Sodium Chloride 10 ml 09/19/20 20:17 Sodium Chloride 0.9% 10 Ml Syringe FLUSH ASDIRECTED PRN Keep Vein Open Sodium Chloride 2.5 ml 09/19/20 20:17 Sodium Chloride 0.9% 2.5 Ml Syringe FLUSH ASDIRECTED PRN Keep Vein Open Departure - Departure Time of Disposition: 21:17 Disposition: [facility] Condition: Good Clinical Impression: Hypoglycemia - Discharge Information Instructions: Hypoglycemia Additional Instructions: Patient was seen and evaluated in the ER today secondary to concerns of a low b lood sugar and low oxygen level. Patient's work-up in the ER has been unremarkable. Patient's examination and lab tests are all within normal limits. At this time, patient is stable for discharge back to his facility with close follow-up of his blood sugars over the next 24 hours. Please notify his physician of any abnormalities in his blood sugar that are of any concern. Please make sure that the patient is eating prior to receiving his insulin doses over the next several days. The following information is given to patients seen in the emergency department who are being discharged to home. This information is to outline your options for follow-up care. We provide all patients seen in our emergency department with a follow-up referral. The need for follow-up, as well as the timing and circumstances, are variable depending upon the specifics of your emergency department visit. If you don't have a primary care physician on staff, we will provide you with a referral. We always advise you to contact your personal physician following an emergency department visit to inform them of the circumstance of the visit and for follow-up with them and/or the need for any referrals to a consulting specialist. The emergency department will also refer you to a specialist when appropriate. This referral assures that you have the opportunity for follow-up care with a specialist. All of these measure are taken in an effort to provide you with optimal care, which includes your follow-up. Under all circumstances we always encourage you to contact your private physician who remains a resource for coordinating your care. When calling for follow-up care, please make the office aware that this follow-up is from your recent emergency room visit. If for any reason you are refused follow-up, please contact the [facility] Emergency Department at and asked to speak to the emergency department charge nurse. [facility] - [facility] [address] [place] [id number] [facility] [address] [place] [id number] Sepsis Event Note (ED) - Evaluation Sepsis Screening Result: No Definite Risk - Focused Exam Vital Signs: Vital Signs Temp Pulse Resp BP Pulse Ox 09/19/20 19:50 99.4 F 102 H 16 156/63 H 94 L - My Orders Last 24 Hours: My Active Orders 09/19/20 20:17 Sodium Chloride 0.9% [Saline Flush] 10 ml FLUSH ASDIRECTED PRN Sodium Chloride 0.9% [Saline Flush] 2.5 ml FLUSH ASDIRECTED PRN Saline Lock Insert [OM.PC] Stat - Assessment/Plan Last 24 Hours: My Active Orders 09/19/20 20:17 Sodium Chloride 0.9% [Saline Flush] 10 ml FLUSH ASDIRECTED PRN Sodium Chloride 0.9% [Saline Flush] 2.5 ml FLUSH ASDIRECTED PRN Saline Lock Insert [OM.PC] Stat
[2020-09-19 22:11] VITALS: BP 151/71; PULSE 97
== END 2020-09-19 22:00 ==
LOC: MW.ED 19:50
DX: E11.649 Type 2 diabetes mellitus with hypoglycemia without coma (principal); I10 Essential (primary) hypertension; F03.90 Unspecified dementia, unspecified severity, without behavioral disturbance, psychotic disturbance, mood disturbance, and anxiety; E78.00 Pure hypercholesterolemia, unspecified; I11.0 Hypertensive heart disease with heart failure; I50.9 Heart failure, unspecified; I25.2 Old myocardial infarction; Z95.5 Presence of coronary angioplasty implant and graft; Z99.81 Dependence on supplemental oxygen; Z79.4 Long term (current) use of insulin; Z79.899 Other long term (current) drug therapy
CPT/HCPCS: 36415; 80053; 81001; 82947; 85025; 99283; 99284

== ENCOUNTER 2020-12-01 09:38 | Inpatient (IN) | payer MEDICARE, BC ==
[2020-12-01] MEDS ORDERED: Sodium Chloride 0.9% 1,000 ML IV ONE ×2 (10:17→11:44)
[2020-12-01] MEDS ORDERED: Sodium Chloride 0.9% 10 ML Syringe FLUSH PRN (10:17)
[2020-12-01] MEDS ORDERED: Sodium Chloride 0.9% 2.5 ML Syringe FLUSH PRN (10:17)
[2020-12-01] MEDS: Nystatin Topical Powder 15 GM Bottle TOP PRN (10:41)
--- NOTE | 2020-12-01 10:49 | EDM.PDOC ---
ED HPI GENERAL MEDICAL PROBLEM - General Chief Complaint: General Stated Complaint: ALTERED MENTAL Time Seen by Provider: 12/01/20 09:50 - History of Present Illness INITIAL COMMENTS - FREE TEXT/NARRATIVE: HISTORY AND PHYSICAL: History of present illness: This is an 85-year-old gentleman who was transferred from [place] secondary to altered mentation, confusion, decreased p.o. intake, decreased urinary output x2 to 3 days. In the ED, patient appears to be alert awake and able to answer questions appropriately. Patient denies any recent fevers, shakes, chills. Patient denies any abdominal pain. Patient has any vomiting or diarrhea. Patient reports slight cough. Patient denies any chest pain. Patient reports that he had decreased appetite but has been able to drink liquids. Patient does have a history significant for UTI in the past with a chronic indwelling Villarreal catheter. Patient has a history of hypertension and diabetes. Per records from [place], patient is DNR/DNI. Review of systems: As per history of present illness and below otherwise all systems reviewed and negative. Past medical history: As per history of present illness and as reviewed below otherwise noncontributory. Surgical history: As per history of present illness and as reviewed below otherwise noncontributory. Social history: No reported history of drug abuse. Family history: As per history of present illness and as reviewed below otherwise noncontributory. Physical exam: This patient was seen and evaluated during the 2019 SARS-CoV-2 novel coronavirus pandemic period. Community viral transmission is ongoing at time of this encounter and the emergency department is operating under pandemic response procedures. Constitutional: Patient is oriented to person, place, and time. Appears well- developed and well-nourished. No distress. HEENT: Moist mucous membranes Head: Normocephalic and atraumatic Eyes: Right eye exhibits no discharge. Left eye exhibits no discharge. No scleral icterus Neck: Normal range of motion. No tracheal deviation present. Cardiovascular: Normal rate and regular rhythm. Pulmonary: Effort normal, no respiratory distress. Abdominal: No distention Musculoskeletal: Normal range of motion Neurologic: Alert and oriented to person, place and time. Skin: [place], warm and dry. Psychiatric: Normal mood and affect. Behavior is normal. Judgment and thought content normal. Nursing note and vital signs have been reviewed Patient's physical exam is significant for a well-developed obese 85-year-old gentleman who is soft spoken but able to answer questions appropriately. Pat ient is slightly tachycardic on evaluation. Patient does have second-degree sacral decubitus ulcers with a small amount of skin breakdown. Patient's stool was dark heme positive. Abd: Soft, nondistended, no rebound/guarding, no psoas or obturator signs, no tenderness at Mcberney's point, no Painting's sign. Pt does not present with an exam that would be consistent with an acute surgical abdomen at this time. Neck supple, no nuchal rigidity, no photophobia, patient does not present with signs or symptoms of be consistent with meningitis. Diagnostics: Chest Xray: Normal cardiac silhouette No infiltrates or effusions identified. No PTX No evidence of acute bony fracture. As interpreted by ER MD: Darío EKG: As interpreted by ER physician: Darío: Nonspecific ST-T wave abnormalities Normal axis No evidence of ST elevation SC Sinus tachycardia with heart rate of 110 Labs reviewed. Patient has an elevated BUN and creatinine with a markedly elevated WBC count. Patient's urinalysis is significant for greater than 100 WBCs per high-power field with large leukocyte Estrace. Patient is negative for nitrites. Therapeutics: NSS x2 L for treatment of sepsis as well as severe dehydration. 30 mL/kg would be harmful secondary to patient's advanced/end-stage heart failure. Patient required treatment with intravenous normal saline solution secondary to clinical evidence of dehydration as manifested by history and physical examination. Patient was given Rocephin 1 g IV. Blood cultures x2 as well as urine cultures were sent. Patient's Covid test was negative. Assessment and plan: 85-year-old gentleman who presents to the ER today with likely sepsis from UTI. Patient will have his Villarreal catheter changed and was started on Rocephin. Patient will be admitted to the hospital secondary to his worsening renal failure. Although patient does have chronic renal failure and does appear to be markedly worse today. Patient will be given adequate volume resuscitation for reevaluation of his renal function after. I have discussed the case with Dr. Katz who agrees to assist with inpatient level of care for this patient. Critical Care: The high probability of sudden, clinically significant deterioration in the patient's condition required the highest level of my preparedness to intervene urgently. The services I provided to this patient were to treat and/or prevent clinically significant deterioration. Services included the following: chart data review, reviewing nursing notes and/or old charts, documentation time, senior financial consultant collaboration regarding findings and treatment options, medication orders and management, direct patient care, vital sign assessments and ordering, interpreting and reviewing diagnostic studies/lab tests. Aggregate critical care time includes only time during which I was engaged inwork directly related to the patient's care, as described above, whether at the bedside or elsewhere in the Emergency Department. It did not include time spent performing other reported procedures or the services of residents, students, nurses or physician assistants. Critical Care Time: 35 minutes Volume resuscitation sepsis Acute renal failure Definitive disposition and diagnosis as appropriate pending reevaluation and review of above. - Related Data Allergies Allergy/AdvReac Type Severity Reaction Status Date / Time No Known Allergies Allergy Verified 12/01/20 10:07 Home Meds: Home Meds Rosuvastatin [Crestor] 20 mg PO BEDTIME 04/14/14 [History] Acetaminophen [Tactinal] 650 mg PO Q4H PRN 02/12/17 [History] Losartan [Cozaar] 25 mg PO QAM 02/12/17 [History] Brimonidine Tartrate 1 drop EYEBOTH QAM 09/19/20 [History] Carboxymethylcellulose Sodium [Refresh Tears] 1 drop EYEBOTH BID 09/19/20 [History] Ferrous Sulfate 325 mg PO BID 09/19/20 [History] Furosemide [Lasix] 40 mg PO QPM 09/19/20 [History] Furosemide [Lasix] 80 mg PO QAM 09/19/20 [History] Insulin Aspart [Insulin Aspart Flexpen] 0 unit SQ WITHMEALSANDBED 09/19/20 [History] Insuln Asp Prot/Insulin Aspart [NovoLOG Mix 70-30] 52 unit SQ QAM 09/19/20 [History] Omeprazole 20 mg PO DAILY 09/19/20 [History] Sertraline HCl 100 mg PO QAM 09/19/20 [History] Insuln Asp Prot/Insulin Aspart [NovoLOG Mix 70-30] 48 unit SQ QPM 10/19/20 [History] QUEtiapine [SEROquel] 200 mg PO QAM 10/19/20 [History] Latanoprost/Pf [Latanoprost 0.005% Eye Drop] 1 drop EYEBOTH BEDTIME 12/01/20 [History] Tamsulosin HCl 0.4 mg PO DAILY 12/01/20 [History] Past Medical History HEENT History: Reports: Cataract, Impaired Vision Cardiovascular History: Reports: Heart Failure, High Cholesterol, Hypertension, SC, Stents Other Cardiovascular History: Pedal edema Respiratory History: Reports: Pneumonia, Recurrent, SOB, Other (See Below) Other Respiratory History: low oxygen; on home 02 at 4lpm Gastrointestinal History: Reports: Chronic Constipation Genitourinary History: Reports: UTI, Recurrent Other Genitourinary History: UTI Musculoskeletal History: Reports: Back Pain, Chronic Neurological History: Reports: None Psychiatric History: Reports: Dementia Endocrine/Metabolic History: Reports: Diabetes, Type II Hematologic History: Reports: None Immunologic History: Reports: None Oncologic (Cancer) History: Reports: None Dermatologic History: Reports: Cellulitis, Chronic Cellulitis - Infectious Disease History Infectious Disease History: Reports: Shingles - Past Surgical History Head Surgeries/Procedures: Reports: None HEENT Surgical History: Reports: Eye Surgery Other HEENT Surgeries/Procedures: jaw surgery Cardiovascular Surgical History: Reports: None Respiratory Surgical History: Reports: None GI Surgical History: Reports: None Male Surgical History: Reports: None Endocrine Surgical History: Reports: None Musculoskeletal Surgical History: Reports: None Social & Family History - Family History Family Medical History: No Pertinent Family History Dermatologic: Reports: Other (See Below) Other Dermatologic Family History: cellulitis - Tobacco Use Tobacco Use Status *Q: Never Tobacco User - Caffeine Use Caffeine Use: Reports: None Caffeine Use Comment: 1-2drinks/day - Recreational Drug Use Recreational Drug Use: No ED ROS GENERAL - Review of Systems Review Of Systems: See Below ED EXAM, GENERAL - Physical Exam Exam: See Below #1 Interpretation EKG Interpretation Comments: EKG: As interpreted by ER physician: Darío: Nonspecific ST-T wave abnormalities Normal axis No evidence of ST elevation SC Sinus tachycardia at 110 bpm Course - Vital Signs Last Recorded V/S: Last Vital Signs Temp 97.4 F 12/02/20 11:53 Pulse 93 12/02/20 14:27 Resp 17 12/02/20 11:53 BP 125/56 L 12/02/20 14:27 Pulse Ox 98 12/02/20 11:53 - Orders/Labs/Meds Orders: Active Orders 24 hr Category Date Time Status Blood Culture x2 Reflex Set [OM.PC] Stat Oth 12/02/20 05:00 Ordered Medication Orders Acetaminophen (Acetaminophen 325 Mg Tab) 650 mg PO Q4H PRN PRN Reason: fever/pain Albuterol/Ipratropium (Albuterol/Ipratropium 3.0-0.5 Mg/3 Ml Neb Soln) 3 ml NEB Q4HRRT PRN PRN Reason: Shortness Of Breath/wheezing Artificial Tears (Carboxymethylcellulose Sodium 0.5% Ophth Soln 0.4 Ml Ud Box Of 30) 0 each EYEBOTH BID [facility] Last Admin: 12/02/20 10:26 Dose: 1 applic Documented by: Admin: 12/02/20 00:37 Dose: Not Given Documented by: LUMA Brimonidine Tartrate (Brimonidine 0.15% Ophth Soln 5 Ml Bottle) 0 ml EYEBOTH QAM [facility] Last Admin: 12/02/20 10:28 Dose: Not Given Documented by: TERRY Dextrose/Water (50% Dextrose In Water 50 Ml Syringe) 50 ml IVPUSH ASDIRECTED PRN PRN Reason: Hypoglycemia Glucagon (Glucagon,Human Recombinant 1 Mg Vial) 1 mg IM ASDIRECTED PRN PRN Reason: Hypoglycemia Heparin Sodium (Porcine) (Heparin Sodium 5,000 Units/Ml Vial) 5,000 units SUBCUT Q8H [facility] Last Admin: 12/02/20 14:18 Dose: 5,000 units Documented by: Admin: 12/02/20 06:54 Dose: 5,000 units Documented by: Admin: 12/01/20 21:33 Dose: 5,000 units Documented by: Admin: 12/01/20 15:30 Dose: 5,000 units Documented by: HORACE Lactated Ringer's (Ringers, Lactated) 1,000 mls @ 125 mls/hr IV ASDIRECTED [facility] Last Admin: 12/02/20 14:19 Dose: 125 mls/hr Documented by: Infusion: 12/02/20 09:31 Dose: 125 mls/hr Documented by: Admin: 12/02/20 01:31 Dose: 125 mls/hr Documented by: Infusion: 12/02/20 00:11 Dose: 125 mls/hr Documented by: Admin: 12/01/20 16:11 Dose: 125 mls/hr Documented by: HORACE Vancomycin HCl 1.5 gm/ Premix 300 mls @ 200 mls/hr IV Q48H [facility] Last Admin: 12/01/20 17:00 Dose: 200 mls/hr Documented by: HORACE Meropenem/Sodium Chloride 1 gm (/ Premix) 50 mls @ 100 mls/hr IV Q24H [facility] Last Admin: 12/02/20 11:58 Dose: 100 mls/hr Documented by: TERRY Insulin Aspart (Insulin Aspart 100 Units/Ml 3 Ml Pen) 0 unit SUBCUT TIDAC [facility]; Protocol Last Admin: 12/02/20 12:05 Dose: Not Given Documented by: Admin: 12/02/20 07:41 Dose: Not Given Documented by: Admin: 12/01/20 18:07 Dose: Not Given Documented by: HORACE Latanoprost (Latanoprost 0.005% Ophth Soln 2.5 Ml Bottle) 0 ml EYEBOTH BEDTIME [facility] Last Admin: 12/02/20 00:38 Dose: Not Given Documented by: LUMA Nystatin (Nystatin Topical Powder 15 Gm Bottle) 0 gm TOP TID PRN PRN Reason: RASH Last Admin: 12/01/20 10:41 Dose: 1 gm Documented by: LEONID Ondansetron HCl (Ondansetron 4 Mg/2 Ml Sdv) 4 mg IVPUSH Q4H PRN PRN Reason: Nausea/Vomiting Pantoprazole Sodium (Pantoprazole 40 Mg Vial) 40 mg IV Q24H [facility] Last Admin: 12/02/20 14:18 Dose: 40 mg Documented by: Admin: 12/01/20 15:30 Dose: 40 mg Documented by: HORACE Quetiapine Fumarate (Qu[facility]apine 100 Mg Tab) [facility] Last Admin: 12/02/20 10:24 Dose: 200 mg Documented by: TERRY Sertraline HCl (Sertraline 100 Mg Tab) [facility] [place] Last Admin: 12/02/20 10:24 Dose: 100 mg Documented by: TERRY Sodium Chloride (Sodium Chloride 0.9% 10 Ml Syringe) 10 ml FLUSH ASDIRECTED PRN PRN Reason: Keep Vein Open Last Admin: 12/01/20 10:41 Dose: 10 ml Documented by: LEONID Sodium Chloride (Sodium Chloride 0.9% 2.5 Ml Syringe) 2.5 ml FLUSH ASDIRECTED PRN PRN Reason: Keep Vein Open Last Admin: 12/01/20 10:41 Dose: 2.5 ml Documented by: [id number] Vancomycin HCl (Pharmacy To Dose - Vancomycin) 0 dose .XX ASDIRECTED [facility] Labs: Laboratory Tests 12/01/20 12/01/20 12/01/20 Range/Units 09:56 09:56 09:56 WBC 21.25 H (4.0-11.0) K/uL RBC 3.09 L (4.50-5.90) M/uL Hgb 9.4 L (13.0-17.0) g/dL Hct 29.8 L (38.0-50.0) % MCV 96.4 (80.0-98.0) fL MCH 30.4 (27.0-32.0) pg MCHC 31.5 (31.0-37.0) g/dL RDW Std Deviation 44.5 (28.0-62.0) fl RDW Coeff of [place] 13 (11.0-15.0) % Plt Count 271 (150-400) K/uL MPV 10.40 (7.40-12.00) fL Add Manual Diff YES Neutrophils % (Manual) 69 (48.0-80.0) % Band Neutrophils % 16 % Lymphocytes % (Manual) 9 L (16.0-40.0) % Monocytes % (Manual) 4 (0.0-15.0) % Metamyelocytes % 2 % Absolute Seg Neuts 14.7 H (1.4-5.7) Band Neutrophils # 3.4 Lymphocytes # (Manual) 1.9 (0.6-2.4) Monocytes # (Manual) 0.9 H (0.0-0.8) Absolute Metamyelocyte 0.4 Sodium 133 L (136-148) mmol/L Potassium 5.0 (3.5-5.1) mmol/L Chloride 98 (98-107) mmol/L Carbon Dioxide 22.8 (21.0-32.0) mmol/L BUN 102 H (7.0-18.0) mg/dL Creatinine 4.8 H (0.8-1.3) mg/dL Est Cr Clr Drug Dosing TNP Estimated GFR (MDRD) 11.7 ml/min Glucose 106 (74-106) mg/dL POC Glucose (70-99) mg/dL Lactic Acid 1.7 (0.4-2.0) mmol/L Calcium 8.9 (8.5-10.1) mg/dL Total Bilirubin 0.5 (0.2-1.0) mg/dL AST 149 H (15-37) IU/L ALT 38 (14-63) IU/L Alkaline Phosphatase 196 H (46-116) U/L Total Protein 8.2 (6.4-8.2) g/dL Albumin 2.5 L (3.4-5.0) g/dL Globulin 5.7 H (2.6-4.0) g/dL Albumin/Globulin Ratio 0.4 L (0.9-1.6) Urine Color Urine Appearance Urine pH (5.0-8.0) Ur Specific [place] (1.001-1.035) Urine Protein (NEGATIVE) mg/dL Urine Glucose (UA) (NEGATIVE) mg/dL Urine Ketones (NEGATIVE) mg/dL Urine Occult Blood (NEGATIVE) Urine Nitrite (NEGATIVE) Urine Bilirubin (NEGATIVE) Urine Urobilinogen (<2.0) EU/dL Ur Leukocyte Esterase (NEGATIVE) Urine RBC (0-2/HPF) Urine WBC (0-5/HPF) Ur Epithelial Cells (NONE-FEW) Amorphous Sediment (NEGATIVE) Urine Bacteria (NEGATIVE) Urine Mucus (NONE-MOD) SARS-CoV-2 RNA ([place]) (NEGATIVE) Blood Type Antibody Screen 12/01/20 12/01/20 12/01/20 Range/Units 09:56 09:58 10:35 WBC (4.0-11.0) K/uL RBC (4.50-5.90) M/uL Hgb (13.0-17.0) g/dL Hct (38.0-50.0) % MCV (80.0-98.0) fL MCH (27.0-32.0) pg MCHC (31.0-37.0) g/dL RDW Std Deviation (28.0-62.0) fl RDW Coeff of [place] (11.0-15.0) % Plt Count (150-400) K/uL MPV (7.40-12.00) fL Add Manual Diff Neutrophils % (Manual) (48.0-80.0) % Band Neutrophils % % Lymphocytes % (Manual) (16.0-40.0) % Monocytes % (Manual) (0.0-15.0) % Metamyelocytes % % Absolute Seg Neuts (1.4-5.7) Band Neutrophils # Lymphocytes # (Manual) (0.6-2.4) Monocytes # (Manual) (0.0-0.8) Absolute Metamyelocyte Sodium (136-148) mmol/L Potassium (3.5-5.1) mmol/L Chloride (98-107) mmol/L Carbon Dioxide (21.0-32.0) mmol/L BUN (7.0-18.0) mg/dL Creatinine (0.8-1.3) mg/dL Est Cr Clr Drug Dosing Estimated GFR (MDRD) ml/min Glucose (74-106) mg/dL POC Glucose 113 H (70-99) mg/dL Lactic Acid (0.4-2.0) mmol/L Calcium (8.5-10.1) mg/dL Total Bilirubin (0.2-1.0) mg/dL AST (15-37) IU/L ALT (14-63) IU/L Alkaline Phosphatase (46-116) U/L Total Protein (6.4-8.2) g/dL Albumin (3.4-5.0) g/dL Globulin (2.6-4.0) g/dL Albumin/Globulin Ratio (0.9-1.6) Urine Color YELLOW Urine Appearance CLOUDY Urine pH 7.5 (5.0-8.0) Ur Specific [place] 1.020 (1.001-1.035) Urine Protein 100 H (NEGATIVE) mg/dL Urine Glucose (UA) NEGATIVE (NEGATIVE) mg/dL Urine Ketones NEGATIVE (NEGATIVE) mg/dL Urine Occult Blood LARGE H (NEGATIVE) Urine Nitrite NEGATIVE (NEGATIVE) Urine Bilirubin NEGATIVE (NEGATIVE) Urine Urobilinogen 0.2 (<2.0) EU/dL Ur Leukocyte Esterase LARGE H (NEGATIVE) Urine RBC 6-10 (0-2/HPF) Urine WBC >100 (0-5/HPF) Ur Epithelial Cells FEW (NONE-FEW) Amorphous Sediment LIGHT (NEGATIVE) Urine Bacteria 3+ H (NEGATIVE) Urine Mucus HEAVY (NONE-MOD) SARS-CoV-2 RNA ([place]) NEGATIVE (NEGATIVE) Blood Type Antibody Screen 12/01/20 Range/Units 10:52 WBC (4.0-11.0) K/uL RBC (4.50-5.90) M/uL Hgb (13.0-17.0) g/dL Hct (38.0-50.0) % MCV (80.0-98.0) fL MCH (27.0-32.0) pg MCHC (31.0-37.0) g/dL RDW Std Deviation (28.0-62.0) fl RDW Coeff of [place] (11.0-15.0) % Plt Count (150-400) K/uL MPV (7.40-12.00) fL Add Manual Diff Neutrophils % (Manual) (48.0-80.0) % Band Neutrophils % % Lymphocytes % (Manual) (16.0-40.0) % Monocytes % (Manual) (0.0-15.0) % Metamyelocytes % % Absolute Seg Neuts (1.4-5.7) Band Neutrophils # Lymphocytes # (Manual) (0.6-2.4) Monocytes # (Manual) (0.0-0.8) Absolute Metamyelocyte Sodium (136-148) mmol/L Potassium (3.5-5.1) mmol/L Chloride (98-107) mmol/L Carbon Dioxide (21.0-32.0) mmol/L BUN (7.0-18.0) mg/dL Creatinine (0.8-1.3) mg/dL Est Cr Clr Drug Dosing Estimated GFR (MDRD) ml/min Glucose (74-106) mg/dL POC Glucose (70-99) mg/dL Lactic Acid (0.4-2.0) mmol/L Calcium (8.5-10.1) mg/dL Total Bilirubin (0.2-1.0) mg/dL AST (15-37) IU/L ALT (14-63) IU/L Alkaline Phosphatase (46-116) U/L Total Protein (6.4-8.2) g/dL Albumin (3.4-5.0) g/dL Globulin (2.6-4.0) g/dL Albumin/Globulin Ratio (0.9-1.6) Urine Color Urine Appearance Urine pH (5.0-8.0) Ur Specific [place] (1.001-1.035) Urine Protein (NEGATIVE) mg/dL Urine Glucose (UA) (NEGATIVE) mg/dL Urine Ketones (NEGATIVE) mg/dL Urine Occult Blood (NEGATIVE) Urine Nitrite (NEGATIVE) Urine Bilirubin (NEGATIVE) Urine Urobilinogen (<2.0) EU/dL Ur Leukocyte Esterase (NEGATIVE) Urine RBC (0-2/HPF) Urine WBC (0-5/HPF) Ur Epithelial Cells (NONE-FEW) Amorphous Sediment (NEGATIVE) Urine Bacteria (NEGATIVE) Urine Mucus (NONE-MOD) SARS-CoV-2 RNA ([place]) (NEGATIVE) Blood Type O POSITIVE Antibody Screen NEGATIVE Meds: Medications Generic Name Dose Route Start Last Admin Trade Name Freq PRN Reason Stop Dose Admin Acetaminophen 650 mg 12/01/20 14:40 Acetaminophen 325 Mg Tab PO Q4H PRN fever/pain Albuterol/Ipratropium 3 ml 12/01/20 14:21 Albuterol/Ipratropium 3.0-0.5 Mg/3 Ml Neb Soln NEB Q4HRRT PRN Shortness Of Breath/wheezing Artificial Tears 0 each 12/01/20 21:00 12/02/20 10:26 Carboxymethylcellulose Sodium 0.5% Ophth Soln 0.4 Ml Ud Box Of 30 EYEBOTH 1 applic BID KAR Administration Brimonidine Tartrate 0 ml 12/02/20 09:00 12/02/20 10:28 Brimonidine 0.15% Ophth Soln 5 Ml Bottle EYEBOTH Not Given QAM KAR Dextrose/Water 50 ml 12/01/20 14:30 50% Dextrose In Water 50 Ml Syringe IVPUSH ASDIRECTED PRN Hypoglycemia Glucagon 1 mg 12/01/20 14:30 Glucagon,Human Recombinant 1 Mg Vial IM ASDIRECTED PRN Hypoglycemia Heparin Sodium (Porcine) 5,000 units 12/01/20 14:30 12/02/20 14:18 Heparin Sodium 5,000 Units/Ml Vial SUBCUT 5,000 units Q8H KAR Administration Lactated Ringer's 1,000 mls @ 125 mls/hr 12/01/20 14:30 12/02/20 14:19 Ringers, Lactated IV 125 mls/hr ASDIRECTED KAR Administration Vancomycin HCl 1.5 gm/ Premix 300 mls @ 200 mls/hr 12/01/20 16:00 12/01/20 17:00 IV 200 mls/hr Q48H KAR Administration Meropenem/Sodium Chloride 1 gm 50 mls @ 100 mls/hr 12/02/20 11:30 12/02/20 11:58 / Premix IV 100 mls/hr Q24H KAR Administration Insulin Aspart 0 unit 12/01/20 17:00 12/02/20 12:05 Insulin Aspart 100 Units/Ml 3 Ml Pen SUBCUT Not Given TIDAC [facility] Protocol Latanoprost 0 ml 12/01/20 21:00 12/02/20 00:38 Latanoprost 0.005% Ophth Soln 2.5 Ml Bottle EYEBOTH Not Given BEDTIME [facility] Nystatin 0 gm 12/01/20 10:24 12/01/20 10:41 Nystatin Topical Powder 15 Gm Bottle TOP 1 gm TID PRN Administration RASH Ondansetron HCl 4 mg 12/01/20 14:21 Ondansetron 4 Mg/2 Ml Sdv IVPUSH Q4H PRN Nausea/Vomiting Pantoprazole Sodium 40 mg 12/01/20 14:30 12/02/20 14:18 Pantoprazole 40 Mg Vial IV 40 mg Q24H KAR Administration Quetiapine Fumarate 200 mg 12/02/20 09:00 12/02/20 10:24 Quetiapine 100 Mg Tab PO 200 mg QAM KAR Administration Sertraline HCl 100 mg 12/02/20 09:00 12/02/20 10:24 Sertraline 100 Mg Tab PO 100 mg QAM KAR Administration Sodium Chloride 10 ml 12/01/20 10:17 12/01/20 10:41 Sodium Chloride 0.9% 10 Ml Syringe FLUSH 10 ml ASDIRECTED PRN Administration Keep Vein Open Sodium Chloride 2.5 ml 12/01/20 10:17 12/01/20 10:41 Sodium Chloride 0.9% 2.5 Ml Syringe FLUSH 2.5 ml ASDIRECTED PRN Administration Keep Vein Open Vancomycin HCl 0 dose 12/01/20 14:30 Pharmacy To Dose - Vancomycin .XX ASDIRECTED KAR Discontinued Medications Generic Name Dose Route Start Last Admin Trade Name Freq PRN Reason Stop Dose Admin Sodium Chloride 1,000 mls @ 999 mls/hr 12/01/20 10:17 12/01/20 10:41 Normal Saline IV 12/01/20 11:17 999 mls/hr .Bolus ONE Administration Ceftriaxone Sodium/Dextrose 1 50 mls @ 100 mls/hr 12/01/20 11:09 12/01/20 11:12 gm/ Premix IV 12/01/20 11:38 100 mls/hr ONETIME ONE Administration Sodium Chloride 1,000 mls @ 999 mls/hr 12/01/20 11:44 12/01/20 11:50 Normal Saline IV 12/01/20 12:44 999 mls/hr .Bolus ONE Administration Piperacillin Sod/Tazobactam 50 mls @ 100 mls/hr 12/01/20 14:30 12/01/20 15:49 Sod 3.375 gm/ Sodium Chloride IV Not Given Q8H KAR Piperacillin Sod/Tazobactam 50 mls @ 100 mls/hr 12/01/20 16:00 12/02/20 09:23 Sod 2.25 gm/ Sodium Chloride IV 100 mls/hr Q8H KAR Administration Sodium Chloride 500 mls @ 999 mls/hr 12/02/20 09:45 12/02/20 11:04 Normal Saline IV 999 mls/hr .BOLUS KAR Administration Lactated Ringer's 1,000 mls @ 999 mls/hr 12/02/20 12:08 12/02/20 13:02 Ringers, Lactated IV 12/02/20 13:08 999 mls/hr .BOLUS ONE Administration Tamsulosin HCl 0.4 mg 12/02/20 09:00 12/02/20 10:24 Tamsulosin 0.4 Mg Cap.Er PO 0.4 mg DAILY KAR Administration Departure - Departure Time of Disposition: 11:59 Disposition: Admitted As Inpatient 68 Condition: Good Clinical Impression: Acute renal failure, Dehydration, Sacral decubitus ulcer, stage II, Heme positive stool, UTI, Urinary tract infectious disease, Acute kidney injury, Anemia Sepsis Qualifiers: Sepsis type: sepsis due to unspecified organism Acute renal failure type: unspecified Severe sepsis shock status: without septic shock UTI (urinary tract infection) Qualifiers: Urinary tract infection type: catheter-associated UTI Indwelling urinary catheter type: indwelling urethral catheter Encounter type: initial encounter Qualified Code(s): T83.511A - Infection and inflammatory reaction due to indwelling urethral catheter, initial encounter - Discharge Information Sepsis Event Note (ED) - Evaluation Sepsis Screening Result: No Definite Risk
[2020-12-01 10:53] LABS: BLOOD UREA NITROGEN,BUN 102 mg/dL (7.0-18.0); CARBON DIOXIDE,CO2 22.8 mmol/L (21.0-32.0); CHLORIDE,CL 98 mmol/L (98-107); GLUCOSE RANDOM 106 mg/dL (74-106); SODIUM,NA 133 mmol/L (136-148)
[2020-12-01] MEDS ORDERED: cefTRIAXone 1 GM in Premix Bag 1 BAG IV ONE (11:09)
--- NOTE | 2020-12-01 11:27 | CR ---
INDICATION: Cough. Kyphosis. TECHNIQUE: AP portable semi upright chest. COMPARISON: Two-view chest February 21, 2017. FINDINGS: Shallow inspiration. Overall heart size is at the upper limit of normal. Minor fibrosis or atelectasis left upper lobe. Multiple old right-sided rib fractures with associated minor pleural thickening. Mild eventration of the right hemidiaphragm. Thoracic kyphosis. IMPRESSION : Accounting for the radiographic technique, degree of inspiration, and patient positioning, there is no acute cardiopulmonary process identified. Dictated by Mode Jacques MD @ 12/01/2020 11:24:[address] Mode Jacques @ Dec 01 2020 11:24AM
[2020-12-01] MEDS ORDERED: Ondansetron 4 MG/2 ML SDV IVPUSH PRN (14:21)
[2020-12-01] MEDS ORDERED: Albuterol/Ipratropium 3.0-0.5 MG/3 ML Neb Soln NEB PRN (14:21)
--- NOTE | 2020-12-01 14:24 | PCM.HP.2 ---
H&P History of Present Illness - General Date of Service: 12/01/20 Admit Problem/Dx: Admission Diagnosis/Problem Admission Diagnosis/Problem Sepsis - History of Present Illness Initial Comments - Free Text/Narative: Heart Failure, High Cholesterol, Hypertension, [place], Stents, on home oxygen, dementia, DM , who was came from [facility] via EMS secondary to confusion, decreased p.o. intake, decreased urinary output x2 to 3 days. In the ER patient was able to answer few questions appropriately, Patient denies any recent fevers,abdominal pain, vomiting or diarrhea. Patient reports slight cough and chills. Patient denies any chest pain. Patient reports that he had decreased appetite but has been able to drink liquids. Patient does have a history significant for UTI in the past with a chronic indwelling Sparks catheter. Per records from [facility], patient is DNR/DNI. In the ER patient was found to be in sepsis with tachycardia, significant leucocytosis, with urine as source, patient had significant COREY over CKD with creatinine of 4.8. Patient was making good urine though. Patient received IV fluids and IV antibiotics and was admitted for further management. - Related Data Allergies/Adverse Reactions: Allergies Allergy/AdvReac Type Severity Reaction Status Date / Time No Known Allergies Allergy Verified 12/01/20 10:07 Home Medications: Home Meds Rosuvastatin [Crestor] 20 mg PO BEDTIME 04/14/14 [History] Acetaminophen [Tactinal] 650 mg PO Q4H PRN 02/12/17 [History] Losartan [Cozaar] 25 mg PO QAM 02/12/17 [History] Brimonidine Tartrate 1 drop EYEBOTH QAM 09/19/20 [History] Carboxymethylcellulose Sodium [Refresh Tears] 1 drop EYEBOTH BID 09/19/20 [History] Ferrous Sulfate 325 mg PO BID 09/19/20 [History] Furosemide [Lasix] 40 mg PO QPM 09/19/20 [History] Furosemide [Lasix] 80 mg PO QAM 09/19/20 [History] Insulin Aspart [Insulin Aspart Flexpen] 0 unit SQ WITHMEALSANDBED 09/19/20 [History] Insuln Asp Prot/Insulin Aspart [NovoLOG Mix 70-30] 52 unit SQ QAM 09/19/20 [History] Omeprazole 20 mg PO DAILY 09/19/20 [History] Sertraline HCl 100 mg PO QAM 09/19/20 [History] Insuln Asp Prot/Insulin Aspart [NovoLOG Mix 70-30] 48 unit SQ QPM 10/19/20 [History] QUEtiapine [SEROquel] 200 mg PO QAM 10/19/20 [History] Latanoprost/Pf [Latanoprost 0.005% Eye Drop] 1 drop EYEBOTH BEDTIME 12/01/20 [History] Tamsulosin HCl 0.4 mg PO DAILY 12/01/20 [History] Past Medical History HEENT History: Reports: Cataract, Impaired Vision Cardiovascular History: Reports: Heart Failure, High Cholesterol, Hypertension, [place], Stents Other Cardiovascular History: Pedal edema Respiratory History: Reports: Pneumonia, Recurrent, SOB, Other (See Below) Other Respiratory History: low oxygen; on home 02 at 4lpm Gastrointestinal History: Reports: Chronic Constipation Genitourinary History: Reports: UTI, Recurrent Other Genitourinary History: UTI Musculoskeletal History: Reports: Back Pain, Chronic Neurological History: Reports: None Psychiatric History: Reports: Dementia Endocrine/Metabolic History: Reports: Diabetes, Type II Hematologic History: Reports: None Immunologic History: Reports: None Oncologic (Cancer) History: Reports: None Dermatologic History: Reports: Cellulitis, Chronic Cellulitis - Infectious Disease History Infectious Disease History: Reports: Shingles - Past Surgical History Head Surgeries/Procedures: Reports: None HEENT Surgical History: Reports: Eye Surgery Other HEENT Surgeries/Procedures: jaw surgery Cardiovascular Surgical History: Reports: None Respiratory Surgical History: Reports: None GI Surgical History: Reports: None Male Surgical History: Reports: None Endocrine Surgical History: Reports: None Musculoskeletal Surgical History: Reports: None Social & Family History - Family History Family Medical History: No Pertinent Family History Dermatologic: Reports: Other (See Below) Other Dermatologic Family History: cellulitis - Tobacco Use Tobacco Use Status *Q: Never Tobacco User - Caffeine Use Caffeine Use: Reports: None Caffeine Use Comment: 1-2drinks/day - Recreational Drug Use Recreational Drug Use: No H&P Review of Systems - Review of Systems: Review Of Systems: See Below General: Reports: Chills, Weakness, Fatigue. Denies: Fever Pulmonary: Reports: Cough. Denies: Shortness of Breath, Wheezing, Pleuritic Chest Pain Cardiovascular: Denies: Chest Pain, Palpitations, Dyspnea on Exertion, Orthopnea Gastrointestinal: Denies: Abdominal Pain, Anorexia, Black Stool, Bloody Stool, Constipation, Hematemesis Genitourinary: Denies: Dysuria, Frequency, Burning, Pain Musculoskeletal: Denies: Neck Pain, Shoulder Pain, Arm Pain Skin: Denies: Jaundice, Mottled, Erythema Exam - Exam Exam: See Below - Vital Signs Vital Signs: Last Vital Signs Temp 37.8 C 12/01/20 09:40 Pulse 115 H 12/01/20 11:15 Resp 18 12/01/20 11:15 BP 140/62 12/01/20 11:15 Pulse Ox 92 L 12/01/20 11:15 Weight: 108.409 kg - Exam Quality Assessment: Supplemental Oxygen General: Alert, Cooperative, Mild Distress Neck: Supple Lungs: Clear to Auscultation, Normal Respiratory Effort Cardiovascular: Regular Rate, Regular Rhythm (Male) Exam: Other (sparks in place) Extremities: Normal Inspection, Normal Range of Motion, Non-Tender - Patient Data Lab Results Last 24 hrs: Laboratory Results - last 24 hr 12/01/20 12/01/20 12/01/20 Range/Units 09:56 09:56 09:56 WBC 21.25 H (4.0-11.0) K/uL RBC 3.09 L (4.50-5.90) M/uL Hgb 9.4 L (13.0-17.0) g/dL Hct 29.8 L (38.0-50.0) % MCV 96.4 (80.0-98.0) fL MCH 30.4 (27.0-32.0) pg MCHC 31.5 (31.0-37.0) g/dL RDW Std Deviation 44.5 (28.0-62.0) fl RDW Coeff of [place] 13 (11.0-15.0) % Plt Count 271 (150-400) K/uL MPV 10.40 (7.40-12.00) fL Add Manual Diff YES Neutrophils % (Manual) 69 (48.0-80.0) % Band Neutrophils % 16 % Lymphocytes % (Manual) 9 L (16.0-40.0) % Monocytes % (Manual) 4 (0.0-15.0) % Metamyelocytes % 2 % Absolute Seg Neuts 14.7 H (1.4-5.7) Band Neutrophils # 3.4 Lymphocytes # (Manual) 1.9 (0.6-2.4) Monocytes # (Manual) 0.9 H (0.0-0.8) Absolute Metamyelocyte 0.4 Sodium 133 L (136-148) mmol/L Potassium 5.0 (3.5-5.1) mmol/L Chloride 98 (98-107) mmol/L Carbon Dioxide 22.8 (21.0-32.0) mmol/L BUN 102 H (7.0-18.0) mg/dL Creatinine 4.8 H (0.8-1.3) mg/dL Est Cr Clr Drug Dosing TNP Estimated GFR (MDRD) 11.7 ml/min Glucose 106 (74-106) mg/dL POC Glucose (70-99) mg/dL Lactic Acid 1.7 (0.4-2.0) mmol/L Calcium 8.9 (8.5-10.1) mg/dL Total Bilirubin 0.5 (0.2-1.0) mg/dL AST 149 H (15-37) IU/L ALT 38 (14-63) IU/L Alkaline Phosphatase 196 H (46-116) U/L Total Protein 8.2 (6.4-8.2) g/dL Albumin 2.5 L (3.4-5.0) g/dL Globulin 5.7 H (2.6-4.0) g/dL Albumin/Globulin Ratio 0.4 L (0.9-1.6) Urine Color Urine Appearance Urine pH (5.0-8.0) Ur Specific [place] (1.001-1.035) Urine Protein (NEGATIVE) mg/dL Urine Glucose (UA) (NEGATIVE) mg/dL Urine Ketones (NEGATIVE) mg/dL Urine Occult Blood (NEGATIVE) Urine Nitrite (NEGATIVE) Urine Bilirubin (NEGATIVE) Urine Urobilinogen (<2.0) EU/dL Ur Leukocyte Esterase (NEGATIVE) Urine RBC (0-2/HPF) Urine WBC (0-5/HPF) Ur Epithelial Cells (NONE-FEW) Amorphous Sediment (NEGATIVE) Urine Bacteria (NEGATIVE) Urine Mucus (NONE-MOD) SARS-CoV-2 RNA ([place]) (NEGATIVE) Blood Type Antibody Screen 12/01/20 12/01/20 12/01/20 Range/Units 09:56 09:58 10:35 WBC (4.0-11.0) K/uL RBC (4.50-5.90) M/uL Hgb (13.0-17.0) g/dL Hct (38.0-50.0) % MCV (80.0-98.0) fL MCH (27.0-32.0) pg MCHC (31.0-37.0) g/dL RDW Std Deviation (28.0-62.0) fl RDW Coeff of [place] (11.0-15.0) % Plt Count (150-400) K/uL MPV (7.40-12.00) fL Add Manual Diff Neutrophils % (Manual) (48.0-80.0) % Band Neutrophils % % Lymphocytes % (Manual) (16.0-40.0) % Monocytes % (Manual) (0.0-15.0) % Metamyelocytes % % Absolute Seg Neuts (1.4-5.7) Band Neutrophils # Lymphocytes # (Manual) (0.6-2.4) Monocytes # (Manual) (0.0-0.8) Absolute Metamyelocyte Sodium (136-148) mmol/L Potassium (3.5-5.1) mmol/L Chloride (98-107) mmol/L Carbon Dioxide (21.0-32.0) mmol/L BUN (7.0-18.0) mg/dL Creatinine (0.8-1.3) mg/dL Est Cr Clr Drug Dosing Estimated GFR (MDRD) ml/min Glucose (74-106) mg/dL POC Glucose 113 H (70-99) mg/dL Lactic Acid (0.4-2.0) mmol/L Calcium (8.5-10.1) mg/dL Total Bilirubin (0.2-1.0) mg/dL AST (15-37) IU/L ALT (14-63) IU/L Alkaline Phosphatase (46-116) U/L Total Protein (6.4-8.2) g/dL Albumin (3.4-5.0) g/dL Globulin (2.6-4.0) g/dL Albumin/Globulin Ratio (0.9-1.6) Urine Color YELLOW Urine Appearance CLOUDY Urine pH 7.5 (5.0-8.0) Ur Specific [place] 1.020 (1.001-1.035) Urine Protein 100 H (NEGATIVE) mg/dL Urine Glucose (UA) NEGATIVE (NEGATIVE) mg/dL Urine Ketones NEGATIVE (NEGATIVE) mg/dL Urine Occult Blood LARGE H (NEGATIVE) Urine Nitrite NEGATIVE (NEGATIVE) Urine Bilirubin NEGATIVE (NEGATIVE) Urine Urobilinogen 0.2 (<2.0) EU/dL Ur Leukocyte Esterase LARGE H (NEGATIVE) Urine RBC 6-10 (0-2/HPF) Urine WBC >100 (0-5/HPF) Ur Epithelial Cells FEW (NONE-FEW) Amorphous Sediment LIGHT (NEGATIVE) Urine Bacteria 3+ H (NEGATIVE) Urine Mucus HEAVY (NONE-MOD) SARS-CoV-2 RNA ([place]) NEGATIVE (NEGATIVE) Blood Type Antibody Screen 12/01/20 Range/Units 10:52 WBC (4.0-11.0) K/uL RBC (4.50-5.90) M/uL Hgb (13.0-17.0) g/dL Hct (38.0-50.0) % MCV (80.0-98.0) fL MCH (27.0-32.0) pg MCHC (31.0-37.0) g/dL RDW Std Deviation (28.0-62.0) fl RDW Coeff of [place] (11.0-15.0) % Plt Count (150-400) K/uL MPV (7.40-12.00) fL Add Manual Diff Neutrophils % (Manual) (48.0-80.0) % Band Neutrophils % % Lymphocytes % (Manual) (16.0-40.0) % Monocytes % (Manual) (0.0-15.0) % Metamyelocytes % % Absolute Seg Neuts (1.4-5.7) Band Neutrophils # Lymphocytes # (Manual) (0.6-2.4) Monocytes # (Manual) (0.0-0.8) Absolute Metamyelocyte Sodium (136-148) mmol/L Potassium (3.5-5.1) mmol/L Chloride (98-107) mmol/L Carbon Dioxide (21.0-32.0) mmol/L BUN (7.0-18.0) mg/dL Creatinine (0.8-1.3) mg/dL Est Cr Clr Drug Dosing Estimated GFR (MDRD) ml/min Glucose (74-106) mg/dL POC Glucose (70-99) mg/dL Lactic Acid (0.4-2.0) mmol/L Calcium (8.5-10.1) mg/dL Total Bilirubin (0.2-1.0) mg/dL AST (15-37) IU/L ALT (14-63) IU/L Alkaline Phosphatase (46-116) U/L Total Protein (6.4-8.2) g/dL Albumin (3.4-5.0) g/dL Globulin (2.6-4.0) g/dL Albumin/Globulin Ratio (0.9-1.6) Urine Color Urine Appearance Urine pH (5.0-8.0) Ur Specific [place] (1.001-1.035) Urine Protein (NEGATIVE) mg/dL Urine Glucose (UA) (NEGATIVE) mg/dL Urine Ketones (NEGATIVE) mg/dL Urine Occult Blood (NEGATIVE) Urine Nitrite (NEGATIVE) Urine Bilirubin (NEGATIVE) Urine Urobilinogen (<2.0) EU/dL Ur Leukocyte Esterase (NEGATIVE) Urine RBC (0-2/HPF) Urine WBC (0-5/HPF) Ur Epithelial Cells (NONE-FEW) Amorphous Sediment (NEGATIVE) Urine Bacteria (NEGATIVE) Urine Mucus (NONE-MOD) SARS-CoV-2 RNA ([place]) (NEGATIVE) Blood Type O POSITIVE Antibody Screen NEGATIVE Result Diagrams: 12/01/20 09:56 12/01/20 18:06 Nathaniel Results Last 24 hrs: Microbiology 12/01/20 10:10 Stool Occult Blood (NATHANIEL) - Final Stool / Feces Sepsis Event Note - Evaluation Sepsis Screening Result: No Definite Risk - Focused Exam Vital Signs: Vital Signs Temp Pulse Resp BP Pulse Ox 12/01/20 11:15 115 H 18 140/62 92 L 12/01/20 11:00 113 H 17 151/72 H 96 12/01/20 10:45 114 H 18 118/64 95 12/01/20 10:30 112 H 18 96/46 L 94 L 12/01/20 10:15 111 H 20 104/47 L 95 12/01/20 09:40 37.8 C 103 H 16 116/61 94 L - Problem List (1) CAD (coronary artery disease) SNOMED Code(s): 96553432 ICD Code: I25.10 - ATHSCL HEART DISEASE OF [place] CORONARY ARTERY W/O ANG PCTRS Status: Acute Current Visit: Yes (2) CKD (chronic kidney disease) SNOMED Code(s): 884012950 ICD Code: N18.9 - CHRONIC KIDNEY DISEASE, UNSPECIFIED Status: Acute Current Visit: Yes (3) Acute renal failure SNOMED Code(s): 96561018 ICD Code: N17.9 - ACUTE KIDNEY FAILURE, UNSPECIFIED Status: Acute Current Visit: Yes (4) Sepsis SNOMED Code(s): 88609425 ICD Code: A41.9 - SEPSIS, UNSPECIFIED ORGANISM Status: Acute Current Visit: Yes Qualifiers: Sepsis type: sepsis due to unspecified organism Acute renal failure type: unspecified Severe sepsis shock status: without septic shock (5) UTI (urinary tract infection) SNOMED Code(s): 20238516 ICD Code: N39.0 - URINARY TRACT INFECTION, SITE NOT SPECIFIED Status: Acute Current Visit: Yes (6) CHF (congestive heart failure) SNOMED Code(s): 93109029 ICD Code: I50.9 - HEART FAILURE, UNSPECIFIED Status: Acute Current Visit: No (7) Lower urinary tract infectious disease, UTI SNOMED Code(s): 1914197 ICD Code: N39.0 - URINARY TRACT INFECTION, SITE NOT SPECIFIED Status: Acute Current Visit: No (8) DM type 2 (diabetes mellitus, type 2) SNOMED Code(s): 73506886 ICD Code: E11.9 - TYPE 2 DIABETES MELLITUS WITHOUT COMPLICATIONS Status: Chronic Priority: Medium Current Visit: No Qualifiers: Diabetes mellitus residential insulin use: without manager intermediate use Diabetes mellitus complication status: with hyperglycemia Qualified Code(s): E11.65 - Type 2 diabetes mellitus with hyperglycemia (9) Dementia SNOMED Code(s): 82586397 ICD Code: F03.90 - UNSPECIFIED DEMENTIA WITHOUT BEHAVIORAL DISTURBANCE Status: Chronic Current Visit: No Qualifiers: Alzheimer's disease onset: unspecified onset Dementia behavioral disturbance: without behavioral disturbance (10) HTN (hypertension) SNOMED Code(s): 85370333 ICD Code: I10 - ESSENTIAL (PRIMARY) HYPERTENSION Status: Chronic Current Visit: No Problem List Initiated/Reviewed/Updated: Yes Orders Last 24hrs: Active Orders 24 hr Category Date Time Status Patient Status [ADT] Routine ADT 12/01/20 11:50 Active Ambulate [RC] ASDIRECTED Care 12/01/20 14:21 Active Antiembolic Devices [RC] PER UNIT ROUTINE Care 12/01/20 14:22 Active Insert Sparks Catheter [Insert Urinary Catheter] [OM.PC] Care 12/01/20 12:00 Ordered Q24H Oxygen Therapy [RC] PRN Care 12/01/20 14:21 Active Pulse Oximetry [RC] PRN Care 12/01/20 14:21 Active RT Aerosol Therapy [RC] ASDIRECTED Care 12/01/20 14:23 Active Urinary Catheter Assessment [RC] Q4H Care 12/01/20 11:50 Active VTE/DVT Education [RC] PER UNIT ROUTINE Care 12/01/20 14:21 Active Vital Signs [RC] Q4H Care 12/01/20 14:21 Active CULTURE BLOOD [BC] Stat Lab 12/01/20 09:56 Received CULTURE BLOOD [BC] Stat Lab 12/01/20 10:52 Received CULTURE URINE [MREF] Stat Lab 12/01/20 09:58 Received Albuterol/Ipratropium [DuoNeb 3.0-0.5 MG/3 ML] Med 12/01/20 14:21 Ordered 3 ml NEB Q4HRRT PRN Heparin Sodium Med 12/01/20 14:30 Ordered 5,000 units SUBCUT Q8H Lactated Ringers [Ringers, Lactated] 1,000 ml Med 12/01/20 14:30 Ordered IV ASDIRECTED Nystatin [Nystop] Med 12/01/20 10:24 Active 0 gm TOP TID PRN Ondansetron [Zofran] Med 12/01/20 14:21 Ordered 4 mg IVPUSH Q4H PRN Pantoprazole [ProTONIX IV] Med 12/01/20 14:30 Ordered 40 mg IV Q24H Sodium Chloride 0.9% [Saline Flush] Med 12/01/20 10:17 Active 10 ml FLUSH ASDIRECTED PRN Sodium Chloride 0.9% [Saline Flush] Med 12/01/20 10:17 Active 2.5 ml FLUSH ASDIRECTED PRN Blood Culture x2 Reflex Set [OM.PC] Stat Oth 12/01/20 10:26 Ordered Saline Lock Insert [OM.PC] Stat Oth 12/01/20 10:17 Ordered Sequential Compression Device [OM.PC] Per Unit Routine Oth 12/01/20 14:21 Ordered Resuscitation Status Routine Resus Stat 12/01/20 14:21 Ordered Medication Orders Albuterol/Ipratropium (Albuterol/Ipratropium 3.0-0.5 Mg/3 Ml Neb Soln) 3 ml NEB Q4HRRT PRN PRN Reason: Shortness Of Breath/wheezing Heparin Sodium (Porcine) (Heparin Sodium 5,000 Units/Ml Vial) 5,000 units SUBCUT Q8H KAR Lactated Ringer's (Ringers, Lactated) 1,000 mls @ 125 mls/hr IV ASDIRECTED KAR Nystatin (Nystatin Topical Powder 15 Gm Bottle) 0 gm TOP TID PRN PRN Reason: RASH Last Admin: 12/01/20 10:41 Dose: 1 gm Documented by: [id number] Ondansetron HCl (Ondansetron 4 Mg/2 Ml Sdv) 4 mg IVPUSH Q4H PRN PRN Reason: Nausea/Vomiting Pantoprazole Sodium (Pantoprazole 40 Mg Vial) 40 mg IV Q24H KAR Sodium Chloride (Sodium Chloride 0.9% 10 Ml Syringe) 10 ml FLUSH ASDIRECTED PRN PRN Reason: Keep Vein Open Last Admin: 12/01/20 10:41 Dose: 10 ml Documented by: [id number] Sodium Chloride (Sodium Chloride 0.9% 2.5 Ml Syringe) 2.5 ml FLUSH ASDIRECTED PRN PRN Reason: Keep Vein Open Last Admin: 12/01/20 10:41 Dose: 2.5 ml Documented by: [id number] Assessment/Plan Comment:: 85 y/o M admitted for sepsis, ARF, likely pre-renal Lactic acid normal start broad spectrum antibiotics vancomycin and Zosyn, consider meropenem if not patient gets worse cont IV fluids 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
[2020-12-01] MEDS ORDERED: Glucagon,Human Recombinant 1 MG Vial IM PRN (14:30)
[2020-12-01] MEDS ORDERED: 50% Dextrose in Water 50 ML Syringe IVPUSH PRN (14:30)
[2020-12-01] MEDS ORDERED: Piperacillin/Tazobactam 3.375 GM in Sodium Chloride 0.9% 50 ML IV SCH (14:30)
[2020-12-01] MEDS ORDERED: Acetaminophen 325 MG Tab PO PRN (14:40)
[2020-12-01] MEDS: Pantoprazole 40 MG Vial IV SCH (15:30)
[2020-12-01] MEDS: Heparin Sodium 5,000 Units/ML Vial SUBCUT SCH ×2 (15:30→21:33)
[2020-12-01] MEDS: Piperacillin/Tazobactam 2.25 GM in Sodium Chloride 0.9% 50 ML IV SCH (16:10)
[2020-12-01] MEDS: Lactated Ringers 1,000 ML IV SCH (16:11)
[2020-12-01] MEDS: VANCOmycin 1.5 GM/300 ML 1.5 GM in Premix Bag 1 BAG IV SCH (17:00)
[2020-12-01] MEDS: Insulin Aspart 100 Units/ML 3 ML Pen SUBCUT SCH (18:07)
[2020-12-01 18:27] LABS: BLOOD UREA NITROGEN,BUN 101 mg/dL (7.0-18.0); CARBON DIOXIDE,CO2 21.4 mmol/L (21.0-32.0); CHLORIDE,CL 102 mmol/L (98-107); GLUCOSE RANDOM 138 mg/dL (74-106); SODIUM,NA 135 mmol/L (136-148)
[2020-12-01] MEDS: Carboxymethylcellulose Sodium 0.5% Ophth Soln 0.4 ML UD Box of 30 EYEBOTH SCH (21:32)
[2020-12-01] MEDS: Latanoprost 0.005% Ophth Soln 2.5 ML Bottle EYEBOTH SCH (22:30)
[2020-12-02] MEDS: Piperacillin/Tazobactam 2.25 GM in Sodium Chloride 0.9% 50 ML IV SCH ×2 (00:21→09:23)
[2020-12-02] MEDS: Carboxymethylcellulose Sodium 0.5% Ophth Soln 0.4 ML UD Box of 30 EYEBOTH SCH ×2 (00:37→10:26)
[2020-12-02] MEDS: Latanoprost 0.005% Ophth Soln 2.5 ML Bottle EYEBOTH SCH (00:38)
[2020-12-02] MEDS: Lactated Ringers 1,000 ML IV SCH ×3 (01:31→22:34)
[2020-12-02] MEDS: Heparin Sodium 5,000 Units/ML Vial SUBCUT SCH ×2 (06:54→14:18)
[2020-12-02] MEDS: Insulin Aspart 100 Units/ML 3 ML Pen SUBCUT SCH ×3 (07:41→17:29)
[2020-12-02] MEDS ORDERED: Tamsulosin 0.4 MG Cap.ER PO SCH (09:00)
[2020-12-02] MEDS ORDERED: Sodium Chloride 0.9% 500 ML IV SCH (09:45)
[2020-12-02] MEDS: QUEtiapine 100 MG Tab PO SCH (10:24)
[2020-12-02] MEDS: Sertraline 100 MG Tab PO SCH (10:24)
[2020-12-02] MEDS: Brimonidine 0.15% Ophth Soln 5 ML Bottle EYEBOTH SCH (10:28)
--- NOTE | 2020-12-02 11:27 | PCM.PN ---
- General Info Date of Service: 12/02/20 Admission Dx/Problem (Free Text): Admission Diagnosis/Problem Admission Diagnosis/Problem Sepsis, gram-negative coby bacteremia, chronic Villarreal catheter associated UTI Subjective Update: Ruslan denies any pain this morning. Denies any shortness of breath or chest pain Has no concerns. Discussed possibility of having lab work drawn patient at this time continuing to refuse any lab work. No other concerns. - Review of Systems General: Reports: Fatigue, Malaise. Denies: Fever HEENT: Reports: No Symptoms Pulmonary: Reports: No Symptoms. Denies: Shortness of Breath Cardiovascular: Reports: No Symptoms. Denies: Chest Pain Gastrointestinal: Reports: No Symptoms. Denies: Abdominal Pain, Nausea, Vomiting Genitourinary: Reports: Other (Chronic Villarreal catheter in place) Musculoskeletal: Reports: No Symptoms Skin: Reports: No Symptoms Neurological: Reports: No Symptoms Psychiatric: Reports: No Symptoms - Patient Data Vitals - Most Recent: Last Vital Signs Temp 97.6 F 12/02/20 09:16 Pulse 93 12/02/20 11:08 Resp 16 12/02/20 11:08 BP 98/47 L 12/02/20 11:08 Pulse Ox 95 12/02/20 11:08 Weight - Most Recent: 108.409 kg I&O - Last 24 Hours: Intake & Output 12/01/20 12/02/20 12/02/20 22:59 06:59 14:59 Intake Total 350 150 Output Total 750 Balance 350 -600 Lab Results Last 24 Hours: Laboratory Results - last 24 hr 12/01/20 12/01/20 12/01/20 Range/Units 09:56 09:56 10:52 Sodium 133 L (136-148) mmol/L Potassium 5.0 (3.5-5.1) mmol/L Chloride 98 (98-107) mmol/L Carbon Dioxide 22.8 (21.0-32.0) mmol/L BUN 102 H (7.0-18.0) mg/dL Creatinine 4.8 H (0.8-1.3) mg/dL Est Cr Clr Drug Dosing TNP Estimated GFR (MDRD) 11.7 ml/min Glucose 106 (74-106) mg/dL POC Glucose (70-99) mg/dL Lactic Acid 1.7 (0.4-2.0) mmol/L Calcium 8.9 (8.5-10.1) mg/dL Total Bilirubin 0.5 (0.2-1.0) mg/dL AST 149 H (15-37) IU/L ALT 38 (14-63) IU/L Alkaline Phosphatase 196 H (46-116) U/L Total Protein 8.2 (6.4-8.2) g/dL Albumin 2.5 L (3.4-5.0) g/dL Globulin 5.7 H (2.6-4.0) g/dL Albumin/Globulin Ratio 0.4 L (0.9-1.6) Blood Type O POSITIVE Antibody Screen NEGATIVE 12/01/20 12/01/20 12/02/20 Range/Units 17:52 18:06 06:50 Sodium 135 L (136-148) mmol/L Potassium 5.0 (3.5-5.1) mmol/L Chloride 102 (98-107) mmol/L Carbon Dioxide 21.4 (21.0-32.0) mmol/L BUN 101 H (7.0-18.0) mg/dL Creatinine 4.4 H (0.8-1.3) mg/dL Est Cr Clr Drug Dosing TNP Estimated GFR (MDRD) 12.9 ml/min Glucose 138 H (74-106) mg/dL POC Glucose 136 H 137 H (70-99) mg/dL Lactic Acid (0.4-2.0) mmol/L Calcium 8.1 L (8.5-10.1) mg/dL Total Bilirubin (0.2-1.0) mg/dL AST (15-37) IU/L ALT (14-63) IU/L Alkaline Phosphatase (46-116) U/L Total Protein (6.4-8.2) g/dL Albumin (3.4-5.0) g/dL Globulin (2.6-4.0) g/dL Albumin/Globulin Ratio (0.9-1.6) Blood Type Antibody Screen Nathaniel Results Last 24 Hours: Microbiology 12/01/20 10:52 Aerobic Blood Culture - Preliminary Blood - Venous - Lab Draw Anaerobic Blood Culture - Preliminary 12/01/20 09:56 Aerobic Blood Culture - Preliminary Blood - Venous Anaerobic Blood Culture - Preliminary 12/01/20 10:10 Stool Occult Blood (NATHANIEL) - Final Stool / Feces Med Orders - Current: Current Medications Acetaminophen (Acetaminophen 325 Mg Tab) 650 mg PO Q4H PRN PRN Reason: fever/pain Albuterol/Ipratropium (Albuterol/Ipratropium 3.0-0.5 Mg/3 Ml Neb Soln) 3 ml NEB Q4HRRT PRN PRN Reason: Shortness Of Breath/wheezing Artificial Tears (Carboxymethylcellulose Sodium 0.5% Ophth Soln 0.4 Ml Ud Box Of 30) 0 each EYEBOTH BID [facility] Last Admin: 12/02/20 10:26 Dose: 1 applic Documented by: Brimonidine Tartrate (Brimonidine 0.15% Ophth Soln 5 Ml Bottle) 0 ml EYEBOTH QAM [facility] Last Admin: 12/02/20 10:28 Dose: Not Given Documented by: Dextrose/Water (50% Dextrose In Water 50 Ml Syringe) 50 ml IVPUSH ASDIRECTED PRN PRN Reason: Hypoglycemia Glucagon (Glucagon,Human Recombinant 1 Mg Vial) 1 mg IM ASDIRECTED PRN PRN Reason: Hypoglycemia Heparin Sodium (Porcine) (Heparin Sodium 5,000 Units/Ml Vial) 5,000 units SUBCUT Q8H [facility] Last Admin: 12/02/20 06:54 Dose: 5,000 units Documented by: Lactated Ringer's (Ringers, Lactated) 1,000 mls @ 125 mls/hr IV ASDIRECTED [facility] Last Admin: 12/02/20 01:31 Dose: 125 mls/hr Documented by: Vancomycin HCl 1.5 gm/ Premix 300 mls @ 200 mls/hr IV Q48H [facility] Last Admin: 12/01/20 17:00 Dose: 200 mls/hr Documented by: Meropenem/Sodium Chloride 1 gm (/ Premix) 50 mls @ 100 mls/hr IV Q24H [facility] Insulin Aspart (Insulin Aspart 100 Units/Ml 3 Ml Pen) 0 unit SUBCUT TIDAC [facility]; Protocol Last Admin: 12/02/20 07:41 Dose: Not Given Documented by: Latanoprost (Latanoprost 0.005% Ophth Soln 2.5 Ml Bottle) 0 ml EYEBOTH BEDTIME [facility] Last Admin: 12/02/20 00:38 Dose: Not Given Documented by: Nystatin (Nystatin Topical Powder 15 Gm Bottle) 0 gm TOP TID PRN PRN Reason: RASH Last Admin: 12/01/20 10:41 Dose: 1 gm Documented by: Ondansetron HCl (Ondansetron 4 Mg/2 Ml Sdv) 4 mg IVPUSH Q4H PRN PRN Reason: Nausea/Vomiting Pantoprazole Sodium (Pantoprazole 40 Mg Vial) 40 mg IV Q24H [facility] Last Admin: 12/01/20 15:30 Dose: 40 mg Documented by: Quetiapine Fumarate (Quetiapine 100 Mg Tab) 200 mg PO QAM [facility] Last Admin: 12/02/20 10:24 Dose: 200 mg Documented by: Sertraline HCl (Sertraline 100 Mg Tab) 100 mg PO QAM [facility] Last Admin: 12/02/20 10:24 Dose: 100 mg Documented by: Sodium Chloride (Sodium Chloride 0.9% 10 Ml Syringe) 10 ml FLUSH ASDIRECTED PRN PRN Reason: Keep Vein Open Last Admin: 12/01/20 10:41 Dose: 10 ml Documented by: Sodium Chloride (Sodium Chloride 0.9% 2.5 Ml Syringe) 2.5 ml FLUSH ASDIRECTED PRN PRN Reason: Keep Vein Open Last Admin: 12/01/20 10:41 Dose: 2.5 ml Documented by: Tamsulosin HCl (Tamsulosin 0.4 Mg Cap.Er) 0.4 mg PO DAILY [facility] Last Admin: 12/02/20 10:24 Dose: 0.4 mg Documented by: Vancomycin HCl (Pharmacy To Dose - Vancomycin) 0 dose .XX ASDIRECTED [facility] Discontinued Medications Sodium Chloride (Normal Saline) 1,000 mls @ 999 mls/hr IV .Bolus ONE Stop: 12/01/20 11:17 Last Admin: 12/01/20 10:41 Dose: 999 mls/hr Documented by: Ceftriaxone Sodium/Dextrose 1 (gm/ Premix) 50 mls @ 100 mls/hr IV ONETIME ONE Stop: 12/01/20 11:38 Last Admin: 12/01/20 11:12 Dose: 100 mls/hr Documented by: Sodium Chloride (Normal Saline) 1,000 mls @ 999 mls/hr IV .Bolus ONE Stop: 12/01/20 12:44 Last Admin: 12/01/20 11:50 Dose: 999 mls/hr Documented by: Piperacillin Sod/Tazobactam (Sod 3.375 gm/ Sodium Chloride) 50 mls @ 100 mls/hr IV Q8H [facility] Last Admin: 12/01/20 15:49 Dose: Not Given Documented by: Piperacillin Sod/Tazobactam (Sod 2.25 gm/ Sodium Chloride) 50 mls @ 100 mls/hr IV Q8H [facility] Last Admin: 12/02/20 09:23 Dose: 100 mls/hr Documented by: Sodium Chloride (Normal Saline) 500 mls @ 999 mls/hr IV .BOLUS [facility] Last Admin: 12/02/20 11:04 Dose: 999 mls/hr Documented by: - Exam Quality Assessment: No: Supplemental Oxygen Urinary Catheter Total Time: 0Days 19Hours General: Alert, Oriented, No Acute Distress. No: Cooperative Lungs: Decreased Breath Sounds (Bibasilar) Cardiovascular: Regular Rate, Regular Rhythm GI/Abdominal Exam: Normal Bowel Sounds, Soft, Non-Tender, No Distention Extremities: Normal Inspection, Normal Range of Motion, Non-Tender, Pedal Edema (+2 pitting edema) Neurological: No New Focal Deficit Psy/Mental Status: Alert, Normal Affect - Patient Data Lab Results Last 24 hrs: Laboratory Results - last 24 hr 12/01/20 12/01/20 12/01/20 Range/Units 09:56 09:56 10:52 Sodium 133 L (136-148) mmol/L Potassium 5.0 (3.5-5.1) mmol/L Chloride 98 (98-107) mmol/L Carbon Dioxide 22.8 (21.0-32.0) mmol/L BUN 102 H (7.0-18.0) mg/dL Creatinine 4.8 H (0.8-1.3) mg/dL Est Cr Clr Drug Dosing TNP Estimated GFR (MDRD) 11.7 ml/min Glucose 106 (74-106) mg/dL POC Glucose (70-99) mg/dL Lactic Acid 1.7 (0.4-2.0) mmol/L Calcium 8.9 (8.5-10.1) mg/dL Total Bilirubin 0.5 (0.2-1.0) mg/dL AST 149 H (15-37) IU/L ALT 38 (14-63) IU/L Alkaline Phosphatase 196 H (46-116) U/L Total Protein 8.2 (6.4-8.2) g/dL Albumin 2.5 L (3.4-5.0) g/dL Globulin 5.7 H (2.6-4.0) g/dL Albumin/Globulin Ratio 0.4 L (0.9-1.6) Blood Type O POSITIVE Antibody Screen NEGATIVE 12/01/20 12/01/20 12/02/20 Range/Units 17:52 18:06 06:50 Sodium 135 L (136-148) mmol/L Potassium 5.0 (3.5-5.1) mmol/L Chloride 102 (98-107) mmol/L Carbon Dioxide 21.4 (21.0-32.0) mmol/L BUN 101 H (7.0-18.0) mg/dL Creatinine 4.4 H (0.8-1.3) mg/dL Est Cr Clr Drug Dosing TNP Estimated GFR (MDRD) 12.9 ml/min Glucose 138 H (74-106) mg/dL POC Glucose 136 H 137 H (70-99) mg/dL Lactic Acid (0.4-2.0) mmol/L Calcium 8.1 L (8.5-10.1) mg/dL Total Bilirubin (0.2-1.0) mg/dL AST (15-37) IU/L ALT (14-63) IU/L Alkaline Phosphatase (46-116) U/L Total Protein (6.4-8.2) g/dL Albumin (3.4-5.0) g/dL Globulin (2.6-4.0) g/dL Albumin/Globulin Ratio (0.9-1.6) Blood Type Antibody Screen Result Diagrams: 12/01/20 09:56 12/01/20 18:06 Nathaniel Results Last 24 hrs: Microbiology 12/01/20 10:52 Aerobic Blood Culture - Preliminary Blood - Venous - Lab Draw Anaerobic Blood Culture - Preliminary 12/01/20 09:56 Aerobic Blood Culture - Preliminary Blood - Venous Anaerobic Blood Culture - Preliminary 12/01/20 10:10 Stool Occult Blood (NATHANIEL) - Final Stool / Feces Sepsis Event Note - Evaluation Sepsis Screening Result: Severe Sepsis Risk Current Stage of Sepsis: Sepsis Possible Source of Sepsis: Genitourinary - Focused Exam Sepsis Event Note Statement: Focused Sepsis Exam Completed Vital Signs: Vital Signs Temp Pulse Resp BP Pulse Ox 12/02/20 11:08 93 16 98/47 L 95 12/02/20 09:32 97/46 L 12/02/20 09:16 97.6 F 88 20 102/31 L 98 12/02/20 04:41 97.7 F 102 H 20 106/48 L 96 12/02/20 02:00 97.7 F 107 H 20 102/43 L 95 Pulse Description: 2+ Normal Peripheral Pulse Location: Radial Skin Exam (Focused Sepsis): Normal Turgor, [place] Date Exam was Performed: 12/02/20 Time Exam was Performed: 09:20 - Problem List & Annotations (1) Gram-negative bacteremia SNOMED Code(s): 858779439564 Code(s): R78.81 - BACTEREMIA Status: Acute Current Visit: Yes (2) Sepsis SNOMED Code(s): 93233740 Code(s): A41.9 - SEPSIS, UNSPECIFIED ORGANISM Status: Acute Current Visit: Yes Qualifiers: Sepsis type: sepsis due to unspecified organism Acute renal failure type: unspecified Severe sepsis shock status: without septic shock (3) UTI (urinary tract infection) SNOMED Code(s): 67455792 Code(s): N39.0 - URINARY TRACT INFECTION, SITE NOT SPECIFIED Status: Acute Current Visit: Yes Qualifiers: Urinary tract infection type: catheter-associated UTI Indwelling urinary catheter type: indwelling urethral catheter Encounter type: initial encounter Qualified Code(s): T83.511A - Infection and inflammatory reaction due to indwelling urethral catheter, initial encounter; N39.0 - Urinary tract infection, site not specified (4) Dehydration SNOMED Code(s): 55308392 Code(s): E86.0 - DEHYDRATION Status: Acute Current Visit: Yes (5) Acute kidney injury SNOMED Code(s): 92459811, 10570224 Code(s): N17.9 - ACUTE KIDNEY FAILURE, UNSPECIFIED Status: Acute Current Visit: Yes (6) Anemia SNOMED Code(s): 777662327 Code(s): D64.9 - ANEMIA, UNSPECIFIED Status: Chronic Current Visit: Yes (7) CAD (coronary artery disease) SNOMED Code(s): 57305844 Code(s): I25.10 - ATHSCL HEART DISEASE OF [place] CORONARY ARTERY W/O ANG PCT RS Status: Chronic Current Visit: Yes (8) CKD (chronic kidney disease) SNOMED Code(s): 241292564 Code(s): N18.9 - CHRONIC KIDNEY DISEASE, UNSPECIFIED Status: Chronic Current Visit: Yes (9) Sacral decubitus ulcer, stage II SNOMED Code(s): 195362639, 101509024 Code(s): L89.152 - PRESSURE ULCER OF [place], STAGE 2 Status: Chronic Current Visit: Yes (10) CHF (congestive heart failure) SNOMED Code(s): 55427488 Code(s): I50.9 - HEART FAILURE, UNSPECIFIED Status: Chronic Current Vis it: No Qualifiers: Heart failure chronicity: chronic (11) DM type 2 (diabetes mellitus, type 2) SNOMED Code(s): 50464118 Code(s): E11.9 - TYPE 2 DIABETES MELLITUS WITHOUT COMPLICATIONS Status: Chronic Priority: Medium Current Visit: No Qualifiers: Diabetes mellitus senior living insulin use: without remote computer terminal operator use Diabetes mellitus complication status: with hyperglycemia Qualified Code(s): E11.65 - Type 2 diabetes mellitus with hyperglycemia (12) Dementia SNOMED Code(s): 52128332 Code(s): F03.90 - UNSPECIFIED DEMENTIA WITHOUT BEHAVIORAL DISTURBANCE Status: Chronic Current Visit: No Qualifiers: Alzheimer's disease onset: unspecified onset Dementia behavioral disturbance: without behavioral disturbance (13) Generalized weakness SNOMED Code(s): 46504549 Code(s): R53.1 - WEAKNESS Status: Chronic Current Visit: No (14) HTN (hypertension) SNOMED Code(s): 75345061 Code(s): I10 - ESSENTIAL (PRIMARY) HYPERTENSION Status: Chronic Current Visit: No (15) Palliative care status SNOMED Code(s): 944294730 Code(s): Z51.5 - ENCOUNTER FOR PALLIATIVE CARE Status: Acute Current Visit: Yes - Problem List Review Problem List Initiated/Reviewed/Updated: Yes - My Orders Last 24 Hours: My Active Orders 12/02/20 11:30 Meropenem Premix [Meropenem in NS 1 GM/50 ML] 1 gm Premix Bag 1 bag IV Q24H - Plan Plan:: 85 y/o M admitted for sepsis, ARF, likely pre-renal 1. Gram-negative coby bacteremia/sepsis/UTI secondary to indwelling Villarreal c atheter -Catheter switched out on admission -Lactic acid normal -Patient refusing lab work this morning having hypotension -Patient given 500 ml normal saline bolus blood pressure did improve to 106/50 -Focused sepsis exam completed -We will give another 1 L LR bolus now -Attempted to contact family, OSMANI Anthony son regarding aggressiveness of treatment -Continue maintenance IV fluids -Escalate antibiotic coverage to include meropenem as well as vancomycin discontinue Zosyn -Patient did agree finally to have lab work drawn this morning -Blood cultures returned 4/4 positive for gram-negative coby and urine culture pending -Attempting to repeat blood cultures this a.m. the patient is refusing at this time. -Spoke with son, Lobo Aleman [phone]. He requested no aggressive treatment management as well as no transfer to outside facility if Ruslan were continue to worsen. He declined any treatment with vasopressors or central line at this time. We did discuss that if Ruslan continues to worsen he likely will not survive this. He agrees with current management of IV fluids as well as IV antibiotics. If patient continues to worsen we will contact Lobo and likely arrange for comfort measures. -Patient palliative care at this time as patient family is declining any aggressive management or transfer. Prognosis is poor due to significant sepsis and gram-negative coby bacteremia secondary to UTI. 2. COREY on CKD -Continue IV fluids -Continue Villarreal catheter cares -Avoid nephrotoxic medications -Monitor creatinine daily 3. DM type II -Check blood sugars 3 times daily AC -ADA diet -Insulin sliding scale 4. CHF/HTN -Holding medications at this time due to hypotension and sepsis -Monitor CHF closely 5. Dementia -Continue Seroquel and sertraline 6. BPH urinary retention -Continue Villarreal catheter -Hold Flomax due to hypotension GI prophylaxis: Protonix VTE prophylaxis: Heparin CODE STATUS: DNR/DNI will discuss with family regarding aggressiveness treatment Dispo: 2 to 3 days pending improvement
[2020-12-02] MEDS: Meropenem Premix 1 GM in Premix Bag 1 BAG IV SCH (11:58)
[2020-12-02] MEDS ORDERED: Lactated Ringers 1,000 ML IV ONE (12:08)
[2020-12-02] MEDS: Pantoprazole 40 MG Vial IV SCH (14:18)
[2020-12-02 15:54] LABS: BLOOD UREA NITROGEN,BUN 102 mg/dL (7.0-18.0); CARBON DIOXIDE,CO2 20.5 mmol/L (21.0-32.0); CHLORIDE,CL 103 mmol/L (98-107); GLUCOSE RANDOM 168 mg/dL (74-106); POTASSIUM,K 4.4 mmol/L (3.5-5.1); SODIUM,NA 139 mmol/L (136-148)
[2020-12-03] MEDS: Carboxymethylcellulose Sodium 0.5% Ophth Soln 0.4 ML UD Box of 30 EYEBOTH SCH ×3 (00:33→21:33)
[2020-12-03] MEDS: Nystatin Topical Powder 15 GM Bottle TOP PRN (01:00)
[2020-12-03] MEDS: Heparin Sodium 5,000 Units/ML Vial SUBCUT SCH ×4 (01:35→23:15)
[2020-12-03] MEDS: Latanoprost 0.005% Ophth Soln 2.5 ML Bottle EYEBOTH SCH ×2 (01:35→21:33)
[2020-12-03 06:22] LABS: CARBON DIOXIDE,CO2 22.5 mmol/L (21.0-32.0); POTASSIUM,K 4.2 mmol/L (3.5-5.1)
--- NOTE | 2020-12-03 07:19 | EDM.PDOC ---
ED HPI GENERAL MEDICAL PROBLEM - General Chief Complaint: General Stated Complaint: ALTERED MENTAL Time Seen by Provider: 12/01/20 09:50 - History of Present Illness INITIAL COMMENTS - FREE TEXT/NARRATIVE: HISTORY AND PHYSICAL: History of present illness: This is an 85-year-old gentleman who was transferred from [facility] secondary to altered mentation, confusion, decreased p.o. intake, decreased urinary output x2 to 3 days. In the ED, patient appears to be alert awake and able to answer questions appropriately. Patient denies any recent fevers, shakes, chills. Patient denies any abdominal pain. Patient has any vomiting or diarrhea. Patient reports slight cough. Patient denies any chest pain. Patient reports that he had decreased appetite but has been able to drink liquids. Patient does have a history significant for UTI in the past with a chronic indwelling Villarreal catheter. Patient has a history of hypertension and diabetes. Per records from [facility], patient is DNR/DNI. Review of systems: As per history of present illness and below otherwise all systems reviewed and negative. Past medical history: As per history of present illness and as reviewed below otherwise noncontributory. Surgical history: As per history of present illness and as reviewed below otherwise noncontributory. Social history: No reported history of drug abuse. Family history: As per history of present illness and as reviewed below otherwise noncontributory. Physical exam: This patient was seen and evaluated during the 2019 SARS-CoV-2 novel coronavirus pandemic period. Community viral transmission is ongoing at time of this encounter and the emergency department is operating under pandemic response procedures. Constitutional: Patient is oriented to person, place, and time. Appears well- developed and well-nourished. No distress. HEENT: Moist mucous membranes Head: Normocephalic and atraumatic Eyes: Right eye exhibits no discharge. Left eye exhibits no discharge. No scleral icterus Neck: Normal range of motion. No tracheal deviation present. Cardiovascular: Normal rate and regular rhythm. Pulmonary: Effort normal, no respiratory distress. Abdominal: No distention Musculoskeletal: Normal range of motion Neurologic: Alert and oriented to person, place and time. Skin: [place], warm and dry. Psychiatric: Normal mood and affect. Behavior is normal. Judgment and thought content normal. Nursing note and vital signs have been reviewed Patient's physical exam is significant for a well-developed obese 85-year-old gentleman who is soft spoken but able to answer questions appropriately. Pat ient is slightly tachycardic on evaluation. Patient does have second-degree sacral decubitus ulcers with a small amount of skin breakdown. Patient's stool was dark heme positive. Abd: Soft, nondistended, no rebound/guarding, no psoas or obturator signs, no tenderness at Mcberney's point, no Painting's sign. Pt does not present with an exam that would be consistent with an acute surgical abdomen at this time. Neck supple, no nuchal rigidity, no photophobia, patient does not present with signs or symptoms of be consistent with meningitis. Diagnostics: Chest Xray: Normal cardiac silhouette No infiltrates or effusions identified. No PTX No evidence of acute bony fracture. As interpreted by ER MD: Darío EKG: As interpreted by ER physician: Darío: Nonspecific ST-T wave abnormalities Normal axis No evidence of ST elevation RI Sinus tachycardia with heart rate of 110 Labs reviewed. Patient has an elevated BUN and creatinine with a markedly elevated WBC count. Patient's urinalysis is significant for greater than 100 WBCs per high-power field with large leukocyte Estrace. Patient is negative for nitrites. Therapeutics: NSS x2 L for treatment of sepsis as well as severe dehydration. 30 mL/kg would be harmful secondary to patient's advanced/end-stage heart failure. Patient required treatment with intravenous normal saline solution secondary to clinical evidence of dehydration as manifested by history and physical examination. Patient was given Rocephin 1 g IV. Blood cultures x2 as well as urine cultures were sent. Patient's Covid test was negative. Assessment and plan: 85-year-old gentleman who presents to the ER today with likely sepsis from UTI. Patient will have his Villarreal catheter changed and was started on Rocephin. Patient will be admitted to the hospital secondary to his worsening renal failure. Although patient does have chronic renal failure and does appear to be markedly worse today. Patient will be given adequate volume resuscitation for reevaluation of his renal function after. I have discussed the case with Dr. Katz who agrees to assist with inpatient level of care for this patient. Critical Care: The high probability of sudden, clinically significant deterioration in the patient's condition required the highest level of my preparedness to intervene urgently. The services I provided to this patient were to treat and/or prevent clinically significant deterioration. Services included the following: chart data review, reviewing nursing notes and/or old charts, documentation time, wireless sales consultant collaboration regarding findings and treatment options, medication orders and management, direct patient care, vital sign assessments and ordering, interpreting and reviewing diagnostic studies/lab tests. Aggregate critical care time includes only time during which I was engaged inwork directly related to the patient's care, as described above, whether at the bedside or elsewhere in the Emergency Department. It did not include time spent performing other reported procedures or the services of residents, students, nurses or physician assistants. Critical Care Time: 35 minutes Volume resuscitation sepsis Acute renal failure Definitive disposition and diagnosis as appropriate pending reevaluation and review of above. Addendum: December 03, 2020 at 7:23 AM. Diagnosis: acute renal failure: Unspecified Given the significant elevation in the patient's BUN, the elevation in creatinine is felt to be secondary to dehydration with decreased p.o. intake. Patient's map of 62 10:30 AM felt secondary to dehydration and not sepsis. Patient has been given adequate hydration in the ED. - Related Data Allergies Allergy/AdvReac Type Severity Reaction Status Date / Time No Known Allergies Allergy Verified 12/02/20 17:28 Home Meds: Home Meds Rosuvastatin [Crestor] 20 mg PO BEDTIME 04/14/14 [History] Acetaminophen [Tactinal] 650 mg PO Q4H PRN 02/12/17 [History] Losartan [Cozaar] 25 mg PO QAM 02/12/17 [History] Brimonidine Tartrate 1 drop EYEBOTH QAM 09/19/20 [History] Carboxymethylcellulose Sodium [Refresh Tears] 1 drop EYEBOTH BID 09/19/20 [Hi story] Ferrous Sulfate 325 mg PO BID 09/19/20 [History] Furosemide [Lasix] 40 mg PO QPM 09/19/20 [History] Furosemide [Lasix] 80 mg PO QAM 09/19/20 [History] Insulin Aspart [Insulin Aspart Flexpen] 0 unit SQ WITHMEALSANDBED 09/19/20 [History] Insuln Asp Prot/Insulin Aspart [NovoLOG Mix 70-30] 52 unit SQ QAM 09/19/20 [History] Omeprazole 20 mg PO DAILY 09/19/20 [History] Sertraline HCl 100 mg PO QAM 09/19/20 [History] Insuln Asp Prot/Insulin Aspart [NovoLOG Mix 70-30] 48 unit SQ QPM 10/19/20 [History] QUEtiapine [SEROquel] 200 mg PO QAM 10/19/20 [History] Latanoprost/Pf [Latanoprost 0.005% Eye Drop] 1 drop EYEBOTH BEDTIME 12/01/20 [History] Tamsulosin HCl 0.4 mg PO DAILY 12/01/20 [History] Past Medical History HEENT History: Reports: Cataract, Impaired Vision Cardiovascular History: Reports: Heart Failure, High Cholesterol, Hypertension, RI, Stents Other Cardiovascular History: Pedal edema Respiratory History: Reports: Pneumonia, Recurrent, SOB, Other (See Below) Other Respiratory History: low oxygen; on home 02 at 4lpm Gastrointestinal History: Reports: Chronic Constipation Genitourinary History: Reports: UTI, Recurrent Other Genitourinary History: UTI Musculoskeletal History: Reports: Back Pain, Chronic Neurological History: Reports: None Psychiatric History: Reports: Dementia Endocrine/Metabolic History: Reports: Diabetes, Type II Hematologic History: Reports: None Immunologic History: Reports: None Oncologic (Cancer) History: Reports: None Dermatologic History: Reports: Cellulitis, Chronic Cellulitis - Infectious Disease History Infectious Disease History: Reports: Shingles - Past Surgical History Head Surgeries/Procedures: Reports: None HEENT Surgical History: Reports: Eye Surgery Other HEENT Surgeries/Procedures: jaw surgery Cardiovascular Surgical History: Reports: None Respiratory Surgical History: Reports: None GI Surgical History: Reports: None Male Surgical History: Reports: None Endocrine Surgical History: Reports: None Musculoskeletal Surgical History: Reports: None Social & Family History - Family History Family Medical History: No Pertinent Family History Dermatologic: Reports: Other (See Below) Other Dermatologic Family History: cellulitis - Tobacco Use Tobacco Use Status *Q: Never Tobacco User - Caffeine Use Caffeine Use: Reports: None Caffeine Use Comment: 1-2drinks/day - Recreational Drug Use Recreational Drug Use: No ED ROS GENERAL - Review of Systems Review Of Systems: See Below ED EXAM, GENERAL - Physical Exam Exam: See Below Free Text/Narrative:: HISTORY AND PHYSICAL: History of present illness: This is an 85-year-old gentleman who was transferred from [facility] secondary to altered mentation, confusion, decreased p.o. intake, decreased urinary output x2 to 3 days. In the ED, patient appears to be alert awake and able to answer questions appropriately. Patient denies any recent fevers, shakes, chills. Patient denies any abdominal pain. Patient has any vomiting or diarrhea. Patient reports slight cough. Patient denies any chest pain. Patient reports that he had decreased appetite but has been able to drink liquids. Patient does have a history significant for UTI in the past with a chronic indwelling Villarreal catheter. Patient has a history of hypertension and diabetes. Per records from [facility], patient is DNR/DNI. Review of systems: As per history of present illness and below otherwise all systems reviewed and negative. Past medical history: As per history of present illness and as reviewed below otherwise noncontributory. Surgical history: As per history of present illness and as reviewed below otherwise noncontributory. Social history: No reported history of drug abuse. Family history: As per history of present illness and as reviewed below otherwise noncontributory. Physical exam: This patient was seen and evaluated during the 2019 SARS-CoV-2 novel coronavirus pandemic period. Community viral transmission is ongoing at time of this encounter and the emergency department is operating under pandemic response procedures. Constitutional: Patient is oriented to person, place, and time. Appears well- developed and well-nourished. No distress. HEENT: Moist mucous membranes Head: Normocephalic and atraumatic Eyes: Right eye exhibits no discharge. Left eye exhibits no discharge. No scleral icterus Neck: Normal range of motion. No tracheal deviation present. Cardiovascular: Normal rate and regular rhythm. Pulmonary: Effort normal, no respiratory distress. Abdominal: No distention Musculoskeletal: Normal range of motion Neurologic: Alert and oriented to person, place and time. Skin: [place], warm and dry. Psychiatric: Normal mood and affect. Behavior is normal. Judgment and thought content normal. Nursing note and vital signs have been reviewed Patient's physical exam is significant for a well-developed obese 85-year-old gentleman who is soft spoken but able to answer questions appropriately. Patient is slightly tachycardic on evaluation. Patient does have second-degree sacral decubitus ulcers with a small amount of skin breakdown. Patient's stool was dark heme positive. Abd: Soft, nondistended, no rebound/guarding, no psoas or obturator signs, no tenderness at Mcberney's point, no Painting's sign. Pt does not present with an exam that would be consistent with an acute surgical abdomen at this time. Neck supple, no nuchal rigidity, no photophobia, patient does not present with signs or symptoms of be consistent with meningitis. Diagnostics: Chest Xray: Normal cardiac silhouette No infiltrates or effusions identified. No PTX No evidence of acute bony fracture. As interpreted by ER MD: Darío EKG: As interpreted by ER physician: Darío: Nonspecific ST-T wave abnormalities Normal axis No evidence of ST elevation RI Sinus tachycardia with heart rate of 110 Labs reviewed. Patient has an elevated BUN and creatinine with a markedly elevated WBC count. Patient's urinalysis is significant for greater than 100 WBCs per high-power field with large leukocyte Estrace. Patient is negative for nitrites. Therapeutics: NSS x2 L for treatment of sepsis as well as severe dehydration. 30 mL/kg would be harmful secondary to patient's advanced/end-stage heart failure. Patient required treatment with intravenous normal saline solution secondary to clinical evidence of dehydration as manifested by history and physical examination. Patient was given Rocephin 1 g IV. Blood cultures x2 as well as urine cultures were sent. Patient's Covid test was negative. Assessment and plan: 85-year-old gentleman who presents to the ER today with likely sepsis from UTI. Patient will have his Villarreal catheter changed and was started on Rocephin. Patient will be admitted to the hospital secondary to his worsening renal failure. Although patient does have chronic renal failure and does appear to be markedly worse today. Patient will be given adequate volume resuscitation for reevaluation of his renal function after. I have discussed the case with Dr. Katz who agrees to assist with inpatient level of care for this patient. Critical Care: The high probability of sudden, clinically significant deterioration in the patient's condition required the highest level of my preparedness to intervene urgently. The services I provided to this patient were to treat and/or prevent clinically significant deterioration. Services included the following: chart data review, reviewing nursing notes and/or old charts, documentation time, wireless sales consultant collaboration regarding findings and treatment options, medication orders and management, direct patient care, vital sign assessments and ordering, interpreting and reviewing diagnostic studies/lab tests. Aggregate critical care time includes only time during which I was engaged inwork directly related to the patient's care, as described above, whether at the bedside or elsewhere in the Emergency Department. It did not include time spent performing other reported procedures or the services of residents, students, nurses or physician assistants. Critical Care Time: 35 minutes Volume resuscitation sepsis Acute renal failure Definitive disposition and diagnosis as appropriate pending reevaluation and review of above. GI/Abdominal: Normal Bowel Sounds, Soft, Non-Tender, No Distention Extremities: Normal Inspection, Normal Range of Motion, Non-Tender, Pedal Edema (+2 pitting edema) Course - Vital Signs Last Recorded V/S: Last Vital Signs Temp 96.9 F 12/03/20 05:22 Pulse 89 12/03/20 05:22 Resp 20 12/03/20 05:22 BP 106/46 L 12/03/20 05:22 Pulse Ox 95 12/03/20 05:22 - Orders/Labs/Meds Orders: Medication Orders Acetaminophen (Acetaminophen 325 Mg Tab) 650 mg PO Q4H PRN PRN Reason: fever/pain Albuterol/Ipratropium (Albuterol/Ipratropium 3.0-0.5 Mg/3 Ml Neb Soln) 3 ml NEB Q4HRRT PRN PRN Reason: Shortness Of Breath/wheezing Artificial Tears (Carboxymethylcellulose Sodium 0.5% Ophth Soln 0.4 Ml Ud Box Of 30) 0 each EYEBOTH BID [facility] Last Admin: 12/03/20 00:33 Dose: 1 applic Documented by: Admin: 12/02/20 10:26 Dose: 1 applic Documented by: Admin: 12/02/20 00:37 Dose: Not Given Documented by: LUMA Brimonidine Tartrate (Brimonidine 0.15% Ophth Soln 5 Ml Bottle) 0 ml EYEBOTH QAM [facility] Last Admin: 12/02/20 10:28 Dose: Not Given Documented by: TERRY Dextrose/Water (50% Dextrose In Water 50 Ml Syringe) 50 ml IVPUSH ASDIRECTED PRN PRN Reason: Hypoglycemia Glucagon (Glucagon,Human Recombinant 1 Mg Vial) 1 mg IM ASDIRECTED PRN PRN Reason: Hypoglycemia Heparin Sodium (Porcine) (Heparin Sodium 5,000 Units/Ml Vial) 5,000 units SUBCUT Q8H [facility] Last Admin: 12/03/20 06:21 Dose: 5,000 units Documented by: Admin: 12/03/20 01:35 Dose: 5,000 units Documented by: Admin: 12/02/20 14:18 Dose: 5,000 units Documented by: Admin: 12/02/20 06:54 Dose: 5,000 units Documented by: Admin: 12/01/20 21:33 Dose: 5,000 units Documented by: Admin: 12/01/20 15:30 Dose: 5,000 units Documented by: HORACE Lactated Ringer's (Ringers, Lactated) 1,000 mls @ 125 mls/hr IV ASDIRECTED [facility] Last Admin: 12/02/20 22:34 Dose: 125 mls/hr Documented by: Infusion: 12/02/20 22:19 Dose: 125 mls/hr Documented by: Admin: 12/02/20 14:19 Dose: 125 mls/hr Documented by: Infusion: 12/02/20 09:31 Dose: 125 mls/hr Documented by: Admin: 12/02/20 01:31 Dose: 125 mls/hr Documented by: Infusion: 12/02/20 00:11 Dose: 125 mls/hr Documented by: Admin: 12/01/20 16:11 Dose: 125 mls/hr Documented by: HORACE Vancomycin HCl 1.5 gm/ Premix 300 mls @ 200 mls/hr IV Q48H [facility] Last Admin: 12/01/20 17:00 Dose: 200 mls/hr Documented by: HORACE Meropenem/Sodium Chloride 1 gm (/ Premix) 50 mls @ 100 mls/hr IV Q24H [facility] Last Admin: 12/02/20 11:58 Dose: 100 mls/hr Documented by: TERRY Insulin Aspart (Insulin Aspart 100 Units/Ml 3 Ml Pen) 0 unit SUBCUT TIDAC [facility]; Protocol Last Admin: 12/02/20 17:29 Dose: 1 unit Documented by: Admin: 12/02/20 12:05 Dose: Not Given Documented by: Admin: 12/02/20 07:41 Dose: Not Given Documented by: Admin: 12/01/20 18:07 Dose: Not Given Documented by: HORACE Latanoprost (Latanoprost 0.005% Oph Soln 2.5 Ml Bottle) 0 ml EYEBOTH BEDTIME [facility] Last Admin: 12/03/20 01:35 Dose: 1 drop Documented by: Admin: 12/02/20 00:38 Dose: Not Given Documented by: LUMA Nystatin (Nystatin Topical Powder 15 Gm Bottle) 0 gm TOP TID PRN PRN Reason: RASH Last Admin: 12/03/20 01:00 Dose: 1 gm Documented by: Admin: 12/01/20 10:41 Dose: 1 gm Documented by: LEONID Ondansetron HCl (Ondansetron 4 Mg/2 Ml Sdv) 4 mg IVPUSH Q4H PRN PRN Reason: Nausea/Vomiting Pantoprazole Sodium (Pantoprazole 40 Mg Vial) 40 mg IV Q24H [facility] Last Admin: 12/02/20 14:18 Dose: 40 mg Documented by: Admin: 12/01/20 15:30 Dose: 40 mg Documented by: HORACE Quetiapine Fumarate (Qu[facility]apine 100 Mg Tab) [facility] [place] Admin: 12/02/20 10:24 Dose: 200 mg Documented by: TERRY Sertraline HCl (Sertraline 100 Mg Tab) [facility] [place] Admin: 12/02/20 10:24 Dose: 100 mg Documented by: TERRY Sodium Chloride (Sodium Chloride 0.9% 10 Ml Syringe) 10 ml FLUSH ASDIRECTED PRN PRN Reason: Keep Vein Open Last Admin: 12/01/20 10:41 Dose: 10 ml Documented by: LEONID Sodium Chloride (Sodium Chloride 0.9% 2.5 Ml Syringe) 2.5 ml FLUSH ASDIRECTED PRN PRN Reason: Keep Vein Open Last Admin: 12/01/20 10:41 Dose: 2.5 ml Documented by: LEONID Vancomycin HCl (Pharmacy To Dose - Vancomycin) 0 dose .XX ASDIRECTED [facility] Labs: Laboratory Tests 12/01/20 12/01/20 12/01/20 Range/Units 09:56 09:56 09:56 WBC 21.25 H (4.0-11.0) K/uL RBC 3.09 L (4.50-5.90) M/uL Hgb 9.4 L (13.0-17.0) g/dL Hct 29.8 L (38.0-50.0) % MCV 96.4 (80.0-98.0) fL MCH 30.4 (27.0-32.0) pg MCHC 31.5 (31.0-37.0) g/dL RDW Std Deviation 44.5 (28.0-62.0) fl RDW Coeff of [place] 13 (11.0-15.0) % Plt Count 271 (150-400) K/uL MPV 10.40 (7.40-12.00) fL Add Manual Diff YES Neutrophils % (Manual) 69 (48.0-80.0) % Band Neutrophils % 16 % Lymphocytes % (Manual) 9 L (16.0-40.0) % Monocytes % (Manual) 4 (0.0-15.0) % Metamyelocytes % 2 % Absolute Seg Neuts 14.7 H (1.4-5.7) Band Neutrophils # 3.4 Lymphocytes # (Manual) 1.9 (0.6-2.4) Monocytes # (Manual) 0.9 H (0.0-0.8) Absolute Metamyelocyte 0.4 Sodium 133 L (136-148) mmol/L Potassium 5.0 (3.5-5.1) mmol/L Chloride 98 (98-107) mmol/L Carbon Dioxide 22.8 (21.0-32.0) mmol/L BUN 102 H (7.0-18.0) mg/dL Creatinine 4.8 H (0.8-1.3) mg/dL Est Cr Clr Drug Dosing TNP Estimated GFR (MDRD) 11.7 ml/min Glucose 106 (74-106) mg/dL POC Glucose (70-99) mg/dL Lactic Acid 1.7 (0.4-2.0) mmol/L Calcium 8.9 (8.5-10.1) mg/dL Total Bilirubin 0.5 (0.2-1.0) mg/dL AST 149 H (15-37) IU/L ALT 38 (14-63) IU/L Alkaline Phosphatase 196 H (46-116) U/L Total Protein 8.2 (6.4-8.2) g/dL Albumin 2.5 L (3.4-5.0) g/dL Globulin 5.7 H (2.6-4.0) g/dL Albumin/Globulin Ratio 0.4 L (0.9-1.6) Urine Color Urine Appearance Urine pH (5.0-8.0) Ur Specific [place] (1.001-1.035) Urine Protein (NEGATIVE) mg/dL Urine Glucose (UA) (NEGATIVE) mg/dL Urine Ketones (NEGATIVE) mg/dL Urine Occult Blood (NEGATIVE) Urine Nitrite (NEGATIVE) Urine Bilirubin (NEGATIVE) Urine Urobilinogen (<2.0) EU/dL Ur Leukocyte Esterase (NEGATIVE) Urine RBC (0-2/HPF) Urine WBC (0-5/HPF) Ur Epithelial Cells (NONE-FEW) Amorphous Sediment (NEGATIVE) Urine Bacteria (NEGATIVE) Urine Mucus (NONE-MOD) SARS-CoV-2 RNA ([place]) (NEGATIVE) Blood Type Antibody Screen 12/01/20 12/01/20 12/01/20 Range/Units 09:56 09:58 10:35 WBC (4.0-11.0) K/uL RBC (4.50-5.90) M/uL Hgb (13.0-17.0) g/dL Hct (38.0-50.0) % MCV (80.0-98.0) fL MCH (27.0-32.0) pg MCHC (31.0-37.0) g/dL RDW Std Deviation (28.0-62.0) fl RDW Coeff of [place] (11.0-15.0) % Plt Count (150-400) K/uL MPV (7.40-12.00) fL Add Manual Diff Neutrophils % (Manual) (48.0-80.0) % Band Neutrophils % % Lymphocytes % (Manual) (16.0-40.0) % Monocytes % (Manual) (0.0-15.0) % Metamyelocytes % % Absolute Seg Neuts (1.4-5.7) Band Neutrophils # Lymphocytes # (Manual) (0.6-2.4) Monocytes # (Manual) (0.0-0.8) Absolute Metamyelocyte Sodium (136-148) mmol/L Potassium (3.5-5.1) mmol/L Chloride (98-107) mmol/L Carbon Dioxide (21.0-32.0) mmol/L BUN (7.0-18.0) mg/dL Creatinine (0.8-1.3) mg/dL Est Cr Clr Drug Dosing Estimated GFR (MDRD) ml/min Glucose (74-106) mg/dL POC Glucose 113 H (70-99) mg/dL Lactic Acid (0.4-2.0) mmol/L Calcium (8.5-10.1) mg/dL Total Bilirubin (0.2-1.0) mg/dL AST (15-37) IU/L ALT (14-63) IU/L Alkaline Phosphatase (46-116) U/L Total Protein (6.4-8.2) g/dL Albumin (3.4-5.0) g/dL Globulin (2.6-4.0) g/dL Albumin/Globulin Ratio (0.9-1.6) Urine Color YELLOW Urine Appearance CLOUDY Urine pH 7.5 (5.0-8.0) Ur Specific [place] 1.020 (1.001-1.035) Urine Protein 100 H (NEGATIVE) mg/dL Urine Glucose (UA) NEGATIVE (NEGATIVE) mg/dL Urine Ketones NEGATIVE (NEGATIVE) mg/dL Urine Occult Blood LARGE H (NEGATIVE) Urine Nitrite NEGATIVE (NEGATIVE) Urine Bilirubin NEGATIVE (NEGATIVE) Urine Urobilinogen 0.2 (<2.0) EU/dL Ur Leukocyte Esterase LARGE H (NEGATIVE) Urine RBC 6-10 (0-2/HPF) Urine WBC >100 (0-5/HPF) Ur Epithelial Cells FEW (NONE-FEW) Amorphous Sediment LIGHT (NEGATIVE) Urine Bacteria 3+ H (NEGATIVE) Urine Mucus HEAVY (NONE-MOD) SARS-CoV-2 RNA ([place]) NEGATIVE (NEGATIVE) Blood Type Antibody Screen 12/01/20 Range/Units 10:52 WBC (4.0-11.0) K/uL RBC (4.50-5.90) M/uL Hgb (13.0-17.0) g/dL Hct (38.0-50.0) % MCV (80.0-98.0) fL MCH (27.0-32.0) pg MCHC (31.0-37.0) g/dL RDW Std Deviation (28.0-62.0) fl RDW Coeff of [place] (11.0-15.0) % Plt Count (150-400) K/uL MPV (7.40-12.00) fL Add Manual Diff Neutrophils % (Manual) (48.0-80.0) % Band Neutrophils % % Lymphocytes % (Manual) (16.0-40.0) % Monocytes % (Manual) (0.0-15.0) % Metamyelocytes % % Absolute Seg Neuts (1.4-5.7) Band Neutrophils # Lymphocytes # (Manual) (0.6-2.4) Monocytes # (Manual) (0.0-0.8) Absolute Metamyelocyte Sodium (136-148) mmol/L Potassium (3.5-5.1) mmol/L Chloride (98-107) mmol/L Carbon Dioxide (21.0-32.0) mmol/L BUN (7.0-18.0) mg/dL Creatinine (0.8-1.3) mg/dL Est Cr Clr Drug Dosing Estimated GFR (MDRD) ml/min Glucose (74-106) mg/dL POC Glucose (70-99) mg/dL Lactic Acid (0.4-2.0) mmol/L Calcium (8.5-10.1) mg/dL Total Bilirubin (0.2-1.0) mg/dL AST (15-37) IU/L ALT (14-63) IU/L Alkaline Phosphatase (46-116) U/L Total Protein (6.4-8.2) g/dL Albumin (3.4-5.0) g/dL Globulin (2.6-4.0) g/dL Albumin/Globulin Ratio (0.9-1.6) Urine Color Urine Appearance Urine pH (5.0-8.0) Ur Specific [place] (1.001-1.035) Urine Protein (NEGATIVE) mg/dL Urine Glucose (UA) (NEGATIVE) mg/dL Urine Ketones (NEGATIVE) mg/dL Urine Occult Blood (NEGATIVE) Urine Nitrite (NEGATIVE) Urine Bilirubin (NEGATIVE) Urine Urobilinogen (<2.0) EU/dL Ur Leukocyte Esterase (NEGATIVE) Urine RBC (0-2/HPF) Urine WBC (0-5/HPF) Ur Epithelial Cells (NONE-FEW) Amorphous Sediment (NEGATIVE) Urine Bacteria (NEGATIVE) Urine Mucus (NONE-MOD) SARS-CoV-2 RNA ([place]) (NEGATIVE) Blood Type O POSITIVE Antibody Screen NEGATIVE Meds: Medications Generic Name Dose Route Start Last Admin Trade Name Freq PRN Reason Stop Dose Admin Acetaminophen 650 mg 12/01/20 14:40 Acetaminophen 325 Mg Tab PO Q4H PRN fever/pain Albuterol/Ipratropium 3 ml 12/01/20 14:21 Albuterol/Ipratropium 3.0-0.5 Mg/3 Ml Neb Soln NEB Q4HRRT PRN Shortness Of Breath/wheezing Artificial Tears 0 each 12/01/20 21:00 12/03/20 00:33 Carboxymethylcellulose Sodium 0.5% Ophth Soln 0.4 Ml Ud Box Of 30 EYEBOTH 1 applic BID KAR Administration Brimonidine Tartrate 0 ml 12/02/20 09:00 12/02/20 10:28 Brimonidine 0.15% Ophth Soln 5 Ml Bottle EYEBOTH Not Given QAM KAR Dextrose/Water 50 ml 12/01/20 14:30 50% Dextrose In Water 50 Ml Syringe IVPUSH ASDIRECTED PRN Hypoglycemia Glucagon 1 mg 12/01/20 14:30 Glucagon,Human Recombinant 1 Mg Vial IM ASDIRECTED PRN Hypoglycemia Heparin Sodium (Porcine) 5,000 units 12/01/20 14:30 12/03/20 06:21 Heparin Sodium 5,000 Units/Ml Vial SUBCUT 5,000 units Q8H KAR Administration Lactated Ringer's 1,000 mls @ 125 mls/hr 12/01/20 14:30 12/02/20 22:34 Ringers, Lactated IV 125 mls/hr ASDIRECTED KAR Administration Vancomycin HCl 1.5 gm/ Premix 300 mls @ 200 mls/hr 12/01/20 16:00 12/01/20 17:00 IV 200 mls/hr Q48H KAR Administration Meropenem/Sodium Chloride 1 gm 50 mls @ 100 mls/hr 12/02/20 11:30 12/02/20 11:58 / Premix IV 100 mls/hr Q24H KAR Administration Insulin Aspart 0 unit 12/01/20 17:00 12/02/20 17:29 Insulin Aspart 100 Units/Ml 3 Ml Pen SUBCUT 1 unit TIDAC KAR Administration Protocol Latanoprost 0 ml 12/01/20 21:00 12/03/20 01:35 Latanoprost 0.005% Ophth Soln 2.5 Ml Bottle EYEBOTH 1 drop BEDTIME KAR Administration Nystatin 0 gm 12/01/20 10:24 12/03/20 01:00 Nystatin Topical Powder 15 Gm Bottle TOP 1 gm TID PRN Administration RASH Ondansetron HCl 4 mg 12/01/20 14:21 Ondansetron 4 Mg/2 Ml Sdv IVPUSH Q4H PRN Nausea/Vomiting Pantoprazole Sodium 40 mg 12/01/20 14:30 12/02/20 14:18 Pantoprazole 40 Mg Vial IV 40 mg Q24H KAR Administration Quetiapine Fumarate 200 mg 12/02/20 09:00 12/02/20 10:24 Quetiapine 100 Mg Tab PO 200 mg QAM KAR Administration Sertraline HCl 100 mg 12/02/20 09:00 12/02/20 10:24 Sertraline 100 Mg Tab PO 100 mg QAM KAR Administration Sodium Chloride 10 ml 12/01/20 10:17 12/01/20 10:41 Sodium Chloride 0.9% 10 Ml Syringe FLUSH 10 ml ASDIRECTED PRN Administration Keep Vein Open Sodium Chloride 2.5 ml 12/01/20 10:17 12/01/20 10:41 Sodium Chloride 0.9% 2.5 Ml Syringe FLUSH 2.5 ml ASDIRECTED PRN Administration Keep Vein Open Vancomycin HCl 0 dose 12/01/20 14:30 Pharmacy To Dose - Vancomycin .XX ASDIRECTED KAR Discontinued Medications Generic Name Dose Route Start Last Admin Trade Name Freq PRN Reason Stop Dose Admin Sodium Chloride 1,000 mls @ 999 mls/hr 12/01/20 10:17 12/01/20 10:41 Normal Saline IV 12/01/20 11:17 999 mls/hr .Bolus ONE Administration Ceftriaxone Sodium/Dextrose 1 50 mls @ 100 mls/hr 12/01/20 11:09 12/01/20 11:12 gm/ Premix IV 12/01/20 11:38 100 mls/hr ONETIME ONE Administration Sodium Chloride 1,000 mls @ 999 mls/hr 12/01/20 11:44 12/01/20 11:50 Normal Saline IV 12/01/20 12:44 999 mls/hr .Bolus ONE Administration Piperacillin Sod/Tazobactam 50 mls @ 100 mls/hr 12/01/20 14:30 12/01/20 15:49 Sod 3.375 gm/ Sodium Chloride IV Not Given Q8H KAR Piperacillin Sod/Tazobactam 50 mls @ 100 mls/hr 12/01/20 16:00 12/02/20 09:23 Sod 2.25 gm/ Sodium Chloride IV 100 mls/hr Q8H KAR Administration Sodium Chloride 500 mls @ 999 mls/hr 12/02/20 09:45 12/02/20 11:04 Normal Saline IV 999 mls/hr .BOLUS KAR Administration Lactated Ringer's 1,000 mls @ 999 mls/hr 12/02/20 12:08 12/02/20 13:02 Ringers, Lactated IV 12/02/20 13:08 999 mls/hr .BOLUS ONE Administration Tamsulosin HCl 0.4 mg 12/02/20 09:00 12/02/20 10:24 Tamsulosin 0.4 Mg Cap.Er PO 0.4 mg DAILY KAR Administration Departure - Departure Time of Disposition: 12:00 Disposition: Admitted As Inpatient 68 Condition: Good Clinical Impression: Dehydration, Sacral decubitus ulcer, stage II, Heme positive stool, UTI, Urinary tract infectious disease, Acute kidney injury, Anemia Sepsis Qualifiers: Sepsis type: sepsis due to unspecified organism Acute renal failure type: unspecified Severe sepsis shock status: without septic shock UTI (urinary tract infection) Qualifiers: Urinary tract infection type: catheter-associated UTI Indwelling urinary catheter type: indwelling urethral catheter Encounter type: initial encounter Qualified Code(s): T83.511A - Infection and inflammatory reaction due to indwell ing urethral catheter, initial encounter Acute renal failure Qualifiers: Acute renal failure type: unspecified Qualified Code(s): N17.9 - Acute kidney failure, unspecified - Discharge Information Sepsis Event Note (ED) - Evaluation Sepsis Screening Result: No Definite Risk
[2020-12-03] MEDS: Lactated Ringers 1,000 ML IV SCH (07:26)
--- NOTE | 2020-12-03 08:14 | PCM.PN ---
- General Info Date of Service: 12/03/20 Admission Dx/Problem (Free Text): Admission Diagnosis/Problem Admission Diagnosis/Problem Sepsis, gram-negative coby bacteremia, chronic Villarreal catheter associated UTI Subjective Update: Ruslan more alert today. Denies any pain denies any concerns. Sitting up in chair. Denies any shortness of breath or chest pain. Functional Status: Reports: Tolerating Diet. Denies: Ambulating - Review of Systems General: Reports: Weakness, Malaise HEENT: Reports: No Symptoms. Denies: Headaches, Sore Throat, Visual Changes Pulmonary: Reports: No Symptoms. Denies: Shortness of Breath Cardiovascular: Reports: No Symptoms. Denies: Chest Pain Gastrointestinal: Reports: No Symptoms. Denies: Abdominal Pain, Nausea, Vomiting Genitourinary: Reports: No Symptoms. Denies: Dysuria, Frequency Musculoskeletal: Reports: No Symptoms Skin: Reports: No Symptoms Neurological: Reports: No Symptoms Psychiatric: Reports: No Symptoms - Patient Data Vitals - Most Recent: Last Vital Signs Temp 97.6 F 12/03/20 07:39 Pulse 83 12/03/20 07:39 Resp 20 12/03/20 07:39 BP 116/47 L 12/03/20 07:39 Pulse Ox 98 12/03/20 07:39 Weight - Most Recent: 108.409 kg I&O - Last 24 Hours: Intake & Output 12/02/20 12/03/20 12/03/20 22:59 06:59 14:59 Intake Total 2740 200 Output Total 1200 1000 Balance 1540 -800 Lab Results Last 24 Hours: Laboratory Results - last 24 hr 12/02/20 12/02/20 12/02/20 Range/Units 11:49 14:58 15:10 WBC 14.44 H (4.0-11.0) K/uL RBC 2.61 L (4.50-5.90) M/uL Hgb 7.9 L (13.0-17.0) g/dL Hct 25.4 L (38.0-50.0) % MCV 97.3 (80.0-98.0) fL MCH 30.3 (27.0-32.0) pg MCHC 31.1 (31.0-37.0) g/dL RDW Std Deviation 45.1 (28.0-62.0) fl RDW Coeff of [place] 13 (11.0-15.0) % Plt Count 231 (150-400) K/uL MPV 10.10 (7.40-12.00) fL Neut % (Auto) (48.0-80.0) % Lymph % (Auto) (16.0-40.0) % Carson % (Auto) (0.0-15.0) % Eos % (Auto) (0.0-7.0) % Baso % (Auto) (0.0-1.5) % Neut # (Auto) (1.4-5.7) K/uL Lymph # (Auto) (0.6-2.4) K/uL Carson # (Auto) (0.0-0.8) K/uL Eos # (Auto) (0.0-0.7) K/uL Baso # (Auto) (0.0-0.1) K/uL Add Manual Diff YES Neutrophils % (Manual) 87 H (48.0-80.0) % Band Neutrophils % 4 % Lymphocytes % (Manual) 7 L (16.0-40.0) % Monocytes % (Manual) 1 (0.0-15.0) % Eosinophils % (Manual) 1 (0.0-7.0) % Nucleated RBC % /100WBC Absolute Seg Neuts 12.6 H (1.4-5.7) Band Neutrophils # 0.6 Lymphocytes # (Manual) 1.0 (0.6-2.4) Monocytes # (Manual) 0.1 (0.0-0.8) Eosinophils # (Manual) 0.1 (0.0-0.7) Nucleated RBCs # K/uL Sodium 139 (136-148) mmol/L Potassium 4.4 (3.5-5.1) mmol/L Chloride 103 (98-107) mmol/L Carbon Dioxide 20.5 L (21.0-32.0) mmol/L BUN 102 H (7.0-18.0) mg/dL Creatinine 4.2 H (0.8-1.3) mg/dL Est Cr Clr Drug Dosing TNP Estimated GFR (MDRD) 13.6 ml/min Glucose 168 H (74-106) mg/dL POC Glucose 143 H (70-99) mg/dL Calcium 8.9 (8.5-10.1) mg/dL Phosphorus 6.5 H (2.6-4.7) mg/dL Magnesium 2.4 (1.8-2.4) mg/dL 12/02/20 12/03/20 12/03/20 Range/Units 16:33 05:40 05:40 WBC 12.77 H (4.0-11.0) K/uL RBC 2.69 L (4.50-5.90) M/uL Hgb 8.1 L (13.0-17.0) g/dL Hct 25.4 L (38.0-50.0) % MCV 94.4 (80.0-98.0) fL MCH 30.1 (27.0-32.0) pg MCHC 31.9 (31.0-37.0) g/dL RDW Std Deviation 49.2 (28.0-62.0) fl RDW Coeff of [place] 14 (11.0-15.0) % Plt Count 225 (150-400) K/uL MPV 10.20 (7.40-12.00) fL Neut % (Auto) 76.2 (48.0-80.0) % Lymph % (Auto) 12.8 L (16.0-40.0) % Carson % (Auto) 7.8 (0.0-15.0) % Eos % (Auto) 3.0 (0.0-7.0) % Baso % (Auto) 0.2 (0.0-1.5) % Neut # (Auto) 9.7 H (1.4-5.7) K/uL Lymph # (Auto) 1.6 (0.6-2.4) K/uL Carson # (Auto) 1.0 H (0.0-0.8) K/uL Eos # (Auto) 0.4 (0.0-0.7) K/uL Baso # (Auto) 0.0 (0.0-0.1) K/uL Add Manual Diff Neutrophils % (Manual) (48.0-80.0) % Band Neutrophils % % Lymphocytes % (Manual) (16.0-40.0) % Monocytes % (Manual) (0.0-15.0) % Eosinophils % (Manual) (0.0-7.0) % Nucleated RBC % 0.0 /100WBC Absolute Seg Neuts (1.4-5.7) Band Neutrophils # Lymphocytes # (Manual) (0.6-2.4) Monocytes # (Manual) (0.0-0.8) Eosinophils # (Manual) (0.0-0.7) Nucleated RBCs # 0 K/uL Sodium 141 (136-148) mmol/L Potassium 4.2 (3.5-5.1) mmol/L Chloride 107 (98-107) mmol/L Carbon Dioxide 22.5 (21.0-32.0) mmol/L BUN 94 H (7.0-18.0) mg/dL Creatinine 3.8 H (0.8-1.3) mg/dL Est Cr Clr Drug Dosing 12.81 Estimated GFR (MDRD) 15.3 ml/min Glucose 161 H (74-106) mg/dL POC Glucose 169 H (70-99) mg/dL Calcium 8.3 L (8.5-10.1) mg/dL Phosphorus (2.6-4.7) mg/dL Magnesium (1.8-2.4) mg/dL 12/03/20 Range/Units 07:42 WBC (4.0-11.0) K/uL RBC (4.50-5.90) M/uL Hgb (13.0-17.0) g/dL Hct (38.0-50.0) % MCV (80.0-98.0) fL MCH (27.0-32.0) pg MCHC (31.0-37.0) g/dL RDW Std Deviation (28.0-62.0) fl RDW Coeff of [place] (11.0-15.0) % Plt Count (150-400) K/uL MPV (7.40-12.00) fL Neut % (Auto) (48.0-80.0) % Lymph % (Auto) (16.0-40.0) % Carson % (Auto) (0.0-15.0) % Eos % (Auto) (0.0-7.0) % Baso % (Auto) (0.0-1.5) % Neut # (Auto) (1.4-5.7) K/uL Lymph # (Auto) (0.6-2.4) K/uL Carson # (Auto) (0.0-0.8) K/uL Eos # (Auto) (0.0-0.7) K/uL Baso # (Auto) (0.0-0.1) K/uL Add Manual Diff Neutrophils % (Manual) (48.0-80.0) % Band Neutrophils % % Lymphocytes % (Manual) (16.0-40.0) % Monocytes % (Manual) (0.0-15.0) % Eosinophils % (Manual) (0.0-7.0) % Nucleated RBC % /100WBC Absolute Seg Neuts (1.4-5.7) Band Neutrophils # Lymphocytes # (Manual) (0.6-2.4) Monocytes # (Manual) (0.0-0.8) Eosinophils # (Manual) (0.0-0.7) Nucleated RBCs # K/uL Sodium (136-148) mmol/L Potassium (3.5-5.1) mmol/L Chloride (98-107) mmol/L Carbon Dioxide (21.0-32.0) mmol/L BUN (7.0-18.0) mg/dL Creatinine (0.8-1.3) mg/dL Est Cr Clr Drug Dosing Estimated GFR (MDRD) ml/min Glucose (74-106) mg/dL POC Glucose 159 H (70-99) mg/dL Calcium (8.5-10.1) mg/dL Phosphorus (2.6-4.7) mg/dL Magnesium (1.8-2.4) mg/dL Nathaniel Results Last 24 Hours: Microbiology 12/01/20 10:52 Blood Culture Identification Panel - Preliminary Blood Gram Negative Rods 12/01/20 09:56 Blood Culture Identification Panel - Preliminary Blood Gram Negative Rods 12/01/20 10:52 Aerobic Blood Culture - Preliminary Blood - Venous - Lab Draw Anaerobic Blood Culture - Preliminary Med Orders - Current: Current Medications Acetaminophen (Acetaminophen 325 Mg Tab) 650 mg PO Q4H PRN PRN Reason: fever/pain Albuterol/Ipratropium (Albuterol/Ipratropium 3.0-0.5 Mg/3 Ml Neb Soln) 3 ml NEB Q4HRRT PRN PRN Reason: Shortness Of Breath/wheezing Artificial Tears (Carboxymethylcellulose Sodium 0.5% Ophth Soln 0.4 Ml Ud Box Of 30) 0 each EYEBOTH BID [facility] Last Admin: 12/03/20 00:33 Dose: 1 applic Documented by: Brimonidine Tartrate (Brimonidine 0.15% Ophth Soln 5 Ml Bottle) 0 ml EYEBOTH QAM [facility] Last Admin: 12/02/20 10:28 Dose: Not Given Documented by: Dextrose/Water (50% Dextrose In Water 50 Ml Syringe) 50 ml IVPUSH ASDIRECTED PRN PRN Reason: Hypoglycemia Glucagon (Glucagon,Human Recombinant 1 Mg Vial) 1 mg IM ASDIRECTED PRN PRN Reason: Hypoglycemia Heparin Sodium (Porcine) (Heparin Sodium 5,000 Units/Ml Vial) 5,000 units SUBCUT Q8H [facility] Last Admin: 12/03/20 06:21 Dose: 5,000 units Documented by: Lactated Ringer's (Ringers, Lactated) 1,000 mls @ 125 mls/hr IV ASDIRECTED [facility] Last Admin: 12/03/20 07:26 Dose: 125 mls/hr Documented by: Vancomycin HCl 1.5 gm/ Premix 300 mls @ 200 mls/hr IV Q48H [facility] Last Admin: 12/01/20 17:00 Dose: 200 mls/hr Documented by: Meropenem/Sodium Chloride 1 gm (/ Premix) 50 mls @ 100 mls/hr IV Q24H [facility] Last Admin: 12/02/20 11:58 Dose: 100 mls/hr Documented by: Insulin Aspart (Insulin Aspart 100 Units/Ml 3 Ml Pen) 0 unit SUBCUT TIDAC [facility]; Protocol Last Admin: 12/02/20 17:29 Dose: 1 unit Documented by: Latanoprost (Latanoprost 0.005% Ophth Soln 2.5 Ml Bottle) 0 ml EYEBOTH BEDTIME [facility] Last Admin: 12/03/20 01:35 Dose: 1 drop Documented by: Nystatin (Nystatin Topical Powder 15 Gm Bottle) 0 gm TOP TID PRN PRN Reason: RASH Last Admin: 12/03/20 01:00 Dose: 1 gm Documented by: Ondansetron HCl (Ondansetron 4 Mg/2 Ml Sdv) 4 mg IVPUSH Q4H PRN PRN Reason: Nausea/Vomiting Pantoprazole Sodium (Pantoprazole 40 Mg Vial) 40 mg IV Q24H [facility] Last Admin: 12/02/20 14:18 Dose: 40 mg Documented by: Quetiapine Fumarate (Quetiapine 100 Mg Tab) [facility] [place] Last Admin: 12/02/20 10:24 Dose: 200 mg Documented by: Sertraline HCl (Sertraline 100 Mg Tab) 100 mg PO QAM [facility] Last Admin: 12/02/20 10:24 Dose: 100 mg Documented by: Sodium Chloride (Sodium Chloride 0.9% 10 Ml Syringe) 10 ml FLUSH ASDIRECTED PRN PRN Reason: Keep Vein Open Last Admin: 12/01/20 10:41 Dose: 10 ml Documented by: Sodium Chloride (Sodium Chloride 0.9% 2.5 Ml Syringe) 2.5 ml FLUSH ASDIRECTED PRN PRN Reason: Keep Vein Open Last Admin: 12/01/20 10:41 Dose: 2.5 ml Documented by: Vancomycin HCl (Pharmacy To Dose - Vancomycin) 0 dose .XX ASDIRECTED [facility] Discontinued Medications Sodium Chloride (Normal Saline) 1,000 mls @ 999 mls/hr IV .Bolus ONE Stop: 12/01/20 11:17 Last Admin: 12/01/20 10:41 Dose: 999 mls/hr Documented by: Ceftriaxone Sodium/Dextrose 1 (gm/ Premix) 50 mls @ 100 mls/hr IV ONETIME ONE Stop: 12/01/20 11:38 Last Admin: 12/01/20 11:12 Dose: 100 mls/hr Documented by: Sodium Chloride (Normal Saline) 1,000 mls @ 999 mls/hr IV .Bolus ONE Stop: 12/01/20 12:44 Last Admin: 12/01/20 11:50 Dose: 999 mls/hr Documented by: Piperacillin Sod/Tazobactam (Sod 3.375 gm/ Sodium Chloride) 50 mls @ 100 mls/hr IV Q8H [facility] Last Admin: 12/01/20 15:49 Dose: Not Given Documented by: Piperacillin Sod/Tazobactam (Sod 2.25 gm/ Sodium Chloride) 50 mls @ 100 mls/hr IV Q8H [facility] Last Admin: 12/02/20 09:23 Dose: 100 mls/hr Documented by: Sodium Chloride (Normal Saline) 500 mls @ 999 mls/hr IV .BOLUS [facility] Last Admin: 12/02/20 11:04 Dose: 999 mls/hr Documented by: Lactated Ringer's (Ringers, Lactated) 1,000 mls @ 999 mls/hr IV .BOLUS ONE Stop: 12/02/20 13:08 Last Admin: 12/02/20 13:02 Dose: 999 mls/hr Documented by: Tamsulosin HCl (Tamsulosin 0.4 Mg Cap.Er) 0.4 mg PO DAILY [facility] Last Admin: 12/02/20 10:24 Dose: 0.4 mg Documented by: - Exam Urinary Catheter Total Time: 1Days 17Hours General: Alert, Oriented, Cooperative, No Acute Distress Lungs: Decreased Breath Sounds (Bibasilar) Cardiovascular: Regular Rate, Regular Rhythm GI/Abdominal Exam: Normal Bowel Sounds, Soft, Non-Tender, No Distention Back Exam: Normal Inspection, Full Range of Motion Extremities: Normal Inspection, Normal Range of Motion, Non-Tender, Pedal Edema (+2-3 edema lower extremities no change from previous day) Wound/Incisions: Decubitis (Stage II decubitus ulcer Allevyn dressing in place consult wound care) Neurological: No New Focal Deficit Psy/Mental Status: Alert, Normal Affect, Normal Mood - Patient Data Lab Results Last 24 hrs: Laboratory Results - last 24 hr 12/02/20 12/02/20 12/02/20 Range/Units 11:49 14:58 15:10 WBC 14.44 H (4.0-11.0) K/uL RBC 2.61 L (4.50-5.90) M/uL Hgb 7.9 L (13.0-17.0) g/dL Hct 25.4 L (38.0-50.0) % MCV 97.3 (80.0-98.0) fL MCH 30.3 (27.0-32.0) pg MCHC 31.1 (31.0-37.0) g/dL RDW Std Deviation 45.1 (28.0-62.0) fl RDW Coeff of [place] 13 (11.0-15.0) % Plt Count 231 (150-400) K/uL MPV 10.10 (7.40-12.00) fL Neut % (Auto) (48.0-80.0) % Lymph % (Auto) (16.0-40.0) % Carson % (Auto) (0.0-15.0) % Eos % (Auto) (0.0-7.0) % Baso % (Auto) (0.0-1.5) % Neut # (Auto) (1.4-5.7) K/uL Lymph # (Auto) (0.6-2.4) K/uL [place] # (Auto) (0.0-0.8) K/uL Eos # (Auto) (0.0-0.7) K/uL Baso # (Auto) (0.0-0.1) K/uL Add Manual Diff YES Neutrophils % (Manual) 87 H (48.0-80.0) % Band Neutrophils % 4 % Lymphocytes % (Manual) 7 L (16.0-40.0) % Monocytes % (Manual) 1 (0.0-15.0) % Eosinophils % (Manual) 1 (0.0-7.0) % Nucleated RBC % /100WBC Absolute Seg Neuts 12.6 H (1.4-5.7) Band Neutrophils # 0.6 Lymphocytes # (Manual) 1.0 (0.6-2.4) Monocytes # (Manual) 0.1 (0.0-0.8) Eosinophils # (Manual) 0.1 (0.0-0.7) Nucleated RBCs # K/uL Sodium 139 (136-148) mmol/L Potassium 4.4 (3.5-5.1) mmol/L Chloride 103 (98-107) mmol/L Carbon Dioxide 20.5 L (21.0-32.0) mmol/L BUN 102 H (7.0-18.0) mg/dL Creatinine 4.2 H (0.8-1.3) mg/dL Est Cr Clr Drug Dosing TNP Estimated GFR (MDRD) 13.6 ml/min Glucose 168 H (74-106) mg/dL POC Glucose 143 H (70-99) mg/dL Calcium 8.9 (8.5-10.1) mg/dL Phosphorus 6.5 H (2.6-4.7) mg/dL Magnesium 2.4 (1.8-2.4) mg/dL 06/28/21 06/29/21 06/29/21 Range/Units 16:33 05:40 05:40 WBC 12.77 H (4.0-11.0) K/uL RBC 2.69 L (4.50-5.90) M/uL Hgb 8.1 L (13.0-17.0) g/dL Hct 25.4 L (38.0-50.0) % MCV 94.4 (80.0-98.0) fL MCH 30.1 (27.0-32.0) pg MCHC 31.9 (31.0-37.0) g/dL RDW Std Deviation 49.2 (28.0-62.0) fl RDW Coeff of [place] 14 (11.0-15.0) % Plt Count 225 (150-400) K/uL MPV 10.20 (7.40-12.00) fL Neut % (Auto) 76.2 (48.0-80.0) % Lymph % (Auto) 12.8 L (16.0-40.0) % [place] % (Auto) 7.8 (0.0-15.0) % Eos % (Auto) 3.0 (0.0-7.0) % Baso % (Auto) 0.2 (0.0-1.5) % Neut # (Auto) 9.7 H (1.4-5.7) K/uL Lymph # (Auto) 1.6 (0.6-2.4) K/uL [place] # (Auto) 1.0 H (0.0-0.8) K/uL Eos # (Auto) 0.4 (0.0-0.7) K/uL Baso # (Auto) 0.0 (0.0-0.1) K/uL Add Manual Diff Neutrophils % (Manual) (48.0-80.0) % Band Neutrophils % % Lymphocytes % (Manual) (16.0-40.0) % Monocytes % (Manual) (0.0-15.0) % Eosinophils % (Manual) (0.0-7.0) % Nucleated RBC % 0.0 /100WBC Absolute Seg Neuts (1.4-5.7) Band Neutrophils # Lymphocytes # (Manual) (0.6-2.4) Monocytes # (Manual) (0.0-0.8) Eosinophils # (Manual) (0.0-0.7) Nucleated RBCs # 0 K/uL Sodium 141 (136-148) mmol/L Potassium 4.2 (3.5-5.1) mmol/L Chloride 107 (98-107) mmol/L Carbon Dioxide 22.5 (21.0-32.0) mmol/L BUN 94 H (7.0-18.0) mg/dL Creatinine 3.8 H (0.8-1.3) mg/dL Est Cr Clr Drug Dosing 12.81 Estimated GFR (MDRD) 15.3 ml/min Glucose 161 H (74-106) mg/dL POC Glucose 169 H (70-99) mg/dL Calcium 8.3 L (8.5-10.1) mg/dL Phosphorus (2.6-4.7) mg/dL Magnesium (1.8-2.4) mg/dL 12/03/20 Range/Units 07:42 WBC (4.0-11.0) K/uL RBC (4.50-5.90) M/uL Hgb (13.0-17.0) g/dL Hct (38.0-50.0) % MCV (80.0-98.0) fL MCH (27.0-32.0) pg MCHC (31.0-37.0) g/dL RDW Std Deviation (28.0-62.0) fl RDW Coeff of [place] (11.0-15.0) % Plt Count (150-400) K/uL MPV (7.40-12.00) fL Neut % (Auto) (48.0-80.0) % Lymph % (Auto) (16.0-40.0) % Carson % (Auto) (0.0-15.0) % Eos % (Auto) (0.0-7.0) % Baso % (Auto) (0.0-1.5) % Neut # (Auto) (1.4-5.7) K/uL Lymph # (Auto) (0.6-2.4) K/uL [place] # (Auto) (0.0-0.8) K/uL Eos # (Auto) (0.0-0.7) K/uL Baso # (Auto) (0.0-0.1) K/uL Add Manual Diff Neutrophils % (Manual) (48.0-80.0) % Band Neutrophils % % Lymphocytes % (Manual) (16.0-40.0) % Monocytes % (Manual) (0.0-15.0) % Eosinophils % (Manual) (0.0-7.0) % Nucleated RBC % /100WBC Absolute Seg Neuts (1.4-5.7) Band Neutrophils # Lymphocytes # (Manual) (0.6-2.4) Monocytes # (Manual) (0.0-0.8) Eosinophils # (Manual) (0.0-0.7) Nucleated RBCs # K/uL Sodium (136-148) mmol/L Potassium (3.5-5.1) mmol/L Chloride (98-107) mmol/L Carbon Dioxide (21.0-32.0) mmol/L BUN (7.0-18.0) mg/dL Creatinine (0.8-1.3) mg/dL Est Cr Clr Drug Dosing Estimated GFR (MDRD) ml/min Glucose (74-106) mg/dL POC Glucose 159 H (70-99) mg/dL Calcium (8.5-10.1) mg/dL Phosphorus (2.6-4.7) mg/dL Magnesium (1.8-2.4) mg/dL Result Diagrams: 12/03/20 05:40 12/03/20 05:40 Nathaniel Results Last 24 hrs: Microbiology 12/01/20 10:52 Blood Culture Identification Panel - Preliminary Blood Gram Negative Rods 12/01/20 09:56 Blood Culture Identification Panel - Preliminary Blood Gram Negative Rods 12/01/20 10:52 Aerobic Blood Culture - Preliminary Blood - Venous - Lab Draw Anaerobic Blood Culture - Preliminary Sepsis Event Note - Evaluation Sepsis Screening Result: No Definite Risk - Focused Exam Vital Signs: Vital Signs Temp Temp Pulse Resp BP Pulse Ox 12/03/20 07:39 97.6 F 83 20 116/47 L 98 12/03/20 05:22 96.9 F 89 20 106/46 L 95 12/03/20 00:00 97.6 F 89 20 139/58 L 97 - Problem List & Annotations (1) Gram-negative bacteremia SNOMED Code(s): 011411228242 Code(s): R78.81 - BACTEREMIA Status: Acute Current Visit: Yes (2) Sepsis SNOMED Code(s): 06849184 Code(s): A41.9 - SEPSIS, UNSPECIFIED ORGANISM Status: Acute Current Visit: Yes Qualifiers: Sepsis type: sepsis due to unspecified organism Acute renal failure type: unspecified Severe sepsis shock status: without septic shock (3) UTI (urinary tract infection) SNOMED Code(s): 34805764 Code(s): N39.0 - URINARY TRACT INFECTION, SITE NOT SPECIFIED Status: Acute Current Visit: Yes Qualifiers: Urinary tract infection type: catheter-associated UTI Indwelling urinary catheter type: indwelling urethral catheter Encounter type: initial encounter Qualified Code(s): T83.511A - Infection and inflammatory reaction due to indwelling urethral catheter, initial encounter; N39.0 - Urinary tract infection, site not specified (4) Dehydration SNOMED Code(s): 49699450 Code(s): E86.0 - DEHYDRATION Status: Acute Current Visit: Yes (5) Acute kidney injury SNOMED Code(s): 19407577, 18991768 Code(s): N17.9 - ACUTE KIDNEY FAILURE, UNSPECIFIED Status: Acute Current Visit: Yes (6) Anemia SNOMED Code(s): 070914410 Code(s): D64.9 - ANEMIA, UNSPECIFIED Status: Chronic Current Visit: Yes (7) CAD (coronary artery disease) SNOMED Code(s): 52240235 Code(s): I25.10 - ATHSCL HEART DISEASE OF [place] CORONARY ARTERY W/O ANG P COLD MEAT COOK Status: Chronic Current Visit: Yes (8) CKD (chronic kidney disease) SNOMED Code(s): 279060286 Code(s): N18.9 - CHRONIC KIDNEY DISEASE, UNSPECIFIED Status: Chronic Current Visit: Yes (9) Sacral decubitus ulcer, stage II SNOMED Code(s): 558679555, 706950104 Code(s): L89.152 - PRESSURE ULCER OF [place], STAGE 2 Status: Chronic Current Visit: Yes (10) CHF (congestive heart failure) SNOMED Code(s): 30654179 Code(s): I50.9 - HEART FAILURE, UNSPECIFIED Status: Chronic Current V isit: No Qualifiers: Heart failure chronicity: chronic (11) DM type 2 (diabetes mellitus, type 2) SNOMED Code(s): 04074991 Code(s): E11.9 - TYPE 2 DIABETES MELLITUS WITHOUT COMPLICATIONS Status: Chronic Priority: Medium Current Visit: No Qualifiers: 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 use Diabetes mellitus complication status: with hyperglycemia Qualified Code(s): E11.65 - Type 2 diabetes mellitus with hyperglycemia (12) Dementia SNOMED Code(s): 34212562 Code(s): F03.90 - UNSPECIFIED DEMENTIA WITHOUT BEHAVIORAL DISTURBANCE Status: Chronic Current Visit: No Qualifiers: Alzheimer's disease onset: unspecified onset Dementia behavioral disturbance: without behavioral disturbance (13) Generalized weakness SNOMED Code(s): 79323346 Code(s): R53.1 - WEAKNESS Status: Chronic Current Visit: No (14) HTN (hypertension) SNOMED Code(s): 06842259 Code(s): I10 - ESSENTIAL (PRIMARY) HYPERTENSION Status: Chronic Current Visit: No (15) Palliative care status SNOMED Code(s): 269864745 Code(s): Z51.5 - ENCOUNTER FOR PALLIATIVE CARE Status: Acute Current Visit: Yes - Problem List Review Problem List Initiated/Reviewed/Updated: Yes - My Orders Last 24 Hours: My Active Orders 12/02/20 11:30 Meropenem Premix [Meropenem in NS 1 GM/50 ML] 1 gm Premix Bag 1 bag IV Q24H 12/04/20 05:11 BASIC METABOLIC PANEL,BMP [CHEM] AM CBC WITH AUTO DIFF [HEME] AM 12/05/20 05:11 BASIC METABOLIC PANEL,BMP [CHEM] AM CBC WITH AUTO DIFF [HEME] AM 12/06/20 05:11 BASIC METABOLIC PANEL,BMP [CHEM] AM CBC WITH AUTO DIFF [HEME] AM - Plan Plan:: 85 y/o M admitted for sepsis, ARF, likely pre-renal 1. Gram-negative coby bacteremia/sepsis/UTI secondary to indwelling Villarreal catheter -Slow improvement -Catheter switched out on admission -Blood pressures improved will discontinue IV fluids today due to risk of o verload from CHF consider small intermittent boluses -Continue meropenem and vancomycin -Blood cultures returned 4/4 positive for gram-negative coby and urine culture pending -Repeat blood cultures pending. -Spoke with son, Lobo Aleman [phone]. He requested no aggressive treatment management as well as no transfer to outside facility if Ruslan were continue to worsen. He declined any treatment with vasopressors or central line at this time. We did discuss that if Ruslan continues to worsen he likely will not survive this. He agrees with current management of IV fluids as well as IV antibiotics. If patient continues to worsen we will contact Lobo and likely arrange for comfort measures. -Patient palliative care at this time as patient family is declining any aggressive management or transfer. 2. COREY on CKD -Slow improvement -Continue Villarreal catheter cares -Avoid nephrotoxic medications -Monitor creatinine daily 3. DM type II -Check blood sugars 3 times daily AC -ADA diet -Insulin sliding scale 4. CHF/HTN -Holding medications at this time due to hypotension and sepsis -Monitor CHF closely 5. Dementia -Continue Seroquel and sertraline 6. BPH urinary retention -Continue Villarreal catheter -Hold Flomax due to hypotension 7. Stage II decubitus ulcer -Allevyn dressing in place was present on admission -Nursing notified providers today regarding continued opening. -Consult wound care GI prophylaxis: Protonix VTE prophylaxis: Heparin CODE STATUS: DNR/DNI Dispo: 2 to 3 days pending improvement
[2020-12-03] MEDS: Insulin Aspart 100 Units/ML 3 ML Pen SUBCUT SCH ×3 (10:14→17:02)
[2020-12-03] MEDS: QUEtiapine 100 MG Tab PO SCH (10:14)
[2020-12-03] MEDS: Sertraline 100 MG Tab PO SCH (10:14)
[2020-12-03] MEDS: Brimonidine 0.15% Ophth Soln 5 ML Bottle EYEBOTH SCH (10:15)
[2020-12-03] MEDS: Meropenem Premix 1 GM in Premix Bag 1 BAG IV SCH (12:03)
[2020-12-03] MEDS: Pantoprazole 40 MG Vial IV SCH (14:14)
[2020-12-03] MEDS: VANCOmycin 1.5 GM/300 ML 1.5 GM in Premix Bag 1 BAG IV SCH (15:35)
[2020-12-04 06:07] LABS: CARBON DIOXIDE,CO2 21.9 mmol/L (21.0-32.0); POTASSIUM,K 3.6 mmol/L (3.5-5.1)
--- NOTE | 2020-12-04 07:52 | PCM.PN ---
- General Info Date of Service: 12/04/20 Admission Dx/Problem (Free Text): Admission Diagnosis/Problem Admission Diagnosis/Problem Sepsis, E coli bacteremia Subjective Update: Alert this morning, No chest pain or SOB. reports he is feeling better today and is very verbal. Functional Status: Reports: Pain Controlled, Tolerating Diet - Review of Systems General: Reports: Fatigue, Malaise HEENT: Reports: No Symptoms. Denies: Headaches, Sore Throat, Visual Changes Pulmonary: Reports: No Symptoms. Denies: Shortness of Breath Cardiovascular: Reports: Edema (lower extremities). Denies: Chest Pain Gastrointestinal: Reports: No Symptoms. Denies: Abdominal Pain, Nausea, Vomiting Genitourinary: Reports: No Symptoms. Denies: Dysuria, Frequency, Burning Musculoskeletal: Reports: No Symptoms Skin: Denies: No Symptoms Neurological: Denies: No Symptoms Psychiatric: Denies: No Symptoms - Patient Data Vitals - Most Recent: Last Vital Signs Temp 97.9 F 12/04/20 03:00 Pulse 92 12/04/20 03:00 Resp 18 12/04/20 03:00 BP 135/53 L 12/04/20 03:00 Pulse Ox 94 L 12/04/20 03:00 Weight - Most Recent: 108.409 kg I&O - Last 24 Hours: Intake & Output 12/03/20 12/04/20 12/04/20 22:59 06:59 14:59 Intake Total 1520 1000 Output Total 1500 1200 Balance 20 -200 Lab Results Last 24 Hours: Laboratory Results - last 24 hr 12/03/20 12/03/20 12/03/20 Range/Units 07:42 12:07 17:00 WBC (4.0-11.0) K/uL RBC (4.50-5.90) M/uL Hgb (13.0-17.0) g/dL Hct (38.0-50.0) % MCV (80.0-98.0) fL MCH (27.0-32.0) pg MCHC (31.0-37.0) g/dL RDW Std Deviation (28.0-62.0) fl RDW Coeff of [place] (11.0-15.0) % Plt Count (150-400) K/uL MPV (7.40-12.00) fL Neut % (Auto) (48.0-80.0) % Lymph % (Auto) (16.0-40.0) % [place] % (Auto) (0.0-15.0) % Eos % (Auto) (0.0-7.0) % Baso % (Auto) (0.0-1.5) % Neut # (Auto) (1.4-5.7) K/uL Lymph # (Auto) (0.6-2.4) K/uL [place] # (Auto) (0.0-0.8) K/uL Eos # (Auto) (0.0-0.7) K/uL Baso # (Auto) (0.0-0.1) K/uL Nucleated RBC % /100WBC Nucleated RBCs # K/uL Sodium (136-148) mmol/L Potassium (3.5-5.1) mmol/L Chloride (98-107) mmol/L Carbon Dioxide (21.0-32.0) mmol/L BUN (7.0-18.0) mg/dL Creatinine (0.8-1.3) mg/dL Est Cr Clr Drug Dosing mL/min Estimated GFR (MDRD) ml/min Glucose (74-106) mg/dL POC Glucose 159 H 185 H 189 H (70-99) mg/dL Calcium (8.5-10.1) mg/dL 12/04/20 12/04/20 Range/Units 05:10 05:10 WBC 14.35 H (4.0-11.0) K/uL RBC 2.73 L (4.50-5.90) M/uL Hgb 8.3 L (13.0-17.0) g/dL Hct 25.7 L (38.0-50.0) % MCV 94.1 (80.0-98.0) fL MCH 30.4 (27.0-32.0) pg MCHC 32.3 (31.0-37.0) g/dL RDW Std Deviation 48.8 (28.0-62.0) fl RDW Coeff of [place] 14 (11.0-15.0) % Plt Count 238 (150-400) K/uL MPV 10.50 (7.40-12.00) fL Neut % (Auto) 78.2 (48.0-80.0) % Lymph % (Auto) 10.7 L (16.0-40.0) % [place] % (Auto) 7.9 (0.0-15.0) % Eos % (Auto) 3.1 (0.0-7.0) % Baso % (Auto) 0.1 (0.0-1.5) % Neut # (Auto) 11.2 H (1.4-5.7) K/uL Lymph # (Auto) 1.5 (0.6-2.4) K/uL [place] # (Auto) 1.1 H (0.0-0.8) K/uL Eos # (Auto) 0.4 (0.0-0.7) K/uL Baso # (Auto) 0.0 (0.0-0.1) K/uL Nucleated RBC % 0.0 /100WBC Nucleated RBCs # 0 K/uL Sodium 141 (136-148) mmol/L Potassium 3.6 (3.5-5.1) mmol/L Chloride 106 (98-107) mmol/L Carbon Dioxide 21.9 (21.0-32.0) mmol/L BUN 84 H (7.0-18.0) mg/dL Creatinine 2.9 H (0.8-1.3) mg/dL Est Cr Clr Drug Dosing 16.79 mL/min Estimated GFR (MDRD) 20.9 ml/min Glucose 170 H (74-106) mg/dL POC Glucose (70-99) mg/dL Calcium 8.6 (8.5-10.1) mg/dL Nathaniel Results Last 24 Hours: Microbiology 12/02/20 15:10 Aerobic Blood Culture - Preliminary Blood - Venous NO GROWTH AFTER 1 DAY Anaerobic Blood Culture - Preliminary NO GROWTH AFTER 1 DAY 12/02/20 14:58 Aerobic Blood Culture - Preliminary Blood NO GROWTH AFTER 1 DAY Anaerobic Blood Culture - Preliminary NO GROWTH AFTER 1 DAY 12/01/20 10:52 Blood Culture Identification Panel - Preliminary Blood Gram Negative Rods 12/01/20 09:56 Blood Culture Identification Panel - Preliminary Blood Gram Negative Rods Med Orders - Current: Current Medications Acetaminophen (Acetaminophen 325 Mg Tab) 650 mg PO Q4H PRN PRN Reason: fever/pain Albuterol/Ipratropium (Albuterol/Ipratropium 3.0-0.5 Mg/3 Ml Neb Soln) 3 ml NEB Q4HRRT PRN PRN Reason: Shortness Of Breath/wheezing Artificial Tears (Carboxymethylcellulose Sodium 0.5% Ophth Soln 0.4 Ml Ud Box Of 30) 0 each EYEBOTH BID [facility] Last Admin: 12/03/20 21:33 Dose: 2 applic Documented by: Brimonidine Tartrate (Brimonidine 0.15% Ophth Soln 5 Ml Bottle) 0 ml EYEBOTH QAM [facility] Last Admin: 12/03/20 10:15 Dose: Not Given Documented by: Dextrose/Water (50% Dextrose In Water 50 Ml Syringe) 50 ml IVPUSH ASDIRECTED PRN PRN Reason: Hypoglycemia Glucagon (Glucagon,Human Recombinant 1 Mg Vial) 1 mg IM ASDIRECTED PRN PRN Reason: Hypoglycemia Heparin Sodium (Porcine) (Heparin Sodium 5,000 Units/Ml Vial) 5,000 units SUBCUT Q8H [facility] Last Admin: 12/03/20 23:15 Dose: 5,000 units Documented by: Vancomycin HCl 1.5 gm/ Premix 300 mls @ 200 mls/hr IV Q48H [facility] Last Admin: 12/03/20 15:35 Dose: 200 mls/hr Documented by: Meropenem/Sodium Chloride 1 gm (/ Premix) 50 mls @ 100 mls/hr IV Q24H [facility] Last Admin: 12/03/20 12:03 Dose: 100 mls/hr Documented by: Insulin Aspart (Insulin Aspart 100 Units/Ml 3 Ml Pen) 0 unit SUBCUT TIDAC [facility]; Protocol Last Admin: 12/03/20 17:02 Dose: 1 unit Documented by: Latanoprost (Latanoprost 0.005% Ophth Soln 2.5 Ml Bottle) 0 ml EYEBOTH BEDTIME [facility] Last Admin: 12/03/20 21:33 Dose: 2 drop Documented by: Nystatin (Nystatin Topical Powder 15 Gm Bottle) 0 gm TOP TID PRN PRN Reason: RASH Last Admin: 12/03/20 01:00 Dose: 1 gm Documented by: Ondansetron HCl (Ondansetron 4 Mg/2 Ml Sdv) 4 mg IVPUSH Q4H PRN PRN Reason: Nausea/Vomiting Pantoprazole Sodium (Pantoprazole 40 Mg Vial) 40 mg IV Q24H [facility] Last Admin: 12/03/20 14:14 Dose: 40 mg Documented by: Quetiapine Fumarate (Qu[facility]apine 100 Mg Tab) [facility] Last Admin: 12/03/20 10:14 Dose: 200 mg Documented by: Sertraline HCl (Sertraline 100 Mg Tab) [facility] Last Admin: 12/03/20 10:14 Dose: 100 mg Documented by: Sodium Chloride (Sodium Chloride 0.9% 10 Ml Syringe) 10 ml FLUSH ASDIRECTED PRN PRN Reason: Keep Vein Open Last Admin: 12/01/20 10:41 Dose: 10 ml Documented by: Sodium Chloride (Sodium Chloride 0.9% 2.5 Ml Syringe) 2.5 ml FLUSH ASDIRECTED PRN PRN Reason: Keep Vein Open Last Admin: 12/01/20 10:41 Dose: 2.5 ml Documented by: Vancomycin HCl (Pharmacy To Dose - Vancomycin) 0 dose .XX ASDIRECTED [facility] Discontinued Medications Sodium Chloride (Normal Saline) 1,000 mls @ 999 mls/hr IV .Bolus ONE Stop: 12/01/20 11:17 Last Admin: 12/01/20 10:41 Dose: 999 mls/hr Documented by: Ceftriaxone Sodium/Dextrose 1 (gm/ Premix) 50 mls @ 100 mls/hr IV ONETIME ONE Stop: 12/01/20 11:38 Last Admin: 12/01/20 11:12 Dose: 100 mls/hr Documented by: Sodium Chloride (Normal Saline) 1,000 mls @ 999 mls/hr IV .Bolus ONE Stop: 12/01/20 12:44 Last Admin: 12/01/20 11:50 Dose: 999 mls/hr Documented by: Lactated Ringer's (Ringers, Lactated) 1,000 mls @ 125 mls/hr IV ASDIRECTED [facility] Last Admin: 12/03/20 07:26 Dose: 125 mls/hr Documented by: Piperacillin Sod/Tazobactam (Sod 3.375 gm/ Sodium Chloride) 50 mls @ 100 mls/hr IV Q8H [facility] Last Admin: 12/01/20 15:49 Dose: Not Given Documented by: Piperacillin Sod/Tazobactam (Sod 2.25 gm/ Sodium Chloride) 50 mls @ 100 mls/hr IV Q8H [facility] Last Admin: 12/02/20 09:23 Dose: 100 mls/hr Documented by: Sodium Chloride (Normal Saline) 500 mls @ 999 mls/hr IV .BOLUS [facility] Last Admin: 12/02/20 11:04 Dose: 999 mls/hr Documented by: Lactated Ringer's (Ringers, Lactated) 1,000 mls @ 999 mls/hr IV .BOLUS ONE Stop: 12/02/20 13:08 Last Admin: 12/02/20 13:02 Dose: 999 mls/hr Documented by: Tamsulosin HCl (Tamsulosin 0.4 Mg Cap.Er) 0.4 mg PO DAILY [facility] Last Admin: 12/02/20 10:24 Dose: 0.4 mg Documented by: - Exam Urinary Catheter Total Time: 2Days 18Hours General: Alert, Oriented, Cooperative, No Acute Distress Lungs: Normal Respiratory Effort, Decreased Breath Sounds (bibasilar) Cardiovascular: Regular Rate, Regular Rhythm GI/Abdominal Exam: Normal Bowel Sounds, Soft, Non-Tender Extremities: Normal Inspection, Normal Range of Motion, Non-Tender, No Pedal Edema Skin: Warm, Dry Wound/Incisions: Decubitis (heel and coccyx) Neurological: No New Focal Deficit Psy/Mental Status: Alert, Normal Affect, Normal Mood - Patient Data Lab Results Last 24 hrs: Laboratory Results - last 24 hr 12/03/20 12/03/20 12/03/20 Range/Units 07:42 12:07 17:00 WBC (4.0-11.0) K/uL RBC (4.50-5.90) M/uL Hgb (13.0-17.0) g/dL Hct (38.0-50.0) % MCV (80.0-98.0) fL MCH (27.0-32.0) pg MCHC (31.0-37.0) g/dL RDW Std Deviation (28.0-62.0) fl RDW Coeff of [place] (11.0-15.0) % Plt Count (150-400) K/uL MPV (7.40-12.00) fL Neut % (Auto) (48.0-80.0) % Lymph % (Auto) (16.0-40.0) % [place] % (Auto) (0.0-15.0) % Eos % (Auto) (0.0-7.0) % Baso % (Auto) (0.0-1.5) % Neut # (Auto) (1.4-5.7) K/uL Lymph # (Auto) (0.6-2.4) K/uL [place] # (Auto) (0.0-0.8) K/uL Eos # (Auto) (0.0-0.7) K/uL Baso # (Auto) (0.0-0.1) K/uL Nucleated RBC % /100WBC Nucleated RBCs # K/uL Sodium (136-148) mmol/L Potassium (3.5-5.1) mmol/L Chloride (98-107) mmol/L Carbon Dioxide (21.0-32.0) mmol/L BUN (7.0-18.0) mg/dL Creatinine (0.8-1.3) mg/dL Est Cr Clr Drug Dosing mL/min Estimated GFR (MDRD) ml/min Glucose (74-106) mg/dL POC Glucose 159 H 185 H 189 H (70-99) mg/dL Calcium (8.5-10.1) mg/dL 12/04/20 12/04/20 Range/Units 05:10 05:10 WBC 14.35 H (4.0-11.0) K/uL RBC 2.73 L (4.50-5.90) M/uL Hgb 8.3 L (13.0-17.0) g/dL Hct 25.7 L (38.0-50.0) % MCV 94.1 (80.0-98.0) fL MCH 30.4 (27.0-32.0) pg MCHC 32.3 (31.0-37.0) g/dL RDW Std Deviation 48.8 (28.0-62.0) fl RDW Coeff of [place] 14 (11.0-15.0) % Plt Count 238 (150-400) K/uL MPV 10.50 (7.40-12.00) fL Neut % (Auto) 78.2 (48.0-80.0) % Lymph % (Auto) 10.7 L (16.0-40.0) % [place] % (Auto) 7.9 (0.0-15.0) % Eos % (Auto) 3.1 (0.0-7.0) % Baso % (Auto) 0.1 (0.0-1.5) % Neut # (Auto) 11.2 H (1.4-5.7) K/uL Lymph # (Auto) 1.5 (0.6-2.4) K/uL [place] # (Auto) 1.1 H (0.0-0.8) K/uL Eos # (Auto) 0.4 (0.0-0.7) K/uL Baso # (Auto) 0.0 (0.0-0.1) K/uL Nucleated RBC % 0.0 /100WBC Nucleated RBCs # 0 K/uL Sodium 141 (136-148) mmol/L Potassium 3.6 (3.5-5.1) mmol/L Chloride 106 (98-107) mmol/L Carbon Dioxide 21.9 (21.0-32.0) mmol/L BUN 84 H (7.0-18.0) mg/dL Creatinine 2.9 H (0.8-1.3) mg/dL Est Cr Clr Drug Dosing 16.79 mL/min Estimated GFR (MDRD) 20.9 ml/min Glucose 170 H (74-106) mg/dL POC Glucose (70-99) mg/dL Calcium 8.6 (8.5-10.1) mg/dL Result Diagrams: 12/04/20 05:10 12/04/20 05:10 Nathaniel Results Last 24 hrs: Microbiology 12/02/20 15:10 Aerobic Blood Culture - Preliminary Blood - Venous NO GROWTH AFTER 1 DAY Anaerobic Blood Culture - Preliminary NO GROWTH AFTER 1 DAY 12/02/20 14:58 Aerobic Blood Culture - Preliminary Blood NO GROWTH AFTER 1 DAY Anaerobic Blood Culture - Preliminary NO GROWTH AFTER 1 DAY 12/01/20 10:52 Blood Culture Identification Panel - Preliminary Blood Gram Negative Rods 12/01/20 09:56 Blood Culture Identification Panel - Preliminary Blood Gram Negative Rods Sepsis Event Note - Evaluation Sepsis Screening Result: Severe Sepsis Risk - Focused Exam Vital Signs: Vital Signs Temp Pulse Resp BP Pulse Ox 12/04/20 03:00 97.9 F 92 18 135/53 L 94 L 12/03/20 23:00 97.9 F 92 16 92 L - Problem List & Annotations (1) Gram-negative bacteremia SNOMED Code(s): 209333866196 Code(s): R78.81 - BACTEREMIA Status: Acute Current Visit: Yes (2) Sepsis SNOMED Code(s): 20618318 Code(s): A41.9 - SEPSIS, UNSPECIFIED ORGANISM Status: Acute Current Visit: Yes Qualifiers: Sepsis type: sepsis due to unspecified organism Acute renal failure type: unspecified Severe sepsis shock status: without septic shock (3) UTI (urinary tract infection) SNOMED Code(s): 47167419 Code(s): N39.0 - URINARY TRACT INFECTION, SITE NOT SPECIFIED Status: Acute Current Visit: Yes Qualifiers: Urinary tract infection type: catheter-associated UTI Indwelling urinary catheter type: indwelling urethral catheter Encounter type: initial encounter Qualified Code(s): T83.511A - Infection and inflammatory reaction due to ind welling urethral catheter, initial encounter; N39.0 - Urinary tract infection, site not specified (4) Dehydration SNOMED Code(s): 19407604 Code(s): E86.0 - DEHYDRATION Status: Acute Current Visit: Yes (5) Acute kidney injury SNOMED Code(s): 43221539, 69633806 Code(s): N17.9 - ACUTE KIDNEY FAILURE, UNSPECIFIED Status: Acute Current Visit: Yes (6) Anemia SNOMED Code(s): 779074679 Code(s): D64.9 - ANEMIA, UNSPECIFIED Status: Chronic Current Visit: Yes (7) CAD (coronary artery disease) SNOMED Code(s): 81358591 Code(s): I25.10 - ATHSCL HEART DISEASE OF [place] CORONARY ARTERY W/O ANG PCTRS Status: Chronic Current Visit: Yes (8) CKD (chronic kidney disease) SNOMED Code(s): 629938950 Code(s): N18.9 - CHRONIC KIDNEY DISEASE, UNSPECIFIED Status: Chronic Current Visit: Yes (9) Sacral decubitus ulcer, stage II SNOMED Code(s): 460482984, 094238012 Code(s): L89.152 - PRESSURE ULCER OF [place], STAGE 2 Status: Chronic Current Visit: Yes (10) CHF (congestive heart failure) SNOMED Code(s): 05901907 Code(s): I50.9 - HEART FAILURE, UNSPECIFIED Status: Chronic Current Visit: No Qualifiers: Heart failure chronicity: chronic (11) DM type 2 (diabetes mellitus, type 2) SNOMED Code(s): 58528247 Code(s): E11.9 - TYPE 2 DIABETES MELLITUS WITHOUT COMPLICATIONS Status: Chronic Priority: Medium Current Visit: No Qualifiers: Diabetes mellitus terminal clerk insulin use: without [place] [facility] use Diabetes mellitus complication status: with hyperglycemia Qualified Code(s): E11.65 - Type 2 diabetes mellitus with hyperglycemia (12) Dementia SNOMED Code(s): 71140187 Code(s): F03.90 - UNSPECIFIED DEMENTIA WITHOUT BEHAVIORAL DISTURBANCE Status: Chronic Current Visit: No Qualifiers: Alzheimer's disease onset: unspecified onset Dementia behavioral disturbance: without behavioral disturbance (13) Generalized weakness SNOMED Code(s): 26053705 Code(s): R53.1 - WEAKNESS Status: Chronic Current Visit: No (14) HTN (hypertension) SNOMED Code(s): 48389497 Code(s): I10 - ESSENTIAL (PRIMARY) HYPERTENSION Status: Chronic Current Visit: No (15) Palliative care status SNOMED Code(s): 922620730 Code(s): Z51.5 - ENCOUNTER FOR PALLIATIVE CARE Status: Acute Current Visit: Yes - Problem List Review Problem List Initiated/Reviewed/Updated: Yes - My Orders Last 24 Hours: My Active Orders 12/03/20 11:31 Consult to Wound Care Services [CONS] Routine 12/03/20 13:48 Daily Weight [Height and Weight] [RC] DAILY 12/03/20 13:49 Turn and Reposition [RC] Q2HR 12/05/20 05:11 BASIC METABOLIC PANEL,BMP [CHEM] AM CBC WITH AUTO DIFF [HEME] AM 12/06/20 05:11 BASIC METABOLIC PANEL,BMP [CHEM] AM CBC WITH AUTO DIFF [HEME] AM - Plan Plan:: 85 y/o M admitted for sepsis, ARF, likely pre-renal 1. E. coli bacteremia/sepsis/UTI secondary to indwelling Villarreal catheter -More alert today, -Catheter switched out on admission -Blood pressures remain stable. -Continue meropenem and DC vancomycin -Blood cultures returned 4/4 positive for E. coli, UC reveals group B strep and gram negative coby -Repeat blood cultures negative x2 day -Spoke with son, Lobo Aleman [phone]. He requested no aggressive treatment management as well as no transfer to outside facility if Ruslan were co ntinue to worsen. He declined any treatment with vasopressors or central line at this time. We did discuss that if Ruslan continues to worsen he likely will not survive this. He agrees with current management of IV fluids as well as IV antibiotics. If patient continues to worsen we will contact Lobo and likely arrange for comfort measures. -Patient palliative care at this time as patient family is declining any aggressive management or transfer. 2. COREY on CKD -Continued improvement -Continue Villarreal catheter cares -Avoid nephrotoxic medications -Monitor creatinine daily 3. DM type II -Check blood sugars 3 times daily AC -ADA diet -Insulin sliding scale 4. CHF/HTN -Holding medications at this time due to hypotension and sepsis -Monitor CHF closely 5. Dementia -Continue Seroquel and sertraline 6. BPH urinary retention -Continue Villarreal catheter -Hold Flomax due to hypotension 7. Stage II decubitus ulcer/heel -Allevyn dressing in place was present on admission -Nursing notified providers today regarding continued opening. -Consult wound care GI prophylaxis: Protonix VTE prophylaxis: Heparin CODE STATUS: DNR/DNI Dispo: 2 to 3 days pending improvement
[2020-12-04] MEDS: Insulin Aspart 100 Units/ML 3 ML Pen SUBCUT SCH ×3 (08:46→17:33)
[2020-12-04] MEDS: QUEtiapine 100 MG Tab PO SCH (08:47)
[2020-12-04] MEDS: Sertraline 100 MG Tab PO SCH (08:47)
[2020-12-04] MEDS: Brimonidine 0.15% Ophth Soln 5 ML Bottle EYEBOTH SCH (08:49)
[2020-12-04] MEDS: Carboxymethylcellulose Sodium 0.5% Ophth Soln 0.4 ML UD Box of 30 EYEBOTH SCH ×2 (08:50→23:18)
[2020-12-04] MEDS: Meropenem Premix 1 GM in Premix Bag 1 BAG IV SCH (11:28)
[2020-12-04] MEDS: Heparin Sodium 5,000 Units/ML Vial SUBCUT SCH ×3 (13:29→23:18)
[2020-12-04] MEDS: Pantoprazole 40 MG Vial IV SCH (14:46)
[2020-12-04] MEDS: Latanoprost 0.005% Ophth Soln 2.5 ML Bottle EYEBOTH SCH (23:17)
[2020-12-05 06:20] LABS: CARBON DIOXIDE,CO2 22.8 mmol/L (21.0-32.0); POTASSIUM,K 3.8 mmol/L (3.5-5.1)
[2020-12-05] MEDS: Heparin Sodium 5,000 Units/ML Vial SUBCUT SCH ×3 (06:33→21:30)
--- NOTE | 2020-12-05 07:51 | PCM.PN ---
- General Info Date of Service: 12/05/20 Admission Dx/Problem (Free Text): Admission Diagnosis/Problem Admission Diagnosis/Problem Sepsis, E coli bacteremia Subjective Update: Feeling well today, no concerns. Eager to go home when possible Functional Status: Reports: Pain Controlled, Tolerating Diet, Ambulating, Urinating - Review of Systems General: Reports: No Symptoms. Denies: Weakness, Fatigue HEENT: Reports: No Symptoms. Denies: Headaches, Visual Changes Pulmonary: Reports: No Symptoms. Denies: Shortness of Breath Cardiovascular: Reports: No Symptoms. Denies: Chest Pain Gastrointestinal: Reports: No Symptoms. Denies: Abdominal Pain, Nausea, Vomiting Genitourinary: Reports: No Symptoms. Denies: Dysuria, Frequency Musculoskeletal: Reports: No Symptoms Skin: Reports: No Symptoms Neurological: Reports: No Symptoms Psychiatric: Reports: No Symptoms - Patient Data Vitals - Most Recent: Last Vital Signs Temp 97.9 F 12/05/20 03:00 Pulse 92 12/05/20 03:00 Resp 20 12/04/20 23:21 BP 136/59 L 12/05/20 03:00 Pulse Ox 93 L 12/04/20 23:21 Weight - Most Recent: 108.409 kg I&O - Last 24 Hours: Intake & Output 12/04/20 12/05/20 12/05/20 22:59 06:59 14:59 Intake Total 1050 240 Output Total 1000 950 Balance 50 -710 Lab Results Last 24 Hours: Laboratory Results - last 24 hr 12/04/20 12/04/20 12/04/20 Range/Units 08:44 12:14 12:29 WBC (4.0-11.0) K/uL RBC (4.50-5.90) M/uL Hgb (13.0-17.0) g/dL Hct (38.0-50.0) % MCV (80.0-98.0) fL MCH (27.0-32.0) pg MCHC (31.0-37.0) g/dL RDW Std Deviation (28.0-62.0) fl RDW Coeff of [place] (11.0-15.0) % Plt Count (150-400) K/uL MPV (7.40-12.00) fL Neut % (Auto) (48.0-80.0) % Lymph % (Auto) (16.0-40.0) % [place] % (Auto) (0.0-15.0) % Eos % (Auto) (0.0-7.0) % Baso % (Auto) (0.0-1.5) % Neut # (Auto) (1.4-5.7) K/uL Lymph # (Auto) (0.6-2.4) K/uL [place] # (Auto) (0.0-0.8) K/uL Eos # (Auto) (0.0-0.7) K/uL Baso # (Auto) (0.0-0.1) K/uL Nucleated RBC % /100WBC Nucleated RBCs # K/uL Sodium (136-148) mmol/L Potassium (3.5-5.1) mmol/L Chloride (98-107) mmol/L Carbon Dioxide (21.0-32.0) mmol/L BUN (7.0-18.0) mg/dL Creatinine (0.8-1.3) mg/dL Est Cr Clr Drug Dosing mL/min Estimated GFR (MDRD) ml/min Glucose (74-106) mg/dL POC Glucose 168 H 223 H 214 H (70-99) mg/dL Calcium (8.5-10.1) mg/dL 12/04/20 12/05/20 12/05/20 Range/Units 17:29 05:25 05:25 WBC 13.08 H (4.0-11.0) K/uL RBC 2.94 L (4.50-5.90) M/uL Hgb 8.6 L (13.0-17.0) g/dL Hct 27.8 L (38.0-50.0) % MCV 94.6 (80.0-98.0) fL MCH 29.3 (27.0-32.0) pg MCHC 30.9 L (31.0-37.0) g/dL RDW Std Deviation 49.3 (28.0-62.0) fl RDW Coeff of [place] 14 (11.0-15.0) % Plt Count 242 (150-400) K/uL MPV 10.40 (7.40-12.00) fL Neut % (Auto) 74.7 (48.0-80.0) % Lymph % (Auto) 14.3 L (16.0-40.0) % [place] % (Auto) 7.4 (0.0-15.0) % Eos % (Auto) 3.4 (0.0-7.0) % Baso % (Auto) 0.2 (0.0-1.5) % Neut # (Auto) 9.8 H (1.4-5.7) K/uL Lymph # (Auto) 1.9 (0.6-2.4) K/uL [place] # (Auto) 1.0 H (0.0-0.8) K/uL Eos # (Auto) 0.5 (0.0-0.7) K/uL Baso # (Auto) 0.0 (0.0-0.1) K/uL Nucleated RBC % 0.0 /100WBC Nucleated RBCs # 0 K/uL Sodium 144 (136-148) mmol/L Potassium 3.8 (3.5-5.1) mmol/L Chloride 112 H (98-107) mmol/L Carbon Dioxide 22.8 (21.0-32.0) mmol/L BUN 69 H (7.0-18.0) mg/dL Creatinine 2.3 H (0.8-1.3) mg/dL Est Cr Clr Drug Dosing 21.17 mL/min Estimated GFR (MDRD) 27.3 ml/min Glucose 175 H (74-106) mg/dL POC Glucose 198 H (70-99) mg/dL Calcium 8.4 L (8.5-10.1) mg/dL 12/05/20 Range/Units 07:27 WBC (4.0-11.0) K/uL RBC (4.50-5.90) M/uL Hgb (13.0-17.0) g/dL Hct (38.0-50.0) % MCV (80.0-98.0) fL MCH (27.0-32.0) pg MCHC (31.0-37.0) g/dL RDW Std Deviation (28.0-62.0) fl RDW Coeff of [place] (11.0-15.0) % Plt Count (150-400) K/uL MPV (7.40-12.00) fL Neut % (Auto) (48.0-80.0) % Lymph % (Auto) (16.0-40.0) % [place] % (Auto) (0.0-15.0) % Eos % (Auto) (0.0-7.0) % Baso % (Auto) (0.0-1.5) % Neut # (Auto) (1.4-5.7) K/uL Lymph # (Auto) (0.6-2.4) K/uL [place] # (Auto) (0.0-0.8) K/uL Eos # (Auto) (0.0-0.7) K/uL Baso # (Auto) (0.0-0.1) K/uL Nucleated RBC % /100WBC Nucleated RBCs # K/uL Sodium (136-148) mmol/L Potassium (3.5-5.1) mmol/L Chloride (98-107) mmol/L Carbon Dioxide (21.0-32.0) mmol/L BUN (7.0-18.0) mg/dL Creatinine (0.8-1.3) mg/dL Est Cr Clr Drug Dosing mL/min Estimated GFR (MDRD) ml/min Glucose (74-106) mg/dL POC Glucose 163 H (70-99) mg/dL Calcium (8.5-10.1) mg/dL Nathaniel Results Last 24 Hours: Microbiology 12/02/20 15:10 Aerobic Blood Culture - Preliminary Blood - Venous NO GROWTH AFTER 2 DAYS Anaerobic Blood Culture - Preliminary NO GROWTH AFTER 2 DAYS 12/02/20 14:58 Aerobic Blood Culture - Preliminary Blood NO GROWTH AFTER 2 DAYS Anaerobic Blood Culture - Preliminary NO GROWTH AFTER 2 DAYS 12/01/20 09:58 Urine Culture - Preliminary Urine Gram Negative Rods Beta Streptococcus Group C 12/01/20 10:52 Blood Culture Identification Panel - Preliminary Blood Escherichia Coli 12/01/20 09:56 Blood Culture Identification Panel - Preliminary Blood Escherichia Coli Med Orders - Current: Current Medications Acetaminophen (Acetaminophen 325 Mg Tab) 650 mg PO Q4H PRN PRN Reason: fever/pain Albuterol/Ipratropium (Albuterol/Ipratropium 3.0-0.5 Mg/3 Ml Neb Soln) 3 ml NEB Q4HRRT PRN PRN Reason: Shortness Of Breath/wheezing Artificial Tears (Carboxymethylcellulose Sodium 0.5% Ophth Soln 0.4 Ml Ud Box Of 30) 0 each EYEBOTH BID [facility] Last Admin: 12/04/20 23:18 Dose: 1 applic Documented by: Brimonidine Tartrate (Brimonidine 0.15% Ophth Soln 5 Ml Bottle) 0 ml EYEBOTH QAM [facility] Last Admin: 12/04/20 08:49 Dose: Not Given Documented by: Dextrose/Water (50% Dextrose In Water 50 Ml Syringe) 50 ml IVPUSH ASDIRECTED PRN PRN Reason: Hypoglycemia Glucagon (Glucagon,Human Recombinant 1 Mg Vial) 1 mg IM ASDIRECTED PRN PRN Reason: Hypoglycemia Heparin Sodium (Porcine) (Heparin Sodium 5,000 Units/Ml Vial) 5,000 units SUBCUT Q8H [facility] Last Admin: 12/05/20 06:33 Dose: 5,000 units Documented by: Meropenem/Sodium Chloride 1 gm (/ Premix) 50 mls @ 100 mls/hr IV Q24H [facility] Last Admin: 12/04/20 11:28 Dose: 100 mls/hr Documented by: Insulin Aspart (Insulin Aspart 100 Units/Ml 3 Ml Pen) 0 unit SUBCUT TIDAC [facility]; Protocol Last Admin: 12/04/20 17:33 Dose: 1 unit Documented by: Latanoprost (Latanoprost 0.005% Ophth Soln 2.5 Ml Bottle) 0 ml EYEBOTH BEDTIME [facility] Last Admin: 12/04/20 23:17 Dose: 1 drop Documented by: Nystatin (Nystatin Topical Powder 15 Gm Bottle) 0 gm TOP TID PRN PRN Reason: RASH Last Admin: 12/03/20 01:00 Dose: 1 gm Documented by: Ondansetron HCl (Ondansetron 4 Mg/2 Ml Sdv) 4 mg IVPUSH Q4H PRN PRN Reason: Nausea/Vomiting Pantoprazole Sodium (Pantoprazole 40 Mg Vial) 40 mg IV Q24H [facility] Last Admin: 12/04/20 14:46 Dose: 40 mg Documented by: Quetiapine Fumarate (Quetiapine 100 Mg Tab) [facility] [place] Last Admin: 12/04/20 08:47 Dose: 200 mg Documented by: Sertraline HCl (Sertraline 100 Mg Tab) 100 mg PO QAM [facility] Last Admin: 12/04/20 08:47 Dose: 100 mg Documented by: Sodium Chloride (Sodium Chloride 0.9% 10 Ml Syringe) 10 ml FLUSH ASDIRECTED PRN PRN Reason: Keep Vein Open Last Admin: 12/01/20 10:41 Dose: 10 ml Documented by: Sodium Chloride (Sodium Chloride 0.9% 2.5 Ml Syringe) 2.5 ml FLUSH ASDIRECTED PRN PRN Reason: Keep Vein Open Last Admin: 12/01/20 10:41 Dose: 2.5 ml Documented by: Discontinued Medications Sodium Chloride (Normal Saline) 1,000 mls @ 999 mls/hr IV .Bolus ONE Stop: 12/01/20 11:17 Last Admin: 12/01/20 10:41 Dose: 999 mls/hr Documented by: Ceftriaxone Sodium/Dextrose 1 (gm/ Premix) 50 mls @ 100 mls/hr IV ONETIME ONE Stop: 12/01/20 11:38 Last Admin: 12/01/20 11:12 Dose: 100 mls/hr Documented by: Sodium Chloride (Normal Saline) 1,000 mls @ 999 mls/hr IV .Bolus ONE Stop: 12/01/20 12:44 Last Admin: 12/01/20 11:50 Dose: 999 mls/hr Documented by: Lactated Ringer's (Ringers, Lactated) 1,000 mls @ 125 mls/hr IV ASDIRECTED [facility] Last Admin: 12/03/20 07:26 Dose: 125 mls/hr Documented by: Piperacillin Sod/Tazobactam (Sod 3.375 gm/ Sodium Chloride) 50 mls @ 100 mls/hr IV Q8H [facility] Last Admin: 12/01/20 15:49 Dose: Not Given Documented by: Piperacillin Sod/Tazobactam (Sod 2.25 gm/ Sodium Chloride) 50 mls @ 100 mls/hr IV Q8H [facility] Last Admin: 12/02/20 09:23 Dose: 100 mls/hr Documented by: Vancomycin HCl 1.5 gm/ Premix 300 mls @ 200 mls/hr IV Q48H [facility] Last Admin: 12/03/20 15:35 Dose: 200 mls/hr Documented by: Sodium Chloride (Normal Saline) 500 mls @ 999 mls/hr IV .BOLUS [facility] Last Admin: 12/02/20 11:04 Dose: 999 mls/hr Documented by: Lactated Ringer's (Ringers, Lactated) 1,000 mls @ 999 mls/hr IV .BOLUS ONE Stop: 12/02/20 13:08 Last Admin: 12/02/20 13:02 Dose: 999 mls/hr Documented by: Tamsulosin HCl (Tamsulosin 0.4 Mg Cap.Er) 0.4 mg PO DAILY [facility] Last Admin: 12/02/20 10:24 Dose: 0.4 mg Documented by: Vancomycin HCl (Pharmacy To Dose - Vancomycin) 0 dose .XX ASDIRECTED [facility] - Exam Urinary Catheter Total Time: 3Days 16Hours General: Alert, Oriented, Cooperative, No Acute Distress Lungs: Clear to Auscultation, Normal Respiratory Effort Cardiovascular: Regular Rate, Regular Rhythm GI/Abdominal Exam: Normal Bowel Sounds, Soft Back Exam: Normal Inspection, Full Range of Motion Extremities: Normal Inspection, Normal Range of Motion, Non-Tender, Pedal Edema (+2 pitting BLE) Wound/Incisions: Decubitis, Other (heel ulcer) Neurological: No New Focal Deficit Psy/Mental Status: Alert, Normal Mood, Homicidal Ideation - Patient Data Lab Results Last 24 hrs: Laboratory Results - last 24 hr 12/04/20 12/04/20 12/04/20 Range/Units 08:44 12:14 12:29 WBC (4.0-11.0) K/uL RBC (4.50-5.90) M/uL Hgb (13.0-17.0) g/dL Hct (38.0-50.0) % MCV (80.0-98.0) fL MCH (27.0-32.0) pg MCHC (31.0-37.0) g/dL RDW Std Deviation (28.0-62.0) fl RDW Coeff of [place] (11.0-15.0) % Plt Count (150-400) K/uL MPV (7.40-12.00) fL Neut % (Auto) (48.0-80.0) % Lymph % (Auto) (16.0-40.0) % [place] % (Auto) (0.0-15.0) % Eos % (Auto) (0.0-7.0) % Baso % (Auto) (0.0-1.5) % Neut # (Auto) (1.4-5.7) K/uL Lymph # (Auto) (0.6-2.4) K/uL [place] # (Auto) (0.0-0.8) K/uL Eos # (Auto) (0.0-0.7) K/uL Baso # (Auto) (0.0-0.1) K/uL Nucleated RBC % /100WBC Nucleated RBCs # K/uL Sodium (136-148) mmol/L Potassium (3.5-5.1) mmol/L Chloride (98-107) mmol/L Carbon Dioxide (21.0-32.0) mmol/L BUN (7.0-18.0) mg/dL Creatinine (0.8-1.3) mg/dL Est Cr Clr Drug Dosing mL/min Estimated GFR (MDRD) ml/min Glucose (74-106) mg/dL POC Glucose 168 H 223 H 214 H (70-99) mg/dL Calcium (8.5-10.1) mg/dL 12/04/20 12/05/20 12/05/20 Range/Units 17:29 05:25 05:25 WBC 13.08 H (4.0-11.0) K/uL RBC 2.94 L (4.50-5.90) M/uL Hgb 8.6 L (13.0-17.0) g/dL Hct 27.8 L (38.0-50.0) % MCV 94.6 (80.0-98.0) fL MCH 29.3 (27.0-32.0) pg MCHC 30.9 L (31.0-37.0) g/dL RDW Std Deviation 49.3 (28.0-62.0) fl RDW Coeff of [place] 14 (11.0-15.0) % Plt Count 242 (150-400) K/uL MPV 10.40 (7.40-12.00) fL Neut % (Auto) 74.7 (48.0-80.0) % Lymph % (Auto) 14.3 L (16.0-40.0) % [place] % (Auto) 7.4 (0.0-15.0) % Eos % (Auto) 3.4 (0.0-7.0) % Baso % (Auto) 0.2 (0.0-1.5) % Neut # (Auto) 9.8 H (1.4-5.7) K/uL Lymph # (Auto) 1.9 (0.6-2.4) K/uL [place] # (Auto) 1.0 H (0.0-0.8) K/uL Eos # (Auto) 0.5 (0.0-0.7) K/uL Baso # (Auto) 0.0 (0.0-0.1) K/uL Nucleated RBC % 0.0 /100WBC Nucleated RBCs # 0 K/uL Sodium 144 (136-148) mmol/L Potassium 3.8 (3.5-5.1) mmol/L Chloride 112 H (98-107) mmol/L Carbon Dioxide 22.8 (21.0-32.0) mmol/L BUN 69 H (7.0-18.0) mg/dL Creatinine 2.3 H (0.8-1.3) mg/dL Est Cr Clr Drug Dosing 21.17 mL/min Estimated GFR (MDRD) 27.3 ml/min Glucose 175 H (74-106) mg/dL POC Glucose 198 H (70-99) mg/dL Calcium 8.4 L (8.5-10.1) mg/dL 12/05/20 Range/Units 07:27 WBC (4.0-11.0) K/uL RBC (4.50-5.90) M/uL Hgb (13.0-17.0) g/dL Hct (38.0-50.0) % MCV (80.0-98.0) fL MCH (27.0-32.0) pg MCHC (31.0-37.0) g/dL RDW Std Deviation (28.0-62.0) fl RDW Coeff of [place] (11.0-15.0) % Plt Count (150-400) K/uL MPV (7.40-12.00) fL Neut % (Auto) (48.0-80.0) % Lymph % (Auto) (16.0-40.0) % [place] % (Auto) (0.0-15.0) % Eos % (Auto) (0.0-7.0) % Baso % (Auto) (0.0-1.5) % Neut # (Auto) (1.4-5.7) K/uL Lymph # (Auto) (0.6-2.4) K/uL [place] # (Auto) (0.0-0.8) K/uL Eos # (Auto) (0.0-0.7) K/uL Baso # (Auto) (0.0-0.1) K/uL Nucleated RBC % /100WBC Nucleated RBCs # K/uL Sodium (136-148) mmol/L Potassium (3.5-5.1) mmol/L Chloride (98-107) mmol/L Carbon Dioxide (21.0-32.0) mmol/L BUN (7.0-18.0) mg/dL Creatinine (0.8-1.3) mg/dL Est Cr Clr Drug Dosing mL/min Estimated GFR (MDRD) ml/min Glucose (74-106) mg/dL POC Glucose 163 H (70-99) mg/dL Calcium (8.5-10.1) mg/dL Result Diagrams: 12/05/20 05:25 12/05/20 05:25 Nathaniel Results Last 24 hrs: Microbiology 12/02/20 15:10 Aerobic Blood Culture - Preliminary Blood - Venous NO GROWTH AFTER 2 DAYS Anaerobic Blood Culture - Preliminary NO GROWTH AFTER 2 DAYS 12/02/20 14:58 Aerobic Blood Culture - Preliminary Blood NO GROWTH AFTER 2 DAYS Anaerobic Blood Culture - Preliminary NO GROWTH AFTER 2 DAYS 12/01/20 09:58 Urine Culture - Preliminary Urine Gram Negative Rods Beta Streptococcus Group C 12/01/20 10:52 Blood Culture Identification Panel - Preliminary Blood Escherichia Coli 12/01/20 09:56 Blood Culture Identification Panel - Preliminary Blood Escherichia Coli Sepsis Event Note - Evaluation Sepsis Screening Result: No Definite Risk - Focused Exam Vital Signs: Vital Signs Temp Pulse Resp BP Pulse Ox 12/05/20 03:00 97.9 F 92 136/59 L 12/04/20 23:21 97.5 F 94 20 93 L - Problem List & Annotations (1) Gram-negative bacteremia SNOMED Code(s): 705228304376 Code(s): R78.81 - BACTEREMIA Status: Acute Current Visit: Yes (2) Sepsis SNOMED Code(s): 94912795 Code(s): A41.9 - SEPSIS, UNSPECIFIED ORGANISM Status: Acute Current V isit: Yes Qualifiers: Sepsis type: sepsis due to unspecified organism Acute renal failure type: unspecified Severe sepsis shock status: without septic shock (3) UTI (urinary tract infection) SNOMED Code(s): 32460361 Code(s): N39.0 - URINARY TRACT INFECTION, SITE NOT SPECIFIED Status: Acute Current Visit: Yes Qualifiers: Urinary tract infection type: catheter-associated UTI Indwelling urinary catheter type: indwelling urethral catheter Encounter type: initial encounter Qualified Code(s): T83.511A - Infection and inflammatory reaction due to indwelling urethral catheter, initial encounter; N39.0 - Urinary tract infection, site not specified (4) Dehydration SNOMED Code(s): 71127008 Code(s): E86.0 - DEHYDRATION Status: Acute Current Visit: Yes (5) Acute kidney injury SNOMED Code(s): 23560734, 72228303 Code(s): N17.9 - ACUTE KIDNEY FAILURE, UNSPECIFIED Status: Acute Current Visit: Yes (6) Anemia SNOMED Code(s): 041147173 Code(s): D64.9 - ANEMIA, UNSPECIFIED Status: Chronic Current Visit: Yes (7) CAD (coronary artery disease) SNOMED Code(s): 10540814 Code(s): I25.10 - ATHSCL HEART DISEASE OF [place] CORONARY ARTERY W/O ANG PCTRS Status: Chronic Current Visit: Yes (8) CKD (chronic kidney disease) SNOMED Code(s): 720865328 Code(s): N18.9 - CHRONIC KIDNEY DISEASE, UNSPECIFIED Status: Chronic Current Visit: Yes (9) Sacral decubitus ulcer, stage II SNOMED Code(s): 400916316, 475296626 Code(s): L89.152 - PRESSURE ULCER OF [place]CR[place] REG[place], STAGE 2 Status: Chronic Current Visit: Yes (10) CHF (congestive heart failure) SNOMED Code(s): 43870224 Code(s): I50.9 - HEART FAILURE, UNSPECIFIED Status: Chronic Current Visit: No Qualifiers: Heart failure chronicity: chronic (11) DM type 2 (diabetes mellitus, type 2) SNOMED Code(s): 29796647 Code(s): E11.9 - TYPE 2 DIABETES MELLITUS WITHOUT COMPLICATIONS Status: Chronic Priority: Medium Current Visit: No Qualifiers: Diabetes mellitus retirement insulin use: without exterminator helper termite use Diabetes mellitus complication status: with hyperglycemia Qualified Code(s): E11.65 - Type 2 diabetes mellitus with hyperglycemia (12) Dementia SNOMED Code(s): 14109976 Code(s): F03.90 - UNSPECIFIED DEMENTIA WITHOUT BEHAVIORAL DISTURBANCE Status: Chronic Current Visit: No Qualifiers: Alzheimer's disease onset: unspecified onset Dementia behavioral disturbance: without behavioral disturbance (13) Generalized weakness SNOMED Code(s): 82830263 Code(s): R53.1 - WEAKNESS Status: Chronic Current Visit: No (14) HTN (hypertension) SNOMED Code(s): 62546749 Code(s): I10 - ESSENTIAL (PRIMARY) HYPERTENSION Status: Chronic Current Visit: No (15) Palliative care status SNOMED Code(s): 522126339 Code(s): Z51.5 - ENCOUNTER FOR PALLIATIVE CARE Status: Acute Current Visit: Yes - Problem List Review Problem List Initiated/Reviewed/Updated: Yes - My Orders Last 24 Hours: My Active Orders 12/06/20 05:11 BASIC METABOLIC PANEL,BMP [CHEM] AM CBC WITH AUTO DIFF [HEME] AM - Plan Plan:: 85 y/o M admitted for sepsis, ARF, likely pre-renal 1. E. coli bacteremia/sepsis/UTI secondary to indwelling Villarreal catheter -More alert today, -Catheter switched out on admission -Blood pressures remain stable. -Stop Meropenem - Start oral Levaquin 750 mg PO today monitor labs and consider DC to [facility] in am -Blood cultures returned 4/4 positive for E. coli, UC reveals group B strep and gram negative coby -Repeat blood cultures negative x2 day -Spoke with son, Lobo Aleman [phone]. He requested no aggressive treatment management as well as no transfer to outside facility if Ruslan were continue to worsen. He declined any treatment with vasopressors or central line at this time. We did discuss that if Ruslan continues to worsen he likely will not survive this. He agrees with current management of IV fluids as well as IV antibiotics. If patient continues to worsen we will contact Lobo and likely arrange for comfort measures. -Patient palliative care at this time as patient family is declining any aggressive management or transfer. 2. COREY on CKD -Continued improvement -Continue Villarreal catheter cares -Avoid nephrotoxic medications -Monitor creatinine daily 3. DM type II -Check blood sugars 3 times daily AC -ADA diet -Insulin sliding scale 4. CHF/HTN -Holding medications at this time due to hypotension and sepsis -Monitor CHF closely 5. Dementia -Continue Seroquel and sertraline 6. BPH urinary retention -Continue Villarreal catheter -Hold Flomax due to hypotension 7. Stage II decubitus ulcer/heel -Allevyn dressing in place was present on admission -Nursing notified providers today regarding continued opening. -Consult wound care GI prophylaxis: Protonix VTE prophylaxis: Heparin CODE STATUS: DNR/DNI Dispo: possible DC in am to [facility]
[2020-12-05] MEDS: QUEtiapine 100 MG Tab PO SCH (09:11)
[2020-12-05] MEDS: Insulin Aspart 100 Units/ML 3 ML Pen SUBCUT SCH ×3 (09:11→18:13)
[2020-12-05] MEDS: Sertraline 100 MG Tab PO SCH (09:13)
[2020-12-05] MEDS: Carboxymethylcellulose Sodium 0.5% Ophth Soln 0.4 ML UD Box of 30 EYEBOTH SCH ×2 (09:15→21:26)
[2020-12-05] MEDS: Brimonidine 0.15% Ophth Soln 5 ML Bottle EYEBOTH SCH (09:45)
[2020-12-05] MEDS ORDERED: Levofloxacin 750 MG Tab PO SCH (11:30)
[2020-12-05] MEDS: Pantoprazole 40 MG Vial IV SCH (14:54)
[2020-12-05] MEDS: Latanoprost 0.005% Ophth Soln 2.5 ML Bottle EYEBOTH SCH (21:27)
[2020-12-06] MEDS: Heparin Sodium 5,000 Units/ML Vial SUBCUT SCH (06:21)
[2020-12-06 06:28] LABS: CARBON DIOXIDE,CO2 24.1 mmol/L (21.0-32.0); POTASSIUM,K 3.8 mmol/L (3.5-5.1)
[2020-12-06 07:52] VITALS: BP 139/75; PULSE 83
[2020-12-06] MEDS: Insulin Aspart 100 Units/ML 3 ML Pen SUBCUT SCH (08:30)
[2020-12-06] MEDS: Brimonidine 0.15% Ophth Soln 5 ML Bottle EYEBOTH SCH (08:31)
[2020-12-06] MEDS: Carboxymethylcellulose Sodium 0.5% Ophth Soln 0.4 ML UD Box of 30 EYEBOTH SCH (08:32)
[2020-12-06] MEDS: Sertraline 100 MG Tab PO SCH (08:36)
[2020-12-06] MEDS: QUEtiapine 100 MG Tab PO SCH (08:36)
--- NOTE | 2020-12-06 10:45 | PCM.DCSUM1 ---
Discharge Summary - Hospital Course Brief History: This 85 year old male with pmh of Heart Failure, High Cholesterol, Hypertension, MS, Stents, on home oxygen, dementia, DM , who came from [place] via EMS secondary to confusion, decreased p.o. intake, decreased urinary output x2 to 3 days. In the ER patient was able to answer few questions appropriately, Patient denies any recent fevers,abdominal pain, vomiting or diarrhea. Patient reports slight cough and chills. Patient denies any chest pain. Patient reports that he had decreased appetite but has been able to drink liquids. Patient does have a history significant for UTI in the past with a chronic indwelling Villarreal catheter. Per records from [place], patient is DNR/DNI. In the ER patient was found to be in sepsis with tachycardia, significant leucocytosis, with urine as source, patient had significant COREY over CKD with creatinine of 4.8. Patient was making good urine though. Patient received IV fluids and IV antibiotics and was admitted for further management. Diagnosis: Stroke: No - Discharge Data Discharge Date: 12/06/20 Discharge Disposition: DC/Tfer to SNF 03 Condition: Stable - Referral to [facility] Primary Care Physician: Adis Mendoza MD - Discharge Diagnosis/Problem(s) (1) Gram-negative bacteremia SNOMED Code(s): 583180298866 ICD Code: R78.81 - BACTEREMIA Status: Acute (2) Sepsis SNOMED Code(s): 70524928 ICD Code: A41.9 - SEPSIS, UNSPECIFIED ORGANISM Status: Acute Qualifiers: Sepsis type: sepsis due to unspecified organism Acute renal failure type: unspecified Severe sepsis shock status: without septic shock (3) UTI (urinary tract infection) SNOMED Code(s): 69480598 ICD Code: N39.0 - URINARY TRACT INFECTION, SITE NOT SPECIFIED Status: Acute Qualifiers: Urinary tract infection type: catheter-associated UTI Indwelling urinary catheter type: indwelling urethral catheter Encounter type: initial encounter Qualified Code(s): T83.511A - Infection and inflammatory reaction due to indwelling urethral catheter, initial encounter; N39.0 - Urinary tract infection, site not specified (4) Dehydration SNOMED Code(s): 76228575 ICD Code: E86.0 - DEHYDRATION Status: Acute (5) Acute kidney injury SNOMED Code(s): 88978674, 14842699 ICD Code: N17.9 - ACUTE KIDNEY FAILURE, UNSPECIFIED Status: Acute (6) Anemia SNOMED Code(s): 499024565 ICD Code: D64.9 - ANEMIA, UNSPECIFIED Status: Chronic (7) CAD (coronary artery disease) SNOMED Code(s): 25156239 ICD Code: I25.10 - ATHSCL HEART DISEASE OF OSAGE CORONARY ARTERY W/O ANG PCTRS Status: Chronic (8) CKD (chronic kidney disease) SNOMED Code(s): 721713351 ICD Code: N18.9 - CHRONIC KIDNEY DISEASE, UNSPECIFIED Status: Chronic (9) Sacral decubitus ulcer, stage II SNOMED Code(s): 664628131, 674527294 ICD Code: L89.152 - PRESSURE ULCER OF SACRAL REGION, STAGE 2 Status: Chronic (10) CHF (congestive heart failure) SNOMED Code(s): 20303835 ICD Code: I50.9 - HEART FAILURE, UNSPECIFIED Status: Chronic Qualifiers: Heart failure chronicity: chronic (11) DM type 2 (diabetes mellitus, type 2) SNOMED Code(s): 06558613 ICD Code: E11.9 - TYPE 2 DIABETES MELLITUS WITHOUT COMPLICATIONS Status: Chronic Priority: Medium Qualifiers: Diabetes mellitus technician terminal and repeater insulin use: without halfway use Diabetes mellitus complication status: with hyperglycemia Qualified Code(s): E11.65 - Type 2 diabetes mellitus with hyperglycemia (12) Dementia SNOMED Code(s): 95482906 ICD Code: F03.90 - UNSPECIFIED DEMENTIA WITHOUT BEHAVIORAL DISTURBANCE Stat us: Chronic Qualifiers: Alzheimer's disease onset: unspecified onset Dementia behavioral disturbance: without behavioral disturbance (13) Generalized weakness SNOMED Code(s): 72510019 ICD Code: R53.1 - WEAKNESS Status: Chronic (14) HTN (hypertension) SNOMED Code(s): 69896046 ICD Code: I10 - ESSENTIAL (PRIMARY) HYPERTENSION Status: Chronic (15) Palliative care status SNOMED Code(s): 882910170 ICD Code: Z51.5 - ENCOUNTER FOR PALLIATIVE CARE Status: Acute - Patient Summary/Data Consults: Consultations 12/03/20 11:31 Consult to Wound Care Services [CONS] Routine Hospital Course: Admission diagnoses Sepsis UTI Acute kidney injury Altered mental status Stage II decubitus ulcer noninfected Stage II heel ulcer noninfected Palliative care Discharge diagnoses E. coli bacteremia E. coli UTI Altered mental status resolved Dehydration resolved Acute kidney injury resolved Other PMH CKD CAD CHF DM type II Dementia HTN Rus[facility] was admitted secondary to sepsis brought on by UTI from chronic Villarreal. Patient was found to have significant COREY on CKD. He was treated with cautious IV fluid resuscitation due to history of CHF. Patient was started on aggressive broad-spectrum antibiotics including vancomycin and meropenem. Blood cultures returned within the first 24 hours positive for gram-negative rods. Repeat blood cultures were obtained and monitored. Patient slowly and steadily improved. Fluid resuscitation was stopped on day 2 of admission due to risk of fluid overload. There was noticeable improvement in COREY. Diuretics and ARB held at this point due to continued softer blood pressures as well as COREY. Blood cultures returned E. coli which was sensitive to Carbapenem's. Resistant to cefazolin. Repeat blood cultures returned negative. Urine culture returned positive for same E. coli along with beta Streptococcus group C and other mixed gram-positive additional isolates. Vancomycin was discontinued. Patient was continued on meropenem until final blood cultures obtained showing pansensitive E. coli. Patient was then transition to Levaquin 750 mg every 48 hours. Leukocytosis continues to improve and this morning was 11,000. Patient became much more alert and oriented once infection under control. Patient's BUN and creatinine improved to 59 and 1.9 respectively. Patient will be discharged back to [facility] today. OSMANI Diamond and son, has been kept in the loop during admission. Patient was palliative care as he was requesting no aggressive management such as vasopressors or central line to be placed. Patient will continue Levaquin for another another 9 days to complete 14-day course for bacteremia. Patient's Lasix will be decreased to 40 mg twice daily with PCP to monitor peripheral edema. We will also hold off on losartan due to recent COREY as well as mild blood pressures upon discharge. Blood pressures have been sitting 120s to 130s over 80s. PCP notified of patient admission on day 2 of admission and is willing to receive patient back to [place] at this time. Patient to be discharged back to [facility] today. Return to the ER clinic if concerns should arise. - Patient Instructions Diet: Low Sodium, Diabetic Diet Diet, Other: regular texture, thin consistency Activity: As Tolerated Driving: Do Not Drive Showering/Bathing: May Shower Notify Provider of: Fever, Increased Pain, Swelling and Redness, Drainage, Nausea and/or Vomiting Other/Special Instructions: PT/OT evaluate and treat. Wound care nurse consult to evaluate and treat coccyx and heel ulcers. Villarreal care per policy of institution, change after 30 days and/or infection. Blood sugar checks before each meal - Discharge Plan *PRESCRIPTION DRUG MONITORING PROGRAM REVIEWED*: Not Applicable *COPY OF PRESCRIPTION DRUG MONITORING REPORT IN PATIENT FACUNDO: Not Applicable Prescriptions/Med Rec: levoFLOXacin [Levaquin] 750 mg PO Q48H #4 tablet Nystatin [Nystop] 100,000 unit TOP TID PRN #1 bottle PRN Reason: RASH Home Medications: Home Meds Rosuvastatin [Crestor] 20 mg PO BEDTIME 04/14/14 [History] Acetaminophen [Tactinal] 650 mg PO Q4H PRN 02/12/17 [History] Brimonidine Tartrate 1 drop EYEBOTH QAM 09/19/20 [History] Carboxymethylcellulose Sodium [Refresh Tears] 1 drop EYEBOTH BID 09/19/20 [History] Ferrous Sulfate 325 mg PO BID 09/19/20 [History] Furosemide [Lasix] 40 mg PO QPM 09/19/20 [History] Insulin Aspart [Insulin Aspart Flexpen] 0 unit SQ WITHMEALSANDBED 09/19/20 [History] Insuln Asp Prot/Insulin Aspart [NovoLOG Mix 70-30] 52 unit SQ QAM 09/19/20 [History] Omeprazole 20 mg PO DAILY 09/19/20 [History] Sertraline HCl 100 mg PO QAM 09/19/20 [History] Insuln Asp Prot/Insulin Aspart [NovoLOG Mix 70-30] 48 unit SQ QPM 10/19/20 [History] QUEtiapine [SEROquel] 200 mg PO QAM 10/19/20 [History] Latanoprost/Pf [Latanoprost 0.005% Eye Drop] 1 drop EYEBOTH BEDTIME 12/01/20 [History] Furosemide [Lasix] 40 mg PO QAM #0 12/05/20 [Rx] Nystatin [Nystop] 100,000 unit TOP TID PRN #1 bottle 12/05/20 [Rx] levoFLOXacin [Levaquin] 750 mg PO Q48H #4 tablet 12/05/20 [Rx] Oxygen Therapy Mode: Room Air Patient Handouts: Nystatin topical powder, Urinary Tract Infection, Adult, Levofloxacin tablets Referrals: Adis Mendoza MD [Primary Care Provider] - - Discharge Summary/Plan Comment DC Time >30 min.: No - Patient Data Vitals - Most Recent: Last Vital Signs Temp 98.0 F 12/06/20 07:51 Pulse 83 12/06/20 07:51 Resp 20 12/06/20 07:51 BP 139/75 12/06/20 07:51 Pulse Ox 94 L 12/06/20 07:51 Weight - Most Recent: 116 kg I&O - Last 24 hours: Intake & Output 12/05/20 12/06/20 12/06/20 22:59 06:59 14:59 Intake Total 760 660 Output Total 1000 1100 Balance -240 -440 Lab Results - Last 24 hrs: Laboratory Results - last 24 hr 12/05/20 12/05/20 12/06/20 Range/Units 11:11 17:31 05:23 WBC 11.35 H (4.0-11.0) K/uL RBC 2.99 L (4.50-5.90) M/uL Hgb 9.0 L (13.0-17.0) g/dL Hct 28.7 L (38.0-50.0) % MCV 96.0 (80.0-98.0) fL MCH 30.1 (27.0-32.0) pg MCHC 31.4 (31.0-37.0) g/dL RDW Std Deviation 49.6 (28.0-62.0) fl RDW Coeff of [place] 14 (11.0-15.0) % Plt Count 246 (150-400) K/uL MPV 10.70 (7.40-12.00) fL Add Manual Diff YES Neutrophils % (Manual) 64 (48.0-80.0) % Band Neutrophils % 13 % Lymphocytes % (Manual) 11 L (16.0-40.0) % Monocytes % (Manual) 11 (0.0-15.0) % Basophils % (Manual) 1 (0.0-1.5) % Nucleated RBC % 0.0 /100WBC Absolute Seg Neuts 7.3 H (1.4-5.7) Band Neutrophils # 1.5 Lymphocytes # (Manual) 1.2 (0.6-2.4) Monocytes # (Manual) 1.2 H (0.0-0.8) Basophils # (Manual) 0.1 (0.0-0.1) Nucleated RBCs # 0 K/uL Sodium (136-148) mmol/L Potassium (3.5-5.1) mmol/L Chloride (98-107) mmol/L Carbon Dioxide (21.0-32.0) mmol/L BUN (7.0-18.0) mg/dL Creatinine (0.8-1.3) mg/dL Est Cr Clr Drug Dosing mL/min Estimated GFR (MDRD) ml/min Glucose (74-106) mg/dL POC Glucose 220 H 200 H (70-99) mg/dL Calcium (8.5-10.1) mg/dL SARS-CoV-2 RNA ([place]) (NEGATIVE) 12/06/20 12/06/20 12/06/20 Range/Units 05:23 06:14 07:55 WBC (4.0-11.0) K/uL RBC (4.50-5.90) M/uL Hgb (13.0-17.0) g/dL Hct (38.0-50.0) % MCV (80.0-98.0) fL MCH (27.0-32.0) pg MCHC (31.0-37.0) g/dL RDW Std Deviation (28.0-62.0) fl RDW Coeff of [place] (11.0-15.0) % Plt Count (150-400) K/uL MPV (7.40-12.00) fL Add Manual Diff Neutrophils % (Manual) (48.0-80.0) % Band Neutrophils % % Lymphocytes % (Manual) (16.0-40.0) % Monocytes % (Manual) (0.0-15.0) % Basophils % (Manual) (0.0-1.5) % Nucleated RBC % /100WBC Absolute Seg Neuts (1.4-5.7) Band Neutrophils # Lymphocytes # (Manual) (0.6-2.4) Monocytes # (Manual) (0.0-0.8) Basophils # (Manual) (0.0-0.1) Nucleated RBCs # K/uL Sodium 145 (136-148) mmol/L Potassium 3.8 (3.5-5.1) mmol/L Chloride 113 H (98-107) mmol/L Carbon Dioxide 24.1 (21.0-32.0) mmol/L BUN 59 H (7.0-18.0) mg/dL Creatinine 1.9 H (0.8-1.3) mg/dL Est Cr Clr Drug Dosing 25.63 mL/min Estimated GFR (MDRD) 34.0 ml/min Glucose 209 H (74-106) mg/dL POC Glucose 183 H (70-99) mg/dL Calcium 8.5 (8.5-10.1) mg/dL SARS-CoV-2 RNA ([place]) NEGATIVE (NEGATIVE) TRISTEN Results - Last 24 hrs: Microbiology 12/02/20 15:10 Aerobic Blood Culture - Preliminary Blood - Venous NO GROWTH AFTER 3 DAYS Anaerobic Blood Culture - Preliminary NO GROWTH AFTER 3 DAYS 12/02/20 14:58 Aerobic Blood Culture - Preliminary Blood NO GROWTH AFTER 3 DAYS Anaerobic Blood Culture - Preliminary NO GROWTH AFTER 3 DAYS 12/01/20 09:58 Urine Culture - Final Urine Escherichia Coli Beta Streptococcus Group C Mixed Gram Positive Addl Isol 12/01/20 10:52 Blood Culture Identification Panel - Final Blood Escherichia Coli 12/01/20 09:56 Blood Culture Identification Panel - Final Blood Escherichia Coli Med Orders - Current: Current Medications Discontinued Medications Acetaminophen (Acetaminophen 325 Mg Tab) 650 mg PO Q4H PRN PRN Reason: fever/pain Albuterol/Ipratropium (Albuterol/Ipratropium 3.0-0.5 Mg/3 Ml Neb Soln) 3 ml NEB Q4HRRT PRN PRN Reason: Shortness Of Breath/wheezing Artificial Tears (Carboxymethylcellulose Sodium 0.5% Ophth Soln 0.4 Ml Ud Box Of 30) 0 each EYEBOTH BID [facility] Last Admin: 12/06/20 08:32 Dose: 1 applic Documented by: Brimonidine Tartrate (Brimonidine 0.15% Ophth Soln 5 Ml Bottle) 0 ml EYEBOTH QAM [facility] Last Admin: 12/06/20 08:31 Dose: Not Given Documented by: Dextrose/Water (50% Dextrose In Water 50 Ml Syringe) 50 ml IVPUSH ASDIRECTED PRN PRN Reason: Hypoglycemia Glucagon (Glucagon,Human Recombinant 1 Mg Vial) 1 mg IM ASDIRECTED PRN PRN Reason: Hypoglycemia Heparin Sodium (Porcine) (Heparin Sodium 5,000 Units/Ml Vial) 5,000 units SUBCUT Q8H [facility] Last Admin: 12/06/20 06:21 Dose: 5,000 units Documented by: Sodium Chloride (Normal Saline) 1,000 mls @ 999 mls/hr IV .Bolus ONE Stop: 12/01/20 11:17 Last Admin: 12/01/20 10:41 Dose: 999 mls/hr Documented by: Ceftriaxone Sodium/Dextrose 1 (gm/ Premix) 50 mls @ 100 mls/hr IV ONETIME ONE Stop: 12/01/20 11:38 Last Admin: 12/01/20 11:12 Dose: 100 mls/hr Documented by: Sodium Chloride (Normal Saline) 1,000 mls @ 999 mls/hr IV .Bolus ONE Stop: 12/01/20 12:44 Last Admin: 12/01/20 11:50 Dose: 999 mls/hr Documented by: Lactated Ringer's (Ringers, Lactated) 1,000 mls @ 125 mls/hr IV ASDIRECTED [facility] Last Admin: 12/03/20 07:26 Dose: 125 mls/hr Documented by: Piperacillin Sod/Tazobactam (Sod 3.375 gm/ Sodium Chloride) 50 mls @ 100 mls/hr IV Q8H [facility] Last Admin: 12/01/20 15:49 Dose: Not Given Documented by: Piperacillin Sod/Tazobactam (Sod 2.25 gm/ Sodium Chloride) 50 mls @ 100 mls/hr IV Q8H [facility] Last Admin: 12/02/20 09:23 Dose: 100 mls/hr Documented by: Vancomycin HCl 1.5 gm/ Premix 300 mls @ 200 mls/hr IV Q48H [facility] Last Admin: 12/03/20 15:35 Dose: 200 mls/hr Documented by: Sodium Chloride (Normal Saline) 500 mls @ 999 mls/hr IV .BOLUS [facility] Last Admin: 12/02/20 11:04 Dose: 999 mls/hr Documented by: Meropenem/Sodium Chloride 1 gm (/ Premix) 50 mls @ 100 mls/hr IV Q24H [facility] Last Admin: 12/04/20 11:28 Dose: 100 mls/hr Documented by: Lactated Ringer's (Ringers, Lactated) 1,000 mls @ 999 mls/hr IV .BOLUS ONE Stop: 12/02/20 13:08 Last Admin: 12/02/20 13:02 Dose: 999 mls/hr Documented by: Insulin Aspart (Insulin Aspart 100 Units/Ml 3 Ml Pen) 0 unit SUBCUT TIDAC [facility]; Protocol Last Admin: 12/06/20 08:30 Dose: 1 unit Documented by: Latanoprost (Latanoprost 0.005% Ophth Soln 2.5 Ml Bottle) 0 ml EYEBOTH BEDTIME [facility] Last Admin: 12/05/20 21:27 Dose: 1 drop Documented by: Levofloxacin (Levofloxacin 750 Mg Tab) 750 mg PO Q48H [facility] Last Admin: 12/05/20 12:08 Dose: 750 mg Documented by: Nystatin (Nystatin Topical Powder 15 Gm Bottle) 0 gm TOP TID PRN PRN Reason: RASH Last Admin: 12/03/20 01:00 Dose: 1 gm Documented by: Ondansetron HCl (Ondansetron 4 Mg/2 Ml Sdv) 4 mg IVPUSH Q4H PRN PRN Reason: Nausea/Vomiting Pantoprazole Sodium (Pantoprazole 40 Mg Vial) 40 mg IV Q24H [facility] Last Admin: 12/05/20 14:54 Dose: 40 mg Documented by: Quetiapine Fumarate (Quetiapine 100 Mg Tab) 200 mg PO QAM [facility] Last Admin: 12/06/20 08:36 Dose: 200 mg Documented by: Sertraline HCl (Sertraline 100 Mg Tab) 100 mg PO QAM [facility] Last Admin: 12/06/20 08:36 Dose: 100 mg Documented by: Sodium Chloride (Sodium Chloride 0.9% 10 Ml Syringe) 10 ml FLUSH ASDIRECTED PRN PRN Reason: Keep Vein Open Last Admin: 12/01/20 10:41 Dose: 10 ml Documented by: Sodium Chloride (Sodium Chloride 0.9% 2.5 Ml Syringe) 2.5 ml FLUSH ASDIRECTED PRN PRN Reason: Keep Vein Open Last Admin: 12/01/20 10:41 Dose: 2.5 ml Documented by: Tamsulosin HCl (Tamsulosin 0.4 Mg Cap.Er) 0.4 mg PO DAILY [facility] Last Admin: 12/02/20 10:24 Dose: 0.4 mg Documented by: Vancomycin HCl (Pharmacy To Dose - Vancomycin) 0 dose .XX ASDIRECTED KAR
== END 2020-12-06 10:25 | DRG 698 ==
LOC: MW.ED 09:38 → MW.MS 12:07
PROVIDERS: ADMIT Student in an Organized Health Care Education/Training Program; ATTEND Student in an Organized Health Care Education/Training Program
DX: T83.511A Infection and inflammatory reaction due to indwelling urethral catheter, initial encounter (principal); A41.51 Sepsis due to Escherichia coli [E. coli]; N17.9 Acute kidney failure, unspecified; I13.0 Hypertensive heart and chronic kidney disease with heart failure and stage 1 through stage 4 chronic kidney disease, or unspecified chronic kidney disease; E78.5 Hyperlipidemia, unspecified; N39.0 Urinary tract infection, site not specified; I50.9 Heart failure, unspecified; F03.90 Unspecified dementia, unspecified severity, without behavioral disturbance, psychotic disturbance, mood disturbance, and anxiety; E11.9 Type 2 diabetes mellitus without complications; Z66 Do not resuscitate; Y84.6 Urinary catheterization as the cause of abnormal reaction of the patient, or of later complication, without mention of misadventure at the time of the procedure; E86.0 Dehydration; I25.10 Atherosclerotic heart disease of native coronary artery without angina pectoris; L89.152 Pressure ulcer of sacral region, stage 2; D63.1 Anemia in chronic kidney disease; R53.1 Weakness; Z51.5 Encounter for palliative care; L89.602 Pressure ulcer of unspecified heel, stage 2; E11.22 Type 2 diabetes mellitus with diabetic chronic kidney disease; N18.9 Chronic kidney disease, unspecified; B96.20 Unspecified Escherichia coli [E. coli] as the cause of diseases classified elsewhere; Z95.5 Presence of coronary angioplasty implant and graft; K59.09 Other constipation; Z20.822 Contact with and (suspected) exposure to COVID-19; N40.1 Benign prostatic hyperplasia with lower urinary tract symptoms; R33.8 Other retention of urine; Z79.4 Long term (current) use of insulin; I25.2 Old myocardial infarction; Z87.440 Personal history of urinary (tract) infections; Y92.89 Other specified places as the place of occurrence of the external cause
CPT/HCPCS: 36415; 51702; 71045; 71045-26; 80048; 80053; 81001; 82272; 82947; 83605; 83735; 84100; 85025; 86850; 86900; 86901; 87040; 87077; 87086; 87088; 87186; 93005; 96365; 99285-25; 99291; A9270-GY; C9113; J0696; J1644; J1815-GY; J2185; J2543; J3370; J7030; J7040; J7120; U0002